=== PATIENT | male | born 1960 | race Caucasian/White ===

== ENCOUNTER 2022-05-07 21:23 | Inpatient (IN) ==
[2022-05-07 22:37] LABS: Appearance Urine Clear (Clear); Bacteria Urine Automated Negative (Negative); Bilirubin Urine 1+ (Negative); Blood Urine Negative (Negative); Color Urine Dark Yellow; Epithelial Cell Urine Auto >30 /lpf (0-5); Glucose Urine UA Negative (Negative); Ketones Urine 3+ (Negative); Leukocyte Esterase Urine Trace (Negative); Nitrite Urine Negative (Negative); Protein Urine 2+ (Negative); RBC Urine Automated 0-4 /hpf (0-4); Specific Gravity Urine 1.033 (1.000-1.030); Urobilinogen Urine Negative (Negative)
[2022-05-07 23:04] LABS: Amphetamines+Metham, Urine Neg (Neg); Barbiturates, Urine Neg (Neg); Benzodiazepine, Urine Neg (Neg); Cocaine, Urine Neg (Neg); MDMA (Ecstacy), Urine Neg (Neg); Methadone, Urine Neg (Neg); Opiate, Urine Neg (Neg); Phencyclidine, Urine Neg (Neg)
[2022-05-07 23:29] LABS: Basophils # (auto) 0.05 K/uL (0-0.2); Basophils % (auto) 0.3 %; Eosinophils # (auto) 0.14 K/uL (0-0.50); Eosinophils % (auto) 0.8 %; Hematocrit (blood only) 44.7 % (40.1-51.0); Hemoglobin 15.6 g/dl (14.0-18.0); Immature Granulocytes # (auto) 0.09 K/uL (0.00-0.02); Immature Granulocytes % (auto) 0.5 %; Lymphocytes # (auto) 3.28 K/uL (1.2-3.4); Lymphocytes % (auto) 19.1 %; Mean Corpuscular Hemoglobin 30.8 pg (25.0-34.0); Mean Corpuscular Hgb Conc 34.9 g/dL (32.0-36.0); Mean Corpuscular Volume 88.2 fL (80.0-100.0); Monocytes % (auto) 7.6 %; Neutrophils # (auto) 12.33 K/uL (1.4-6.5); Neutrophils % (auto) 71.7 %; Platelet Count 234 K/uL (130-400); RDW Coefficient of Variation 12.8 % (11.5-14.5); RDW Standard Deviation 41.1 fL (36.4-46.3); Red Blood Count 5.07 M/uL (4.63-6.08); White Blood Count 17.19 K/ul (4.8-10.8)
[2022-05-07 23:52] LABS: Alanine Aminotransferase 42 U/L (7-52); Albumin Globulin Ratio 1.6 (0.9-2); Albumin Level 4.4 gm/dl (3.4-5.0); Alkaline Phosphatase 57 U/L (34-104); Anion Gap 11 (3-11); Aspartate Aminotransferase 33 U/L (13-39); BUN Creatinine Ratio 16.7 (10-20); Bilirubin,Total 1.4 mg/dl (0.2-1.0); Blood Urea Nitrogen 13 mg/dl (6-23); Calcium 9.4 mg/dl (8.5-10.1); Carbon Dioxide 23 mmol/L (21-32); Chloride 101 mmol/L (98-107); Est GFR (African American) 112.1 ml/min; Est GFR (Non-African American) 96.7 ml/min; Globulin 2.8 gm/dl (2.5-4.0); Glucose 162 mg/dl (70-99(Fasting)); Potassium 3.5 mmol/L (3.5-5.1); Sodium 135 mmol/L (136-145); Total Protein 7.2 gm/dl (6.0-8.3)
[2022-05-07 23:53] LABS: Acetaminophen < 3 ug/ml (10-30); Salicylate < 3.0 mg/dl (3.0-30)
[2022-05-08] MEDS ORDERED: SODIUM CHLORIDE 0.9% 1000ML 1,000 ML IV ONE (00:25)
[2022-05-08] MEDS ORDERED: AMOXICILLIN/CLAVULANATE 875 MG TAB PO ONE (00:25)
--- NOTE | 2022-05-08 00:36 | Emergency Department Note ---
Impression & Plan Depression, Leukocytosis, Laceration of knee, right ED Provider Note NAME: JERARDO VELAZQUEZ AGE: 62 SEX: M ARRIVES VIA: Ambulance INFORMANT: Patient ED PROVIDER(S): Derik Schulte MD CHIEF COMPLAINT: Depression PLAN: Disposition: Inpatient psychiatric bed search. MEDICAL DECISION MAKING: The patient is a pleasant 62-year-old gentleman with a past medical history of hypertension, hyperlipidemia, GERD who presents to the emergency department via EMS for evaluation of depression that he reports has been ongoing for the past several weeks and he felt worse today where he he presented to the [facility] to see if he could be admitted. He denies active SI/plan but reports he is feeling hopeless. His also reported to our psychiatric case supervisor that he has been getting worse and feels he would benefit from psychiatric admission. He sow s a remote history in 2000 of psychiatric admission for depression but had been since taken off of his medications per his . 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 Since this episode she reports she has become paranoid that people are watching him and that the police are going to arrest him for stealing from the school which she is not. Of note, the patient was seen the emergency department yesterday after he became concerned when his reported chest pain and ran out to the road to seek help but fell onto his knee suffering a laceration. CT head and CXR were negative. His knee x-ray showed no fracture but suffered a laceration to his right knee that was repaired. Given the site overlying his knee with tension he was placed in a knee immobilizer to prevent dehiscence until his wound is better healed. He denies fevers, chills, cough, congestion, GI or symptoms. On arrival patient is no acute distress, afebrile with stable vital signs. He has a melancholy affect. He denies active SI/HI. He reports he feels depressed and hopeless. He is not sure what he needs. Examination of the patient's right knee from removal of the knee immobilizer demonstrates recently repaired knee laceration with sutures intact. There is scant localized erythema but no significant warmth tenderness and no discharge. There is no significant edema adjacent to this area. WBC 17.19K nonspecific and certainly could be related to a component of hemoconcentration as well as acute phase reactant given the patient's recent fall/laceration. H/H and platelets within normal limits. Chemistry without metabolic acidosis. Electrolytes and LFTs without significant abnormality. TSH within normal limits. UA without evidence of infection. 3+ ketones are noted consistent with patient's clinically dry appearance. Drug screen was negative. COVID-19 RNA, BUSHRA test was negative. Given the patient's leukocytosis we did agree to proceed with saline lock and IV fluid hydration with plan to repeat CBC thereafter. Additionally chest x-ray was ordered. Given the patient's laceration which did have gravel contamination but was thoroughly cleaned will treat with prophylactic Augmentin at this time. If not for the patient's depression management of his laceration and even follow-up for his leukocytosis would be considered outpatient management. Following IV fluid hydration the patient's CBC was repeated and leukocytosis did improve to 13.5 thus confirming suspicion of a component of hemoconcentration. The patient was medically cleared. Referrals pending. The patient was signed out to Dr. Cuevas at change of shift. Observation Note: Start Time: 2139 Reason: Patient with PMHx of DM underwent ED Observation for depression/bedsearch. Fam Hx: Non-contributory SocHx: See Below Assessment(s): The patient was medically cleared per above. Disposition and Total Time: See final disposition note. Triage Nursing notes reviewed and agree them. Prior medical records reviewed Differential diagnosis: Mood disorder, infection, hypoglycemia, electrolyte abnormalities, cardiac sources, intracerebral event, toxicologic, trauma, neurologic, as well as other pathologies. ER treatment provided: See below. Laboratory studies: See below Imaging studies: See below HPI: The patient is a pleasant 62-year-old gentleman with a past medical history of hypertension, hyperlipidemia, GERD who presents to the emergency department via EMS for evaluation of depression that he reports has been ongoing for the past several weeks and he felt worse today where he he presented to the [facility] to see if he could be admitted. He denies active SI/plan but reports he is feeling hopeless. His also reported to our psychiatric case supervisor that he has been getting worse and feels he would benefit from psychiatric admission. He has a remote history in 2000 of psychiatric admission for depression but had been since taken off of his medications per his . 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 Since this episode she reports she has become paranoid that people are watching him and that the police are going to arrest him for stealing from the school which she is not. Of note, the patient was seen the emergency department yesterday after he became concerned when his reported chest pain and ran out to the road to seek help but fell onto his knee suffering a laceration. CT head and CXR were negative. His knee x-ray showed no fracture but suffered a laceration to his right knee that was repair ed. Given the site overlying his knee with tension he was placed in a knee immobilizer to prevent dehiscence until his wound is better healed. He denies fevers, chills, cough, congestion, GI or symptoms. ROS: See above HPI for pertinent positives & negatives. A total of 10 systems reviewed and were otherwise negative. VITALS:See Below PHYSICAL EXAMINATION: GENERAL: Awake, alert, melancholy-appearing, in no distress HENT: Normocephalic, atraumatic. Oropharynx unremarkable. EYES: Normal conjunctiva. Sclera non-icteric. NECK: Supple. No nuchal rigidity. FROM. No JVD. RESPIRATORY: Clear to auscultation. CARDIAC: Regular rate, normal rhythm. Extremities warm and well perfused. Pulses equal. ABDOMEN: Soft, non-distended. No tenderness to palpation. No rebound or guarding. No masses. RECTAL: Deferred. MUSCULOSKELETAL: Chest examination reveals no tenderness. The back is symmetrical on inspection without obvious abnormality. There is no CVA tenderness to palpation. No joint edema. LOWER EXTREMITIES: Calves are equal size bilaterally and non-tender. No edema. No discoloration. NEURO: Normal sensorium. No sensory or motor deficits noted. SKIN: No rash or jaundice noted. Right knee with recently repaired knee laceration with sutures intact. There is scant localized erythema but no significant warmth tenderness and no discharge. There is no significant edema adjacent to this area. PSYCH: Reports depression and hopelessness. Denies SI/HI at this time. Denies auditory hallucinations. reports paranoid behaviors. Derik Schulte MD Past Med/Surg History Medical History GI bleeding HLD (hyperlipidemia) HTN (hypertension) Surgical History No pertinent past surgical history Family History Other Family history non-contributory Social History Smoking Status: Never smoker Tobacco Type: Cigarettes Hx Alcohol Use: Yes Hx Substance Use: No Preferred Language: [place] current occupational status: employed Feels Safe at Home: Yes Allergies Allergies Allergy/AdvReac Type Severity Reaction Status Date / Time No Known Allergies Allergy Verified 05/02/22 23:06 Home Meds Home Medications Medication Instructions Recorded Confirmed aspirin 81 mg tablet,delayed 81 mg PO DAILY 05/02/22 05/08/22 release atorvastatin 40 mg tablet 40 mg PO DAILY 05/02/22 05/08/22 eszopiclone 2 mg tablet 2 mg PO HS PRN Insomnia 05/02/22 05/08/22 fluoxetine 10 mg capsule 10 mg PO QAM 05/02/22 05/08/22 fluticasone propionate 50 2 spray intranasal DAILY PRN 05/02/22 05/08/22 mcg/actuation nasal Congestion spray,suspension lisinopril 10 mg tablet 10 mg PO DAILY 05/02/22 05/08/22 metformin 500 mg tablet,extended 2,000 mg PO QAM 05/02/22 05/08/22 release 24 hr multivitamin 1 tab PO DAILY 05/02/22 05/08/22 omeprazole 20 mg capsule,delayed 20 mg PO DAILYBB 05/02/22 05/08/22 release semaglutide 1 mg/dose (4 mg/3 mL) 0.5 mg subcut WK 05/02/22 05/08/22 subcutaneous pen injector (Ozempic) sitagliptin 100 mg tablet (Januvia) 100 mg PO DAILY 05/02/22 05/08/22 trazodone 50 mg tablet 50 mg PO HS 05/02/22 05/08/22 Previous Rx's Medication Instructions Recorded meclizine 25 mg tablet 25 mg PO TID PRN dizziness #30 tabs 05/03/22 hydroxyzine pamoate 50 mg capsule 50 mg PO Q8H PRN sleep/anxiety #15 05/05/22 (Vistaril) caps amoxicillin 875 mg-potassium 1 tab PO BID #14 tabs 05/08/22 clavulanate 125 mg tablet Results & Data (ED) Vital Signs Vital Signs - 24 hr 05/07/22 21:33 05/07/22 21:33 05/07/22 23:43 Temperature 36.9 C 36.9 C Temperature Source Oral Oral Pulse Rate 98 H Pulse Rate [Left Finger] 98 H 94 H Pulse Rhythm Regular Pulse Rhythm [Left Finger] Regular Pulse Strength [Left Finger] Normal Respiratory Rate 18 18 18 Respiratory Effort / Characteristics Non-Labored Spontaneous Non-Labored Spontaneous Respiratory Depth Normal Normal Blood Pressure 173/99 H Blood Pressure [Left Arm] 173/99 H 151/81 H Blood Pressure Mean 123 Blood Pressure Mean [Left Arm] 123 104 Blood Pressure Position Sitting Blood Pressure Position [Left Arm] Sitting Pulse Oximetry 96 96 97 Oxygen Delivery Method Room Air Room Air Room Air Sepsis Recent Fever Within 48 Hours No Sepsis New/Unexplained Change in Mental Status N/A Sepsis Action Taken by Nursing No Action Required 05/08/22 04:00 05/08/22 04:07 Temperature 37.3 C Temperature Source Oral Pulse Rate Pulse Rate [Left Finger] 80 Pulse Rhythm Pulse Rhythm [Left Finger] Pulse Strength [Left Finger] Respiratory Rate 18 Respiratory Effort / Characteristics Non-Labored Spontaneous Respiratory Depth Normal Blood Pressure Blood Pressure [Left Arm] 156/88 H Blood Pressure Mean Blood Pressure Mean [Left Arm] 110 Blood Pressure Position Blood Pressure Position [Left Arm] Pulse Oximetry 95 Oxygen Delivery Method Room Air Room Air Sepsis Recent Fever Within 48 Hours Sepsis New/Unexplained Change in Mental Status Sepsis Action Taken by Nursing Laboratory Data Attestation: I reviewed the patient's lab results. Result diagrams: 05/08/22 01:55 05/07/22 22:35 Lab Results 05/07/22 05/07/22 05/07/22 Range/Units 22:18 22:18 22:35 WBC 17.19 H (4.8-10.8) K/ul RBC 5.07 (4.63-6.08) M/uL Hgb 15.6 (14.0-18.0) g/dl Hct 44.7 (40.1-51.0) % MCV 88.2 (80.0-100.0) fL MCH 30.8 (25.0-34.0) pg MCHC 34.9 (32.0-36.0) g/dL RDW Std Deviation 41.1 (36.4-46.3) fL RDW Coeff of Janes 12.8 (11.5-14.5) % Plt Count 234 (130-400) K/uL MPV 10.0 (9.4-12.4) fL Immature Gran % (Auto) 0.5 % Neut % (Auto) 71.7 % Lymph % (Auto) 19.1 % [place] % (Auto) 7.6 % Eos % (Auto) 0.8 % Baso % (Auto) 0.3 % Neut # (Auto) 12.33 H (1.4-6.5) K/uL Lymph # (Auto) 3.28 (1.2-3.4) K/uL [place] # (Auto) 1.30 H (0.24-0.82) K/uL Eos # (Auto) 0.14 (0-0.50) K/uL Baso # (Auto) 0.05 (0-0.2) K/uL Immature Gran # (Auto) 0.09 H (0.00-0.02) K/uL Sodium (136-145) mmol/L Potassium (3.5-5.1) mmol/L Chloride (98-107) mmol/L Carbon Dioxide (21-32) mmol/L Anion Gap (3-11) BUN (6-23) mg/dl Creatinine (0.6-1.4) mg/dl Est Cr Clr Drug Dosing Est GFR ( Amer) ml/min Est GFR (Non-Af Amer) ml/min BUN/Creatinine Ratio (10-20) Glucose (70-99(Fasting)) mg/dl Calcium (8.5-10.1) mg/dl Total Bilirubin (0.2-1.0) mg/dl AST (13-39) U/L ALT (7-52) U/L Alkaline Phosphatase (34-104) U/L Total Protein (6.0-8.3) gm/dl Albumin (3.4-5.0) gm/dl Globulin (2.5-4.0) gm/dl Albumin/Globulin Ratio (0.9-2) TSH (0.300-4.500) uIu/ml Urine Color Dark Yellow Urine Appearance Clear (Clear) Urine pH 6.0 (4.5-7.5) Ur Specific [place] 1.033 H (1.000-1.030) Urine Protein 2+ H (Negative) Urine Glucose (UA) Negative (Negative) Urine Ketones 3+ H (Negative) Urine Blood Negative (Negative) Urine Nitrite Negative (Negative) Urine Bilirubin 1+ H (Negative) Urine Urobilinogen Negative (Negative) Ur Leukocyte Esterase Trace H (Negative) Urine WBC (Auto) 1-5 (0-5) /hpf Urine RBC (Auto) 0-4 (0-4) /hpf U Hyaline Cast (Auto) 10-30 H (0-5) /lpf U Epithel Cells (Auto) >30 H (0-5) /lpf Urine Bacteria (Auto) Negative (Negative) Salicylates (3.0-30) mg/dl Urine Opiates Screen Neg (Neg) Ur Methadone, Qual Neg (Neg) Acetaminophen (10-30) ug/ml Urine Barbiturates Neg (Neg) Ur Phencyclidine (PCP) Neg (Neg) U Amphetamin/Meth Scrn Neg (Neg) MDMA (Ecstasy) Screen Neg (Neg) U Benzodiazepines Scrn Neg (Neg) Ur Cocaine Metabolite Neg (Neg) U Marijuana (THC) Screen Neg (Neg) Ethyl Alcohol mg/dL (<10.0) mg/dl SARS-CoV-2, RNA, NAAT (NEGATIVE) 05/07/22 05/07/22 05/07/22 Range/Units 22:35 22:35 22:35 WBC (4.8-10.8) K/ul RBC (4.63-6.08) M/uL Hgb (14.0-18.0) g/dl Hct (40.1-51.0) % MCV (80.0-100.0) fL MCH (25.0-34.0) pg MCHC (32.0-36.0) g/dL RDW Std Deviation (36.4-46.3) fL RDW Coeff of Janes (11.5-14.5) % Plt Count (130-400) K/uL MPV (9.4-12.4) fL Immature Gran % (Auto) % Neut % (Auto) % Lymph % (Auto) % [place] % (Auto) % Eos % (Auto) % Baso % (Auto) % Neut # (Auto) (1.4-6.5) K/uL Lymph # (Auto) (1.2-3.4) K/uL [place] # (Auto) (0.24-0.82) K/uL Eos # (Auto) (0-0.50) K/uL Baso # (Auto) (0-0.2) K/uL Immature Gran # (Auto) (0.00-0.02) K/uL Sodium 135 L (136-145) mmol/L Potassium 3.5 (3.5-5.1) mmol/L Chloride 101 (98-107) mmol/L Carbon Dioxide 23 (21-32) mmol/L Anion Gap 11 (3-11) BUN 13 (6-23) mg/dl Creatinine 0.78 (0.6-1.4) mg/dl Est Cr Clr Drug Dosing Not Reportable Est GFR ( Amer) 112.1 ml/min Est GFR (Non-Af Amer) 96.7 ml/min BUN/Creatinine Ratio 16.7 (10-20) Glucose 162 H (70-99(Fasting)) mg/dl Calcium 9.4 (8.5-10.1) mg/dl Total Bilirubin 1.4 H (0.2-1.0) mg/dl AST 33 (13-39) U/L ALT 42 (7-52) U/L Alkaline Phosphatase 57 (34-104) U/L Total Protein 7.2 (6.0-8.3) gm/dl Albumin 4.4 (3.4-5.0) gm/dl Globulin 2.8 (2.5-4.0) gm/dl Albumin/Globulin Ratio 1.6 (0.9-2) TSH 1.069 (0.300-4.500) uIu/ml Urine Color Urine Appearance (Clear) Urine pH (4.5-7.5) Ur Specific [place] (1.000-1.030) Urine Protein (Negative) Urine Glucose (UA) (Negative) Urine Ketones (Negative) Urine Blood (Negative) Urine Nitrite (Negative) Urine Bilirubin (Negative) Urine Urobilinogen (Negative) Ur Leukocyte Esterase (Negative) Urine WBC (Auto) (0-5) /hpf Urine RBC (Auto) (0-4) /hpf U Hyaline Cast (Auto) (0-5) /lpf U Epithel Cells (Auto) (0-5) /lpf Urine Bacteria (Auto) (Negative) Salicylates < 3.0 L (3.0-30) mg/dl Urine Opiates Screen (Neg) Ur Methadone, Qual (Neg) Acetaminophen < 3 L (10-30) ug/ml Urine Barbiturates (Neg) Ur Phencyclidine (PCP) (Neg) U Amphetamin/Meth Scrn (Neg) MDMA (Ecstasy) Screen (Neg) U Benzodiazepines Scrn (Neg) Ur Cocaine Metabolite (Neg) U Marijuana (THC) Screen (Neg) Ethyl Alcohol mg/dL (<10.0) mg/dl SARS-CoV-2, RNA, NAAT (NEGATIVE) 05/07/22 05/07/22 05/08/22 Range/Units 22:35 Unknown 01:55 WBC 13.53 H (4.8-10.8) K/ul RBC 4.62 L (4.63-6.08) M/uL Hgb 14.3 (14.0-18.0) g/dl Hct 40.5 (40.1-51.0) % MCV 87.7 (80.0-100.0) fL MCH 31.0 (25.0-34.0) pg MCHC 35.3 (32.0-36.0) g/dL RDW Std Deviation 40.7 (36.4-46.3) fL RDW Coeff of Janes 12.8 (11.5-14.5) % Plt Count 212 (130-400) K/uL MPV 10.0 (9.4-12.4) fL Immature Gran % (Auto) 0.4 % Neut % (Auto) 68.0 % Lymph % (Auto) 21.8 % [place] % (Auto) 7.7 % Eos % (Auto) 1.7 % Baso % (Auto) 0.4 % Neut # (Auto) 9.20 H (1.4-6.5) K/uL Lymph # (Auto) 2.95 (1.2-3.4) K/uL [place] # (Auto) 1.04 H (0.24-0.82) K/uL Eos # (Auto) 0.23 (0-0.50) K/uL Baso # (Auto) 0.06 (0-0.2) K/uL Immature Gran # (Auto) 0.05 H (0.00-0.02) K/uL Sodium (136-145) mmol/L Potassium (3.5-5.1) mmol/L Chloride (98-107) mmol/L Carbon Dioxide (21-32) mmol/L Anion Gap (3-11) BUN (6-23) mg/dl Creatinine (0.6-1.4) mg/dl Est Cr Clr Drug Dosing Est GFR ( Amer) ml/min Est GFR (Non-Af Amer) ml/min BUN/Creatinine Ratio (10-20) Glucose (70-99(Fasting)) mg/dl Calcium (8.5-10.1) mg/dl Total Bilirubin (0.2-1.0) mg/dl AST (13-39) U/L ALT (7-52) U/L Alkaline Phosphatase (34-104) U/L Total Protein (6.0-8.3) gm/dl Albumin (3.4-5.0) gm/dl Globulin (2.5-4.0) gm/dl Albumin/Globulin Ratio (0.9-2) TSH (0.300-4.500) uIu/ml Urine Color Urine Appearance (Clear) Urine pH (4.5-7.5) Ur Specific [place] (1.000-1.030) Urine Protein (Negative) Urine Glucose (UA) (Negative) Urine Ketones (Negative) Urine Blood (Negative) Urine Nitrite (Negative) Urine Bilirubin (Negative) Urine Urobilinogen (Negative) Ur Leukocyte Esterase (Negative) Urine WBC (Auto) (0-5) /hpf Urine RBC (Auto) (0-4) /hpf U Hyaline Cast (Auto) (0-5) /lpf U Epithel Cells (Auto) (0-5) /lpf Urine Bacteria (Auto) (Negative) Salicylates (3.0-30) mg/dl Urine Opiates Screen (Neg) Ur Methadone, Qual (Neg) Acetaminophen (10-30) ug/ml Urine Barbiturates (Neg) Ur Phencyclidine (PCP) (Neg) U Amphetamin/Meth Scrn (Neg) MDMA (Ecstasy) Screen (Neg) U Benzodiazepines Scrn (Neg) Ur Cocaine Metabolite (Neg) U Marijuana (THC) Screen (Neg) Ethyl Alcohol mg/dL < 10.0 (<10.0) mg/dl SARS-CoV-2, RNA, NAAT NEGATIVE (NEGATIVE) Administered Medications Discontinued Medications Amoxicillin/Clavulanate Potassium (Amoxicillin/Clavulanate 875 Mg Tab) 1 tab PO NOW ONE Stop: 05/08/22 00:26 Last Admin: 05/08/22 00:34 Dose: 1 tab Documented By: DEE Sodium Chloride (Nss 1000ml) 1,000 mls @ 999 mls/hr IV .Q1H1M ONE Stop: 05/08/22 01:25 Last Infusion: 05/08/22 01:41 Dose: 0 mls/hr Documented By: Admin: 05/08/22 00:34 Dose: 999 mls/hr Documented By: DEE Imaging Data My Impression: CXR: No acute cardiopulmonary process per my preliminary review. Discharge Plan Visit Data Chief Complaint: Mental Health Evaluation ED Provider: Derik Schulte Discharge Problem: Depression, Leukocytosis, Laceration of knee, right Patient Disposition: Admitted As Inpatient Discharge Instructions Interventions: ED Discharge Assessment Last Done: 05/08/22 04:07 : Laceration of knee, right Qualifiers: Encounter type: subsequent encounter Qualified Code(s): S81.011D - Laceration without foreign body, right knee, subsequent encounter
[2022-05-08 02:09] LABS: Basophils # (auto) 0.06 K/uL (0-0.2); Basophils % (auto) 0.4 %; Eosinophils # (auto) 0.23 K/uL (0-0.50); Eosinophils % (auto) 1.7 %; Hematocrit (blood only) 40.5 % (40.1-51.0); Hemoglobin 14.3 g/dl (14.0-18.0); Immature Granulocytes # (auto) 0.05 K/uL (0.00-0.02); Immature Granulocytes % (auto) 0.4 %; Lymphocytes # (auto) 2.95 K/uL (1.2-3.4); Lymphocytes % (auto) 21.8 %; Mean Corpuscular Hgb Conc 35.3 g/dL (32.0-36.0); Mean Corpuscular Volume 87.7 fL (80.0-100.0); Monocytes # (auto) 1.04 K/uL (0.24-0.82); Monocytes % (auto) 7.7 %; Platelet Count 212 K/uL (130-400); RDW Coefficient of Variation 12.8 % (11.5-14.5); RDW Standard Deviation 40.7 fL (36.4-46.3); Red Blood Count 4.62 M/uL (4.63-6.08); White Blood Count 13.53 K/ul (4.8-10.8)
[2022-05-08] MEDS ORDERED: MECLIZINE HCL 25 MG TAB PO PRN ×2 (02:27→06:09)
[2022-05-08] MEDS ORDERED: FLUTICASONE PROPIONATE NA SPR 16 GM BTL PRN (02:27)
[2022-05-08] MEDS ORDERED: hydrOXYzine HCl 25 MG TAB PO PRN ×2 (02:27→03:51)
[2022-05-08] MEDS ORDERED: ALUMINUM/MAGNESIUM SUSP 30 ML UDC PO PRN (03:51)
[2022-05-08] MEDS ORDERED: BISMUTH SUBSALICYLATE LIQD 236 ML PO PRN (03:51)
[2022-05-08] MEDS ORDERED: MAGNESIUM HYDROXIDE SUSP 30 ML UDC PO PRN (03:51)
[2022-05-08] MEDS ORDERED: SODIUM CHLORIDE 0.65% NA SOLN 45 ML (OCEAN) PRN (03:51)
[2022-05-08] MEDS ORDERED: NON-FORMULARY MEDICATION (Omeprazole 20 mg capsule,delayed release(DR/EC)) PO SCH (06:30)
[2022-05-08] MEDS: PANTOprazole 40 MG TAB PO SCH (08:18)
--- NOTE | 2022-05-08 08:34 | Emergency Department Note ---
ED Visit Note Patient signed out to me at change of shift from Dr. Schulte. Patient here with depression, passive suicidal ideation, and prior history of mental health treatment. Patient was found to also have accompanying paranoid behavior today. At time of signout patient was medically cleared, and was awaiting final disposition. Overnight patient was accepted for inpatient mental health treatment at [address] signed by me. . : Laceration of knee, right Qualifiers: Encounter type: subsequent encounter Qualified Code(s): S81.011D - Laceration without foreign body, right knee, subsequent encounter
[2022-05-08] MEDS: lisinopril 10 MG TAB PO SCH (08:41)
[2022-05-08] MEDS: ATORVASTATIN 40 MG TAB PO SCH (08:42)
[2022-05-08] MEDS: ASPIRIN 81 MG ECTAB PO SCH (08:42)
[2022-05-08] MEDS: MULTIVITAMIN TAB PO SCH (08:42)
[2022-05-08] MEDS: SITagliptin PHOSPHATE 100 MG TAB PO SCH (08:42)
[2022-05-08] MEDS: AMOXICILLIN/CLAVULANATE 875 MG TAB PO SCH ×2 (08:42→17:13)
[2022-05-08] MEDS ORDERED: FLUoxetine HCL 10 MG CAP PO SCH (09:00)
[2022-05-08] MEDS ORDERED: ATORVASTATIN 40 MG TAB PO SCH (09:00)
[2022-05-08] MEDS ORDERED: ASPIRIN 81 MG ECTAB PO SCH (09:00)
[2022-05-08] MEDS ORDERED: AMOXICILLIN/CLAVULANATE 875 MG TAB PO SCH (09:00)
[2022-05-08] MEDS ORDERED: lisinopril 10 MG TAB PO SCH (09:00)
[2022-05-08] MEDS ORDERED: SITagliptin PHOSPHATE 100 MG TAB PO SCH (09:00)
[2022-05-08] MEDS ORDERED: metFORMIN HCL ER 500 MG TABCR PO SCH ×2 (09:00→21:00)
[2022-05-08] MEDS ORDERED: NON-FORMULARY MEDICATION (Multivitamin Tablet) PO SCH (09:00)
--- NOTE | 2022-05-08 09:38 | XRay Report ---
SINGLE VIEW CHEST CLINICAL HISTORY: Leukocytosis FINDINGS: 2 AP, portable, semierect chest radiographs are compared to study dated 05/02/2022. The car diomediastinal silhouette is top normal for projection. The lungs and pleural spaces are clear. No pn eumothorax is seen. The bony thorax is grossly intact. A metallic foreign body is seen in the left up per quadrant abdominal wall. IMPRESSION: No active disease in the chest. ACT 112: Negative or not required by law. Electronically signed by: Ian Hui M.D. 05/08/2022 9:37 AM
--- NOTE | 2022-05-08 12:44 | History & Physical ---
Date of Service May 08, 2022 Impression / Recommendations Impression 62 yo male with a remote history of depression presents with several week history of personality change, depressed mood, impulsive anger, and ruminations over items he has taken from the trash at school which has escalated to paranoia. It is our understanding he has to park in a set area and his coming/going from school are being monitored due to safety protocol with coworker following a 2 week leave but there is no active legal charge. MNPR given wound, hx of possible HI in community, disorganization. (1) Depression: (2) Laceration of knee: (3) Leukocytosis: Plan The patient was admitted to the [facility] ([facility] unit) on q15 min checks (behavioral with suicide precautions) for safety. The patient will participate in group, recreational, and milieu therapies and will be offered additional individual and family sessions as clinically appropriate. Risks/benefits/alternatives were reviewed re: antipsychotics for mood and/or psychosis. Psychotic depression vs. mixed episode. Discussion included but was not limited to metabolic side effects, risks of TD and suicidal thoughts. There were no abnormal motor movements at baseline. Fasting lipid panel and HgbA1c ordered for baseline monitoring and will repeat CBC. Continue course of prophylactic Augmentin as per ED. Patient agreed to a trial of Seroquel 50 mg qhs with 12.5 mg q 6 prn daytime anxiety with likely titration. Will add B12 and folate in case early cognitive change and consider additional head imaging as outpatient. 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 Chief Complaint "I don't know why I needed those things but they were just going to throw them away and now I ruined my 's chcf." History of Present Illness Mr. Rodarte presented to the ED yesterday pm on referral from the [facility]. He was described as ED CM as tangential/difficult to follow. Apparently had a remote history of depression but feels this episode is more mixed, he feels compelled to buy things he doesn't need (motorcycle parts) or to take items that would otherwise be thrown away from the school. "I don't know why I make things up." to make up for his guilt as he is paranoid and thinks that he is in legal trouble with school ( confirms he is not). 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 He was placed on a 2 week forced leave following a verbal altercation with a coworker. It's unclear if he made a direct threat but mentioned his firearms and he does own an assault rifle. He denies intent or plan to harm himself or others but adds "I just don't understand what is going on." He has endorsed poor sleep, appetite, feeling hopeless, poor concentration and is not attending to his ADLs, diabetes routine. He is currently ambulating with crutches (not allowed on unit) and wearing a knee immobilizer as he has 12+ sutures in his knee from a fall 2 days prior to admission. He states he got "so worked up that I headed outside and just went down." Past Psychiatric History Current Psychiatric Diagnosis: MDD Outpatient Services: none currently Previous Psych Admissions: [facility] 20 years ago+ for depression Do You Have Access To A Gun?: Yes (collects guns) History of Previous Suicide Attempt: No Past Medication Trials: unsure, took Prozac 10 mg for 2 weeks recently and stopped as "didn't help", trazodone, Lunesta. Allergies Allergy/AdvReac Type Severity Reaction Status Date / Time No Known Allergies Allergy Verified 05/02/22 23:06 Home Medications Medication Instructions Recorded Confirmed Type aspirin 81 mg tablet,delayed 81 mg PO DAILY 05/02/22 05/08/22 History release atorvastatin 40 mg tablet 40 mg PO DAILY 05/02/22 05/08/22 History eszopiclone 2 mg tablet 2 mg PO HS PRN Insomnia 05/02/22 05/08/22 History fluoxetine 10 mg capsule 10 mg PO QAM 05/02/22 05/08/22 History fluticasone propionate 50 2 spray intranasal DAILY PRN 05/02/22 05/08/22 History mcg/actuation nasal Congestion spray,suspension lisinopril 10 mg tablet 10 mg PO DAILY 05/02/22 05/08/22 History metformin 500 mg tablet,extended 2,000 mg PO QAM 05/02/22 05/08/22 History release 24 hr multivitamin 1 tab PO DAILY 05/02/22 05/08/22 History omeprazole 20 mg capsule,delayed 20 mg PO DAILYBB 05/02/22 05/08/22 History release semaglutide 1 mg/dose (4 mg/3 mL) 0.5 mg subcut WK 05/02/22 05/08/22 History subcutaneous pen injector (Ozempic) sitagliptin 100 mg tablet (Januvia) 100 mg PO DAILY 05/02/22 05/08/22 History trazodone 50 mg tablet 50 mg PO HS 05/02/22 05/08/22 History meclizine 25 mg tablet 25 mg PO TID PRN dizziness #30 tabs 05/03/22 05/08/22 Rx hydroxyzine pamoate 50 mg capsule 50 mg PO Q8H PRN sleep/anxiety #15 05/05/22 05/08/22 Rx (Vistaril) caps amoxicillin 875 mg-potassium 1 tab PO BID #14 tabs 05/08/22 Rx clavulanate 125 mg tablet Family History Family History of: Doesn't Know Family Mental Health History Comment: found brother age 9 Alcohol History Hx of Alcohol Use Over the Past 12 Months: Yes (1-2 beers per year) Smoking Use Have You Smoked or Used Tobacco Products in the Last 30 Days: Yes tobacco type: e-cigarettes Smoking Status: Current every day smoker Smoking packs per day: 2 Substance History Hx of Prescription Med Misuse Over the Past 12 Months: No Hx of Over the Counter Med Misuse Over the Past 12 Months: No Hx of Inhalent Misuse Over the Past 12 Months: No Hx of Organic Substance Use Over the Past 12 Months: No Hx of Illegal Substances/Street Drug Use Over Past 12 Months: Yes (THC) Problems as a Result of Past Substance Use: Job Loss, Relationships Ended and Attempted Suicide Personal History Living Arrangements: Home Highest Grade Completed: Did Not Graduate High School 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 Marital Status: Number Of Children: 2 Beliefs That Will Affect Care: Anabaptist Current Legal Problems: No Patient History Medical History GI bleeding HLD (hyperlipidemia) HTN (hypertension) Surgical History No pertinent past surgical history Family History Other Family history non-contributory Social History Smoking Status: Current every day smoker Tobacco Type: Cigarettes Hx Alcohol Use: Yes Hx Substance Use: No Preferred Language: Slovenian Communication Ability: Effective 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: No Beliefs That Will Affect Care: Anabaptist current occupational status: employed Feels Safe at Home: Yes Assistive Devices: Brace/Splint/Immobilizer Review of Systems Review of Systems: All systems reviewed & are unremarkable except as noted in HPI & below Physical Exam Psychiatric: Orientation: alert and oriented x 3 Apperance: appropriately groomed Eye Contact: + fair eye contact Motor Behavior: no abnormal motor movements Speech: normal rate/rhythm/volume of speech Affect: + depressed affect Mood: + depressed mood Thought Process: + circumstantial thought process and + tangential thought process Thought Content: + preoccupation and + paranoid Suicidal Thoughts: denies suicidal thoughts Homicidal Thoughts: denies homicidal thoughts Hallucinations: no auditory hallucinations and no visual hallucinations Cognition: language grossly intact; + attention not intact Estimated Intelligence: consistent with education level Insight: + limited insight Judgement: + limited judgement Vital Signs (Past 24 Hours): Last Vital Signs Temp 36.9 C 05/08/22 06:34 Pulse 96 H 05/08/22 06:37 Resp 18 05/08/22 06:34 BP 150/91 H 05/08/22 06:37 Pulse Ox 99 05/08/22 04:13 O2 Del Method 05/08/22 04:13 O2 Flow Rate 19 05/08/22 04:13 Exam Statement: A physical exam was performed in the ED by Dr. Schulte for the purposes of medical clearance. I accept that physical as correct and adequate for the purposes of the inpatient physical exam. Results & Data ([facility]) Laboratory Results Laboratory Results - last 24 hr 05/07/22 05/07/22 05/07/22 22:18 22:18 22:35 WBC 17.19 H RBC 5.07 Hgb 15.6 Hct 44.7 MCV 88.2 MCH 30.8 MCHC 34.9 RDW Std Deviation 41.1 RDW Coeff of Janes 12.8 Plt Count 234 MPV 10.0 Immature Gran % (Auto) 0.5 Neut % (Auto) 71.7 Lymph % (Auto) 19.1 Marshall % (Auto) 7.6 Eos % (Auto) 0.8 Baso % (Auto) 0.3 Neut # (Auto) 12.33 H Lymph # (Auto) 3.28 Marshall # (Auto) 1.30 H Eos # (Auto) 0.14 Baso # (Auto) 0.05 Immature Gran # (Auto) 0.09 H Sodium Potassium Chloride Carbon Dioxide Anion Gap BUN Creatinine Est Cr Clr Drug Dosing Est GFR ( Amer) Est GFR (Non-Af Amer) BUN/Creatinine Ratio Glucose POC Glucose Calcium Total Bilirubin AST ALT Alkaline Phosphatase Total Protein Albumin Globulin Albumin/Globulin Ratio TSH Urine Color Dark Yellow Urine Appearance Clear Urine pH 6.0 Ur Specific Lynwood 1.033 H Urine Protein 2+ H Urine Glucose (UA) Negative Urine Ketones 3+ H Urine Blood Negative Urine Nitrite Negative Urine Bilirubin 1+ H Urine Urobilinogen Negative Ur Leukocyte Esterase Trace H Urine WBC (Auto) 1-5 Urine RBC (Auto) 0-4 U Hyaline Cast (Auto) 10-30 H U Epithel Cells (Auto) >30 H Urine Bacteria (Auto) Negative Salicylates Urine Opiates Screen Neg Ur Methadone, Qual Neg Acetaminophen Urine Barbiturates Neg Ur Phencyclidine (PCP) Neg U Amphetamin/Meth Scrn Neg MDMA (Ecstasy) Screen Neg U Benzodiazepines Scrn Neg Ur Cocaine Metabolite Neg U Marijuana (THC) Screen Neg Ethyl Alcohol mg/dL SARS-CoV-2, RNA, NAAT 05/07/22 05/07/22 05/07/22 22:35 22:35 22:35 WBC RBC Hgb Hct MCV MCH MCHC RDW Std Deviation RDW Coeff of Janes Plt Count MPV Immature Gran % (Auto) Neut % (Auto) Lymph % (Auto) Marshall % (Auto) Eos % (Auto) Baso % (Auto) Neut # (Auto) Lymph # (Auto) Marshall # (Auto) Eos # (Auto) Baso # (Auto) Immature Gran # (Auto) Sodium 135 L Potassium 3.5 Chloride 101 Carbon Dioxide 23 Anion Gap 11 BUN 13 Creatinine 0.78 Est Cr Clr Drug Dosing Not Reportable Est GFR ( Amer) 112.1 Est GFR (Non-Af Amer) 96.7 BUN/Creatinine Ratio 16.7 Glucose 162 H POC Glucose Calcium 9.4 Total Bilirubin 1.4 H AST 33 ALT 42 Alkaline Phosphatase 57 Total Protein 7.2 Albumin 4.4 Globulin 2.8 Albumin/Globulin Ratio 1.6 TSH 1.069 Urine Color Urine Appearance Urine pH Ur Specific [place] Urine Protein Urine Glucose (UA) Urine Ketones Urine Blood Urine Nitrite Urine Bilirubin Urine Urobilinogen Ur Leukocyte Esterase Urine WBC (Auto) Urine RBC (Auto) U Hyaline Cast (Auto) U Epithel Cells (Auto) Urine Bacteria (Auto) Salicylates < 3.0 L Urine Opiates Screen Ur Methadone, Qual Acetaminophen < 3 L Urine Barbiturates Ur Phencyclidine (PCP) U Amphetamin/Meth Scrn MDMA (Ecstasy) Screen U Benzodiazepines Scrn Ur Cocaine Metabolite U Marijuana (THC) Screen Ethyl Alcohol mg/dL SARS-CoV-2, RNA, NAAT 05/07/22 05/07/22 05/08/22 22:35 Unknown 01:55 WBC 13.53 H RBC 4.62 L Hgb 14.3 Hct 40.5 MCV 87.7 MCH 31.0 MCHC 35.3 RDW Std Deviation 40.7 RDW Coeff of Janes 12.8 Plt Count 212 MPV 10.0 Immature Gran % (Auto) 0.4 Neut % (Auto) 68.0 Lymph % (Auto) 21.8 Marshall % (Auto) 7.7 Eos % (Auto) 1.7 Baso % (Auto) 0.4 Neut # (Auto) 9.20 H Lymph # (Auto) 2.95 Marshall # (Auto) 1.04 H Eos # (Auto) 0.23 Baso # (Auto) 0.06 Immature Gran # (Auto) 0.05 H Sodium Potassium Chloride Carbon Dioxide Anion Gap BUN Creatinine Est Cr Clr Drug Dosing Est GFR ( Amer) Est GFR (Non-Af Amer) BUN/Creatinine Ratio Glucose POC Glucose Calcium Total Bilirubin AST ALT Alkaline Phosphatase Total Protein Albumin Globulin Albumin/Globulin Ratio TSH Urine Color Urine Appearance Urine pH Ur Specific [place] Urine Protein Urine Glucose (UA) Urine Ketones Urine Blood Urine Nitrite Urine Bilirubin Urine Urobilinogen Ur Leukocyte Esterase Urine WBC (Auto) Urine RBC (Auto) U Hyaline Cast (Auto) U Epithel Cells (Auto) Urine Bacteria (Auto) Salicylates Urine Opiates Screen Ur Methadone, Qual Acetaminophen Urine Barbiturates Ur Phencyclidine (PCP) U Amphetamin/Meth Scrn MDMA (Ecstasy) Screen U Benzodiazepines Scrn Ur Cocaine Metabolite U Marijuana (THC) Screen Ethyl Alcohol mg/dL < 10.0 SARS-CoV-2, RNA, NAAT NEGATIVE 05/08/22 05/08/22 07:59 12:14 WBC RBC Hgb Hct MCV MCH MCHC RDW Std Deviation RDW Coeff of Janes Plt Count MPV Immature Gran % (Auto) Neut % (Auto) Lymph % (Auto) Marshall % (Auto) Eos % (Auto) Baso % (Auto) Neut # (Auto) Lymph # (Auto) Marshall # (Auto) Eos # (Auto) Baso # (Auto) Immature Gran # (Auto) Sodium Potassium Chloride Carbon Dioxide Anion Gap BUN Creatinine Est Cr Clr Drug Dosing Est GFR ( Amer) Est GFR (Non-Af Amer) BUN/Creatinine Ratio Glucose POC Glucose 145 H 141 H Calcium Total Bilirubin AST ALT Alkaline Phosphatase Total Protein Albumin Globulin Albumin/Globulin Ratio TSH Urine Color Urine Appearance Urine pH Ur Specific [place] Urine Protein Urine Glucose (UA) Urine Ketones Urine Blood Urine Nitrite Urine Bilirubin Urine Urobilinogen Ur Leukocyte Esterase Urine WBC (Auto) Urine RBC (Auto) U Hyaline Cast (Auto) U Epithel Cells (Auto) Urine Bacteria (Auto) Salicylates Urine Opiates Screen Ur Methadone, Qual Acetaminophen Urine Barbiturates Ur Phencyclidine (PCP) U Amphetamin/Meth Scrn MDMA (Ecstasy) Screen U Benzodiazepines Scrn Ur Cocaine Metabolite U Marijuana (THC) Screen Ethyl Alcohol mg/dL SARS-CoV-2, RNA, NAAT Current Inpatient Medications Current Inpatient Medications: Current Inpatient Medications Acetaminophen (Acetaminophen 325 Mg Tab) 650 mg PO Q4H PRN PRN Reason: Headache or Minor Fever Stop: 06/07/22 03:50 Al Hydrox/Mg Hydrox/Simethicone (Aluminum/Magnesium Susp 30 Ml Udc) 30 ml PO Q4H PRN PRN Reason: GI Upset Stop: 06/07/22 03:50 Amoxicillin/Clavulanate Potassium (Amoxicillin/Clavulanate 875 Mg Tab) 1 tab PO BIDM [facility] Stop: 05/15/22 08:55 Last Admin: 05/08/22 08:42 Dose: 1 tab Aspirin (Aspirin 81 Mg Ectab) [facility] Stop: 06/07/22 08:59 Last Admin: 05/08/22 08:42 Dose: 81 mg Atorvastatin Calcium (Atorvastatin 40 Mg Tab) 40 mg PO QAM [facility] Stop: 06/07/22 08:59 Last Admin: 05/08/22 08:42 Dose: 40 mg Bismuth Subsalicylate (Bismuth Subsalicylate Liqd 236 Ml) 15 ml PO PRN PRN PRN Reason: Loose Stool Stop: 06/07/22 03:50 Hydroxyzine HCl (Hydroxyzine Hcl 25 Mg Tab) 25 mg PO Q4H PRN PRN Reason: Anxiety Stop: 06/07/22 03:50 Lisinopril (Lisinopril 10 Mg Tab) [facility] Stop: 06/07/22 08:59 Last Admin: 05/08/22 08:41 Dose: 10 mg Magnesium Hydroxide (Magnesium Hydroxide Susp 30 Ml Udc) 30 ml PO DAILY PRN PRN Reason: Constipation Stop: 06/07/22 03:50 Meclizine HCl (Meclizine Hcl 25 Mg Tab) 25 mg PO TID PRN PRN Reason: Vertigo Stop: 06/07/22 06:08 Metformin HCl (Metformin Hcl Er 500 Mg Tabcr) 2,000 mg PO PM [facility] Stop: 06/07/22 20:59 Multivitamins (Multivitamin Tab) [facility] Stop: 06/07/22 08:59 Last Admin: 05/08/22 08:42 Dose: 1 tab Pantoprazole Sodium (Pantoprazole 40 Mg Tab) 40 mg PO DAILYBB [facility] Stop: 06/07/22 07:59 Last Admin: 05/08/22 08:18 Dose: 40 mg Sitagliptin Phosphate (Sitagliptin Phosphate 100 Mg Tab) 100 mg PO DAILY [facility] Stop: 06/07/22 08:59 Last Admin: 05/08/22 08:42 Dose: 100 mg Sodium Chloride (Sodium Chloride 0.65% Na Soln 45 Ml ([place])) 1 - 2 sprays NA PRN PRN PRN Reason: Nasal Dryness/Congestion Stop: 06/07/22 03:50
[2022-05-08] MEDS: ACETAMINOPHEN 325 MG TAB PO PRN ×2 (12:54→17:14)
[2022-05-08] MEDS ORDERED: QUEtiapine FUMARATE 25 MG TABLET PO PRN (13:09)
[2022-05-08] MEDS ORDERED: traZODone HCL 50 MG TAB PO SCH (21:00)
[2022-05-08] MEDS ORDERED: QUEtiapine FUMARATE 25 MG TABLET PO SCH (22:00)
[2022-05-09] MEDS: QUEtiapine FUMARATE 25 MG TABLET PO PRN (02:24)
[2022-05-09] MEDS: ACETAMINOPHEN 325 MG TAB PO PRN ×2 (02:35→08:15)
[2022-05-09] MEDS: PANTOprazole 40 MG TAB PO SCH (08:15)
[2022-05-09 09:24] LABS: Basophils # (auto) 0.05 K/uL (0-0.2); Basophils % (auto) 0.5 %; Eosinophils # (auto) 0.23 K/uL (0-0.50); Eosinophils % (auto) 2.1 %; Hematocrit (blood only) 43.9 % (40.1-51.0); Hemoglobin 15.6 g/dl (14.0-18.0); Immature Granulocytes # (auto) 0.03 K/uL (0.00-0.02); Immature Granulocytes % (auto) 0.3 %; Lymphocytes # (auto) 2.58 K/uL (1.2-3.4); Mean Corpuscular Hgb Conc 35.5 g/dL (32.0-36.0); Mean Corpuscular Volume 87.1 fL (80.0-100.0); Mean Platelet Volume 9.5 fL (9.4-12.4); Monocytes # (auto) 0.89 K/uL (0.24-0.82); Monocytes % (auto) 8.3 %; Neutrophils # (auto) 6.96 K/uL (1.4-6.5); Neutrophils % (auto) 64.8 %; Platelet Count 248 K/uL (130-400); RDW Coefficient of Variation 12.8 % (11.5-14.5); RDW Standard Deviation 40.3 fL (36.4-46.3); Red Blood Count 5.04 M/uL (4.63-6.08); White Blood Count 10.74 K/ul (4.8-10.8)
[2022-05-09] MEDS: AMOXICILLIN/CLAVULANATE 875 MG TAB PO SCH ×2 (09:27→17:06)
[2022-05-09] MEDS: lisinopril 10 MG TAB PO SCH (09:27)
[2022-05-09] MEDS: ASPIRIN 81 MG ECTAB PO SCH (09:28)
[2022-05-09] MEDS: ATORVASTATIN 40 MG TAB PO SCH (09:28)
[2022-05-09] MEDS: SITagliptin PHOSPHATE 100 MG TAB PO SCH (09:28)
[2022-05-09] MEDS: MULTIVITAMIN TAB PO SCH (09:28)
[2022-05-09 10:04] LABS: Chol HDL Ratio 1.9 (0-5)
[2022-05-09 10:19] LABS: Estimated Average Glucose 166 mg/dl; Hemoglobin A1C 7.4 % (4.5-5.6)
[2022-05-09 10:26] LABS: Vitamin B12 433 pg/ml (180-914)
--- NOTE | 2022-05-09 12:21 | Psychiatric Progress Note ---
Date of Service May 09, 2022 Impression / Recommendations Impression 62 yo male with a remote history of depression presents with several week history of personality change, depressed mood, impulsive anger, and ruminations over items he has taken from the trash at school which has escalated to paranoia. It is our understanding he has to park in a set area and his coming/going from school are being monitored due to safety protocol with coworker following a 2 week leave but there is no active legal charge. MNPR given wound, hx of possible HI in community, disorganization. (1) Depression: (2) Laceration of knee: (3) Leukocytosis: Plan 05/09/22: labs reviewed, HgbA1c elevated as suspected. Reports he snores at home and denies any prior w/u for sleep apnea. Consider head CT given change from baseline MSE. Knee sutures out 05/16 or within a few days after. Increase Seroquel 100 mg qhs. Lisinopril potential increase noted in ED note as patient was seen few days in a row prior to psych admission. 05/08/22: The patient was admitted to the [facility] ([facility] unit) on q15 min checks (behavioral with suicide precautions) for safety. The patient will participate in group, recreational, and milieu therapies and will be offered additional individual and family sessions as clinically appropriate. Risks/benefits/alternatives were reviewed re: antipsychotics for mood and/or psychosis. Psychotic depression vs. mixed episode. Discussion included but was not limited to metabolic side effects, risks of TD and suicidal thoughts. There were no abnormal motor movements at baseline. Fasting lipid panel and HgbA1c ordered for baseline monitoring and will repeat CBC. Continue course of prophylactic Augmentin as per ED. Patient agreed to a trial of Seroquel 50 mg qhs with 12.5 mg q 6 prn daytime anxiety with likely titration. Will add B12 and folate in case early cognitive change and consider additional head imaging as outpatient. 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 Chief Complaint "I guess I slept better, how long have I been here?" Review of Systems Sleep Information Total Hours of Sleep: 4.25 Sleep Comments: pt on q-15 minute checks Meal Information Percent Meal Consumed - Breakfast: 0 Percent Meal Consumed - Lunch: 100 Percent Meal Consumed - Dinner: 100 Subjective Subjective Patient was seen & assessed and interval progress reviewed with treatment team. Patient has difficulty processing directions for groups but is redirectible. Did sleep after receiving Tylenol and prn Seroquel in addition to hs dose and tells me he feels a difference today. He couldn't understand his labs/meal tray or how to ask for assistance. Physical Exam Psychiatric Orientation: alert Apperance: appropriately groomed Eye Contact: + fair eye contact Motor Behavior: no abnormal motor movements Speech: normal rate/rhythm/volume of speech Affect: + depressed affect Mood: + depressed mood Thought Process: + tangential thought process Thought Content: + preoccupation and + paranoid Suicidal Thoughts: denies suicidal thoughts Homicidal Thoughts: denies homicidal thoughts Hallucinations: no auditory hallucinations and no visual hallucinations Cognition: language grossly intact; + attention not intact Estimated Intelligence: consistent with education level Insight: + limited insight Judgement: + limited judgement Vital Signs (Past 24 Hours) Last Vital Signs Temp 36.8 C 05/09/22 06:50 Pulse 105 H 05/09/22 06:51 Resp 16 05/09/22 06:50 BP 168/98 H 05/09/22 06:51 Pulse Ox 99 05/08/22 04:13 O2 Del Method 05/08/22 04:13 O2 Flow Rate 19 05/08/22 04:13 Results & Data ([facility]) Laboratory Results Laboratory Results - last 24 hr 05/08/22 05/09/22 05/09/22 20:22 07:57 09:06 WBC 10.74 RBC 5.04 Hgb 15.6 Hct 43.9 MCV 87.1 MCH 31.0 MCHC 35.5 RDW Std Deviation 40.3 RDW Coeff of Janes 12.8 Plt Count 248 MPV 9.5 Immature Gran % (Auto) 0.3 Neut % (Auto) 64.8 Lymph % (Auto) 24.0 Emanuel % (Auto) 8.3 Eos % (Auto) 2.1 Baso % (Auto) 0.5 Neut # (Auto) 6.96 H Lymph # (Auto) 2.58 Emanuel # (Auto) 0.89 H Eos # (Auto) 0.23 Baso # (Auto) 0.05 Immature Gran # (Auto) 0.03 H POC Glucose 174 H 165 H Estimat Average Glucose Hemoglobin A1c Triglycerides Cholesterol LDL Cholesterol, Calc VLDL Cholesterol, Calc HDL Cholesterol Cholesterol/HDL Ratio Vitamin B12 Folate 05/09/22 05/09/22 05/09/22 09:06 09:06 09:06 WBC RBC Hgb Hct MCV MCH MCHC RDW Std Deviation RDW Coeff of Janes Plt Count MPV Immature Gran % (Auto) Neut % (Auto) Lymph % (Auto) Emanuel % (Auto) Eos % (Auto) Baso % (Auto) Neut # (Auto) Lymph # (Auto) Emanuel # (Auto) Eos # (Auto) Baso # (Auto) Immature Gran # (Auto) POC Glucose Estimat Average Glucose 166 Hemoglobin A1c 7.4 H Triglycerides 105 Cholesterol 99 LDL Cholesterol, Calc 27 VLDL Cholesterol, Calc 21 HDL Cholesterol 51 Cholesterol/HDL Ratio 1.9 Vitamin B12 433 Folate > 22.30 Current Inpatient Medications Current Inpatient Medications: Current Inpatient Medications Acetaminophen (Acetaminophen 325 Mg Tab) 650 mg PO Q4H PRN PRN Reason: Headache or Minor Fever Stop: 06/07/22 03:50 Last Admin: 05/09/22 08:15 Dose: 650 mg Al Hydrox/Mg Hydrox/Simethicone (Aluminum/Magnesium Susp 30 Ml Udc) 30 ml PO Q4H PRN PRN Reason: GI Upset Stop: 06/07/22 03:50 Amoxicillin/Clavulanate Potassium (Amoxicillin/Clavulanate 875 Mg Tab) 1 tab PO BIDM [facility] Stop: 05/15/22 08:55 Last Admin: 05/09/22 09:27 Dose: 1 tab Aspirin (Aspirin 81 Mg Ectab) [facility] Stop: 06/07/22 08:59 Last Admin: 05/09/22 09:28 Dose: 81 mg Atorvastatin Calcium (Atorvastatin 40 Mg Tab) 40 mg PO [facility] Stop: 06/07/22 08:59 Last Admin: 05/09/22 09:28 Dose: 40 mg Bismuth Subsalicylate (Bismuth Subsalicylate Liqd 236 Ml) 15 ml PO PRN PRN PRN Reason: Loose Stool Stop: 06/07/22 03:50 Lisinopril (Lisinopril 10 Mg Tab) 10 mg PO QAM [facility] Stop: 06/07/22 08:59 Last Admin: 05/09/22 09:27 Dose: 10 mg Magnesium Hydroxide (Magnesium Hydroxide Susp 30 Ml Udc) 30 ml PO DAILY PRN PRN Reason: Constipation Stop: 06/07/22 03:50 Meclizine HCl (Meclizine Hcl 25 Mg Tab) 25 mg PO TID PRN PRN Reason: Vertigo Stop: 06/07/22 06:08 Metformin HCl (Metformin Hcl Er 500 Mg Tabcr) 2,000 mg PO PM [facility] Stop: 06/07/22 20:59 Last Admin: 05/08/22 20:31 Dose: Not Given Multivitamins (Multivitamin Tab) 1 tab PO QAM [facility] Stop: 06/07/22 08:59 Last Admin: 05/09/22 09:28 Dose: 1 tab Pantoprazole Sodium (Pantoprazole 40 Mg Tab) 40 mg PO DAILYBB [facility] Stop: 06/07/22 07:59 Last Admin: 05/09/22 08:15 Dose: 40 mg Quetiapine Fumarate (Quetiapine Fumarate 25 Mg Tablet) 12.5 mg PO Q6 PRN PRN Reason: Anxiety Stop: 06/07/22 13:08 Quetiapine Fumarate (Quetiapine Fumarate 25 Mg Tablet) 50 mg PO HS PRN PRN Reason: Insomnia Stop: 06/07/22 21:59 Last Admin: 05/09/22 02:24 Dose: 50 mg Quetiapine Fumarate (Quetiapine Fumarate 100 Mg Tablet) 100 mg PO HS [facility] Stop: 06/08/22 21:59 Sitagliptin Phosphate (Sitagliptin Phosphate 100 Mg Tab) 100 mg PO DAILY [facility] Stop: 06/07/22 08:59 Last Admin: 05/09/22 09:28 Dose: 100 mg Sodium Chloride (Sodium Chloride 0.65% Na Soln 45 Ml ([place])) 1 - 2 sprays NA PRN PRN PRN Reason: Nasal Dryness/Congestion Stop: 06/07/22 03:50 Post Discharge Appointments Primary Care Physician Name Of Family Doctor: Megan [facility] Date of Appointment with PCP: 05/24/22 Time of Appointment with PCP: 9:45am Provider Appointment Comment: [address] [place] [id number]
[2022-05-09] MEDS: QUEtiapine FUMARATE 100 MG TABLET PO SCH (20:21)
[2022-05-09] MEDS: metFORMIN HCL ER 500 MG TABCR PO SCH (20:49)
[2022-05-10] MEDS: metFORMIN HCL ER 500 MG TABCR PO SCH ×2 (10:22→21:56)
[2022-05-10] MEDS: SITagliptin PHOSPHATE 100 MG TAB PO SCH (10:22)
[2022-05-10] MEDS: MULTIVITAMIN TAB PO SCH (10:22)
[2022-05-10] MEDS: ATORVASTATIN 40 MG TAB PO SCH (10:22)
[2022-05-10] MEDS: PANTOprazole 40 MG TAB PO SCH (10:23)
[2022-05-10] MEDS: lisinopril 10 MG TAB PO SCH (10:23)
[2022-05-10] MEDS: AMOXICILLIN/CLAVULANATE 875 MG TAB PO SCH ×2 (10:24→18:33)
[2022-05-10] MEDS: ASPIRIN 81 MG ECTAB PO SCH (10:24)
--- NOTE | 2022-05-10 12:44 | Psychiatric Progress Note ---
Date of Service May 10, 2022 Impression / Recommendations Impression 62 yo male with a remote history of depression presents with several week history of personality change, depressed mood, impulsive anger, and ruminations over items he has taken from the trash at school which has escalated to paranoia. It is our understanding he has to park in a set area and his coming/going from school are being monitored due to safety protocol with coworker following a 2 week leave but there is no active legal charge. MNPR given wound, hx of possible HI in community, disorganization. 05/10/22: outwardly calmer in appearance, some thought blocking, reports less racing thoughts but remains internally preoccupied (1) Depression: (2) Laceration of knee: (3) Leukocytosis: Plan 05/11/22: patient reports having an MRI on outpatient basis, will confirm with family. Risks/benefits/alternatives reviewed re: trial of Lexapro. He is not excited to take more medication but was ultimately agreeable. AM gluc checks all under 200 even with starting SEroquel so will d/c for now as controlled on oral agents, reconsider if significant increase in dose or symptomatic. 05/09/22: labs reviewed, HgbA1c elevated as suspected. Reports he snores at home and denies any prior w/u for sleep apnea. Consider head CT given change from baseline MSE. Knee sutures out 05/16 or within a few days after. Increase Seroquel 100 mg qhs. Lisinopril potential increase noted in ED note as patient was seen few days in a row prior to psych admission. 05/08/22: The patient was admitted to the [facility] ([facility] mental health unit) on q15 min checks (behavioral with suicide precautions) for safety. The patient will participate in group, recreational, and milieu therapies and will be offered additional individual and family sessions as clinically appropriate. Risks/benefits/alternatives were reviewed re: antipsychotics for mood and/or psychosis. Psychotic depression vs. mixed episode. Discussion included but was not limited to metabolic side effects, risks of TD and suicidal thoughts. There were no abnormal motor movements at baseline. Fasting lipid panel and HgbA1c ordered for baseline monitoring and will repeat CBC. Continue course of prophylactic Augmentin as per ED. Patient agreed to a trial of Seroquel 50 mg qhs with 12.5 mg q 6 prn daytime anxiety with likely titration. Will add B12 and folate in case early cognitive change and consider additional head imaging as outpatient. 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 Chief Complaint "It's all lies and crap" Review of Systems Sleep Information Total Hours of Sleep: 6.75 Sleep Comments: pt on q-15 minute checks Meal Information Percent Meal Consumed - Breakfast: 50 Percent Meal Consumed - Lunch: 0 Percent Meal Consumed - Dinner: 10 Subjective Subjective Patient was seen & assessed and interval progress reviewed with nursing and social work. Confused and internally preoccupied. At one point last night he was trying the doors/ringing montez so placed on elopement precautions. Sleep improved. Less knee pain. Takes meds/meals with encouragement but did not eat well yesterday as at one point voiced he felt he couldn't swallow. Physical Exam Psychiatric Orientation: alert Apperance: appropriately groomed Eye Contact: + fair eye contact Motor Behavior: no abnormal motor movements Speech: normal rate/rhythm/volume of speech Affect: + depressed affect Mood: + depressed mood Thought Process: + thought blocking and + circumstantial thought process Thought Content: + preoccupation Suicidal Thoughts: denies suicidal thoughts Homicidal Thoughts: denies homicidal thoughts Hallucinations: no auditory hallucinations and no visual hallucinations Cognition: language grossly intact; + attention not intact Estimated Intelligence: consistent with education level Insight: + limited insight Judgement: + limited judgement Vital Signs (Past 24 Hours) Last Vital Signs Temp 36.6 C 05/10/22 06:00 Pulse 122 H 05/10/22 06:44 Resp 16 05/10/22 06:00 BP 162/96 H 05/10/22 06:44 Pulse Ox 99 05/08/22 04:13 O2 Del Method 05/08/22 04:13 O2 Flow Rate 19 05/08/22 04:13 Results & Data ([facility]) Laboratory Results Laboratory Results - last 24 hr 05/10/22 08:29 POC Glucose 129 H Current Inpatient Medications Current Inpatient Medications: Current Inpatient Medications Acetaminophen (Acetaminophen 325 Mg Tab) 650 mg PO Q4H PRN PRN Reason: Headache or Minor Fever Stop: 06/07/22 03:50 Last Admin: 05/09/22 08:15 Dose: 650 mg Al Hydrox/Mg Hydrox/Simethicone (Aluminum/Magnesium Susp 30 Ml Udc) 30 ml PO Q4H PRN PRN Reason: GI Upset Stop: 06/07/22 03:50 Amoxicillin/Clavulanate Potassium (Amoxicillin/Clavulanate 875 Mg Tab) 1 tab PO BIDM [facility] Stop: 05/15/22 08:55 Last Admin: 05/10/22 10:24 Dose: 1 tab Aspirin (Aspirin 81 Mg Ectab) [facility] Stop: 06/07/22 08:59 Last Admin: 05/10/22 10:24 Dose: 81 mg Atorvastatin Calcium (Atorvastatin 40 Mg Tab) 40 mg PO QAM [facility] Stop: 06/07/22 08:59 Last Admin: 05/10/22 10:22 Dose: 40 mg Bismuth Subsalicylate (Bismuth Subsalicylate Liqd 236 Ml) 15 ml PO PRN PRN PRN Reason: Loose Stool Stop: 06/07/22 03:50 Escitalopram Oxalate (Escitalopram Oxalate 10 Mg Tab) 5 mg PO [facility] Stop: 06/09/22 21:59 Lisinopril (Lisinopril 10 Mg Tab) 10 mg PO QAM [facility] Stop: 06/07/22 08:59 Last Admin: 05/10/22 10:23 Dose: 10 mg Magnesium Hydroxide (Magnesium Hydroxide Susp 30 Ml Udc) 30 ml PO DAILY PRN PRN Reason: Constipation Stop: 06/07/22 03:50 Meclizine HCl (Meclizine Hcl 25 Mg Tab) 25 mg PO TID PRN PRN Reason: Vertigo Stop: 06/07/22 06:08 Metformin HCl (Metformin Hcl Er 500 Mg Tabcr) 1,000 mg PO BID [facility] Stop: 06/08/22 20:59 Last Admin: 05/10/22 10:22 Dose: 1,000 mg Multivitamins (Multivitamin Tab) 1 tab PO QAM [facility] Stop: 06/07/22 08:59 Last Admin: 05/10/22 10:22 Dose: 1 tab Pantoprazole Sodium (Pantoprazole 40 Mg Tab) 40 mg PO DAILYBB [facility] Stop: 06/07/22 07:59 Last Admin: 05/10/22 10:23 Dose: 40 mg Quetiapine Fumarate (Quetiapine Fumarate 25 Mg Tablet) 12.5 mg PO Q6 PRN PRN Reason: Anxiety Stop: 06/07/22 13:08 Last Admin: 05/09/22 15:32 Dose: 12.5 mg Quetiapine Fumarate (Quetiapine Fumarate 25 Mg Tablet) 50 mg PO HS PRN PRN Reason: Insomnia Stop: 06/07/22 21:59 Last Admin: 05/09/22 02:24 Dose: 50 mg Quetiapine Fumarate (Quetiapine Fumarate 100 Mg Tablet) 100 mg PO HS [facility] Stop: 06/08/22 21:59 Last Admin: 05/09/22 20:21 Dose: 100 mg Sitagliptin Phosphate (Sitagliptin Phosphate 100 Mg Tab) 100 mg PO DAILY [facility] Stop: 06/07/22 08:59 Last Admin: 05/10/22 10:22 Dose: 100 mg Sodium Chloride (Sodium Chloride 0.65% Na Soln 45 Ml ([place])) 1 - 2 sprays NA PRN PRN PRN Reason: Nasal Dryness/Congestion Stop: 06/07/22 03:50 Post Discharge Appointments Primary Care Physician Name Of Family Doctor: Megan Walker Primary [facility] Date of Appointment with PCP: 05/24/22 Time of Appointment with PCP: 9:45am Provider Appointment Comment: [phone] [id number]
[2022-05-10] MEDS: QUEtiapine FUMARATE 100 MG TABLET PO SCH (21:57)
[2022-05-10] MEDS ORDERED: ESCITALOPRAM OXALATE 10 MG TAB PO SCH (22:00)
[2022-05-10] MEDS: QUEtiapine FUMARATE 25 MG TABLET PO PRN (23:16)
[2022-05-11] MEDS: lisinopril 10 MG TAB PO SCH (08:56)
[2022-05-11] MEDS: SITagliptin PHOSPHATE 100 MG TAB PO SCH (08:57)
[2022-05-11] MEDS: ATORVASTATIN 40 MG TAB PO SCH (08:57)
[2022-05-11] MEDS: MULTIVITAMIN TAB PO SCH (08:57)
[2022-05-11] MEDS: PANTOprazole 40 MG TAB PO SCH (08:57)
[2022-05-11] MEDS: ASPIRIN 81 MG ECTAB PO SCH (08:57)
[2022-05-11] MEDS: AMOXICILLIN/CLAVULANATE 875 MG TAB PO SCH ×2 (08:57→17:35)
[2022-05-11] MEDS: metFORMIN HCL ER 500 MG TABCR PO SCH ×2 (08:57→22:02)
[2022-05-11] MEDS: LORazepam 0.5 MG TAB PO PRN (11:20)
--- NOTE | 2022-05-11 13:08 | Psychiatric Progress Note ---
Date of Service May 11, 2022 Impression / Recommendations Impression 62 yo male with a remote history of depression presents with several week history of personality change, depressed mood, impulsive anger, and ruminations over items he has taken from the trash at school which has escalated to paranoia. It is our understanding he has to park in a set area and his coming/going from school are being monitored due to safety protocol with coworker following a 2 week leave but there is no active legal charge. MNPR given wound, hx of possible HI in community, disorganization. further review notes a prior inpatient stay [facility] in 2000 for suspiciousness of coworkers, 65 lb weight loss dx psychotic depression and treated with Zoloft and Risperdal at that time. 05/11/22: disorganized behavior but not agitated, near catatonic in appearance at times but denies sedation. unclear if hs lexapro may have interfered with sleep last night. (1) Depression: (2) Laceration of knee: (3) Leukocytosis: Plan 05/11/22: titrate hs seroquel to 200 mg and shift Lexapro to am. Patient reports no benefit from prn Seroquel for anxiety, will offer low dose Ativan but monitor falls. 05/10/22: patient reports having an MRI on outpatient basis, will confirm with family. Risks/benefits/alternatives reviewed re: trial of Lexapro. He is not excited to take more medication but was ultimately agreeable. AM gluc checks all under 200 even with starting SEroquel so will d/c for now as controlled on oral agents, reconsider if significant increase in dose or symptomatic. 05/09/22: labs reviewed, HgbA1c elevated as suspected. Reports he snores at home and denies any prior w/u for sleep apnea. Consider head CT given change from baseline MSE. Knee sutures out 05/16 or within a few days after. Increase Seroquel 100 mg qhs. Lisinopril potential increase noted in ED note as patient was seen few days in a row prior to psych admission. 05/08/22: [facility] on q15 min checks (behavioral with suicide precautions) for safety. The patient will participate in group, recreational, and milieu therapies and will be offered additional individual and family sessions as clinically appropriate. Risks/benefits/alternatives were reviewed re: antipsychotics for mood and/or psychosis. Psychotic depression vs. mixed episode. Discussion included but was not limited to metabolic side effects, risks of TD and suicidal thoughts. There were no abnormal motor movements at baseline. Fasting lipid panel and HgbA1c ordered for baseline monitoring and will repeat CBC. Continue course of prophylactic Augmentin as per ED. Patient agreed to a trial of Seroquel 50 mg qhs with 12.5 mg q 6 prn daytime anxiety with likely titration. Will add B12 and folate in case early cognitive change and consider additional head imaging as outpatient. 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 Chief Complaint "yeah I was here."--delayed response Review of Systems Sleep Information Total Hours of Sleep: 2 Sleep Comments: given Seroquel 50 mg PO prn @ 2316. Not effective Meal Information Percent Meal Consumed - Breakfast: 50 Percent Meal Consumed - Lunch: 30 Percent Meal Consumed - Dinner: 10 Nutrition Comment: Refused breakfast even after getting another tray per patient request Subjective Subjective Patient was seen & assessed and interval progress reviewed with treatment team. Patient will stand by the door and press the buttons but can't verbalize why. spent much of overnight in lounge but did not recall. Physical Exam Psychiatric Orientation: alert Apperance: appropriately groomed Eye Contact: + poor eye contact Motor Behavior: no abnormal motor movements Speech: normal rate/rhythm/volume of speech Affect: + depressed affect Mood: + depressed mood Thought Process: + thought blocking Thought Content: + preoccupation Suicidal Thoughts: denies suicidal thoughts Homicidal Thoughts: denies homicidal thoughts Hallucinations: no auditory hallucinations and no visual hallucinations Cognition: language grossly intact; + attention not intact Estimated Intelligence: consistent with education level Insight: + limited insight Judgement: + limited judgement Vital Signs (Past 24 Hours) Last Vital Signs Temp 36.3 C L 05/11/22 06:33 Pulse 83 05/11/22 06:33 Resp 18 05/11/22 06:33 BP 181/81 H 05/11/22 06:35 Pulse Ox 99 05/08/22 04:13 O2 Del Method 05/08/22 04:13 O2 Flow Rate 19 05/08/22 04:13 Results & Data ([facility]) Current Inpatient Medications Current Inpatient Medications: Current Inpatient Medications Acetaminophen (Acetaminophen 325 Mg Tab) 650 mg PO Q4H PRN PRN Reason: Headache or Minor Fever Stop: 06/07/22 03:50 Last Admin: 05/09/22 08:15 Dose: 650 mg Al Hydrox/Mg Hydrox/Simethicone (Aluminum/Magnesium Susp 30 Ml Udc) 30 ml PO Q4H PRN PRN Reason: GI Upset Stop: 06/07/22 03:50 Amoxicillin/Clavulanate Potassium (Amoxicillin/Clavulanate 875 Mg Tab) 1 tab PO [facility]IDM [facility] Stop: 05/15/22 08:55 Last Admin: 05/11/22 08:57 Dose: 1 tab Aspirin (Aspirin 81 Mg Ectab) 81 mg PO [facility] Stop: 06/07/22 08:59 Last Admin: 05/11/22 08:57 Dose: 81 mg Atorvastatin Calcium ([facility]atin 40 Mg Tab) [facility] Stop: 06/07/22 08:59 Last Admin: 05/11/22 08:57 Dose: 40 mg Bismuth Subsalicylate (Bismuth Subsalicylate Liqd 236 Ml) 15 ml PO PRN PRN PRN Reason: Loose Stool Stop: 06/07/22 03:50 Escitalopram Oxalate (Escitalopram Oxalate 10 Mg Tab) 10 mg PO [facility] Stop: 06/11/22 08:59 Lisinopril (Lisinopril 10 Mg Tab) [facility] Stop: 06/07/22 08:59 Last Admin: 05/11/22 08:56 Dose: 10 mg Lorazepam (Lorazepam 0.5 Mg Tab) 0.5 mg PO Q6 PRN PRN Reason: Anxiety Stop: 06/10/22 10:51 Last Admin: 05/11/22 11:20 Dose: 0.5 mg Magnesium Hydroxide (Magnesium Hydroxide Susp 30 Ml Udc) 30 ml PO DAILY PRN PRN Reason: Constipation Stop: 06/07/22 03:50 Meclizine HCl (Meclizine Hcl 25 Mg Tab) 25 mg PO TID PRN PRN Reason: Vertigo Stop: 06/07/22 06:08 Metformin HCl (Metformin Hcl Er 500 Mg Tabcr) 1,000 mg PO BID [facility] Stop: 06/08/22 20:59 Last Admin: 05/11/22 08:57 Dose: 1,000 mg Multivitamins (Multivitamin Tab) 1 tab PO QAM [facility] Stop: 06/07/22 08:59 Last Admin: 05/11/22 08:57 Dose: 1 tab Pantoprazole Sodium (Pantoprazole 40 Mg Tab) 40 mg PO DAILYBB [facility] Stop: 06/07/22 07:59 Last Admin: 05/11/22 08:57 Dose: 40 mg Quetiapine Fumarate (Quetiapine Fumarate 25 Mg Tablet) 50 mg PO HS PRN PRN Reason: Insomnia Stop: 06/07/22 21:59 Last Admin: 05/10/22 23:16 Dose: 50 mg Quetiapine Fumarate (Quetiapine Fumarate 200 Mg Tab) 200 mg PO HS [facility] Stop: 06/10/22 21:59 Sitagliptin Phosphate (Sitagliptin Phosphate 100 Mg Tab) 100 mg PO DAILY [facility] Stop: 06/07/22 08:59 Last Admin: 05/11/22 08:57 Dose: 100 mg Sodium Chloride (Sodium Chloride 0.65% Na Soln 45 Ml ([place])) 1 - 2 sprays NA PRN PRN PRN Reason: Nasal Dryness/Congestion Stop: 06/07/22 03:50 Post Discharge Appointments Primary Care Physician Name Of Family Doctor: Megan Walker Primary Care Date of Appointment with PCP: 05/24/22 Time of Appointment with PCP: 9:45am Provider Appointment Comment: [address] [place] [id number]
[2022-05-11] MEDS: QUEtiapine FUMARATE 200 MG TAB PO SCH (22:02)
[2022-05-12] MEDS: PANTOprazole 40 MG TAB PO SCH (08:12)
[2022-05-12] MEDS: ESCITALOPRAM OXALATE 10 MG TAB PO SCH (08:12)
[2022-05-12] MEDS: lisinopril 10 MG TAB PO SCH (08:12)
[2022-05-12] MEDS: metFORMIN HCL ER 500 MG TABCR PO SCH ×2 (08:12→21:31)
[2022-05-12] MEDS: MULTIVITAMIN TAB PO SCH (08:12)
[2022-05-12] MEDS: ATORVASTATIN 40 MG TAB PO SCH (08:12)
[2022-05-12] MEDS: LORazepam 0.5 MG TAB PO PRN ×2 (08:12→18:12)
[2022-05-12] MEDS: AMOXICILLIN/CLAVULANATE 875 MG TAB PO SCH ×2 (08:12→17:28)
[2022-05-12] MEDS: SITagliptin PHOSPHATE 100 MG TAB PO SCH (08:12)
[2022-05-12] MEDS: ASPIRIN 81 MG ECTAB PO SCH (08:12)
--- NOTE | 2022-05-12 08:58 | Psychiatric Progress Note ---
Date of Service May 12, 2022 Impression / Recommendations Impression 62 yo male with a remote history of depression with psychotic features presents with several week history of personality change, depressed mood, impulsive anger, and ruminations over items he has taken from the trash at school which has escalated to paranoia. It is our understanding he has to park in a set area and his coming/going from school are being monitored due to safety protocol with coworker following a 2 week leave but there is no active legal charge. Diagnostically consistent with MDD with psychotic features, possible catatonic component. Head CT done 05/02/22 with no abnormal findings. MNPR given wound, disorganization, psychosis with paranoid toward others 05/12/22: ongoing disorganization and severe depression. Reviewed interim progress per Dr. Cintron's notes. Tolerating increase of seroquel and escitalopram. Got more sleep last night which seems to be helping reduce irritability a bit. No evidence for catatonia today, will continue to monitor po intake. (1) Depression: (2) Laceration of knee: (3) Leukocytosis: Plan 05/12/22: Continue with current medications and tx plan. 05/11/22: titrate hs seroquel to 200 mg and shift Lexapro to am. Patient reports no benefit from prn Seroquel for anxiety, will offer low dose Ativan but monitor falls. 05/10/22: patient reports having an MRI on outpatient basis, will confirm with kayy mcgovern. Risks/benefits/alternatives reviewed re: trial of Lexapro. He is not excited to take more medication but was ultimately agreeable. AM gluc checks all under 200 even with starting SEroquel so will d/c for now as controlled on oral agents, reconsider if significant increase in dose or symptomatic. 05/09/22: labs reviewed, HgbA1c elevated as suspected. Reports he snores at home and denies any prior w/u for sleep apnea. Consider head CT given change from baseline MSE. Knee sutures out 05/16 or within a few days after. Increase Seroquel 100 mg qhs. Lisinopril potential increase noted in ED note as patient was seen few days in a row prior to psych admission. 05/08/22: The patient was [facility] to [facility] ([facility] mental health unit) on q15 min checks (behavioral with suicide precautions) for safety. The patient will participate in group, recreational, and milieu therapies and will be offered additional individual and family sessions as clinically appropriate. Risks/benefits/alternatives were reviewed re: antipsychotics for mood and/or psychosis. Psychotic depression vs. mixed episode. Discussion included but was not limited to metabolic side effects, risks of TD and suicidal thoughts. There were no abnormal motor movements at baseline. Fasting lipid panel and HgbA1c ordered for baseline monitoring and will repeat CBC. Continue course of prophylactic Augmentin as per ED. Patient agreed to a trial of Seroquel 50 mg qhs with 12.5 mg q 6 prn daytime anxiety with likely titration. Will add B12 and folate in case early cognitive change and consider additional head imaging as outpatient. 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 Chief Complaint "Can I take a potty break?". Review of Systems Sleep Information Total Hours of Sleep: 5.25 Sleep Comments: given Seroquel 50 mg PO prn @ 2316. Not effective Meal Information Percent Meal Consumed - Breakfast: 50 Percent Meal Consumed - Lunch: 25 Percent Meal Consumed - Dinner: 5 Nutrition Comment: Refused breakfast even after getting another tray per patient request Subjective Subjective Patient was seen & assessed and interval progress reviewed with treatment team nursing and social work. Very disorganized, wandering into other patient's rooms unintentionally. He continues to check the doors repeatedly. Remains irritable at times. Barely eating or drinking due to a belief he can't swallow. Confused. Continues to endorse depression. Isn't sure how he slept. Denies side effects from seroquel. Physical Exam Psychiatric Orientation: alert and oriented x 3 Apperance: appropriately groomed Eye Contact: + poor eye contact Motor Behavior: no abnormal motor movements Speech: normal rate/rhythm/volume of speech Affect: + depressed affect Mood: + depressed mood Thought Process: + thought blocking, + circumstantial thought process and + looseness of associations Thought Content: + preoccupation and + paranoid Suicidal Thoughts: denies suicidal thoughts Homicidal Thoughts: denies homicidal thoughts Hallucinations: no auditory hallucinations and no visual hallucinations Cognition: language grossly intact; + attention not intact Estimated Intelligence: consistent with education level Insight: + limited insight Judgement: + limited judgement Vital Signs (Past 24 Hours) Last Vital Signs Temp 36.5 C 05/12/22 07:39 Pulse 97 H 05/12/22 07:39 Resp 16 05/12/22 07:39 BP 184/77 H 05/12/22 07:39 Pulse Ox 96 05/12/22 07:39 O2 Del Method 05/12/22 07:39 O2 Flow Rate 19 05/08/22 04:13 Results & Data ([facility]) Current Inpatient Medications Current Inpatient Medications: Current Inpatient Medications Acetaminophen (Acetaminophen 325 Mg Tab) 650 mg PO Q4H PRN PRN Reason: Headache or Minor Fever Stop: 06/07/22 03:50 Last Admin: 05/09/22 08:15 Dose: 650 mg Al Hydrox/Mg Hydrox/Simethicone (Aluminum/Magnesium Susp 30 Ml Udc) 30 ml PO Q4H PRN PRN Reason: GI Upset Stop: 06/07/22 03:50 Amoxicillin/Clavulanate Potassium (Amoxicillin/Clavulanate 875 Mg Tab) 1 tab PO BIDM [facility] Stop: 05/15/22 08:55 Last Admin: 05/12/22 08:12 Dose: 1 tab Aspirin (Aspirin 81 Mg Ectab) [facility] Stop: 06/07/22 08:59 Last Admin: 05/12/22 08:12 Dose: 81 mg Atorvastatin Calcium (Atorvastatin 40 Mg Tab) 40 [facility] Stop: 06/07/22 08:59 Last Admin: 05/12/22 08:12 Dose: 40 mg Bismuth Subsalicylate (Bismuth Subsalicylate Liqd 236 Ml) 15 ml PO PRN PRN PRN Reason: Loose Stool Stop: 06/07/22 03:50 Escitalopram Oxalate (Escitalopram Oxalate 10 Mg Tab) 10 mg PO QAM DEANDRE Stop: 06/11/22 08:59 Last Admin: 05/12/22 08:12 Dose: 10 mg Lisinopril (Lisinopril 10 Mg Tab) 10 mg PO QAM DEANDRE Stop: 06/07/22 08:59 Last Admin: 05/12/22 08:12 Dose: 10 mg Lorazepam (Lorazepam 0.5 Mg Tab) 0.5 mg PO Q6 PRN PRN Reason: Anxiety Stop: 06/10/22 10:51 Last Admin: 05/12/22 08:12 Dose: 0.5 mg Magnesium Hydroxide (Magnesium Hydroxide Susp 30 Ml Udc) 30 ml PO DAILY PRN PRN Reason: Constipation Stop: 06/07/22 03:50 Meclizine HCl (Meclizine Hcl 25 Mg Tab) 25 mg PO TID PRN PRN Reason: Vertigo Stop: 06/07/22 06:08 Metformin HCl (Metformin Hcl Er 500 Mg Tabcr) 1,000 mg PO BID DEANDRE Stop: 06/08/22 20:59 Last Admin: 05/12/22 08:12 Dose: 1,000 mg Multivitamins (Multivitamin Tab) 1 tab PO QAM DEANDRE Stop: 06/07/22 08:59 Last Admin: 05/12/22 08:12 Dose: 1 tab Pantoprazole Sodium (Pantoprazole 40 Mg Tab) 40 mg PO DAILYBB DEANDRE Stop: 06/07/22 07:59 Last Admin: 05/12/22 08:12 Dose: 40 mg Quetiapine Fumarate (Quetiapine Fumarate 25 Mg Tablet) 50 mg PO HS PRN PRN Reason: Insomnia Stop: 06/07/22 21:59 Last Admin: 05/10/22 23:16 Dose: 50 mg Quetiapine Fumarate (Quetiapine Fumarate 200 Mg Tab) 200 mg PO HS DEANDRE Stop: 06/10/22 21:59 Last Admin: 05/11/22 22:02 Dose: 200 mg Sitagliptin Phosphate (Sitagliptin Phosphate 100 Mg Tab) 100 mg PO DAILY DEANDRE Stop: 06/07/22 08:59 Last Admin: 05/12/22 08:12 Dose: 100 mg Sodium Chloride (Sodium Chloride 0.65% Na Soln 45 Ml ([place])) 1 - 2 sprays NA PRN PRN PRN Reason: Nasal Dryness/Congestion Stop: 06/07/22 03:50 Post Discharge Appointments Primary Care Physician Name Of Family Doctor: Megan Walker Primary Care Date of Appointment with PCP: 05/24/22 Time of Appointment with PCP: 9:45am Provider Appointment Comment: [phone] [place] [id number]
[2022-05-12] MEDS: amLODIPine BESYLATE 5 MG TAB PO SCH (09:34)
[2022-05-12] MEDS: QUEtiapine FUMARATE 200 MG TAB PO SCH (21:31)
[2022-05-13] MEDS: metFORMIN HCL ER 500 MG TABCR PO SCH ×2 (08:44→23:10)
[2022-05-13] MEDS: MULTIVITAMIN TAB PO SCH (08:44)
[2022-05-13] MEDS: LORazepam 0.5 MG TAB PO PRN (08:44)
[2022-05-13] MEDS: AMOXICILLIN/CLAVULANATE 875 MG TAB PO SCH ×2 (08:45→16:56)
[2022-05-13] MEDS: SITagliptin PHOSPHATE 100 MG TAB PO SCH (08:45)
[2022-05-13] MEDS: amLODIPine BESYLATE 5 MG TAB PO SCH (08:45)
[2022-05-13] MEDS: ESCITALOPRAM OXALATE 10 MG TAB PO SCH (08:45)
[2022-05-13] MEDS: ATORVASTATIN 40 MG TAB PO SCH (08:45)
[2022-05-13] MEDS: PANTOprazole 40 MG TAB PO SCH (08:45)
[2022-05-13] MEDS: ASPIRIN 81 MG ECTAB PO SCH (08:45)
[2022-05-13] MEDS: lisinopril 10 MG TAB PO SCH (08:45)
--- NOTE | 2022-05-13 09:09 | Psychiatric Progress Note ---
Date of Service May 13, 2022 Impression / Recommendations Impression 62 yo male with a remote history of depression with psychotic features presents with several week history of personality change, depressed mood, impulsive anger, and ruminations over items he has taken from the trash at school which has escalated to paranoia. It is our understanding he has to park in a set area and his coming/going from school are being monitored due to safety protocol with coworker following a 2 week leave but there is no active legal charge. Diagnostically consistent with MDD with psychotic features, possible catatonic component. Head CT done 05/02/22 with no abnormal findings. MNPR given wound, disorganization, psychosis with paranoia toward others, threatened peer 05/13/22: ongoing disorganization, severe depression and paranoia. Unclear if delusions leading to poor po intake vs disorganization vs possible catatonia. Will switch from seroquel to risperidone as good benefit in past with depression with psychosis. Tachycardia this morning, felt to be due to dehydration. Revie wed recent EKGs from 04/24/22 and 05/02/22, no evidence for history of prolonged QTc nor arrhythmias. (1) MDD (major depressive disorder), recurrent, severe, with psychosis: (2) Depression: (3) Laceration of knee: (4) Leukocytosis: Plan 05/13/22: Stop seroquel. Start risperidone 0.5mg BID. 05/12/22: Continue with current medications and tx plan. 05/11/22: titrate hs seroquel to 200 mg and shift Lexapro to am. Patient reports no benefit from prn Seroquel for anxiety, will offer low dose Ativan but monitor falls. 05/10/22: patient reports having an MRI on outpatient basis, will confirm with family. Risks/benefits/alternatives reviewed re: trial of Lexapro. He is not excited to take more medication but was ultimately agreeable. AM gluc checks all under 200 even with starting SEroquel so will d/c for now as controlled on oral agents, reconsider if significant increase in dose or symptomatic. 05/09/22: labs reviewed, HgbA1c elevated as suspected. Reports he snores at home and denies any prior w/u for sleep apnea. Consider head CT given change from baseline MSE. Knee sutures out 05/16 or within a few days after. Increase Ser oquel 100 mg qhs. Lisinopril potential increase noted in ED note as patient was seen few days in a row prior to psych admission. 05/08/22: The patient was admitted to the [facility] ([facility] mental health unit) on q15 min checks (behavioral with suicide precautions) for safety. The patient will participate in group, recreational, and milieu therapies and will be offered additional individual and family sessions as clinically appropriate. Risks/benefits/alternatives were reviewed re: antipsychotics for mood and/or psychosis. Psychotic depression vs. mixed episode. Discussion included but was not limited to metabolic side effects, risks of TD and suicidal thoughts. There were no abnormal motor movements at baseline. Fasting lipid panel and HgbA1c ordered for baseline monitoring and will repeat CBC. Continue course of prophylactic Augmentin as per ED. Patient agreed to a trial of Seroquel 50 mg qhs with 12.5 mg q 6 prn daytime anxiety with likely titration. Will add B12 and folate in case early cognitive change and consider additional head imaging as outpatient. Inventory Assets Strengths: longstanding employment hx, help seeking Needs: leave from work, reestablish outpatient care Suicide Risk Level Suicide Risk Level: High-Moderate (q15 min suicide checks) (given severe depression with psychosis and periods of agitation and confusion but denying SI and agrees to alert staff if he feels unsafe or develops SI ) Risk Factors Assessment Male: Yes : Yes Do You Have Access To A Gun?: Yes (collects guns) Health Problems: Yes Mental Health Diagnoses: Yes Substance Use Disorders: No Protective Factors Assessment Employed: Yes ([employer] for [employer]) Interval History Identifying Information JERARDO VELAZQUEZ is a 62-year-old M who currently lives in [place], and was admitted on 05/08/22 04:13 on a 201 voluntary commitment for disorganization/inability to function. Chief Complaint "I think I've lost my mind". Review of Systems Sleep Information Total Hours of Sleep: 6.75 Sleep Comments: given Seroquel 50 mg PO prn @ 2316. Not effective Meal Information Percent Meal Consumed - Breakfast: 50 Percent Meal Consumed - Lunch: 30 Percent Meal Consumed - Dinner: 10 Nutrition Comment: Refused breakfast even after getting another tray per patient request Subjective Subjective Patient was seen & assessed and interval progress reviewed with treatment team nursing and social work. Threatened a peer stating a belief he needing to fight them in order to get out of here. Not eating this morning, can't say why just staring at his food. Now with new delusion that all staff on the unit have COVID. Refusing to use a straw to drink juice due to concern it's contaminated. Very suspicious of peers and staff. Tells me he is "not good" today but can't say why. Discussed plan to switch to risperidone which he agreed to. needs prompting to attend to ADLs, drink, eat. Physical Exam Psychiatric Orientation: alert and oriented x 3 Apperance: appropriately groomed Eye Contact: + fair eye contact Motor Behavior: no abnormal motor movements Speech: normal rate/rhythm/volume of speech Affect: + flat affect Mood: + depressed mood Thought Process: + thought blocking and + looseness of associations Thought Content: + preoccupation, + paranoid and + delusions Suicidal Thoughts: denies suicidal thoughts Homicidal Thoughts: denies homicidal thoughts (but made statement toward peer last night of feeling need to fight) Hallucinations: no auditory hallucinations and no visual hallucinations Cognition: language grossly intact; + attention not intact Estimated Intelligence: consistent with education level Insight: + limited insight Judgement: + limited judgement Vital Signs (Past 24 Hours) Last Vital Signs Temp 36.6 C 05/13/22 06:42 Pulse 121 H 05/13/22 06:43 Resp 18 05/13/22 06:42 BP 142/96 H 05/13/22 06:43 Pulse Ox 96 05/12/22 07:39 O2 Del Method 05/12/22 07:39 O2 Flow Rate 19 05/08/22 04:13 Results & Data ([facility]) Current Inpatient Medications Current Inpatient Medications: Current Inpatient Medications Acetaminophen (Acetaminophen 325 Mg Tab) 650 mg PO Q4H PRN PRN Reason: Headache or Minor Fever Stop: 06/07/22 03:50 Last Admin: 05/09/22 08:15 Dose: 650 mg Al Hydrox/Mg Hydrox/Simethicone (Aluminum/Magnesium Susp 30 Ml Udc) 30 ml PO Q4H PRN PRN Reason: GI Upset Stop: 06/07/22 03:50 Amlodipine Besylate (Amlodipine Besylate 5 Mg Tab) 5 mg PO QAM DEANDRE Stop: 06/11/22 09:14 Last Admin: 05/13/22 08:45 Dose: 5 mg Amoxicillin/Clavulanate Potassium (Amoxicillin/Clavulanate 875 Mg Tab) 1 tab PO BIDM [facility] Stop: 05/15/22 08:55 Last Admin: 05/13/22 08:45 Dose: 1 tab Aspirin (Aspirin 81 Mg Ectab) [facility] Stop: 06/07/22 08:59 Last Admin: 05/13/22 08:45 Dose: 81 mg Atorvastatin Calcium (Atorvastatin 40 Mg Tab) 40 mg PO [facility] Stop: 06/07/22 08:59 Last Admin: 05/13/22 08:45 Dose: 40 mg Bismuth Subsalicylate (Bismuth Subsalicylate Liqd 236 Ml) 15 ml PO PRN PRN PRN Reason: Loose Stool Stop: 06/07/22 03:50 Escitalopram Oxalate (Escitalopram Oxalate 10 Mg Tab) [facility] [place] Stop: 06/11/22 08:59 Last Admin: 05/13/22 08:45 Dose: 10 mg Lisinopril (Lisinopril 10 Mg Tab) 10 mg PO [facility] Stop: 06/07/22 08:59 Last Admin: 05/13/22 08:45 Dose: 10 mg Lorazepam (Lorazepam 0.5 Mg Tab) 0.5 mg PO Q6 PRN PRN Reason: Anxiety Stop: 06/10/22 10:51 Last Admin: 05/13/22 08:44 Dose: 0.5 mg Magnesium Hydroxide (Magnesium Hydroxide Susp 30 Ml Udc) 30 ml PO DAILY PRN PRN Reason: Constipation Stop: 06/07/22 03:50 Meclizine HCl (Meclizine Hcl 25 Mg Tab) 25 mg PO TID PRN PRN Reason: Vertigo Stop: 06/07/22 06:08 Metformin HCl (Metformin Hcl Er 500 Mg Tabcr) 1,000 mg PO BID [facility] Stop: 06/08/22 20:59 Last Admin: 05/13/22 08:44 Dose: 1,000 mg Multivitamins (Multivitamin Tab) 1 [facility] [place] Stop: 06/07/22 08:59 Last Admin: 05/13/22 08:44 Dose: 1 tab Pantoprazole Sodium (Pantoprazole 40 Mg Tab) 40 mg PO DAILYBB [facility] Stop: 06/07/22 07:59 Last Admin: 05/13/22 08:45 Dose: 40 mg Quetiapine Fumarate (Quetiapine Fumarate 25 Mg Tablet) 50 mg PO HS PRN PRN Reason: Insomnia Stop: 06/07/22 21:59 Last Admin: 05/10/22 23:16 Dose: 50 mg Quetiapine Fumarate (Quetiapine Fumarate 200 Mg Tab) 200 mg PO HS DEANDRE Stop: 06/10/22 21:59 Last Admin: 05/12/22 21:31 Dose: 200 mg Sitagliptin Phosphate (Sitagliptin Phosphate 100 Mg Tab) 100 mg PO DAILY DEANDRE Stop: 06/07/22 08:59 Last Admin: 05/13/22 08:45 Dose: 100 mg Sodium Chloride (Sodium Chloride 0.65% Na Soln 45 Ml ([place])) 1 - 2 sprays NA PRN PRN PRN Reason: Nasal Dryness/Congestion Stop: 06/07/22 03:50 Post Discharge Appointments Primary Care Physician Name Of Family Doctor: Megan Walker Primary Care Date of Appointment with PCP: 05/24/22 Time of Appointment with PCP: 9:45am Provider Appointment Comment: [phone] [place] [id number]
[2022-05-13] MEDS: risperiDONE 0.5 MG TABLET PO SCH ×2 (12:13→23:10)
[2022-05-14] MEDS: AMOXICILLIN/CLAVULANATE 875 MG TAB PO SCH ×2 (08:13→17:43)
[2022-05-14] MEDS: amLODIPine BESYLATE 5 MG TAB PO SCH (08:13)
[2022-05-14] MEDS: PANTOprazole 40 MG TAB PO SCH (08:13)
[2022-05-14] MEDS: metFORMIN HCL ER 500 MG TABCR PO SCH ×2 (08:14→20:33)
[2022-05-14] MEDS: ASPIRIN 81 MG ECTAB PO SCH (08:14)
[2022-05-14] MEDS: lisinopril 10 MG TAB PO SCH (08:14)
[2022-05-14] MEDS: ESCITALOPRAM OXALATE 10 MG TAB PO SCH (08:14)
[2022-05-14] MEDS: ATORVASTATIN 40 MG TAB PO SCH (08:14)
[2022-05-14] MEDS: MULTIVITAMIN TAB PO SCH (08:15)
[2022-05-14] MEDS: risperiDONE 0.5 MG TABLET PO SCH (08:15)
[2022-05-14] MEDS: SITagliptin PHOSPHATE 100 MG TAB PO SCH (08:15)
--- NOTE | 2022-05-14 09:01 | Psychiatric Progress Note ---
Date of Service May 14, 2022 Impression / Recommendations Impression 62 yo male with a remote history of depression with psychotic features presents with several week history of personality change, depressed mood, impulsive anger, and ruminations over items he has taken from the trash at school which has escalated to paranoia. It is our understanding he has to park in a set area and his coming/going from school are being monitored due to safety protocol with coworker following a 2 week leave but there is no active legal charge. Diagnostically consistent with MDD with psychotic features, possible catatonic component. Head CT done 05/02/22 with no abnormal findings. MNPR given wound, disorganization, psychosis with paranoia toward others, threatened peer 05/14/22: ongoing disorganization, severe depression and paranoia. Given ongoing poor po intake suspect component of catatonia. Cuenca Mathew Catatonia Rating Scale score of 9 for: immobility, mutism, staring, posturing mundane of sitting for long periods, withdrawal (minimal po >1 day) and autonomic abnormality of tachycardia. Therefore will increase ativan, with ongoing monitoring for gait stability given recent fall. Tolerating risperidone will increase dose. (1) MDD (major depressive disorder), recurrent, severe, with psychosis: (2) Depression: (3) Laceration of knee: (4) Leukocytosis: Plan 05/14/22: Increase risperidone to 0.5mg qAM & 1 mg qhs. Increase ativan to 0.5mg TID scheduled in attempt to increase po intake due to concern for catatonia. 05/13/22: Stop seroquel. Start risperidone 0.5mg BID. 05/12/22: Continue with current medications and tx plan. 05/11/22: titrate hs seroquel to 200 mg and shift Lexapro to am. Patient reports no benefit from prn Seroquel for anxiety, will offer low dose Ativan but monitor falls. 05/10/22: patient reports having an MRI on outpatient basis, will confirm with family. Risks/benefits/alternatives reviewed re: trial of Lexapro. He is not excited to take more medication but was ultimately agreeable. AM gluc checks all under 200 even with starting SEroquel so will d/c for now as controlled on oral agents, reconsider if significant increase in dose or symptomatic. 10/26/22: labs reviewed, HgbA1c elevated as suspected. Reports he snores at home and denies any prior w/u for sleep apnea. Consider head CT given change from baseline MSE. Knee sutures out 05/16 or within a few days after. Increase Seroquel 100 mg qhs. Lisinopril potential increase noted in ED note as patient was seen few days in a row prior to psych admission. 05/08/22: The patient was admitted to the [facility] ([facility]) on q15 min checks (behavioral with suicide precautions) for safety. The patient will participate in group, recreational, and milieu therapies and will be offered additional individual and family sessions as clinically appropriate. Risks/benefits/alternatives were reviewed re: antipsychotics for mood and/or psychosis. Psychotic depression vs. mixed episode. Discussion included but was not limited to metabolic side effects, risks of TD and suicidal thoughts. There were no abnormal motor movements at baseline. Fasting lipid panel and HgbA1c ordered for baseline monitoring and will repeat CBC. Continue course of prophylactic Augmentin as per ED. Patient agreed to a trial of Seroquel 50 mg qhs with 12.5 mg q 6 prn daytime anxiety with likely titration. Will add B12 and folate in case early cognitive change and consider additional head imaging as outpatient. 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 Chief Complaint "I'm not good". Review of Systems Sleep Information Total Hours of Sleep: 6.5 Sleep Comments: given Seroquel 50 mg PO prn @ 2316. Not effective Meal Information Percent Meal Consumed - Breakfast: 0 Percent Meal Consumed - Lunch: 10 Percent Meal Consumed - Dinner: 0 Nutrition Comment: Refused breakfast even after getting another tray per patient request Subjective Subjective Patient was seen & assessed and interval progress reviewed with treatment team nursing and social work. Needing a lot of encouragement to take his medications. Struggling with ADLs, perseverative about not being able to take a shower. Confused about the date, stating it's April today. Continues to report depressed mood. Very latent today, difficult to communicate spontaneously. He tells me he isn't eating "because I'm not sure I have a place to go". Reassured him that plan is to return home with his once he stabilizes. He denies any medication side effects. Otherwise only able to vocalize his desire to leave the hospital soon. Discussed goal of discharge once he is eating and drinking more consistently and not feeling depressed which he agreed with. Physical Exam Psychiatric Orientation: alert and oriented x 3 Apperance: appropriately groomed Eye Contact: + poor eye contact Motor Behavior: no abnormal motor movements Speech: normal rate/rhythm/volume of speech Affect: + flat affect Mood: + depressed mood Thought Process: + thought blocking and + looseness of associations Thought Content: + paranoid and + delusions Suicidal Thoughts: denies suicidal thoughts Homicidal Thoughts: denies homicidal thoughts Hallucinations: no auditory hallucinations and no visual hallucinations Cognition: language grossly intact; + attention not intact Estimated Intelligence: consistent with education level Insight: + limited insight Judgement: + limited judgement Vital Signs (Past 24 Hours) Last Vital Signs Temp 36.9 C 05/14/22 06:49 Pulse 112 H 05/14/22 06:49 Resp 18 05/14/22 06:49 BP 152/95 H 05/14/22 06:49 Pulse Ox 96 05/12/22 07:39 O2 Del Method 05/12/22 07:39 O2 Flow Rate 19 05/08/22 04:13 Results & Data (U) Current Inpatient Medications Current Inpatient Medications: Current Inpatient Medications Acetaminophen (Acetaminophen 325 Mg Tab) 650 mg PO Q4H PRN PRN Reason: Headache or Minor Fever Stop: 06/07/22 03:50 Last Admin: 05/09/22 08:15 Dose: 650 mg Al Hydrox/Mg Hydrox/Simethicone (Aluminum/Magnesium Susp 30 Ml Udc) 30 ml PO Q4H PRN PRN Reason: GI Upset Stop: 06/07/22 03:50 Amlodipine Besylate (Amlodipine Besylate 5 Mg Tab) 5 mg PO [facility] Stop: 06/11/22 09:14 Last Admin: 05/14/22 08:13 Dose: 5 mg Amoxicillin/Clavulanate Potassium (Amoxicillin/Cl[facility]ulanate 875 Mg Tab) [facility] Stop: 05/15/22 08:55 Last Admin: 05/14/22 08:13 Dose: 1 tab Aspirin (Aspirin 81 Mg Ectab) 81 mg PO [facility] Stop: 06/07/22 08:59 Last Admin: 05/14/22 08:14 Dose: 81 mg Atorvastatin Calcium (Atorvastatin 40 Mg Tab) 40 mg PO [facility] Stop: 06/07/22 08:59 Last Admin: 05/14/22 08:14 Dose: 40 mg Bismuth Subsalicylate (Bismuth Subsalicylate Liqd 236 Ml) 15 ml PO PRN PRN PRN Reason: Loose Stool Stop: 06/07/22 03:50 Escitalopram Oxalate (Escitalopram Oxalate 10 Mg Tab) 10 mg PO [facility] Stop: 06/11/22 08:59 Last Admin: 05/14/22 08:14 Dose: 10 mg Lisinopril (Lisinopril 10 Mg Tab) 10 mg PO [facility] Stop: 06/07/22 08:59 Last Admin: 05/14/22 08:14 Dose: 10 mg Lorazepam (Lorazepam 0.5 Mg Tab) 0.5 mg PO Q6 PRN PRN Reason: Anxiety Stop: 06/10/22 10:51 Last Admin: 05/13/22 08:44 Dose: 0.5 mg Magnesium Hydroxide (Magnesium Hydroxide Susp 30 Ml Udc) 30 ml PO DAILY PRN PRN Reason: Constipation Stop: 06/07/22 03:50 Meclizine HCl (Meclizine Hcl 25 Mg Tab) 25 mg PO TID PRN PRN Reason: Vertigo Stop: 06/07/22 06:08 Metformin HCl (Metformin Hcl Er 500 Mg Tabcr) 1,000 mg PO BID [facility] Stop: 06/08/22 20:59 Last Admin: 05/14/22 08:14 Dose: 1,000 mg Multivitamins (Multivitamin Tab) 1 tab PO QAM [facility] Stop: 06/07/22 08:59 Last Admin: 05/14/22 08:15 Dose: 1 tab Pantoprazole Sodium (Pantoprazole 40 Mg Tab) 40 mg PO DAILYBB [facility] Stop: 06/07/22 07:59 Last Admin: 05/14/22 08:13 Dose: 40 mg Risperidone (Risperidone 0.5 Mg Tablet) 0.5 mg PO BID [facility] Stop: 06/12/22 11:14 Last Admin: 05/14/22 08:15 Dose: 0.5 mg Sitagliptin Phosphate (Sitagliptin Phosphate 100 Mg Tab) 100 mg PO DAILY [facility] Stop: 06/07/22 08:59 Last Admin: 05/14/22 08:15 Dose: 100 mg Sodium Chloride (Sodium Chloride 0.65% Na Soln 45 Ml ([place])) 1 - 2 sprays NA PRN PRN PRN Reason: Nasal Dryness/Congestion Stop: 06/07/22 03:50 Post Discharge Appointments Primary Care Physician Name Of Family Doctor: Megan Walker Primary [facility] Date of Appointment with PCP: 05/24/22 Time of Appointment with PCP: 9:45am Provider Appointment Comment: [phone] [place] [id number]
[2022-05-14] MEDS: LORazepam 0.5 MG TAB PO SCH (20:32)
[2022-05-14] MEDS: risperiDONE 1 MG TABLET PO SCH (20:33)
--- NOTE | 2022-05-15 09:05 | Psychiatric Progress Note ---
Date of Service May 15, 2022 Impression / Recommendations Impression 62 yo male with a remote history of depression with psychotic features presents with several week history of personality change, depressed mood, impulsive anger, and ruminations over items he has taken from the trash at school which has escalated to paranoia. It is our understanding he has to park in a set area and his coming/going from school are being monitored due to safety protocol with coworker following a 2 week leave but there is no active legal charge. Diagnostically consistent with MDD with psychotic features, possible catatonic component. Head CT done 05/02/22 with no abnormal findings. MNPR given wound, disorganization, psychosis with paranoia toward others, threatened peer 05/15/22: catatonia higher suspicion especially given positive response to ativan trial x2. Will continue with TID dosing and continue to monitor for any gait changes/instability. Ongoing delusions and paranoia but po intake improving slightly. Still with autonomic changes-increased BP and tachycardia so amlodipine dose increased. Ativan dose increased given positive response last evening and stable gait. (1) MDD (major depressive disorder), recurrent, severe, with psychosis: (2) Catatonia: (3) Depression: (4) Laceration of knee: (5) Leukocytosis: Plan 05/15/22: Increased ativan to 1mg TID. Continue with lexapro and risperidone. 05/14/22: Increase risperidone to 0.5mg qAM & 1 mg qhs. Increase ativan to 0.5mg TID scheduled in attempt to increase po intake due to concern for catatonia. 05/13/22: Stop seroquel. Start risperidone 0.5mg BID. 05/12/22: Continue with current medications and tx plan. 05/11/22: titrate hs seroquel to 200 mg and shift Lexapro to am. Patient reports no benefit from prn Seroquel for anxiety, will offer low dose Ativan but monitor falls. 05/10/22: patient reports having an MRI on outpatient basis, will confirm with family. Risks/benefits/alternatives reviewed re: trial of Lexapro. He is not excited to take more medication but was ultimately agreeable. AM gluc checks all under 200 even with starting SEroquel so will d/c for now as controlled on oral agents, reconsider if significant increase in dose or symptomatic. 05/09/22: labs reviewed, HgbA1c elevated as suspected. Reports he snores at home and denies any prior w/u for sleep apnea. Consider head CT given change from baseline MSE. Knee sutures out 05/16 or within a few days after. Increase Seroquel 100 mg qhs. Lisinopril potential increase noted in ED note as patient was seen few days in a row prior to psych admission. 05/08/22: The patient was admitted to the [facility] on q15 min checks (behavioral with suicide precautions) for safety. The patient will participate in group, recreational, and milieu therapies and will be offered additional individual and family sessions as clinically appropriate. Risks/benefits/alternatives were reviewed re: antipsychotics for mood and/or psychosis. Psychotic depression vs. mixed episode. Discussion included but was not limited to metabolic side effects, risks of TD and suicidal thoughts. There were no abnormal motor movements at baseline. Fasting lipid panel and HgbA1c ordered for baseline monitoring and will repeat CBC. Continue course of prophylactic Augmentin as per ED. Patient agreed to a trial of Seroquel 50 mg qhs with 12.5 mg q 6 prn daytime anxiety with likely titration. Will add B12 and folate in case early cognitive change and consider additional head imaging as outpatient. 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 Chief Complaint "not good at all". Review of Systems Sleep Information Total Hours of Sleep: 7.25 Sleep Comments: Meal Information Percent Meal Consumed - Breakfast: 0 Percent Meal Consumed - Lunch: 10 Percent Meal Consumed - Dinner: 40 Nutrition Comment: Dario refused breakfast Subjective Subjective Patient was seen & assessed and interval progress reviewed with treatment team nursing and social work. Accepted ativan and risperidone yesterday. Showered and ate and called a friend last night. This morning very paranoid and delusions again about being dirty and being an imposter. Sat in his room all morning without moving and would not eat. After ativan was increased and he got mid-day dose notable improvement with some brightening of affect, speaking more easily, attended group in the afternoon. Physical Exam Psychiatric Orientation: alert and oriented x 3 Apperance: appropriately groomed Eye Contact: + fair eye contact Motor Behavior: no abnormal motor movements Speech: normal rate/rhythm/volume of speech Affect: + flat affect Mood: + depressed mood Thought Process: + thought blocking and + looseness of associations Thought Content: + paranoid and + delusions Suicidal Thoughts: denies suicidal thoughts Homicidal Thoughts: denies homicidal thoughts Hallucinations: no auditory hallucinations and no visual hallucinations Cognition: language grossly intact; + attention not intact Estimated Intelligence: consistent with education level Insight: + limited insight Judgement: + limited judgement Vital Signs (Past 24 Hours) Last Vital Signs Temp 36.6 C 05/15/22 06:43 Pulse 114 H 05/15/22 06:44 Resp 18 05/15/22 06:43 BP 172/100 H 05/15/22 06:44 Pulse Ox 96 05/12/22 07:39 O2 Del Method 05/12/22 07:39 O2 Flow Rate 19 05/08/22 04:13 Results & Data ([facility]) Current Inpatient Medications Current Inpatient Medications: Current Inpatient Medications Acetaminophen (Acetaminophen 325 Mg Tab) 650 mg PO Q4H PRN PRN Reason: Headache or Minor Fever Stop: 06/07/22 03:50 Last Admin: 05/09/22 08:15 Dose: 650 mg Al Hydrox/Mg Hydrox/Simethicone (Aluminum/Magnesium Susp 30 Ml Udc) 30 ml PO Q4H PRN PRN Reason: GI Upset Stop: 06/07/22 03:50 Amlodipine Besylate (Amlodipine Besylate 5 Mg Tab) 5 mg PO QAM [facility] Stop: 06/11/22 09:14 Last Admin: 05/14/22 08:13 Dose: 5 mg Aspirin (Aspirin 81 Mg Ectab) 81 mg PO QAM [facility] Stop: 06/07/22 08:59 Last Admin: 05/14/22 08:14 Dose: 81 mg Atorvastatin Calcium (Atorvastatin 40 Mg Tab) 40 mg PO QAM [facility] Stop: 06/07/22 08:59 Last Admin: 05/14/22 08:14 Dose: 40 mg Bismuth Subsalicylate (Bismuth Subsalicylate Liqd 236 Ml) 15 ml PO PRN PRN PRN Reason: Loose Stool Stop: 06/07/22 03:50 Escitalopram Oxalate (Escitalopram Oxalate 10 Mg Tab) 10 mg PO QAM [facility] Stop: 06/11/22 08:59 Last Admin: 05/14/22 08:14 Dose: 10 mg Lisinopril (Lisinopril 10 Mg Tab) 10 mg PO QAM [facility] Stop: 06/07/22 08:59 Last Admin: 05/14/22 08:14 Dose: 10 mg Lorazepam (Lorazepam 0.5 Mg Tab) 0.5 mg PO TID [facility] Stop: 06/13/22 20:59 Last Admin: 05/14/22 20:32 Dose: 0.5 mg Magnesium Hydroxide (Magnesium Hydroxide Susp 30 Ml Udc) 30 ml PO DAILY PRN PRN Reason: Constipation Stop: 06/07/22 03:50 Meclizine HCl (Meclizine Hcl 25 Mg Tab) 25 mg PO TID PRN PRN Reason: Vertigo Stop: 06/07/22 06:08 Metformin HCl (Metformin Hcl Er 500 Mg Tabcr) 1,000 mg PO BID [facility] Stop: 06/08/22 20:59 Last Admin: 05/14/22 20:33 Dose: 1,000 mg Multivitamins (Multivitamin Tab) 1 tab PO QAM [facility] Stop: 06/07/22 08:59 Last Admin: 05/14/22 08:15 Dose: 1 tab Pantoprazole Sodium (Pantoprazole 40 Mg Tab) 40 mg PO DAILYBB [facility] Stop: 06/07/22 07:59 Last Admin: 05/14/22 08:13 Dose: 40 mg Risperidone (Risperidone 0.5 Mg Tablet) 0.5 mg PO QAM [facility] Stop: 06/14/22 08:59 Risperidone (Risperidone 1 Mg Tablet) 1 mg PO HS [facility] Stop: 06/13/22 21:59 Last Admin: 05/14/22 20:33 Dose: 1 mg Sitagliptin Phosphate (Sitagliptin Phosphate 100 Mg Tab) 100 mg PO DAILY [facility] Stop: 06/07/22 08:59 Last Admin: 05/14/22 08:15 Dose: 100 mg Sodium Chloride (Sodium Chloride 0.65% Na Soln 45 Ml ([place])) 1 - 2 sprays NA PRN PRN PRN Reason: Nasal Dryness/Congestion Stop: 06/07/22 03:50 Post Discharge Appointments Primary Care Physician Name Of Family Doctor: Megan Walker Primary Care Date of Appointment with PCP: 05/24/22 Time of Appointment with PCP: 9:45am Provider Appointment Comment: [phone] [place] [id number]
[2022-05-15] MEDS ORDERED: amLODIPine BESYLATE 5 MG TAB PO ONE (09:30)
[2022-05-15] MEDS: PANTOprazole 40 MG TAB PO SCH (09:35)
[2022-05-15] MEDS: ESCITALOPRAM OXALATE 10 MG TAB PO SCH (09:36)
[2022-05-15] MEDS: lisinopril 10 MG TAB PO SCH (09:36)
[2022-05-15] MEDS: ATORVASTATIN 40 MG TAB PO SCH (09:36)
[2022-05-15] MEDS: LORazepam 0.5 MG TAB PO SCH (09:36)
[2022-05-15] MEDS: MULTIVITAMIN TAB PO SCH (09:37)
[2022-05-15] MEDS: metFORMIN HCL ER 500 MG TABCR PO SCH ×2 (09:37→20:52)
[2022-05-15] MEDS: risperiDONE 0.5 MG TABLET PO SCH (09:37)
[2022-05-15] MEDS: SITagliptin PHOSPHATE 100 MG TAB PO SCH (09:38)
[2022-05-15] MEDS: LORazepam 1 MG TAB PO SCH ×2 (13:28→20:52)
[2022-05-15] MEDS: ASPIRIN 81 MG ECTAB PO SCH (13:28)
[2022-05-15] MEDS: amLODIPine BESYLATE 5 MG TAB PO SCH (15:12)
[2022-05-15] MEDS: risperiDONE 1 MG TABLET PO SCH (20:52)
[2022-05-16] MEDS: metFORMIN HCL ER 500 MG TABCR PO SCH ×2 (08:25→21:02)
[2022-05-16] MEDS: lisinopril 10 MG TAB PO SCH (08:25)
[2022-05-16] MEDS: ESCITALOPRAM OXALATE 10 MG TAB PO SCH (08:26)
[2022-05-16] MEDS: ASPIRIN 81 MG ECTAB PO SCH (08:26)
[2022-05-16] MEDS: LORazepam 1 MG TAB PO SCH ×3 (08:27→17:50)
[2022-05-16] MEDS: ATORVASTATIN 40 MG TAB PO SCH (08:28)
[2022-05-16] MEDS: PANTOprazole 40 MG TAB PO SCH (08:29)
[2022-05-16] MEDS: MULTIVITAMIN TAB PO SCH (08:29)
[2022-05-16] MEDS: SITagliptin PHOSPHATE 100 MG TAB PO SCH (08:29)
[2022-05-16] MEDS: risperiDONE 0.5 MG TABLET PO SCH (08:29)
[2022-05-16] MEDS ORDERED: amLODIPine BESYLATE 5 MG TAB PO SCH (09:00)
--- NOTE | 2022-05-16 09:08 | Psychiatric Progress Note ---
Date of Service May 16, 2022 Impression / Recommendations Impression 62 yo male with a remote history of depression with psychotic features presents with several week history of personality change, depressed mood, impulsive anger, and ruminations over items he has taken from the trash at school which has escalated to paranoia. It is our understanding he has to park in a set area and his coming/going from school are being monitored due to safety protocol with coworker following a 2 week leave but there is no active legal charge. Diagnostically consistent with MDD with psychotic features, possible catatonic component. Head CT done 05/02/22 with no abnormal findings. MNPR given wound, disorganization, psychosis with paranoia toward others, threatened peer 05/16/22: ongoing depression with psychosis and catatonia and very isolative today, suspect due to paranoia and delusions. Given tachycardia will avoid further titration of ativan for now. Appreciate evaluation and recommendations by hospitalist service. Reviewed EKG from today which was reassuring, repeat EKG tomorrow morning. (1) MDD (major depressive disorder), recurrent, severe, with psychosis: (2) Catatonia: (3) Depression: (4) Laceration of knee: (5) Leukocytosis: Plan 05/16/22: Continue current medications. Appreciate hospitalist recommendations regarding increase of lisinopril and addition of coreg 6.25mg BID with plan to increase to 12.5mg BID if HTN and tachycardia persist. 05/15/22: Increased ativan to 1mg TID. Continue with lexapro and risperidone. 05/14/22: Increase risperidone to 0.5mg qAM & 1 mg qhs. Increase ativan to 0.5mg TID scheduled in attempt to increase po intake due to concern for catatonia. 05/13/22: Stop seroquel. Start risperidone 0.5mg BID. 05/12/22: Continue with current medications and tx plan. 05/11/22: titrate hs seroquel to 200 mg and shift Lexapro to am. Patient reports no benefit from prn Seroquel for anxiety, will offer low dose Ativan but monitor falls. 05/10/22: patient reports having an MRI on outpatient basis, will confirm with family. Risks/benefits/alternatives reviewed re: trial of Lexapro. He is not excited to take more medication but was ultimately agreeable. AM gluc checks all under 200 even with starting SEroquel so will d/c for now as controlled on oral agents, reconsider if significant increase in dose or symptomatic. 05/09/22: labs reviewed, HgbA1c elevated as suspected. Reports he snores at home and denies any prior w/u for sleep apnea. Consider head CT given change from baseline MSE. Knee sutures out 05/16 or within a few days after. Increase Seroquel 100 mg qhs. Lisinopril potential increase noted in ED note as patient was seen few days in a row prior to psych admission. 05/08/22: The patient was admitted to the [facility] ([facility] unit) on q15 min checks (behavioral with suicide precautions) for safety. The patient will participate in group, recreational, and milieu therapies and will be offered additional individual and family sessions as clinically appropriate. Risks/benefits/alternatives were reviewed re: antipsychotics for mood and/or psychosis. Psychotic depression vs. mixed episode. Discussion included but was not limited to metabolic side effects, risks of TD and suicidal thoughts. There were no abnormal motor movements at baseline. Fasting lipid panel and HgbA1c ordered for baseline monitoring and will repeat CBC. Continue course of prophylactic Augmentin as per ED. Patient agreed to a trial of Seroquel 50 mg qhs with 12.5 mg q 6 prn daytime anxiety with likely titration. Will add B12 and folate in case early cognitive change and consider additional head imaging as outpatient. Inventory Assets Strengths: longstanding employment hx, help seeking Needs: leave from work, reestablish outpatient care Suicide Risk Level Suicide Risk Level: High-Moderate (q15 min suicide checks) (given severe depression with psychosis and periods of agitation and confusion but denying SI and agrees to alert staff if he feels unsafe or develops SI ) Risk Factors Assessment Male: Yes : Yes Do You Have Access To A Gun?: Yes (collects guns) Health Problems: Yes Mental Health Diagnoses: Yes Substance Use Disorders: No Protective Factors Assessment Employed: Yes ([employer]) Interval History Identifying Information JERARDO VELAZQUEZ is a 62-year-old M who currently lives in [place], and was admitted on 05/08/22 04:13 on a 201 voluntary commitment for disorganization/inability to function. Chief Complaint "I'm not sure how I'm doing". Review of Systems Sleep Information Total Hours of Sleep: 10 Meal Information Percent Meal Consumed - Breakfast: 0 Percent Meal Consumed - Lunch: 10 Percent Meal Consumed - Dinner: 75 Nutrition Comment: pt. had only a few bites of pizza but did drink CIB Subjective Subjective Patient was seen & assessed and interval progress reviewed with treatment team nursing and social work. Ate and attended groups and took medication and slept well last evening but then this morning not eating or making eye contact and isolative to his room all day. Did accept and ate a few snacks that brought to his bed, declined multiple attempts to encourage him to engage with peers or eat in main room. He denies any medication side effects but easily overwhelmed by discussion of this wondering "I don't know if I should be on medication". Reviewed symptoms the medications are targeting and he agrees with this. Allowed assessment by hospitalist service due to persistent HTN and tachycardia despite addition of amlodipine. Physical Exam Psychiatric Orientation: alert and oriented x 3 Eye Contact: + poor eye contact Motor Behavior: no abnormal motor movements Affect: + flat affect Mood: + depressed mood Thought Process: + thought blocking Thought Content: + preoccupation Suicidal Thoughts: denies suicidal thoughts Homicidal Thoughts: denies homicidal thoughts Hallucinations: no auditory hallucinations and no visual hallucinations Cognition: language grossly intact; + attention not intact Estimated Intelligence: consistent with education level Insight: + limited insight Judgement: + limited judgement Vital Signs (Past 24 Hours) Last Vital Signs Temp 36.9 C 05/16/22 06:27 Pulse 144 H 05/16/22 06:28 Resp 16 05/16/22 06:27 BP 178/99 H 05/16/22 06:28 Pulse Ox 96 05/12/22 07:39 O2 Del Method 05/12/22 07:39 O2 Flow Rate 19 05/08/22 04:13 Results & Data ([facility]) Current Inpatient Medications Current Inpatient Medications: Current Inpatient Medications Acetaminophen (Acetaminophen 325 Mg Tab) 650 mg PO Q4H PRN PRN Reason: Headache or Minor Fever Stop: 06/07/22 03:50 Last Admin: 05/09/22 08:15 Dose: 650 mg Al Hydrox/Mg Hydrox/Simethicone (Aluminum/Magnesium Susp 30 Ml Udc) 30 ml PO Q4H PRN PRN Reason: GI Upset Stop: 06/07/22 03:50 Amlodipine Besylate (Amlodipine Besylate 5 Mg Tab) [facility] Stop: 06/15/22 08:59 Last Admin: 05/16/22 08:26 Dose: 10 mg Aspirin (Aspirin 81 Mg Ectab) [facility] Stop: 06/07/22 08:59 Last Admin: 05/16/22 08:26 Dose: 81 mg Atorvastatin Calcium (Atorvastatin 40 Mg Tab) 40 [facility] Stop: 06/07/22 08:59 Last Admin: 05/16/22 08:28 Dose: 40 mg Bismuth Subsalicylate (Bismuth Subsalicylate Liqd 236 Ml) 15 ml PO PRN PRN PRN Reason: Loose Stool Stop: 06/07/22 03:50 Escitalopram Oxalate (Escitalopram Oxalate 10 Mg Tab) [address] [facility] Stop: 06/11/22 08:59 Last Admin: 05/16/22 08:26 Dose: 10 mg Lisinopril (Lisinopril 10 Mg Tab) [address] [facility] Stop: 06/07/22 08:59 Last Admin: 05/16/22 08:25 Dose: 10 mg Lorazepam (Lorazepam 1 Mg Tab) 1 mg PO TID [facility] Stop: 06/14/22 13:59 Last Admin: 05/16/22 08:27 Dose: 1 mg Magnesium Hydroxide (Magnesium Hydroxide Susp 30 Ml Udc) 30 ml PO DAILY PRN PRN Reason: Constipation Stop: 06/07/22 03:50 Meclizine HCl (Meclizine Hcl 25 Mg Tab) 25 mg PO TID PRN PRN Reason: Vertigo Stop: 06/07/22 06:08 Metformin HCl (Metformin Hcl Er 500 Mg Tabcr) 1,000 mg PO BID [facility] Stop: 06/08/22 20:59 Last Admin: 05/16/22 08:25 Dose: 1,000 mg Multivitamins (Multivitamin Tab) 1 tab [facility] Stop: 06/07/22 08:59 Last Admin: 05/16/22 08:29 Dose: 1 tab Pantoprazole Sodium (Pantoprazole 40 Mg Tab) 40 mg PO DAILYBB [facility] Stop: 06/07/22 07:59 Last Admin: 05/16/22 08:29 Dose: 40 mg Risperidone (Risperidone 0.5 Mg Tablet) 0.5 mg PO QAM [facility] Stop: 06/14/22 08:59 Last Admin: 05/16/22 08:29 Dose: 0.5 mg Risperidone (Risperidone 1 Mg Tablet) 1 mg PO HS [facility] Stop: 06/13/22 21:59 Last Admin: 05/15/22 20:52 Dose: 1 mg Sitagliptin Phosphate (Sitagliptin Phosphate 100 Mg Tab) 100 mg PO DAILY [facility] Stop: 06/07/22 08:59 Last Admin: 05/16/22 08:29 Dose: 100 mg Sodium Chloride (Sodium Chloride 0.65% Na Soln 45 Ml ([place])) 1 - 2 sprays NA PRN PRN PRN Reason: Nasal Dryness/Congestion Stop: 06/07/22 03:50 Post Discharge Appointments Primary Care Physician Name Of Family Doctor: Megan Walker [facility] Date of Appointment with PCP: 05/24/22 Time of Appointment with PCP: 9:45am Provider Appointment Comment: [phone] [place] [id number]
--- NOTE | 2022-05-16 11:37 | Consultation ---
Date of Consultation May 16, 2022 Assessment & Plan (1) HTN (hypertension): (2) Tachycardia: (3) MDD (major depressive disorder), recurrent, severe, with psychosis: (4) Depression: (5) DM2 (diabetes mellitus, type 2): Plan Mr. Rodarte is a 62-year-old male [facility] of depressed mood and paranoia. The [facility] hospitalist group has been consulted for assistance with management of persistent hypertension and tachycardia. HTN: Tachycardia: BP 178-99; HR 144 Pt takes Lisinopril 10 mg P); increase to 20 mg starting in AM on 05/17 BHU administered one time dose of Amlodipine 5 mg Will start Coreg 6.25mg; increase dose tonight to 12.5 if HR > 110 (outlined in instructions) EKG pending; obtain additional EKG in AM BMP/Mg+ level ordered to check for electrolyte abnormalities 05/05: TSH 1.06 Should the patient EKG show any abnormal ectopy or arrhythmia; or show any signs of decompensation including chest pain, SOB, palpitations; please discuss with hospitalist team regarding transfer to monitored unit with telemetry capabilities. HLD: 05/09 lipid panel: LDL 27, HDL 51, TG 105 Continue Simvastatin DM2: Last A1C 05/09 7.4 FSBS by [facility] Continue oral agents (Metformin, Januvia, Semaglutide) in [facility] per protocol. MDD: Depression: Anxiety: Likely contributing factor; management by primary U team Takes Risperidone; maybe contributing factor to increased HR I personally was able to review all current laboratory work and diagnostic images obtained in the ED. Additionally, I was able to review the patients past medication reconciliation and history with direct visualization in the patients chart. This patient was seen in collaboration with Dr. Dover. Please feel free to reach out to the [facility] Hospitalist team at any time via [place] [employer]. Supervising Physician Co-Signing Physician Notes Patient seen and examined independently. Agree with above documentation by ALTAGRACIA Scales Patient is a 62-year-old male with past medical history of hypertension hyperlipidemia, type 2 diabetes mellitus, anxiety admitted to behavioral health unit due to depressed mood and paranoia. Medicine is consulted for tachycardia and hypertension. Patient's blood pressure has been in the range of 150-180/80-100 since the admission. He is more tachycardic since last 3 days with HR in range from 110-140s. Patient is sitting up comfortably; not in any distress. He acknowledges that he has palpitation; denies any chest pain, dizziness or shortness of breath. On examination Generalhe is slightly lethargic; slow to respond but able to answer most questions appropriately. Chestbilateral vesicular breath sounds; no added sound CVSS1-S2 heard, no murmur. Regular. Radial pulse regular, intact. Neurogrossly intact Abdomensoft, nontender Extremitiesno edema present Assessment/plan Hypertension Tachycardia likely related to anxiety/medications Echo from 2019 shows EF of 60% EKG on 05/02 showed sinus tachycardia; no ST or T wave changes Plan; Obtain EKG to confirm sinus tachycardia and rule out arrhythmia; also to obtain QTc interval. Obtain BMP and magnesium Start him on Coreg 6.25 mg twice daily. If he continues to be hypertensive( BP > 160/90) and tachycardic (HR >110); increase the dose of Coreg to 12.5 twice daily starting in the evening today. Increase his lisinopril to 20 mg once daily. Stop amlodipine. Will continue to follow him; additional recommendation based on clinical progression and therapeutic response. History of Present Illness Requesting Physician: Gladys FRIAS Reason for Consultation: Medical Management Attending Physician: Amanda Cintron MD History of Present Illness Mr. Rodarte is a 62-year-old male who [facility] management of depressed mood and paranoia. The patient has a past medical history that includes diabetes mellitus type 2 on oral management, depression, anxiety, hypertension, hyperlipidemia, GERD and a recent knee laceration status post fall. The [facility] hospitalist group has been consulted for assistance with management of persistent hypertension and tachycardia. The patient denies headache, dizziness, chest pain, palpitations, nausea, vomiting, diarrhea. The patient does report his heart racing at rest. The patient was awake alert oriented during our encounter and was able to answer all questions in an appropriate manner although he was slow to respond. Patient stated he feels lightheaded at times going from a lying to sitting position. We explained the recommendation for an EKG and he was receptive to such which primary U team is ordering. Should the patient EKG show any abnormal ectopy or arrhythmia; or show any signs of decompensation including chest pain, SOB, palpitations; please discuss with hospitalist team regarding transfer to monitored unit with telemetry capabilities. Please see assessment and plan for further details. Allergies Allergy/AdvReac Type Severity Reaction Status Date / Time No Known Allergies Allergy Verified 05/02/22 23:06 Home Medications Medication Instructions Recorded Confirmed Type aspirin 81 mg tablet,delayed 81 mg PO DAILY 05/02/22 05/08/22 History release atorvastatin 40 mg tablet 40 mg PO DAILY 05/02/22 05/08/22 History eszopiclone 2 mg tablet 2 mg PO HS PRN Insomnia 05/02/22 05/08/22 History fluticasone propionate 50 2 spray intranasal DAILY PRN 05/02/22 05/08/22 History mcg/actuation nasal Congestion spray,suspension lisinopril 10 mg tablet 10 mg PO DAILY 05/02/22 05/08/22 History metformin 500 mg tablet,extended 1,000 mg PO BID 05/02/22 05/09/22 History release 24 hr multivitamin 1 tab PO DAILY 05/02/22 05/08/22 History omeprazole 20 mg capsule,delayed 20 mg PO HS 05/02/22 05/09/22 History release semaglutide 1 mg/dose (4 mg/3 mL) 0.5 mg subcut WK 05/02/22 05/08/22 History subcutaneous pen injector (Ozempic) sitagliptin 100 mg tablet (Januvia) 100 mg PO DAILY 05/02/22 05/08/22 History meclizine 25 mg tablet 25 mg PO TID PRN dizziness #30 tabs 05/03/22 05/08/22 Rx hydroxyzine pamoate 50 mg capsule 50 mg PO Q8H PRN sleep/anxiety #15 05/05/22 05/08/22 Rx (Vistaril) caps amoxicillin 875 mg-potassium 1 tab PO BID #14 tabs 05/08/22 Rx clavulanate 125 mg tablet Patient History Medical History (Updated 05/16/22 @ 12:10 by ALTAGRACIA Guo) DM2 (diabetes mellitus, type 2) GI bleeding HLD (hyperlipidemia) HTN (hypertension) HTN (hypertension) Tachycardia Surgical History No pertinent past surgical history Family History Other Family history non-contributory Social History Smoking Status: Current every day smoker Tobacco Type: Cigarettes Hx Alcohol Use: Yes Hx Substance Use: No Preferred Language: Vietnamese Communication Ability: Effective 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 Reports feeling his heart beating fast Resp: (-) SOB GI: (-) appetite changes, N/V/D, bowel changes : (-) urinary changes Skin: (-) rashes Psych: (+) anxiety, depression Physical Exam Physical Exam: See Dr. Dover's addendum for physical exam Results & Data ([facility]) Vital Signs (Past 12 Hours) Vital Signs Temp Pulse Resp BP 05/16/22 06:28 144 H 178/99 H 05/16/22 06:27 36.9 C 123 H 16 145/90 H
[2022-05-16 13:20] LABS: BUN Creatinine Ratio 21.6 (10-20); Calcium 9.2 mg/dl (8.5-10.1); Creatinine Clr Calc Pharmacy 132.3 ml/min; Est GFR (African American) 114.6 ml/min; Est GFR (Non-African American) 98.9 ml/min; Magnesium 1.7 mg/dl (1.7-2.4); Potassium 3.7 mmol/L (3.5-5.1)
[2022-05-16] MEDS: carvediloL 6.25 MG TAB PO SCH ×2 (13:43→21:02)
--- NOTE | 2022-05-16 14:14 | Electrocardiogram Report ---
Test Reason : Blood Pressure : / mmHG Vent. Rate : 098 BPM Atrial Rate : 098 BPM P-R Int : 168 ms QRS Dur : 094 ms QT Int : 376 ms P-R-T Axes : 054 -17 026 degrees QTc Int : 480 ms Normal sinus rhythm Low voltage QRS possible Inferior infarct (cited on or before 01-JUN-2014) Abnormal ECG When compared with ECG of 02-MAY-2022 19:10, (unconfirmed) No significant change was found Confirmed by Waldemar Marion ([id number]) on 05/16/2022 2:13:55 PM Referred By: REFERRED SELF Confirmed By:Cecilio Marion
[2022-05-16] MEDS: risperiDONE 1 MG TABLET PO SCH (21:02)
[2022-05-17] MEDS: LORazepam 1 MG TAB PO SCH ×3 (06:23→17:49)
[2022-05-17] MEDS: ACETAMINOPHEN 325 MG TAB PO PRN (06:29)
[2022-05-17] MEDS ORDERED: lisinopril 20 MG TAB PO SCH (09:00)
[2022-05-17] MEDS: ESCITALOPRAM OXALATE 10 MG TAB PO SCH (09:29)
[2022-05-17] MEDS: risperiDONE 0.5 MG TABLET PO SCH (09:29)
[2022-05-17] MEDS: lisinopril 10 MG TAB PO SCH (09:29)
[2022-05-17] MEDS: SITagliptin PHOSPHATE 100 MG TAB PO SCH (09:29)
[2022-05-17] MEDS: PANTOprazole 40 MG TAB PO SCH (09:29)
[2022-05-17] MEDS: carvediloL 6.25 MG TAB PO SCH ×2 (09:29→21:49)
[2022-05-17] MEDS: ASPIRIN 81 MG ECTAB PO SCH (09:30)
[2022-05-17] MEDS: MULTIVITAMIN TAB PO SCH (09:30)
[2022-05-17] MEDS: metFORMIN HCL ER 500 MG TABCR PO SCH ×2 (09:30→21:34)
[2022-05-17] MEDS: ATORVASTATIN 40 MG TAB PO SCH (09:30)
--- NOTE | 2022-05-17 11:12 | Hospitalist Progress Note ---
Date of Service May 17, 2022 Assessment & Plan (1) HTN (hypertension): Plan: Improved on coreg. Cont lisinopril at home dose 10mg daily. If needed, may increase lisinopril to 20 for goal BP <140/90 on average. Advocate low salt diet. (2) Tachycardia: Plan: Tachycardia may be multifactorial including poor self-care /hydration in setting of major depression, possible medication side effects (new meds started on admission and home trazodone stopped), or his mental state/anxiety. Record review reflects some tachycardia in the outpatient setting in recent months. Some nonspecific palpitations reported by patient for months. Agree with continuing coreg at this time and consideration of outpatient event monitor which may be ordered by PCP when he is discharged. This was explained to the patient who verbalized understanding with intent to comply. (3) MDD (major depressive disorder), recurrent, severe, with psychosis: Plan: per psychiatry (4) Catatonia: Plan: Cont Ativan challenge per psychiatry. (5) DM2 (diabetes mellitus, type 2): Plan: chronic, stable. Cont metformin, januvia, semaglutide. The last is NF and currently not being given (6) Laceration of knee: Plan: Patient suffered a fall prior to admission on 05/05 and underwent lac repair in the ER. Wound is well approximated and stitches are reportedly itching him. Sutures were removed and ok to keep petroleum jelly on wound as needed to help prevent scar formation. Thank you for this consultation. Plan was discussed wtih Dr. Dorsey. Will sign-off at this time. Please recall IM for new issues or for questions. You can reach [facility] Hospitalist on [place] role at any time. DO [facility] Admission and Anticipated Discharge Date Admission Date: May 08, 2022 Subjective 62 yo M hospitalized with severe depression. He has been placed on lorazepam 1mg PO TID and risperidone since admission. He has a h/o HTN and elevated heart rate per outpatient record review. BP typically 140s systolic and HR around 95- 100 in the last few months. He was placed on coreg and has responded very well with BP now 132/70 and HR 90. He has no chest pain, shortness of breath or other somatic issues at this time and continues on his mental health therapy. His stitches in his knee laceration were placed on 05/05 and will be removed at this time. The wound appears well-healed. Review of Systems Review of Systems: All systems were reviewed and negative except as indicated on subjective above. Physical Exam Physical Exam: CONSTITUTIONAL: obese, vitals as above, generally well- appearing, flat affect EYES: normal conjunctivae, no scleral icterus, ENT: external ear and nose normal, MMM NECK: trachea midline RESPIRATORY: clear to auscultation bilaterally, no crackles, rales or wheezes, normal respiratory effort CARDIOVASCULAR: regular rate and rhythm, S1 and 2 heard without murmurs, gallops or rubs, no JVD CHEST: inspection of chest was normal GASTROINTESTINAL: soft, nontender, ND, no guarding MUSCULOSKELETAL: strength 5/5 throughout, head is normocephalic and atraumatic, neck supple, normal palpation of chest wall without tenderness SKIN: warm and dry NEUROLOGIC: CN 2-12 grossly intact, no sensory deficit, normal cognition, normal speech, no tremor PSYCHIATRIC: alert cooperative and oriented to person, place and time. Results & Data Results & Data ([facility]) Vital Signs (Past 12 Hours) Vital Signs Temp Pulse Resp BP 05/17/22 06:36 105 H 153/91 H 05/17/22 06:00 36.9 C 90 18 123/77 Laboratory Results BMP 05/16/22 12:16 Sodium 136 Potassium 3.7 Chloride 101 Carbon Dioxide 27 BUN 16 Creatinine 0.74 Glucose 133 H Calcium 9.2 Medications Administered Current Inpatient Medications Acetaminophen (Acetaminophen 325 Mg Tab) 650 mg PO Q4H PRN PRN Reason: Headache or Minor Fever Stop: 06/07/22 03:50 Last Admin: 05/17/22 06:29 Dose: 650 mg Al Hydrox/Mg Hydrox/Simethicone (Aluminum/Magnesium Susp 30 Ml Udc) 30 ml PO Q4H PRN PRN Reason: GI Upset Stop: 06/07/22 03:50 Aspirin (Aspirin 81 Mg Ectab) [facility] Stop: 06/07/22 08:59 Last Admin: 05/17/22 09:30 Dose: 81 mg Atorvastatin Calcium (Atorvastatin 40 Mg Tab) 40 mg [facility] Stop: 06/07/22 08:59 Last Admin: 05/17/22 09:30 Dose: 40 mg Bismuth Subsalicylate (Bismuth Subsalicylate Liqd 236 Ml) 15 ml PO PRN PRN PRN Reason: Loose Stool Stop: 06/07/22 03:50 Carvedilol (Carvedilol 6.25 Mg Tab) 6.25 mg PO BID [facility] Stop: 06/15/22 12:14 Last Admin: 05/17/22 09:29 Dose: 6.25 mg Escitalopram Oxalate (Escitalopram Oxalate 10 Mg Tab) 10 mg PO QAM [facility] Stop: 06/11/22 08:59 Last Admin: 05/17/22 09:29 Dose: 10 mg Lisinopril (Lisinopril 10 Mg Tab) 10 mg PO QAM [facility] Stop: 06/16/22 08:59 Last Admin: 05/17/22 09:29 Dose: 10 mg Lorazepam (Lorazepam 1 Mg Tab) 1 mg PO TID@0700,1200,1800 [facility] Stop: 06/15/22 17:59 Last Admin: 05/17/22 06:23 Dose: 1 mg Magnesium Hydroxide (Magnesium Hydroxide Susp 30 Ml Udc) 30 ml PO DAILY PRN PRN Reason: Constipation Stop: 06/07/22 03:50 Meclizine HCl (Meclizine Hcl 25 Mg Tab) 25 mg PO TID PRN PRN Reason: Vertigo Stop: 06/07/22 06:08 Metformin HCl (Metformin Hcl Er 500 Mg Tabcr) 1,000 mg PO BID [facility] Stop: 06/08/22 20:59 Last Admin: 05/17/22 09:30 Dose: 1,000 mg Multivitamins (Multivitamin Tab) 1 tab PO QAM [facility] Stop: 06/07/22 08:59 Last Admin: 05/17/22 09:30 Dose: 1 tab Pantoprazole Sodium (Pantoprazole 40 Mg Tab) 40 mg PO DAILYBB [facility] Stop: 06/07/22 07:59 Last Admin: 05/17/22 09:29 Dose: 40 mg Risperidone (Risperidone 0.5 Mg Tablet) 0.5 mg PO QAM [facility] Stop: 06/14/22 08:59 Last Admin: 05/17/22 09:29 Dose: 0.5 mg Risperidone (Risperidone 1 Mg Tablet) 1 mg PO HS [facility] Stop: 06/13/22 21:59 Last Admin: 05/16/22 21:02 Dose: 1 mg Sitagliptin Phosphate (Sitagliptin Phosphate 100 Mg Tab) 100 mg PO DAILY [facility] Stop: 06/07/22 08:59 Last Admin: 05/17/22 09:29 Dose: 100 mg Sodium Chloride (Sodium Chloride 0.65% Na Soln 45 Ml ([place])) 1 - 2 sprays NA PRN PRN PRN Reason: Nasal Dryness/Congestion Stop: 06/07/22 03:50
--- NOTE | 2022-05-17 17:25 | Psychiatric Progress Note ---
Date of Service May 17, 2022 Impression / Recommendations Impression 62 yo male with a remote history of depression with psychotic features presents with several week history of personality change, depressed mood, impulsive anger, and ruminations over items he has taken from the trash at school which has escalated to paranoia. It is our understanding he has to park in a set area and his coming/going from school are being monitored due to safety protocol with coworker following a 2 week leave but there is no active legal charge. Diagnostically consistent with MDD with psychotic features, possible catatonic component. Head CT done 05/02/22 with no abnormal findings. MNPR given wound, disorganization, psychosis with paranoia toward others, threatened peer 05/17/22: ongoing severe depression with psychosis and catatonia. Remains isolative but ate a bit today. Improvement seen previously has diminished again, unclear if ativan is offering significant benefit for catatonia but able to speak a bit more and not doing as much mundane posturing though still very isolative. Will increase risperidone to further target delusions/paranoia/psychosis and will increase escitalopram to further target depression. Spoke with Dr. Marcelino and tachycardia and HTN has improved signi ficantly with addition of Coreg. If HTN worsens moving forward option to increase lisinopril from 10 to 20mg. (1) MDD (major depressive disorder), recurrent, severe, with psychosis: (2) Catatonia: (3) Depression: (4) Laceration of knee: (5) Leukocytosis: Plan 05/17/22: Increase risperidone to from 1mg qhs to 1.5mg qhs and continue with 0.5mg qAM. Increase escitalopram from 10mg to 20mg qd. 05/16/22: Continue current medications. Appreciate hospitalist recommendations regarding increase of lisinopril and addition of coreg 6.25mg BID with plan to increase to 12.5mg BID if HTN and tachycardia persist. 05/15/22: Increased ativan to 1mg TID. Continue with lexapro and risperidone. 05/14/22: Increase risperidone to 0.5mg qAM & 1 mg qhs. Increase ativan to 0.5mg TID scheduled in attempt to increase po intake due to concern for catatonia. 05/13/22: Stop seroquel. Start risperidone 0.5mg BID. 05/12/22: Continue with current medications and tx plan. 05/11/22: titrate hs seroquel to 200 mg and shift Lexapro to am. Patient reports no benefit from prn Seroquel for anxiety, will offer low dose Ativan but monitor falls. 05/10/22: patient reports having an MRI on outpatient basis, will confirm with family. Risks/benefits/alternatives reviewed re: trial of Lexapro. He is not excited to take more medication but was ultimately agreeable. AM gluc checks all under 200 even with starting SEroquel so will d/c for now as controlled on oral agents, reconsider if significant increase in dose or symptomatic. 05/09/22: labs reviewed, HgbA1c elevated as suspected. Reports he snores at home and denies any prior w/u for sleep apnea. Consider head CT given change from baseline MSE. Knee sutures out 05/16 or within a few days after. Increase Seroquel 100 mg qhs. Lisinopril potential increase noted in ED note as patient was seen few days in a row prior to psych admission. 05/08/22: The patient was admitted to the [facility] ([facility]) on q15 min checks (behavioral with suicide precautions) for safety. The patient will participate in group, recreational, and milieu therapies and will be offered additional individual and family sessions as clinically appropriate. Risks/benefits/alternatives were reviewed re: antipsychotics for mood and/or psychosis. Psychotic depression vs. mixed episode. Discussion included but was not limited to metabolic side effects, risks of TD and suicidal thoughts. There were no abnormal motor movements at baseline. Fasting lipid panel and HgbA1c ordered for baseline monitoring and will repeat CBC. Continue course of prophylactic Augmentin as per ED. Patient agreed to a trial of Seroquel 50 mg qhs with 12.5 mg q 6 prn daytime anxiety with likely titration. Will add B12 and folate in case early cognitive change and consider additional head imaging as outpatient. 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 Chief Complaint "Not very well, I think it's my mind". Review of Systems Sleep Information Total Hours of Sleep: 9 Meal Information Percent Meal Consumed - Breakfast: 0 Percent Meal Consumed - Lunch: 25 Percent Meal Consumed - Dinner: 0 Nutrition Comment: pt. declines Subjective Subjective Patient was seen & assessed and interval progress reviewed with treatment team nursing and social work. Remained in his room all day and evening yesterday with very minimal po intake. This morning was again isolative to his room all morning but ate a tiny bit of cereal in the morning in his bed. At lunch with significant nursing encouragement he ate a bigger meal in the main room. Remains very depressed and preoccupied by his delusions and thoughts. Was able to tell me that he feels his "mind" isn't working well and elaborated that "it's telling me I can't do things". Denies any auditory hallucinations but rather feels his mind is telling him he can't swallow or do basic things he should be able to do like shower. He is sleeping better. He allowed evaluation by hospitalist provider. Physical Exam Psychiatric Orientation: alert and oriented x 3 Apperance: appropriately groomed Eye Contact: + fair eye contact Motor Behavior: no abnormal motor movements Speech: normal rate/rhythm/volume of speech Affect: + depressed affect and + flat affect Mood: + depressed mood Thought Process: + thought blocking and + looseness of associations Thought Content: + preoccupation, + paranoid and + delusions Suicidal Thoughts: denies suicidal thoughts Homicidal Thoughts: denies homicidal thoughts Hallucinations: no auditory hallucinations and no visual hallucinations Cognition: language grossly intact; + attention not intact Estimated Intelligence: consistent with education level Insight: + limited insight Judgement: + limited judgement Vital Signs (Past 24 Hours) Last Vital Signs Temp 36.9 C 05/17/22 06:00 Pulse 105 H 05/17/22 06:36 Resp 18 05/17/22 06:00 BP 153/91 H 05/17/22 06:36 Pulse Ox 96 05/12/22 07:39 O2 Del Method 05/12/22 07:39 O2 Flow Rate 19 05/08/22 04:13 Results & Data ([facility]) Current Inpatient Medications Current Inpatient Medications: Current Inpatient Medications Acetaminophen (Acetaminophen 325 Mg Tab) 650 mg PO Q4H PRN PRN Reason: Headache or Minor Fever Stop: 06/07/22 03:50 Last Admin: 05/17/22 06:29 Dose: 650 mg Al Hydrox/Mg Hydrox/Simethicone (Aluminum/Magnesium Susp 30 Ml Udc) 30 ml PO Q4H PRN PRN Reason: GI Upset Stop: 06/07/22 03:50 Aspirin (Aspirin 81 Mg Ectab) [facility] Stop[facility] 06/07/22 08:59 Last Admin: 05/17/22 09:30 Dose: 81 mg Atorvastatin Calcium (Atorvastatin 40 Mg Tab) 40 [facility] [place] Stop: 06/07/22 08:59 Last Admin: 05/17/22 09:30 Dose: 40 mg Bismuth Subsalicylate (Bismuth Subsalicylate Liqd 236 Ml) 15 ml PO PRN PRN PRN Reason: Loose Stool Stop: 06/07/22 03:50 Carvedilol (Carvedilol 6.25 Mg Tab) 6.25 mg PO BID [facility] Stop: 06/15/22 12:14 Last Admin: 05/17/22 09:29 Dose: 6.25 mg Escitalopram Oxalate (Escitalopram Oxalate 10 Mg Tab) [facility] [place] Stop: 06/11/22 08:59 Last Admin: 05/17/22 09:29 Dose: 10 mg Lisinopril (Lisinopril 10 Mg Tab) [facility] Stop: 06/16/22 08:59 Last Admin: 05/17/22 09:29 Dose: 10 mg Lorazepam (Lorazepam 1 Mg Tab) 1 mg PO TID@0700,1200,1800 [facility] Stop: 06/15/22 17:59 Last Admin: 05/17/22 13:13 Dose: 1 mg Magnesium Hydroxide (Magnesium Hydroxide Susp 30 Ml Udc) 30 ml PO DAILY PRN PRN Reason: Constipation Stop: 06/07/22 03:50 Meclizine HCl (Meclizine Hcl 25 Mg Tab) 25 mg PO TID PRN PRN Reason: Vertigo Stop: 06/07/22 06:08 Metformin HCl (Metformin Hcl Er 500 Mg Tabcr) 1,000 mg PO BID [facility] Stop: 06/08/22 20:59 Last Admin: 05/17/22 09:30 Dose: 1,000 mg Multivitamins (Multivitamin Tab) 1 tab PO QAM [facility] Stop: 06/07/22 08:59 Last Admin: 05/17/22 09:30 Dose: 1 tab Pantoprazole Sodium (Pantoprazole 40 Mg Tab) 40 mg PO DAILYBB [facility] Stop: 06/07/22 07:59 Last Admin: 05/17/22 09:29 Dose: 40 mg Risperidone (Risperidone 0.5 Mg Tablet) 0.5 mg PO QAM [facility] Stop: 06/14/22 08:59 Last Admin: 05/17/22 09:29 Dose: 0.5 mg Risperidone (Risperidone 1 Mg Tablet) 1 mg PO HS [facility] Stop: 06/13/22 21:59 Last Admin: 05/16/22 21:02 Dose: 1 mg Sitagliptin Phosphate (Sitagliptin Phosphate 100 Mg Tab) 100 mg PO DAILY [facility] Stop: 06/07/22 08:59 Last Admin: 05/17/22 09:29 Dose: 100 mg Sodium Chloride (Sodium Chloride 0.65% Na Soln 45 Ml ([place])) 1 - 2 sprays NA PRN PRN PRN Reason: Nasal Dryness/Congestion Stop: 06/07/22 03:50 Post Discharge Appointments Primary Care Physician Name Of Family Doctor: Megan Walker Primary [facility] Date of Appointment with PCP: 05/24/22 Time of Appointment with PCP: 9:45am Provider Appointment Comment: [phone] [place] [id number]
[2022-05-17] MEDS ORDERED: risperiDONE 0.5 MG TABLET PO SCH (22:00)
[2022-05-18] MEDS: LORazepam 1 MG TAB PO SCH ×2 (06:28→12:18)
[2022-05-18] MEDS: metFORMIN HCL ER 500 MG TABCR PO SCH ×2 (09:04→20:37)
[2022-05-18] MEDS: ASPIRIN 81 MG ECTAB PO SCH (09:04)
[2022-05-18] MEDS: lisinopril 10 MG TAB PO SCH (09:04)
[2022-05-18] MEDS: carvediloL 6.25 MG TAB PO SCH ×2 (09:04→20:37)
[2022-05-18] MEDS: ESCITALOPRAM OXALATE 20 MG TAB PO SCH (09:04)
[2022-05-18] MEDS: ATORVASTATIN 40 MG TAB PO SCH (09:04)
[2022-05-18] MEDS: SITagliptin PHOSPHATE 100 MG TAB PO SCH (09:05)
[2022-05-18] MEDS: MULTIVITAMIN TAB PO SCH (09:05)
[2022-05-18] MEDS: PANTOprazole 40 MG TAB PO SCH (09:37)
[2022-05-18] MEDS: BENZTROPINE MESYLATE 1 MG TAB PO PRN ×2 (09:37→09:43)
[2022-05-18] MEDS: risperiDONE 0.5 MG TABLET PO SCH (09:41)
--- NOTE | 2022-05-18 13:12 | Psychiatric Progress Note ---
Date of Service May 18, 2022 Impression / Recommendations Impression 62 yo male with a remote history of depression with psychotic features presents with several week history of personality change, depressed mood, impulsive anger, and ruminations over items he has taken from the trash at school which has escalated to paranoia. It is our understanding he has to park in a set area and his coming/going from school are being monitored due to safety protocol with coworker following a 2 week leave but there is no active legal charge. Diagnostically consistent with MDD with psychotic features, possible catatonic component. Head CT done 05/02/22 with no abnormal findings. MNPR given wound, disorganization, psychosis with paranoia toward others 05/18/22: ongoing severe depression with psychosis and persecutory delusions. Talking more with some increased insight but still with variable po intake and concerns for potential catatonia. Given fatigue and fall risk will reduce ativan and consolidate risperidone at qhs. If po intake worsens or further decrease in movement then may need to be titrated back to higher dose of ativan. Sutures removed yesterday and wound healing well. (1) MDD (major depressive disorder), recurrent, severe, with psychosis: (2) Catatonia: (3) Depression: (4) Laceration of knee: (5) Leukocytosis: Plan 05/18/22: Consolidate risperidone to 2mg qhs. Decrease ativan due to fatigue to 0.5mg TID for catatonia. Added Cogentin 1 mg BID prn for EPS due to concern for possible muscle stiffness. Continue with escitalopram 20mg for MDD. 05/17/22: Increase risperidone to from 1mg qhs to 1.5mg qhs and continue with 0.5mg qAM. Increase escitalopram from 10mg to 20mg qd. 05/16/22: Continue current medications. Appreciate hospitalist recommendations regarding increase of lisinopril and addition of coreg 6.25mg BID with plan to increase to 12.5mg BID if HTN and tachycardia persist. 05/15/22: Increased ativan to 1mg TID. Continue with lexapro and risperidone. 05/14/22: Increase risperidone to 0.5mg qAM & 1 mg qhs. Increase ativan to 0.5mg TID scheduled in attempt to increase po intake due to concern for catatonia. 05/13/22: Stop seroquel. Start risperidone 0.5mg BID. 05/12/22: Continue with current medications and tx plan. 05/11/22: titrate hs seroquel to 200 mg and shift Lexapro to am. Patient reports no benefit from prn Seroquel for anxiety, will offer low dose Ativan but monitor falls. 05/10/22: patient reports having an MRI on outpatient basis, will confirm with family. Risks/benefits/alternatives reviewed re: trial of Lexapro. He is not excited to take more medication but was ultimately agreeable. AM gluc checks all under 200 even with starting SEroquel so will d/c for now as controlled on oral agents, reconsider if significant increase in dose or symptomatic. 05/09/22: labs reviewed, HgbA1c elevated as suspected. Reports he snores at home and denies any prior w/u for sleep apnea. Consider head CT given change from baseline MSE. Knee sutures out 05/16 or within a few days after. Increase Seroquel 100 mg qhs. Lisinopril potential increase noted in ED note as patient was seen few days in a row prior to psych admission. 05/08/22: The patient was admitted to the [facility] ([facility] inpatient mental health unit) on q15 min checks (behavioral with suicide precautions) for safety. The patient will participate in group, recreational, and milieu therapies and will be offered additional individual and family sessions as clinically appropriate. Risks/benefits/alternatives were reviewed re: antipsychotics for mood and/or psychosis. Psychotic depression vs. mixed episode. Discussion included but was not limited to metabolic side effects, risks of TD and suicidal thoughts. There were no abnormal motor movements at baseline. Fasting lipid panel and HgbA1c ordered for baseline monitoring and will repeat CBC. Continue course of prophylactic Augmentin as per ED. Patient agreed to a trial of Seroquel 50 mg qhs with 12.5 mg q 6 prn daytime anxiety with likely titration. Will add B12 and folate in case early cognitive change and consider additional head imaging as outpatient. 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 Chief Complaint "I don't even know" and "I'm just do good depressed". Review of Systems Sleep Information Total Hours of Sleep: 7.5 Meal Information Percent Meal Consumed - Breakfast: 100 Percent Meal Consumed - Lunch: 25 Percent Meal Consumed - Dinner: 0 Nutrition Comment: pt. declines Subjective Subjective Patient was seen & assessed and interval progress reviewed with treatment team nursing and social work. Difficult evening, only willing to take a few sips of orange juice and ate a few olga lidia crackers with significant encouragement. Made references that he should just be "taken into custody" and other concerns that he is in trouble or has done something wrong. Today ate some cereal with significant encouragement and some lunch. Denied feeling tired with me but later endorsed this as reason he couldn't shower. Some muscle stiffness this morning, no signs of EPS but cogentin ordered and given out of precaution. Ed attributes stiffness to lying in bed and not moving around and states it improved "when I moved around and limbered up". Tells me he is "so good depressed" and denies medication side effects. Agreed to consolidation of risperidone at bedtime and discussed plan to reduce ativan to see if this reduces fatigue. Remains very hopeless. Physical Exam Psychiatric Orientation: alert and oriented x 3 Apperance: appropriately groomed Eye Contact: + fair eye contact Motor Behavior: no abnormal motor movements Speech: normal rate/rhythm/volume of speech Affect: + depressed affect and + flat affect Mood: + depressed mood Thought Process: + circumstantial thought process and + looseness of ass ociations Thought Content: + paranoid, + delusions and + persecution Suicidal Thoughts: denies suicidal thoughts Homicidal Thoughts: denies homicidal thoughts Hallucinations: no auditory hallucinations and no visual hallucinations Cognition: language grossly intact; + attention not intact Estimated Intelligence: consistent with education level Insight: + limited insight Judgement: + limited judgement Vital Signs (Past 24 Hours) Last Vital Signs Temp 36.9 C 05/18/22 06:00 Pulse 113 H 05/18/22 06:41 Resp 18 05/18/22 06:00 BP 144/91 H 05/18/22 06:41 Pulse Ox 95 05/17/22 21:47 O2 Del Method 05/17/22 21:47 O2 Flow Rate 19 05/08/22 04:13 Results & Data ([facility]) Current Inpatient Medications Current Inpatient Medications: Current Inpatient Medications Acetaminophen (Acetaminophen 325 Mg Tab) 650 mg PO Q4H PRN PRN Reason: Headache or Minor Fever Stop: 06/07/22 03:50 Last Admin: 05/17/22 06:29 Dose: 650 mg Al Hydrox/Mg Hydrox/Simethicone (Aluminum/Magnesium Susp 30 Ml Udc) 30 ml PO Q4H PRN PRN Reason: GI Upset Stop: 06/07/22 03:50 Aspirin (Aspirin 81 Mg Ectab) 81 mg PO [facility] Stop: 06/07/22 08:59 Last Admin: 05/18/22 09:04 Dose: 81 mg Atorvastatin Calcium (Atorvastatin 40 Mg Tab) 40 mg PO [facility] Stop: 06/07/22 08:59 Last Admin: 05/18/22 09:04 Dose: 40 mg Benztropine Mesylate (Benztropine Mesylate 1 Mg Tab) 1 mg PO BID PRN PRN Reason: muscle stiffness Stop: 06/17/22 09:14 Last Admin: 05/18/22 09:43 Dose: 1 mg Bismuth Subsalicylate (Bismuth Subsalicylate Liqd 236 Ml) 15 ml PO PRN PRN PRN Reason: Loose Stool Stop: 06/07/22 03:50 Carvedilol (Carvedilol 6.25 Mg Tab) 6.25 mg PO BID [facility] Stop: 06/15/22 12:14 Last Admin: 05/18/22 09:04 Dose: 6.25 mg Escitalopram Oxalate (Escitalopram Oxalate 20 Mg Tab) [facility] [place] Stop: 06/17/22 08:59 Last Admin: 05/18/22 09:04 Dose: 20 mg Lisinopril (Lisinopril 10 Mg Tab) 10 mg PO [facility] Stop: 06/16/22 08:59 Last Admin: 05/18/22 09:04 Dose: 10 mg Lorazepam (Lorazepam 1 Mg Tab) 1 mg PO TID@0700,1200,1800 [facility] Stop: 06/15/22 17:59 Last Admin: 05/18/22 06:28 Dose: 1 mg Magnesium Hydroxide (Magnesium Hydroxide Susp 30 Ml Udc) 30 ml PO DAILY PRN PRN Reason: Constipation Stop: 06/07/22 03:50 Meclizine HCl (Meclizine Hcl 25 Mg Tab) 25 mg PO TID PRN PRN Reason: Vertigo Stop: 06/07/22 06:08 Metformin HCl (Metformin Hcl Er 500 Mg Tabcr) 1,000 mg PO BID [facility] Stop: 06/08/22 20:59 Last Admin: 05/18/22 09:04 Dose: 1,000 mg Multivitamins (Multivitamin Tab) 1 tab PO QAM [facility] Stop: 06/07/22 08:59 Last Admin: 05/18/22 09:05 Dose: 1 tab Pantoprazole Sodium (Pantoprazole 40 Mg Tab) 40 mg PO DAILYBB [facility] Stop: 06/07/22 07:59 Last Admin: 05/18/22 09:37 Dose: 40 mg Risperidone (Risperidone 2 Mg Tablet) 2 mg PO HS [facility] Stop: 06/17/22 21:59 Sitagliptin Phosphate (Sitagliptin Phosphate 100 Mg Tab) 100 mg PO DAILY [facility] Stop: 06/07/22 08:59 Last Admin: 05/18/22 09:05 Dose: 100 mg Sodium Chloride (Sodium Chloride 0.65% Na Soln 45 Ml ([place])) 1 - 2 sprays NA PRN PRN PRN Reason: Nasal Dryness/Congestion Stop: 06/07/22 03:50 Post Discharge Appointments Primary Care Physician Name Of Family Doctor: Megan Walker Primary Care Date of Appointment with PCP: 05/24/22 Time of Appointment with PCP: 9:45am Provider Appointment Comment: [address] [place] [id number]
[2022-05-18] MEDS: LORazepam 0.5 MG TAB PO SCH (18:05)
[2022-05-18] MEDS: risperiDONE 2 MG TABLET PO SCH (21:08)
[2022-05-19] MEDS: LORazepam 0.5 MG TAB PO SCH ×3 (06:31→17:33)
[2022-05-19] MEDS: PANTOprazole 40 MG TAB PO SCH (08:55)
[2022-05-19] MEDS: ESCITALOPRAM OXALATE 20 MG TAB PO SCH (08:56)
[2022-05-19] MEDS: ASPIRIN 81 MG ECTAB PO SCH (08:56)
[2022-05-19] MEDS: carvediloL 6.25 MG TAB PO SCH ×2 (08:56→20:49)
[2022-05-19] MEDS: ATORVASTATIN 40 MG TAB PO SCH (08:56)
[2022-05-19] MEDS: lisinopril 10 MG TAB PO SCH (08:57)
[2022-05-19] MEDS: MULTIVITAMIN TAB PO SCH (08:57)
[2022-05-19] MEDS: metFORMIN HCL ER 500 MG TABCR PO SCH ×2 (08:57→20:49)
[2022-05-19] MEDS: SITagliptin PHOSPHATE 100 MG TAB PO SCH (08:58)
--- NOTE | 2022-05-19 14:14 | Psychiatric Progress Note ---
Date of Service May 19, 2022 Impression / Recommendations Impression 62 yo male with a remote history of depression with psychotic features presents with several week history of personality change, depressed mood, impulsive anger, and ruminations over items he has taken from the trash at school which has escalated to paranoia. It is our understanding he has to park in a set area and his coming/going from school are being monitored due to safety protocol with coworker following a 2 week leave but there is no active legal charge. Diagnostically consistent with MDD with psychotic features, possible catatonic component. Head CT done 05/02/22 with no abnormal findings. MNPR given wound, disorganization, psychosis with paranoia toward others 05/19/22: interim progress reviewed, remains depressed/withdrawn with psychotic features (1) MDD (major depressive disorder), recurrent, severe, with psychosis: (2) Catatonia: (3) Depression: (4) Laceration of knee: (5) Leukocytosis: Plan 05/19/22: continue current medications and treatment plan, may need to retry higher dose of Ativan now that Risperdal at hs. Facetime with . 05/18/22: Consolidate risperidone to 2mg qhs. Decrease ativan due to fatigue to 0.5mg TID for catatonia. Added Cogentin 1 mg BID prn for EPS due to concern for possible muscle stiffness. Continue with escitalopram 20mg for MDD. 05/17/22: Increase risperidone to from 1mg qhs to 1.5mg qhs and continue with 0.5mg qAM. Increase escitalopram from 10mg to 20mg qd. 05/16/22: Continue current medications. Appreciate hospitalist recommendations regarding increase of lisinopril and addition of coreg 6.25mg BID with plan to increase to 12.5mg BID if HTN and tachycardia persist. 05/15/22: Increased ativan to 1mg TID. Continue with lexapro and risperidone. 05/14/22: Increase risperidone to 0.5mg qAM & 1 mg qhs. Increase ativan to 0.5mg TID scheduled in attempt to increase po intake due to concern for catatonia. 05/13/22: Stop seroquel. Start risperidone 0.5mg BID. 05/12/22: Continue with current medications and tx plan. 05/11/22: titrate hs seroquel to 200 mg and shift Lexapro to am. Patient reports no benefit from prn Seroquel for anxiety, will offer low dose Ativan but monitor falls. 05/10/22: patient reports having an MRI on outpatient basis, will confirm with family. Risks/benefits/alternatives reviewed re: trial of Lexapro. He is not excited to take more medication but was ultimately agreeable. AM gluc checks all under 200 even with starting SEroquel so will d/c for now as controlled on oral agents, reconsider if significant increase in dose or symptomatic. 05/09/22: labs reviewed, HgbA1c elevated as suspected. Reports he snores at home and denies any prior w/u for sleep apnea. Consider head CT given change from baseline MSE. Knee sutures out 05/16 or within a few days after. Increase Seroquel 100 mg qhs. Lisinopril potential increase noted in ED note as patient was seen few days in a row prior to psych admission. 05/08/22: The patient was admitted to the [facility] ([facility] unit) on q15 min checks (behavioral with suicide precautions) for safety. The patient will participate in group, recreational, and milieu therapies and will be offered additional individual and family sessions as clinically appropriate. Risks/benefits/alternatives were reviewed re: antipsychotics for mood and/or psychosis. Psychotic depression vs. mixed episode. Discussion included but was not limited to metabolic side effects, risks of TD and suicidal thoughts. There were no abnormal motor movements at baseline. Fasting lipid panel and HgbA1c o rdered for baseline monitoring and will repeat CBC. Continue course of prophylactic Augmentin as per ED. Patient agreed to a trial of Seroquel 50 mg qhs with 12.5 mg q 6 prn daytime anxiety with likely titration. Will add B12 and folate in case early cognitive change and consider additional head imaging as outpatient. 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 Chief Complaint "I don't know, not a good day". Review of Systems Sleep Information Total Hours of Sleep: 7 Meal Information Percent Meal Consumed - Breakfast: 100 Percent Meal Consumed - Lunch: 25 Percent Meal Consumed - Dinner: 25 Subjective Subjective Patient was seen & assessed and interval progress reviewed with nursing and social work. Patient is unmotivated to speak with on phone and has still made comments about her being an imposter. Reports less sedation since Risperdal shifted. did receive a cogentin prn, denies muscle stiffness this am but is isolating to room, likely as significant drama amongst female peers. Physical Exam Psychiatric Orientation: alert Apperance: appropriately groomed Eye Contact: + poor eye contact Motor Behavior: no abnormal motor movements Speech: normal rate/rhythm/volume of speech Affect: + depressed affect Mood: + depressed mood Thought Process: + circumstantial thought process Thought Content: + preoccupation Suicidal Thoughts: denies suicidal thoughts Homicidal Thoughts: denies homicidal thoughts Hallucinations: no auditory hallucinations and no visual hallucinations Cognition: language grossly intact Insight: + limited insight Judgement: + limited judgement Vital Signs (Past 24 Hours) Last Vital Signs Temp 36.6 C 05/19/22 06:36 Pulse 98 H 05/19/22 08:53 Resp 16 05/19/22 06:36 BP 153/83 H 05/19/22 08:53 Pulse Ox 95 05/17/22 21:47 O2 Del Method 05/17/22 21:47 O2 Flow Rate 19 05/08/22 04:13 Results & Data (U) Current Inpatient Medications Current Inpatient Medications: Current Inpatient Medications Acetaminophen (Acetaminophen 325 Mg Tab) 650 mg PO Q4H PRN PRN Reason: Headache or Minor Fever Stop: 06/07/22 03:50 Last Admin: 05/17/22 06:29 Dose: 650 mg Al Hydrox/Mg Hydrox/Simethicone (Aluminum/Magnesium Susp 30 Ml Udc) 30 ml PO Q4H PRN PRN Reason: GI Upset Stop: 06/07/22 03:50 Aspirin (Aspirin 81 Mg Ectab) [facility] Stop: 06/07/22 08:59 Last Admin: 05/19/22 08:56 Dose: 81 mg Atorvastatin Calcium (Atorvastatin 40 Mg Tab) 40 mg PO QAM [facility] Stop: 06/07/22 08:59 Last Admin: 05/19/22 08:56 Dose: 40 mg Benztropine Mesylate (Benztropine Mesylate 1 Mg Tab) 1 mg PO BID PRN PRN Reason: muscle stiffness Stop: 06/17/22 09:14 Last Admin: 05/18/22 09:43 Dose: 1 mg Bismuth Subsalicylate (Bismuth Subsalicylate Liqd 236 Ml) 15 ml PO PRN PRN PRN Reason: Loose Stool Stop: 06/07/22 03:50 Carvedilol (Carvedilol 6.25 Mg Tab) 6.25 mg PO BID [facility] Stop: 06/15/22 12:14 Last Admin: 05/19/22 08:56 Dose: 6.25 mg Escitalopram Oxalate (Escitalopram Oxalate 20 Mg Tab) [facility] Stop: 06/17/22 08:59 Last Admin: 05/19/22 08:56 Dose: 20 mg Lisinopril (Lisinopril 10 Mg Tab) [facility] Stop: 06/16/22 08:59 Last Admin: 05/19/22 08:57 Dose: 10 mg Lorazepam (Lorazepam 0.5 Mg Tab) 0.5 mg PO TID@0700,1200,1800 [facility] Stop: 06/17/22 17:59 Last Admin: 05/19/22 13:10 Dose: 0.5 mg Magnesium Hydroxide (Magnesium Hydroxide Susp 30 Ml Udc) 30 ml PO DAILY PRN PRN Reason: Constipation Stop: 06/07/22 03:50 Meclizine HCl (Meclizine Hcl 25 Mg Tab) 25 mg PO TID PRN PRN Reason: Vertigo Stop: 06/07/22 06:08 Metformin HCl (Metformin Hcl Er 500 Mg Tabcr) 1,000 mg PO BID [facility] Stop: 06/08/22 20:59 Last Admin: 05/19/22 08:57 Dose: 1,000 mg Multivitamins (Multivitamin Tab) 1 tab PO QAM [facility] Stop: 06/07/22 08:59 Last Admin: 05/19/22 08:57 Dose: 1 tab Pantoprazole Sodium (Pantoprazole 40 Mg Tab) 40 mg PO DAILYBB [facility] Stop: 06/07/22 07:59 Last Admin: 05/19/22 08:55 Dose: 40 mg Risperidone (Risperidone 2 Mg Tablet) 2 mg PO HS [facility] Stop: 06/17/22 21:59 Last Admin: 05/18/22 21:08 Dose: 2 mg Sitagliptin Phosphate (Sitagliptin Phosphate 100 Mg Tab) 100 mg PO DAILY [facility] Stop: 06/07/22 08:59 Last Admin: 05/19/22 08:58 Dose: 100 mg Sodium Chloride (Sodium Chloride 0.65% Na Soln 45 Ml ([place])) 1 - 2 sprays NA PRN PRN PRN Reason: Nasal Dryness/Congestion Stop: 06/07/22 03:50 Post Discharge Appointments Primary Care Physician Name Of Family Doctor: Megan Walker Primary [facility] Date of Appointment with PCP: 05/24/22 Time of Appointment with PCP: 9:45am Provider Appointment Comment: [phone] [place] [id number]
[2022-05-19] MEDS: risperiDONE 2 MG TABLET PO SCH (20:49)
[2022-05-20] MEDS: LORazepam 0.5 MG TAB PO SCH ×2 (06:48→17:33)
[2022-05-20] MEDS: PANTOprazole 40 MG TAB PO SCH (07:48)
[2022-05-20] MEDS: ATORVASTATIN 40 MG TAB PO SCH (07:49)
[2022-05-20] MEDS: ASPIRIN 81 MG ECTAB PO SCH (07:49)
[2022-05-20] MEDS: carvediloL 6.25 MG TAB PO SCH ×2 (07:50→21:01)
[2022-05-20] MEDS: lisinopril 10 MG TAB PO SCH (07:50)
[2022-05-20] MEDS: ESCITALOPRAM OXALATE 20 MG TAB PO SCH (07:50)
[2022-05-20] MEDS: metFORMIN HCL ER 500 MG TABCR PO SCH ×2 (07:51→21:01)
[2022-05-20] MEDS: MULTIVITAMIN TAB PO SCH (07:51)
[2022-05-20] MEDS: SITagliptin PHOSPHATE 100 MG TAB PO SCH (07:52)
--- NOTE | 2022-05-20 10:06 | Psychiatric Progress Note ---
Date of Service May 20, 2022 Impression / Recommendations Impression 62 yo male with a remote history of depression with psychotic features presents with several week history of personality change, depressed mood, impulsive anger, and ruminations over items he has taken from the trash at school which has escalated to paranoia. It is our understanding he has to park in a set area and his coming/going from school are being monitored due to safety protocol with coworker following a 2 week leave but there is no active legal charge. Diagnostically consistent with MDD with psychotic features, possible catatonic component. Head CT done 05/02/22 with no abnormal findings. MNPR given hx wound, disorganization, psychosis with paranoia toward others 05/20/22:minimal change, does not appear catatonic and additional input from staff is that seems more organized/homesick as cause of isolation rather than paranoia (1) MDD (major depressive disorder), recurrent, severe, with psychosis: (2) Catatonia: (3) Depression: (4) Laceration of knee: (5) Leukocytosis: Plan 05/20/22: 0.5 mg Ativan BID, family meeting with by phone 05/19/22: continue current medications and treatment plan, may need to retry higher dose of Ativan now that Risperdal at hs. Facetime with . 05/18/22: Consolidate risperidone to 2mg qhs. Decrease ativan due to fatigue to 0.5mg TID for catatonia. Added Cogentin 1 mg BID prn for EPS due to concern for possible muscle stiffness. Continue with escitalopram 20mg for MDD. 05/17/22: Increase risperidone to from 1mg qhs to 1.5mg qhs and continue with 0.5mg qAM. Increase escitalopram from 10mg to 20mg qd. 05/16/22: Continue current medications. Appreciate hospitalist recommendations regarding increase of lisinopril and addition of coreg 6.25mg BID with plan to increase to 12.5mg BID if HTN and tachycardia persist. 05/15/22: Increased ativan to 1mg TID. Continue with lexapro and risperidone. 05/14/22: Increase risperidone to 0.5mg qAM & 1 mg qhs. Increase ativan to 0.5mg TID scheduled in attempt to increase po intake due to concern for catatonia. 05/13/22: Stop seroquel. Start risperidone 0.5mg BID. 05/12/22: Continue with current medications and tx plan. 05/11/22: titrate hs seroquel to 200 mg and shift Lexapro to am. Patient reports no benefit from prn Seroquel for anxiety, will offer low dose Ativan but monitor falls. 05/10/22: patient reports having an MRI on outpatient basis, will confirm with family. Risks/benefits/alternatives reviewed re: trial of Lexapro. He is not excited to take more medication but was ultimately agreeable. AM gluc checks all under 200 even with starting SEroquel so will d/c for now as controlled on oral agents, reconsider if significant increase in dose or symptomatic. 05/09/22: labs reviewed, HgbA1c elevated as suspected. Reports he snores at home and denies any prior w/u for sleep apnea. Consider head CT given change from baseline MSE. Knee sutures out 05/16 or within a few days after. Increase Seroquel 100 mg qhs. Lisinopril potential increase noted in ED note as patient was seen few days in a row prior to psych admission. 05/08/22: [facility]) on q15 min checks (behavioral with suicide precautions) for safety. The patient will participate in group, recreational, and milieu therapies and will be offered additional individual and family sessions as clinically appropriate. Risks/benefits/alternatives were reviewed re: antipsychotics for mood and/or psychosis. Psychotic depression vs. mixed episode. Discussion included but was not limited to metabolic side effects, risks of TD and suicidal thoughts. There were no abnormal motor movements at baseline. Fasting lipid panel and HgbA1c ordered for baseline monitoring and will repeat CBC. Continue course of prophylactic Augmentin as per ED. Patient agreed to a trial of Seroquel 50 mg qhs with 12.5 mg q 6 prn daytime anxiety with likely titration. Will add B12 and folate in case early cognitive change and consider additional head imaging as outpatient. 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 Chief Complaint "there is no where to go, money is spent" Review of Systems Sleep Information Total Hours of Sleep: 9.25 Meal Information Percent Meal Consumed - Breakfast: 100 Percent Meal Consumed - Lunch: 25 Percent Meal Consumed - Dinner: 50 Nutrition Comment: pt. declines Subjective Subjective Patient was seen & assessed and interval progress reviewed with nursing and social work. Patient spent more time in room yesterday mainly as feels he doesn't have much in common with current co-patients. He is starting to feel homesick but also like little has changed. He complains of poor concentration but decliens trial of additional medication and remains hyperfocussed on number of pills that he is prescribed. Physical Exam Psychiatric Orientation: alert Apperance: appropriately dressed and appropriately groomed Eye Contact: good eye contact Motor Behavior: no abnormal motor movements Speech: + abnormal rate/rhythm/volume of speech (slow) Affect: + depressed affect Mood: + depressed mood Thought Process: + circumstantial thought process Thought Content: + preoccupation Suicidal Thoughts: denies suicidal thoughts Homicidal Thoughts: denies homicidal thoughts Hallucinations: no auditory hallucinations and no visual hallucinations Cognition: + attention not intact Insight: + limited insight Judgement: + limited judgement Vital Signs (Past 24 Hours) Last Vital Signs Temp 36.9 C 05/20/22 06:29 Pulse 98 H 05/20/22 06:29 Resp 16 05/20/22 06:29 BP 117/80 05/20/22 06:29 Pulse Ox 95 05/17/22 21:47 O2 Del Method 05/17/22 21:47 O2 Flow Rate 19 05/08/22 04:13 Results & Data ([facility]) Current Inpatient Medications Current Inpatient Medications: Current Inpatient Medications Acetaminophen (Acetaminophen 325 Mg Tab) 650 mg PO Q4H PRN PRN Reason: Headache or Minor Fever Stop: 06/07/22 03:50 Last Admin: 05/17/22 06:29 Dose: 650 mg Al Hydrox/Mg Hydrox/Simethicone (Aluminum/Magnesium Susp 30 Ml Udc) 30 ml PO Q4H PRN PRN Reason: GI Upset Stop: 06/07/22 03:50 Last Admin: 05/19/22 21:03 Dose: 30 ml Aspirin (Aspirin 81 Mg Ectab) [facility] [place] Stop: 06/07/22 08:59 Last Admin: 05/20/22 07:49 Dose: 81 mg Atorvastatin Calcium (Atorvastatin 40 Mg Tab) 40 [facility] [place] Stop: 06/07/22 08:59 Last Admin: 05/20/22 07:49 Dose: 40 mg Benztropine Mesylate (Benztropine Mesylate 1 Mg Tab) 1 mg PO BID PRN PRN Reason: muscle stiffness Stop: 06/17/22 09:14 Last Admin: 05/18/22 09:43 Dose: 1 mg Bismuth Subsalicylate (Bismuth Subsalicylate Liqd 236 Ml) 15 ml PO PRN PRN PRN Reason: Loose Stool Stop: 06/07/22 03:50 Carvedilol (Carvedilol 6.25 Mg Tab) 6.25 mg PO BID [facility] Stop: 06/15/22 12:14 Last Admin: 05/20/22 07:50 Dose: 6.25 mg Escitalopram Oxalate (Escitalopram Oxalate 20 Mg Tab) 20 [facility] [place] Stop: 06/17/22 08:59 Last Admin: 05/20/22 07:50 Dose: 20 mg Lisinopril (Lisinopril 10 Mg Tab) 10 mg [facility] [place] Stop: 06/16/22 08:59 Last Admin: 05/20/22 07:50 Dose: 10 mg Magnesium Hydroxide (Magnesium Hydroxide Susp 30 Ml Udc) 30 ml PO DAILY PRN PRN Reason: Constipation Stop: 06/07/22 03:50 Meclizine HCl (Meclizine Hcl 25 Mg Tab) 25 mg PO TID PRN PRN Reason: Vertigo Stop: 06/07/22 06:08 Metformin HCl (Metformin Hcl Er 500 Mg Tabcr) 1,000 mg PO BID [facility] Stop: 06/08/22 20:59 Last Admin: 05/20/22 07:51 Dose: 1,000 mg Multivitamins (Multivitamin Tab) 1 tab PO QAM [facility] Stop: 06/07/22 08:59 Last Admin: 05/20/22 07:51 Dose: 1 tab Pantoprazole Sodium (Pantoprazole 40 Mg Tab) 40 mg PO DAILYBB [facility] Stop: 06/07/22 07:59 Last Admin: 05/20/22 07:48 Dose: 40 mg Risperidone (Risperidone 2 Mg Tablet) 2 mg PO HS [facility] Stop: 06/17/22 21:59 Last Admin: 05/19/22 20:49 Dose: 2 mg Sitagliptin Phosphate (Sitagliptin Phosphate 100 Mg Tab) 100 mg PO DAILY [facility] Stop: 06/07/22 08:59 Last Admin: 05/20/22 07:52 Dose: 100 mg Sodium Chloride (Sodium Chloride 0.65% Na Soln 45 Ml ([place])) 1 - 2 sprays NA PRN PRN PRN Reason: Nasal Dryness/Congestion Stop: 06/07/22 03:50 Post Discharge Appointments Primary Care Physician Name Of Family Doctor: Megan Walker Primary Care Date of Appointment with PCP: 05/24/22 Time of Appointment with PCP: 9:45am Provider Appointment Comment: [phone] [place] [id number]
[2022-05-20] MEDS: risperiDONE 2 MG TABLET PO SCH (21:01)
[2022-05-21] MEDS: PANTOprazole 40 MG TAB PO SCH (08:27)
[2022-05-21] MEDS: ASPIRIN 81 MG ECTAB PO SCH (08:27)
[2022-05-21] MEDS: ATORVASTATIN 40 MG TAB PO SCH (08:28)
[2022-05-21] MEDS: carvediloL 6.25 MG TAB PO SCH ×2 (08:28→21:24)
[2022-05-21] MEDS: ESCITALOPRAM OXALATE 20 MG TAB PO SCH (08:29)
[2022-05-21] MEDS: LORazepam 0.5 MG TAB PO SCH ×2 (08:29→17:26)
[2022-05-21] MEDS: lisinopril 10 MG TAB PO SCH (08:29)
[2022-05-21] MEDS: MULTIVITAMIN TAB PO SCH (08:30)
[2022-05-21] MEDS: metFORMIN HCL ER 500 MG TABCR PO SCH ×2 (08:30→21:24)
[2022-05-21] MEDS: SITagliptin PHOSPHATE 100 MG TAB PO SCH (08:30)
--- NOTE | 2022-05-21 13:23 | Psychiatric Progress Note ---
Date of Service May 21, 2022 Impression / Recommendations Impression 62 yo male with a remote history of depression with psychotic features presents with several week history of personality change, depressed mood, impulsive anger, and ruminations over items he has taken from the trash at school which has escalated to paranoia. It is our understanding he has to park in a set area and his coming/going from school are being monitored due to safety protocol with coworker following a 2 week leave but there is no active legal charge. Diagnostically consistent with MDD with psychotic features, possible catatonic component. Head CT done 05/02/22 with no abnormal findings. MNPR given hx wound, disorganization, psychosis with paranoia toward others 05/21/22: improving (1) MDD (major depressive disorder), recurrent, severe, with psychosis: (2) Catatonia: (3) Depression: (4) Laceration of knee: (5) Leukocytosis: Plan 05/21/22: safety planning 05/20/22: 0.5 mg Ativan BID, family meeting with by phone 05/19/22: continue current medications and treatment plan, may need to retry higher dose of Ativan now that Risperdal at hs. Facetime with . 05/18/22: Consolidate risperidone to 2mg qhs. Decrease ativan due to fatigue to 0.5mg TID for catatonia. Added Cogentin 1 mg BID prn for EPS due to concern for possible muscle stiffness. Continue with escitalopram 20mg for MDD. 05/17/22: Increase risperidone to from 1mg qhs to 1.5mg qhs and continue with 0.5mg qAM. Increase escitalopram from 10mg to 20mg qd. 05/16/22: Continue current medications. Appreciate hospitalist recommendations regarding increase of lisinopril and addition of coreg 6.25mg BID with plan to increase to 12.5mg BID if HTN and tachycardia persist. 05/15/22: Increased ativan to 1mg TID. Continue with lexapro and risperidone. 05/14/22: Increase risperidone to 0.5mg qAM & 1 mg qhs. Increase ativan to 0.5mg TID scheduled in attempt to increase po intake due to concern for catatonia. 05/13/22: Stop seroquel. Start risperidone 0.5mg BID. 05/12/22: Continue with current medications and tx plan. 05/11/22: titrate hs seroquel to 200 mg and shift Lexapro to am. Patient reports no benefit from prn Seroquel for anxiety, will offer low dose Ativan but monitor falls. 05/10/22: patient reports having an MRI on outpatient basis, will confirm with family. Risks/benefits/alternatives reviewed re: trial of Lexapro. He is not excited to take more medication but was ultimately agreeable. AM gluc checks all under 200 even with starting SEroquel so will d/c for now as controlled on oral agents, reconsider if significant increase in dose or symptomatic. 05/09/22: labs reviewed, HgbA1c elevated as suspected. Reports he snores at home and denies any prior w/u for sleep apnea. Consider head CT given change from baseline MSE. Knee sutures out 05/16 or within a few days after. Increase Seroquel 100 mg qhs. Lisinopril potential increase noted in ED note as patient was seen few days in a row prior to psych admission. 05/08/22: The patient was admitted to the [facility]) on q15 min checks (behavioral with suicide precautions) for safety. The patient will participate in group, recreational, and milieu therapies and will be offered additional individual and family sessions as clinically appropriate. Risks/benefits/alternatives were reviewed re: antipsychotics for mood and/or psychosis. Psychotic depression vs. mixed episode. Discussion included but was not limited to metabolic side effects, risks of TD and suicidal thoughts. There were no abnormal motor movements at baseline. Fasting lipid panel and HgbA1c ordered for baseline monitoring and will repeat CBC. Continue course of prophylactic Augmentin as per ED. Patient agreed to a trial of Seroquel 50 mg qhs with 12.5 mg q 6 prn daytime anxiety with likely titration. Will add B12 and folate in case early cognitive change and consider additional head imaging as outpatient. 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 Chief Complaint "I guess it will all be OK" Review of Systems Sleep Information Total Hours of Sleep: 8.25 Meal Information Percent Meal Consumed - Breakfast: 25 Percent Meal Consumed - Lunch: 50 Percent Meal Consumed - Dinner: 0 Nutrition Comment: pt. declines Subjective Subjective Patient was seen & assessed and interval progress reviewed with treatment team. Mayo is more awake this am, walking laps in rec therapy group. He is cooperative with referrals to outpatient care. oversees medication and will continue to do so as part of safety plan on discharge. Physical Exam Psychiatric Orientation: alert Apperance: appropriately dressed and appropriately groomed Eye Contact: + fair eye contact Motor Behavior: no abnormal motor movements Affect: + depressed affect Mood: + depressed mood Thought Process: + circumstantial thought process Thought Content: + preoccupation Suicidal Thoughts: denies suicidal thoughts Homicidal Thoughts: denies homicidal thoughts Hallucinations: no auditory hallucinations and no visual hallucinations Cognition: language grossly intact Vital Signs (Past 24 Hours) Last Vital Signs Temp 36.8 C 05/21/22 06:49 Pulse 98 H 05/21/22 06:50 Resp 18 05/21/22 06:49 BP 117/78 05/21/22 06:50 Pulse Ox 95 05/17/22 21:47 O2 Del Method 05/17/22 21:47 O2 Flow Rate 19 05/08/22 04:13 Results & Data ([facility]) Current Inpatient Medications Current Inpatient Medications: Current Inpatient Medications Acetaminophen (Acetaminophen 325 Mg Tab) 650 mg PO Q4H PRN PRN Reason: Headache or Minor Fever Stop: 06/07/22 03:50 Last Admin: 05/17/22 06:29 Dose: 650 mg Al Hydrox/Mg Hydrox/Simethicone (Aluminum/Magnesium Susp 30 Ml Udc) 30 ml PO Q4H PRN PRN Reason: GI Upset Stop: 06/07/22 03:50 Last Admin: 05/19/22 21:03 Dose: 30 ml Aspirin (Aspirin 81 Mg Ectab) 81 mg PO QAM DEANDRE Stop: 06/07/22 08:59 Last Admin: 05/21/22 08:27 Dose: 81 mg Atorvastatin Calcium (Atorvastatin 40 Mg Tab) 40 mg PO QAM [facility] Stop: 06/07/22 08:59 Last Admin: 05/21/22 08:28 Dose: 40 mg Benztropine Mesylate (Benztropine Mesylate 1 Mg Tab) 1 mg PO BID PRN PRN Reason: muscle stiffness Stop: 06/17/22 09:14 Last Admin: 05/18/22 09:43 Dose: 1 mg Bismuth Subsalicylate (Bismuth Subsalicylate Liqd 236 Ml) 15 ml PO PRN PRN PRN Reason: Loose Stool Stop: 06/07/22 03:50 Carvedilol (Carvedilol 6.25 Mg Tab) 6.25 mg PO BID [facility] Stop: 06/15/22 12:14 Last Admin: 05/21/22 08:28 Dose: 6.25 mg Escitalopram Oxalate (Escitalopram Oxalate 20 Mg Tab) 20 mg [facility] Stop: 06/17/22 08:59 Last Admin: 05/21/22 08:29 Dose: 20 mg Lisinopril (Lisinopril 10 Mg Tab) 10 mg PO QAM [facility] Stop: 06/16/22 08:59 Last Admin: 05/21/22 08:29 Dose: 10 mg Lorazepam (Lorazepam 0.5 Mg Tab) 0.5 mg PO BIDM [facility] Stop: 06/19/22 17:44 Last Admin: 05/21/22 08:29 Dose: 0.5 mg Magnesium Hydroxide (Magnesium Hydroxide Susp 30 Ml Udc) 30 ml PO DAILY PRN PRN Reason: Constipation Stop: 06/07/22 03:50 Meclizine HCl (Meclizine Hcl 25 Mg Tab) 25 mg PO TID PRN PRN Reason: Vertigo Stop: 06/07/22 06:08 Metformin HCl (Metformin Hcl Er 500 Mg Tabcr) 1,000 mg PO BID DEANDRE Stop: 06/08/22 20:59 Last Admin: 05/21/22 08:30 Dose: 1,000 mg Multivitamins (Multivitamin Tab) 1 tab PO QAM [facility] Stop: 06/07/22 08:59 Last Admin: 05/21/22 08:30 Dose: 1 tab Pantoprazole Sodium (Pantoprazole 40 Mg Tab) 40 mg PO DAILYBB DEANDRE Stop: 06/07/22 07:59 Last Admin: 05/21/22 08:27 Dose: 40 mg Risperidone (Risperidone 2 Mg Tablet) 2 mg PO HS DEANDRE Stop: 06/17/22 21:59 Last Admin: 05/20/22 21:01 Dose: 2 mg Sitagliptin Phosphate (Sitagliptin Phosphate 100 Mg Tab) 100 mg PO DAILY DEANDRE Stop: 06/07/22 08:59 Last Admin: 05/21/22 08:30 Dose: 100 mg Sodium Chloride (Sodium Chloride 0.65% Na Soln 45 Ml (Young)) 1 - 2 sprays NA PRN PRN PRN Reason: Nasal Dryness/Congestion Stop: 06/07/22 03:50 Mental Health & Subst Abuse Tx Psychiatrist Name of Psychiatrist: Vicky Rocha Psychiatrist's Psychiatric Appointment Comment: [address] [facility] [id number] Therapist Name of Therapist: Devika Avila Therapist's Date of Therapist Appointment: 06/11/22 Time of Therapist Appointment: 10:30 AM Therapy Appointment Comment: [address] [facility] [facility], [address], [place] [address] Post Discharge Appointments Primary Care Physician Name Of Family Doctor: Megan Walker [facility] Date of Appointment with PCP: 05/24/22 Time of Appointment with PCP: 9:45am Provider Appointment Comment: [address] [place] [address]
[2022-05-21] MEDS: risperiDONE 2 MG TABLET PO SCH (21:23)
[2022-05-22] MEDS: ESCITALOPRAM OXALATE 20 MG TAB PO SCH (09:00)
[2022-05-22] MEDS: carvediloL 6.25 MG TAB PO SCH (09:00)
[2022-05-22] MEDS: ASPIRIN 81 MG ECTAB PO SCH (09:00)
[2022-05-22] MEDS: lisinopril 10 MG TAB PO SCH (09:00)
[2022-05-22] MEDS: metFORMIN HCL ER 500 MG TABCR PO SCH (09:00)
[2022-05-22] MEDS: PANTOprazole 40 MG TAB PO SCH (09:00)
[2022-05-22] MEDS: ATORVASTATIN 40 MG TAB PO SCH (09:00)
[2022-05-22] MEDS: LORazepam 0.5 MG TAB PO SCH (09:00)
[2022-05-22] MEDS: MULTIVITAMIN TAB PO SCH (09:00)
[2022-05-22] MEDS: SITagliptin PHOSPHATE 100 MG TAB PO SCH (09:00)
--- NOTE | 2022-05-22 09:18 | Discharge Summary ---
Date of Service May 22, 2022 History of Present Illness Mr. Rodarte presented to the ED yesterday pm on referral from the [facility]. He was described as ED CM as tangential/difficult to follow. Apparently had a remote history of depression but feels this episode is more mixed, he feels compelled to buy things he doesn't need (motorcycle parts) or to take items that would otherwise be thrown away from the school. "I don't know why I make things up." to make up for his guilt as he is paranoid and thinks that he is in legal trouble with school ( confirms he is not). 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 He was placed on a 2 week forced leave following a verbal altercation with a coworker. It's unclear if he made a direct threat but mentioned his firearms and he does own an assault rifle. He denies intent or plan to harm himself or others but adds "I just don't understand what is going on." He has endorsed poor sleep, appetite, feeling hopeless, poor concentration and is not attending to his ADLs, diabetes routine. He is currently ambulating with crutches (not allowed on unit) and wearing a knee immobilizer as he has 12+ sutures in his knee from a fall 2 days prior to admission. He states he got "so worked up that I headed outside and just went down." Physical Exam Psychiatric See admission H&P and DOD assessment. Vital Signs (Past 24 Hours) Last Vital Signs Temp 36.5 C 05/22/22 06:32 Pulse 94 H 05/22/22 06:33 Resp 16 05/22/22 06:32 BP 102/71 05/22/22 06:33 Pulse Ox 95 05/17/22 21:47 O2 Del Method 05/17/22 21:47 O2 Flow Rate 19 05/08/22 04:13 Principal Diagnosis major depressive disorder Psychiatric Data See daily stay summary. In short, safety was maintained and the patient was cooperative with care. Medication changes included a trial of Lexapro and retrial of Risperdal (after a brief trial of Seroquel) and they tolerated this well. A family session was held with his and safety plan was completed prior to discharge which included a contract around driving and she oversees medications. He was never suicidal but did have thought disorganization and it is recommended that guns be secured. Ammo and guns cannot be removed from the home but are locked separately and confirmed he would not have access to the keys. He did exhibit psychotic and catatonic features to his depression earlier in his stay which did respond to Ativan which was tapered in anticipation of discharge to prn use. Therapy is recommended on an outpatient basis to help with phase of life issues around longterm. He understands needs for ongoing monitoring of his medications, particularly Risperdal given his diabetes and longer term risks of movement issues. He was seen by medicine automobile sales consultant re: his BP and antihypertensives were adjusted. His sutures were removed in knee lac and he completed his course of Augmentin. Day of Discharge Assessment Today the patient voices readiness for discharge. They note improvement in mood and deny thoughts to harm self or others. Thoughts are much more organized and they are improved from admission, any delay in response seems anxiety based with open ended questions rather than thought blocking. There is no evidence of hallucinations or delusions. He remains preoccupied about money but will have support to attend the school meeting around his longterm which will actually improve their financial situation. They agree to take mediations as prescribed and keep follow-up appointments. They are stable for discharge to outpatient level of care. Transition of Care Transition Of Care Record: was reviewed with the patient Advance Directives Advance Directives Information Provided: Yes Advance Directives: Yes Mental Health Advance Directive: No Advance Directives on File: No Living Will: No Power of Supervising Librarian: No Advance Directives Reason:: Declines as Mental Health Visit. Suicide Risk Level Suicide Risk Level Comments: Suicide risk at discharge is deemed low as the patient is no longer requiring 24-hr monitoring, has a safety plan, and is free of suicidal ideation at discharge. 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[employer]) Tobacco Cessation at Discharge Tobacco Cessation Medication Prescribed at Discharge: Not Applicable/Non-Smoker Total Time Total Time Spent: Greater Than 30 Minutes Total Time Includes: Examination of the patient, Discharge Planning and Medication Reconciliation Discharge Data Consultations 05/16/22 11:06 Consult Hospitalist Routine Lab Results 05/07/22 05/07/22 05/07/22 22:18 22:18 22:35 WBC 17.19 H RBC 5.07 Hgb 15.6 Hct 44.7 MCV 88.2 MCH 30.8 MCHC 34.9 RDW Std Deviation 41.1 RDW Coeff of Janes 12.8 Plt Count 234 MPV 10.0 Immature Gran % (Auto) 0.5 Neut % (Auto) 71.7 Lymph % (Auto) 19.1 Mcminn % (Auto) 7.6 Eos % (Auto) 0.8 Baso % (Auto) 0.3 Neut # (Auto) 12.33 H Lymph # (Auto) 3.28 Mcminn # (Auto) 1.30 H Eos # (Auto) 0.14 Baso # (Auto) 0.05 Immature Gran # (Auto) 0.09 H Sodium Potassium Chloride Carbon Dioxide Anion Gap BUN Creatinine Est Cr Clr Drug Dosing Est GFR ( Amer) Est GFR (Non-Af Amer) BUN/Creatinine Ratio Glucose POC Glucose Estimat Average Glucose Hemoglobin A1c Calcium Magnesium Total Bilirubin AST ALT Alkaline Phosphatase Total Protein Albumin Globulin Albumin/Globulin Ratio Triglycerides Cholesterol LDL Cholesterol, Calc VLDL Cholesterol, Calc HDL Cholesterol Cholesterol/HDL Ratio Vitamin B12 Folate TSH Urine Color Dark Yellow Urine Appearance Clear Urine pH 6.0 Ur Specific Bishop 1.033 H Urine Protein 2+ H Urine Glucose (UA) Negative Urine Ketones 3+ H Urine Blood Negative Urine Nitrite Negative Urine Bilirubin 1+ H Urine Urobilinogen Negative Ur Leukocyte Esterase Trace H Urine WBC (Auto) 1-5 Urine RBC (Auto) 0-4 U Hyaline Cast (Auto) 10-30 H U Epithel Cells (Auto) >30 H Urine Bacteria (Auto) Negative Salicylates Urine Opiates Screen Neg Ur Methadone, Qual Neg Acetaminophen Urine Barbiturates Neg Ur Phencyclidine (PCP) Neg U Amphetamin/Meth Scrn Neg MDMA (Ecstasy) Screen Neg U Benzodiazepines Scrn Neg Ur Cocaine Metabolite Neg U Marijuana (THC) Screen Neg Ethyl Alcohol mg/dL SARS-CoV-2, RNA, NAAT 05/07/22 05/07/22 05/07/22 22:35 22:35 22:35 WBC RBC Hgb Hct MCV MCH MCHC RDW Std Deviation RDW Coeff of Janes Plt Count MPV Immature Gran % (Auto) Neut % (Auto) Lymph % (Auto) Mcminn % (Auto) Eos % (Auto) Baso % (Auto) Neut # (Auto) Lymph # (Auto) Mcminn # (Auto) Eos # (Auto) Baso # (Auto) Immature Gran # (Auto) Sodium 135 L Potassium 3.5 Chloride 101 Carbon Dioxide 23 Anion Gap 11 BUN 13 Creatinine 0.78 Est Cr Clr Drug Dosing Not Reportable Est GFR ( Amer) 112.1 Est GFR (Non-Af Amer) 96.7 BUN/Creatinine Ratio 16.7 Glucose 162 H POC Glucose Estimat Average Glucose Hemoglobin A1c Calcium 9.4 Magnesium Total Bilirubin 1.4 H AST 33 ALT 42 Alkaline Phosphatase 57 Total Protein 7.2 Albumin 4.4 Globulin 2.8 Albumin/Globulin Ratio 1.6 Triglycerides Cholesterol LDL Cholesterol, Calc VLDL Cholesterol, Calc HDL Cholesterol Cholesterol/HDL Ratio Vitamin B12 Folate TSH 1.069 Urine Color Urine Appearance Urine pH Ur Specific Bishop Urine Protein Urine Glucose (UA) Urine Ketones Urine Blood Urine Nitrite Urine Bilirubin Urine Urobilinogen Ur Leukocyte Esterase Urine WBC (Auto) Urine RBC (Auto) U Hyaline Cast (Auto) U Epithel Cells (Auto) Urine Bacteria (Auto) Salicylates < 3.0 L Urine Opiates Screen Ur Methadone, Qual Acetaminophen < 3 L Urine Barbiturates Ur Phencyclidine (PCP) U Amphetamin/Meth Scrn MDMA (Ecstasy) Screen U Benzodiazepines Scrn Ur Cocaine Metabolite U Marijuana (THC) Screen Ethyl Alcohol mg/dL SARS-CoV-2, RNA, NAAT 05/07/22 05/07/22 05/08/22 22:35 Unknown 01:55 WBC 13.53 H RBC 4.62 L Hgb 14.3 Hct 40.5 MCV 87.7 MCH 31.0 MCHC 35.3 RDW Std Deviation 40.7 RDW Coeff of Janes 12.8 Plt Count 212 MPV 10.0 Immature Gran % (Auto) 0.4 Neut % (Auto) 68.0 Lymph % (Auto) 21.8 Mcminn % (Auto) 7.7 Eos % (Auto) 1.7 Baso % (Auto) 0.4 Neut # (Auto) 9.20 H Lymph # (Auto) 2.95 Mcminn # (Auto) 1.04 H Eos # (Auto) 0.23 Baso # (Auto) 0.06 Immature Gran # (Auto) 0.05 H Sodium Potassium Chloride Carbon Dioxide Anion Gap BUN Creatinine Est Cr Clr Drug Dosing Est GFR ( Amer) Est GFR (Non-Af Amer) BUN/Creatinine Ratio Glucose POC Glucose Estimat Average Glucose Hemoglobin A1c Calcium Magnesium Total Bilirubin AST ALT Alkaline Phosphatase Total Protein Albumin Globulin Albumin/Globulin Ratio Triglycerides Cholesterol LDL Cholesterol, Calc VLDL Cholesterol, Calc HDL Cholesterol Cholesterol/HDL Ratio Vitamin B12 Folate TSH Urine Color Urine Appearance Urine pH Ur Specific Bishop Urine Protein Urine Glucose (UA) Urine Ketones Urine Blood Urine Nitrite Urine Bilirubin Urine Urobilinogen Ur Leukocyte Esterase Urine WBC (Auto) Urine RBC (Auto) U Hyaline Cast (Auto) U Epithel Cells (Auto) Urine Bacteria (Auto) Salicylates Urine Opiates Screen Ur Methadone, Qual Acetaminophen Urine Barbiturates Ur Phencyclidine (PCP) U Amphetamin/Meth Scrn MDMA (Ecstasy) Screen U Benzodiazepines Scrn Ur Cocaine Metabolite U Marijuana (THC) Screen Ethyl Alcohol mg/dL < 10.0 SARS-CoV-2, RNA, NAAT NEGATIVE 05/08/22 05/08/22 05/08/22 07:59 12:14 20:22 WBC RBC Hgb Hct MCV MCH MCHC RDW Std Deviation RDW Coeff of Janes Plt Count MPV Immature Gran % (Auto) Neut % (Auto) Lymph % (Auto) Mcminn % (Auto) Eos % (Auto) Baso % (Auto) Neut # (Auto) Lymph # (Auto) Mcminn # (Auto) Eos # (Auto) Baso # (Auto) Immature Gran # (Auto) Sodium Potassium Chloride Carbon Dioxide Anion Gap BUN Creatinine Est Cr Clr Drug Dosing Est GFR ( Amer) Est GFR (Non-Af Amer) BUN/Creatinine Ratio Glucose POC Glucose 145 H 141 H 174 H Estimat Average Glucose Hemoglobin A1c Calcium Magnesium Total Bilirubin AST ALT Alkaline Phosphatase Total Protein Albumin Globulin Albumin/Globulin Ratio Triglycerides Cholesterol LDL Cholesterol, Calc VLDL Cholesterol, Calc HDL Cholesterol Cholesterol/HDL Ratio Vitamin B12 Folate TSH Urine Color Urine Appearance Urine pH Ur Specific Bishop Urine Protein Urine Glucose (UA) Urine Ketones Urine Blood Urine Nitrite Urine Bilirubin Urine Urobilinogen Ur Leukocyte Esterase Urine WBC (Auto) Urine RBC (Auto) U Hyaline Cast (Auto) U Epithel Cells (Auto) Urine Bacteria (Auto) Salicylates Urine Opiates Screen Ur Methadone, Qual Acetaminophen Urine Barbiturates Ur Phencyclidine (PCP) U Amphetamin/Meth Scrn MDMA (Ecstasy) Screen U Benzodiazepines Scrn Ur Cocaine Metabolite U Marijuana (THC) Screen Ethyl Alcohol mg/dL SARS-CoV-2, RNA, NAAT 05/09/22 05/09/22 05/09/22 07:57 09:06 09:06 WBC 10.74 RBC 5.04 Hgb 15.6 Hct 43.9 MCV 87.1 MCH 31.0 MCHC 35.5 RDW Std Deviation 40.3 RDW Coeff of Janes 12.8 Plt Count 248 MPV 9.5 Immature Gran % (Auto) 0.3 Neut % (Auto) 64.8 Lymph % (Auto) 24.0 Mcminn % (Auto) 8.3 Eos % (Auto) 2.1 Baso % (Auto) 0.5 Neut # (Auto) 6.96 H Lymph # (Auto) 2.58 Mcminn # (Auto) 0.89 H Eos # (Auto) 0.23 Baso # (Auto) 0.05 Immature Gran # (Auto) 0.03 H Sodium Potassium Chloride Carbon Dioxide Anion Gap BUN Creatinine Est Cr Clr Drug Dosing Est GFR ( Amer) Est GFR (Non-Af Amer) BUN/Creatinine Ratio Glucose POC Glucose 165 H Estimat Average Glucose 166 Hemoglobin A1c 7.4 H Calcium Magnesium Total Bilirubin AST ALT Alkaline Phosphatase Total Protein Albumin Globulin Albumin/Globulin Ratio Triglycerides Cholesterol LDL Cholesterol, Calc VLDL Cholesterol, Calc HDL Cholesterol Cholesterol/HDL Ratio Vitamin B12 Folate TSH Urine Color Urine Appearance Urine pH Ur Specific Bishop Urine Protein Urine Glucose (UA) Urine Ketones Urine Blood Urine Nitrite Urine Bilirubin Urine Urobilinogen Ur Leukocyte Esterase Urine WBC (Auto) Urine RBC (Auto) U Hyaline Cast (Auto) U Epithel Cells (Auto) Urine Bacteria (Auto) Salicylates Urine Opiates Screen Ur Methadone, Qual Acetaminophen Urine Barbiturates Ur Phencyclidine (PCP) U Amphetamin/Meth Scrn MDMA (Ecstasy) Screen U Benzodiazepines Scrn Ur Cocaine Metabolite U Marijuana (THC) Screen Ethyl Alcohol mg/dL SARS-CoV-2, RNA, NAAT 05/09/22 05/09/22 05/10/22 09:06 09:06 08:29 WBC RBC Hgb Hct MCV MCH MCHC RDW Std Deviation RDW Coeff of Janes Plt Count MPV Immature Gran % (Auto) Neut % (Auto) Lymph % (Auto) Mcminn % (Auto) Eos % (Auto) Baso % (Auto) Neut # (Auto) Lymph # (Auto) Mcminn # (Auto) Eos # (Auto) Baso # (Auto) Immature Gran # (Auto) Sodium Potassium Chloride Carbon Dioxide Anion Gap BUN Creatinine Est Cr Clr Drug Dosing Est GFR ( Amer) Est GFR (Non-Af Amer) BUN/Creatinine Ratio Glucose POC Glucose 129 H Estimat Average Glucose Hemoglobin A1c Calcium Magnesium Total Bilirubin AST ALT Alkaline Phosphatase Total Protein Albumin Globulin Albumin/Globulin Ratio Triglycerides 105 Cholesterol 99 LDL Cholesterol, Calc 27 VLDL Cholesterol, Calc 21 HDL Cholesterol 51 Cholesterol/HDL Ratio 1.9 Vitamin B12 433 Folate > 22.30 TSH Urine Color Urine Appearance Urine pH Ur Specific Bishop Urine Protein Urine Glucose (UA) Urine Ketones Urine Blood Urine Nitrite Urine Bilirubin Urine Urobilinogen Ur Leukocyte Esterase Urine WBC (Auto) Urine RBC (Auto) U Hyaline Cast (Auto) U Epithel Cells (Auto) Urine Bacteria (Auto) Salicylates Urine Opiates Screen Ur Methadone, Qual Acetaminophen Urine Barbiturates Ur Phencyclidine (PCP) U Amphetamin/Meth Scrn MDMA (Ecstasy) Screen U Benzodiazepines Scrn Ur Cocaine Metabolite U Marijuana (THC) Screen Ethyl Alcohol mg/dL SARS-CoV-2, RNA, NAAT 05/16/22 12:16 WBC RBC Hgb Hct MCV MCH MCHC RDW Std Deviation RDW Coeff of Janes Plt Count MPV Immature Gran % (Auto) Neut % (Auto) Lymph % (Auto) Mcminn % (Auto) Eos % (Auto) Baso % (Auto) Neut # (Auto) Lymph # (Auto) Mcminn # (Auto) Eos # (Auto) Baso # (Auto) Immature Gran # (Auto) Sodium 136 Potassium 3.7 Chloride 101 Carbon Dioxide 27 Anion Gap 8 BUN 16 Creatinine 0.74 Est Cr Clr Drug Dosing 132.3 Est GFR ( Amer) 114.6 Est GFR (Non-Af Amer) 98.9 BUN/Creatinine Ratio 21.6 H Glucose 133 H POC Glucose Estimat Average Glucose Hemoglobin A1c Calcium 9.2 Magnesium 1.7 Total Bilirubin AST ALT Alkaline Phosphatase Total Protein Albumin Globulin Albumin/Globulin Ratio Triglycerides Cholesterol LDL Cholesterol, Calc VLDL Cholesterol, Calc HDL Cholesterol Cholesterol/HDL Ratio Vitamin B12 Folate TSH Urine Color Urine Appearance Urine pH Ur Specific Bishop Urine Protein Urine Glucose (UA) Urine Ketones Urine Blood Urine Nitrite Urine Bilirubin Urine Urobilinogen Ur Leukocyte Esterase Urine WBC (Auto) Urine RBC (Auto) U Hyaline Cast (Auto) U Epithel Cells (Auto) Urine Bacteria (Auto) Salicylates Urine Opiates Screen Ur Methadone, Qual Acetaminophen Urine Barbiturates Ur Phencyclidine (PCP) U Amphetamin/Meth Scrn MDMA (Ecstasy) Screen U Benzodiazepines Scrn Ur Cocaine Metabolite U Marijuana (THC) Screen Ethyl Alcohol mg/dL SARS-CoV-2, RNA, NAAT Hospital Course (1) MDD (major depressive disorder), recurrent, severe, with psychosis: (2) Catatonia: (3) Depression: (4) Laceration of knee: (5) Leukocytosis: Plan 05/21/22: safety planning 05/20/22: 0.5 mg Ativan BID, family meeting with by phone 05/19/22: continue current medications and treatment plan, may need to retry higher dose of Ativan now that Risperdal at hs. Facetime with . 05/18/22: Consolidate risperidone to 2mg qhs. Decrease ativan due to fatigue to 0.5mg TID for catatonia. Added Cogentin 1 mg BID prn for EPS due to concern for possible muscle stiffness. Continue with escitalopram 20mg for MDD. 05/17/22: Increase risperidone to from 1mg qhs to 1.5mg qhs and continue with 0.5mg qAM. Increase escitalopram from 10mg to 20mg qd. 05/16/22: Continue current medications. Appreciate hospitalist recommendations regarding increase of lisinopril and addition of coreg 6.25mg BID with plan to increase to 12.5mg BID if HTN and tachycardia persist. 05/15/22: Increased ativan to 1mg TID. Continue with lexapro and risperidone. 05/14/22: Increase risperidone to 0.5mg qAM & 1 mg qhs. Increase ativan to 0.5mg TID scheduled in attempt to increase po intake due to concern for catatonia. 05/13/22: Stop seroquel. Start risperidone 0.5mg BID. 05/12/22: Continue with current medications and tx plan. 05/11/22: titrate hs seroquel to 200 mg and shift Lexapro to am. Patient reports no benefit from prn Seroquel for anxiety, will offer low dose Ativan but monitor falls. 05/10/22: patient reports having an MRI on outpatient basis, will confirm with family. Risks/benefits/alternatives reviewed re: trial of Lexapro. He is not excited to take more medication but was ultimately agreeable. AM gluc checks all under 200 even with starting SEroquel so will d/c for now as controlled on oral agents, reconsider if significant increase in dose or symptomatic. 05/09/22: labs reviewed, HgbA1c elevated as suspected. Reports he snores at home and denies any prior w/u for sleep apnea. Consider head CT given change from baseline MSE. Knee sutures out 05/16 or within a few days after. Increase Ser oquel 100 mg qhs. Lisinopril potential increase noted in ED note as patient was seen few days in a row prior to psych admission. 05/08/22: The patient was admitted to the [facility] ([facility] mental health unit) on q15 min checks (behavioral with suicide precautions) for safety. The patient will participate in group, recreational, and milieu therapies and will be offered additional individual and family sessions as clinically appropriate. Risks/benefits/alternatives were reviewed re: antipsychotics for mood and/or psychosis. Psychotic depression vs. mixed episode. Discussion included but was not limited to metabolic side effects, risks of TD and suicidal thoughts. There were no abnormal motor movements at baseline. Fasting lipid panel and HgbA1c ordered for baseline monitoring and will repeat CBC. Continue course of prophylactic Augmentin as per ED. Patient agreed to a trial of Seroquel 50 mg qhs with 12.5 mg q 6 prn daytime anxiety with likely titration. Will add B12 and folate in case early cognitive change and consider additional head imaging as outpatient. Mental Health & Subst Abuse Tx Psychiatrist Name of Psychiatrist: Vicky Rocha- Carlos Huang Psychiatrist's Date of Appointment with Psychiatrist: 05/30/22 Time of Appointment with Psychiatrist: 8 am Psychiatric Appointment Comment: [address] [facility] [address] Therapist Name of Therapist: Devika Avila Therapist's Date of Therapist Appointment: 06/11/22 Time of Therapist Appointment: 10:30 AM Therapy Appointment Comment: [address] [facility], [address], [place] [address] Post Discharge Appointments Primary Care Physician Name Of Family Doctor: Carole (Seeing Dr. Viveros) Primary Care Date of Appointment with PCP: 05/24/22 Time of Appointment with PCP: 10:45 am Provider Appointment Comment: [place] [address] Smoking Cessation Counseling Tobacco Cessation Medication Prescribed at Discharge: Not Applicable/Non-Smoker Discharge Plan Discharge Items Patient Disposition: Home - Self-Care Reason For Visit: MDD Discharge Diagnosis: major depressive disorder Activity: Resume your previous activity Non-emergency contact: Primary Care Provider and Psychiatrist Call non-emergency contact if: you have any medication questions and your symptoms worsen Follow-up/Referrals: Elvis Li MD [Primary Care Provider] - Diet: Carb Consistent or DM2 Addtl Attending Provider Instructions: SPECIAL CARE INSTRUCTIONS: 1. Follow through with your scheduled aftercare appointments. If unable to keep an appointment, please call to reschedule. 2. Take your medication only as prescribed. Medication should not be changed or stopped without the approval of your doctor. In the event of worsening symptoms or concerns about side effects, contact your doctor immediately. 3. Utilize new healthy coping skills, anger management skills, and stress management skills learned during your hospitalization. Journal feelings and process them with a support person. Identify stressors or situations that may result in relapse, deterioration or inappropriate behaviors and develop a plan to deal with those issues. 4. If your coping skills are ineffective and you are in crisis, contact your outpatient providers for direction. If unable to reach your providers, please call the [facility] CRISIS LINE AT , go to the [facility] walk-in center at [address], [address], [place], or go to the closest Emergency Room. 5. Avoid alcohol and un-prescribed drugs. 6. You have been provided with the Mental Health Advance Directives Pamphlet for your review. 7. Your condition is stable for discharge to outpatient level of care, but recovery is an ongoing process. Ifthoughts to harm yourself or others return, follow the safety plan developed during your stay. Planning for a safe return home includes securing weapons. Our treatment team recommends weaponsbe removed from the home until your outpatient provider reassesses your progress. In rare cases where the items themselvescannot be removed, guns and ammunitionshould be secured separatelyand keys stored by a reliable personoutside of the home. If you were admitted on an involuntary commitment, the police or other legal authorities may be involved in this process. AFTERCARE APPOINTMENTS: * Please call your insurance company prior to your scheduled appointment to confirm your aftercare providers are covered. Take your insurance information to your appointments. WHO TO CALL AND WHEN: Medical Emergencies: For questions or emergencies related to your hospital stay, please contact the Inpatient Behavioral Health Unit at [phone]. A icer machine is on-call 04/02 for the Behavioral Health Unit for emergencies At any time you feel your situation is an emergency, you may also call 911 immediately. Pending Studies at Discharge: No Stand-Alone Forms: My [facility], Smoking Cessation Medications and DC Order Prescriptions: New carvedilol 6.25 mg Tablet 6.25 mg PO BID Qty: 60 0RF risperidone 2 mg Tablet 2 mg PO HS Qty: 30 0RF lorazepam 0.5 mg Tablet 0.5 mg PO BIDM PRN (Reason: Anxiety) Qty: 30 0RF escitalopram oxalate 20 mg Tablet 20 mg PO QAM Qty: 30 0RF Continued Januvia 100 mg tablet 100 mg PO DAILY metformin 500 mg tablet extended release 24 hr 1,000 mg PO BID lisinopril 10 mg tablet 10 mg PO DAILY omeprazole 20 mg capsule,delayed release(DR/EC) 20 mg PO HS Ozempic 1 mg/dose (4 mg/3 mL) pen injector 0.5 mg SUBCUT WK Rx Instructions: take this med every Saturday atorvastatin 40 mg tablet 40 mg PO DAILY multivitamin Tablet 1 tab PO DAILY aspirin 81 mg Tablet,Delayed Release (Dr/Ec) 81 mg PO DAILY fluticasone propionate 50 mcg/actuation spray,suspension 2 spray INTRANASAL DAILY PRN (Reason: Congestion) meclizine 25 mg tablet 25 mg PO TID PRN (Reason: dizziness) Qty: 30 0RF Discontinued eszopiclone 2 mg tablet 2 mg PO HS PRN (Reason: Insomnia) hydroxyzine pamoate [Vistaril] 50 mg capsule 50 mg PO Q8H PRN (Reason: sleep/anxiety) Qty: 15 0RF Discharge Orders: Discharge Order (Routine); Ordered 05/22/22 Ordered By: Amanda Comer/Other Patient Handouts: Managing Type 2 Diabetes Admission Data Admit Date/Time: 05/08/22 04:13 Attending Provider: Amanda Cintron Admit Provider: Amanda Cintron Primary Care Provider: Elvis Li Other Providers: Mami Ramos ; Tierra Ignacio I. ; Raven Ely ; Evy Reeves ; Sri Jones ; Kaleigh Willis ; Valencia Carrion ; Carl Padilla ; Tomas Gordillo ; Familia Helm ; Beatriz Marcelino ; Jaciel Patel ; Phoebe Perales ; Pretty Bauman ; Bobo La ; Thais Lewis ; Shayla Luna ; Marquita Mason ; Wilda Holman I. ; Moiz Delgado ; Beverley Huang ; Kavya Valero ; Deejay Coyne ; Kory Gallegos ; Rahul Vaughn ; Carlos Manuel Acosta ; Maxi Dover ; Serenity Dawson Coding Level of Care Code 71076 D/C day mgmt > 30 min Diagnoses MDD (major depressive disorder), recurrent, severe, with psychosis F33.3 Catatonia F06.1 Depression F32.A Laceration of knee S81.019A Leukocytosis D72.829
== END 2022-05-22 10:54 | disposition home or self-care (01) | DRG 885 ==
LOC: ED 21:23 → 3S 05-08 04:07

== ENCOUNTER 2023-05-29 14:39 | Inpatient (IN) ==
[2023-05-29 15:17] LABS: Basophils # (auto) 0.06 K/uL (0.00-0.20); Basophils % (auto) 1.1 %; Eosinophils # (auto) 0.11 K/uL (0.00-0.50); Eosinophils % (auto) 1.9 %; Hematocrit (blood only) 43.3 % (42.0-52.0); Hemoglobin 15.3 g/dl (14.0-18.0); Immature Granulocytes # (auto) 0.01 K/uL (0.01-0.20); Immature Granulocytes % (auto) 0.2 %; Lymphocytes # (auto) 1.82 K/uL (1.20-3.40); Lymphocytes % (auto) 32.2 %; Mean Corpuscular Hemoglobin 30.8 pg (25.0-34.0); Mean Corpuscular Hgb Conc 35.3 g/dL (32.0-36.0); Mean Corpuscular Volume 87.1 fL (80.0-100.0); Mean Platelet Volume 9.8 fL (9.4-12.4); Monocytes % (auto) 7.1 %; Neutrophils # (auto) 3.25 K/uL (1.40-6.50); Neutrophils % (auto) 57.5 %; Platelet Count 219 K/uL (130-400); RDW Coefficient of Variation 12.7 % (11.5-14.5); RDW Standard Deviation 40.6 fL (36.4-46.3); Red Blood Count 4.97 M/uL (4.70-6.10); White Blood Count 5.65 K/ul (4.8-10.8)
[2023-05-29 15:34] LABS: Albumin Level 4.3 gm/dl (3.4-5.0); Bilirubin,Total 1.5 mg/dl (0.2-1.0); Calcium 9.8 mg/dl (8.6-10.3); Potassium 4.3 mmol/L (3.5-5.1)
[2023-05-29 15:40] LABS: Albumin Globulin Ratio 1.6 (0.9-2); BUN Creatinine Ratio 16.5 (10-20); Creatinine Clr Calc Pharmacy 98.8 ml/min; Est GFR (African American) 110.8 ml/min; Est GFR (Non-African American) 95.6 ml/min; Globulin 2.7 gm/dl (2.5-4.0)
[2023-05-29 15:52] LABS: Thyroid Stimulating Hormone 1.049 uIu/ml (0.300-4.500)
[2023-05-29 16:03] LABS: Acetaminophen < 3 ug/ml (10-30); Salicylate < 3.0 mg/dl (3.0-30)
--- NOTE | 2023-05-29 16:21 | CT Scan Report ---
CT head/brain wo con CLINICAL HISTORY: ams Technique: Contiguous axial CT images of the head were acquired from the base of the skull to the shanelle ivet without intravenous contrast administration. Images were viewed in brain, subdural and bone [facility] Automated dose lowering techniques and/or adjustment according to patient size were utilized for this exam. Comparison: Comparison is made to CT head 07/02/2022 Findings: The ventricles, basal cisterns, and cerebral sulci are normal. There is no acute intracranial hemorrh age or evidence of acute territorial infarction. Neither mass effect, shift of the midline structures , nor abnormal extra-axial fluid collections are shown. Imaged portions of the paranasal sinuses and mastoid air cells are clear. The orbits appear normal. There are no acute fractures of the calvaria or scalp swelling. Impression: No acute intracranial hemorrhage, no evidence of acute territorial infarction or other acute intracra nial disease process. ACT 112: Negative or not required by law. Electronically signed by: Shamir Valles M.D. 05/29/2023 4:19 PM
[2023-05-29 17:23] LABS: Appearance Urine Clear (Clear); Bilirubin Urine Negative (Negative); Blood Urine Negative (Negative); Color Urine Yellow; Glucose Urine UA Negative (Negative); Ketones Urine 1+ (Negative); Leukocyte Esterase Urine Negative (Negative); Nitrite Urine Negative (Negative); Protein Urine Negative (Negative); Specific Gravity Urine 1.008 (1.000-1.030); Urobilinogen Urine Negative (Negative); pH Urine 6.5 (4.5-7.5)
[2023-05-29 17:44] LABS: Amphetamines+Metham, Urine Neg (Neg); Barbiturates, Urine Neg (Neg); Benzodiazepine, Urine Neg (Neg); Cocaine, Urine Neg (Neg); MDMA (Ecstacy), Urine Neg (Neg); Marijuana, Urine Neg (Neg); Methadone, Urine Neg (Neg); Opiate, Urine Neg (Neg); Phencyclidine, Urine Neg (Neg)
[2023-05-29] MEDS ORDERED: ACETAMINOPHEN 325 MG TAB PO PRN (18:33)
[2023-05-29] MEDS ORDERED: MAGNESIUM HYDROXIDE SUSP 30 ML UDC PO PRN (18:33)
[2023-05-29] MEDS ORDERED: BISMUTH SUBSALICYLATE LIQD 236 ML PO PRN (18:33)
[2023-05-29] MEDS ORDERED: ALUMINUM/MAGNESIUM SUSP 30 ML UDC PO PRN (18:33)
[2023-05-29] MEDS ORDERED: SODIUM CHLORIDE 0.65% NA SOLN 45 ML (OCEAN) PRN (18:33)
[2023-05-29] MEDS ORDERED: hydrOXYzine HCl 25 MG TAB PO PRN ×2 (18:33)
[2023-05-29] MEDS ORDERED: OLANZapine 5 MG TABLET PO SCH (21:00)
--- NOTE | 2023-05-29 22:27 | Emergency Department Note ---
History of Present Illness General Chief complaint: Mental Health Evaluation Stated complaint: MENTAL HEALTH EVAL Time Seen by Provider: 05/29/23 14:47 Source: patient and family ( at bedside) History of Present Illness Provider complaint: Mental health evaluation 63-year-old male presents emergency department for mental health evaluation. reports that the patient is up and take care of himself refusing to eat or drink shower or take any of his medications. Patient is not cooperative with exam and is not giving any history. Home Medications Medication Instructions Recorded Confirmed Type atorvastatin 40 mg tablet 40 mg PO DAILY 05/02/22 05/29/23 History lisinopril 10 mg tablet 10 mg PO DAILY 05/02/22 05/29/23 History metformin 500 mg tablet,extended 500 mg PO BID 05/02/22 05/29/23 History release 24 hr multivitamin 1 tab PO DAILY 05/02/22 05/29/23 History carvedilol 6.25 mg tablet 6.25 mg PO BID #60 tabs 05/21/22 05/29/23 Rx acetaminophen 325 mg tablet 650 mg PO Q6H PRN Pain 07/02/22 05/29/23 History (Tylenol) aripiprazole 15 mg tablet (Abilify) 15 mg PO DAILY 07/02/22 05/29/23 History nystatin-triamcinolone 100,000 1 applic topical TID 07/02/22 05/29/23 History unit/g-0.1 % topical cream pantoprazole 40 mg tablet,delayed 40 mg PO DAILY 07/02/22 05/29/23 History release sertraline 50 mg tablet 50 mg PO .DAILY @ 1300 07/02/22 05/29/23 History venlafaxine 150 mg 150 mg PO BID 07/02/22 05/29/23 History capsule,extended release 24 hr (Effexor XR) Allergies Allergy/AdvReac Type Severity Reaction Status Date / Time No Known Allergies Allergy Verified 07/02/22 23:04 Past Med/Surg History Medical History DM2 (diabetes mellitus, type 2) Tachycardia HTN (hypertension) Catatonia Leukocytosis Laceration of knee HLD (hyperlipidemia) GI bleeding HTN (hypertension) Surgical History No pertinent past surgical history Family History Other Family history non-contributory Social History Smoking Status: Former smoker Tobacco Type: Cigarettes Hx Alcohol Use: Yes Hx Substance Use: No Preferred Language: Slovenian Communication Ability: Effective Social Work Program Coordinator Required: No Beliefs That Will Affect Care: Christian current occupational status: employed Feels Safe at Home: Yes Gender Identity: Male Assistive Devices: Brace/Splint/Immobilizer Physical Exam Vital Signs Vital Signs - 24 hr 05/29/23 14:39 05/29/23 16:34 Temperature 36.4 C L Temperature Source Oral Pulse Rate 74 Pulse Rate [Radial] 70 Respiratory Rate 18 16 Respiratory Effort / Characteristics Non-Labored Respiratory Depth Normal Respiratory Pattern Regular Blood Pressure 150/88 H Blood Pressure [Left Arm] 141/79 H Blood Pressure Mean 108 Blood Pressure Mean [Left Arm] 99 Pulse Oximetry 97 98 Oxygen Delivery Method Room Air Room Air Sepsis Recent Fever Within 48 Hours No Sepsis New/Unexplained Change in Mental Status No Sepsis Action Taken by Nursing No Action Required Physical Exam HENT: Exam performed. - Head: Normocephalic and atraumatic. EYES: Conjunctivae and EOM are normal. Right eye exhibits no discharge. Left eye exhibits no discharge. No scleral icterus. NECK: Normal range of motion. Neck supple. No JVD present. CV: Normal rate, regular rhythm, normal heart sounds and intact distal pulses. There is no peripheral edema. Palpable radial pulses bue. PULM/CHEST: Effort normal and breath sounds normal. No respiratory distress. No stridor. no wheezes. no rales. NEURO: Motor and sensation grossly intact. SKIN: Skin is warm and dry. He is not diaphoretic. PSYCH: Bizarre affect. Patient not answering any questions with regards to psychiatric concerns. Patient not answering if he is suicidal or homicidal ideation. Course Course 1447: The patient was evaluated in room A7. A complete history and physical exam was performed 1714: Vital signs stable. Patient medically cleared. Awaiting psychiatric evaluation and placement. 0: Patient excepted to 3 S. Administered Medications Olanzapine (Olanzapine 5 Mg Tablet) 5 mg PO HS DEANDRE Stop: 06/28/23 20:59 Last Admin: 05/29/23 21:54 Dose: 5 mg Documented By: CINDA Medical Decision Making Laboratory Data Attestation: I reviewed the patient's lab results. 05/29/23 15:00 05/29/23 15:00 Lab Results 05/29/23 05/29/23 05/29/23 Range/Units 15:00 16:09 17:10 WBC 5.65 (4.8-10.8) K/ul RBC 4.97 (4.70-6.10) M/uL Hgb 15.3 (14.0-18.0) g/dl Hct 43.3 (42.0-52.0) % MCV 87.1 (80.0-100.0) fL MCH 30.8 (25.0-34.0) pg MCHC 35.3 (32.0-36.0) g/dL RDW Std Deviation 40.6 (36.4-46.3) fL RDW Coeff of Janes 12.7 (11.5-14.5) % Plt Count 219 (130-400) K/uL MPV 9.8 (9.4-12.4) fL Immature Gran % (Auto) 0.2 % Neut % (Auto) 57.5 % Lymph % (Auto) 32.2 % Esmeralda % (Auto) 7.1 % Eos % (Auto) 1.9 % Baso % (Auto) 1.1 % Neut # (Auto) 3.25 (1.40-6.50) K/uL Lymph # (Auto) 1.82 (1.20-3.40) K/uL Esmeralda # (Auto) 0.40 (0.11-0.59) K/uL Eos # (Auto) 0.11 (0.00-0.50) K/uL Baso # (Auto) 0.06 (0.00-0.20) K/uL Immature Gran # (Auto) 0.01 (0.01-0.20) K/uL Sodium 140 (136-145) mmol/L Potassium 4.3 (3.5-5.1) mmol/L Chloride 109 H (98-107) mmol/L Carbon Dioxide 22 (21-32) mmol/L Anion Gap 9 (3-11) BUN 13 (6-23) mg/dl Creatinine 0.79 (0.6-1.4) mg/dl Est Cr Clr Drug Dosing 98.8 ml/min Est GFR ( Amer) 110.8 ml/min Est GFR (Non-Af Amer) 95.6 ml/min BUN/Creatinine Ratio 16.5 (10-20) Glucose 90 (70-99(Fasting)) mg/dl Calcium 9.8 (8.6-10.3) mg/dl Total Bilirubin 1.5 H (0.2-1.0) mg/dl AST 13 (13-39) U/L ALT 8 (7-52) U/L Alkaline Phosphatase 45 (34-104) U/L Total Protein 7.0 (6.0-8.3) gm/dl Albumin 4.3 (3.4-5.0) gm/dl Globulin 2.7 (2.5-4.0) gm/dl Albumin/Globulin Ratio 1.6 (0.9-2) TSH 1.049 (0.300-4.500) uIu/ml Urine Color Yellow Urine Appearance Clear (Clear) Urine pH 6.5 (4.5-7.5) Ur Specific [place] 1.008 (1.000-1.030) Urine Protein Negative (Negative) Urine Glucose (UA) Negative (Negative) Urine Ketones 1+ H (Negative) Urine Blood Negative (Negative) Urine Nitrite Negative (Negative) Urine Bilirubin Negative (Negative) Urine Urobilinogen Negative (Negative) Ur Leukocyte Esterase Negative (Negative) Salicylates < 3.0 L (3.0-30) mg/dl Urine Opiates Screen Neg (Neg) Ur Methadone, Qual Neg (Neg) Acetaminophen < 3 L (10-30) ug/ml Urine Barbiturates Neg (Neg) Ur Phencyclidine (PCP) Neg (Neg) U Amphetamin/Meth Scrn Neg (Neg) MDMA (Ecstasy) Screen Neg (Neg) U Benzodiazepines Scrn Neg (Neg) Ur Cocaine Metabolite Neg (Neg) U Marijuana (THC) Screen Neg (Neg) Ethyl Alcohol mg/dL < 10.0 (<10.0) mg/dl SARS-CoV-2, RNA, NAAT NEGATIVE (NEGATIVE) Imaging Data Radiologist's Impression: Head CT 05/29/23 15:24 CT head/brain wo con CLINICAL HISTORY: ams Technique: Contiguous axial CT images of the head were acquired from the base of the skull to the vertex without intravenous contrast administration. Images were viewed in brain, subdural and bone windows. Automated dose lowering techniques and/or adjustment according to patient size were utilized for this exam. Comparison: Comparison is made to CT head 07/02/2022 Findings: The ventricles, basal cisterns, and cerebral sulci are normal. There is no acute intracranial hemorrhage or evidence of acute territorial infarction. Neither mass effect, shift of the midline structures, nor abnormal extra-axial fluid collections are shown. Imaged portions of the paranasal sinuses and mastoid air cells are clear. The orbits appear normal. There are no acute fractures of the calvaria or scalp swelling. Impression: No acute intracranial hemorrhage, no evidence of acute territorial infarction or other acute intracranial disease process. ACT 112: Negative or not required by law. Electronically signed by: Shamir Valles M.D. 05/29/2023 4:19 PM [facility] Narrative 1447: The patient was evaluated in room A7. A complete history and physical exam was performed 1715: Vital signs stable. Patient medically cleared. Awaiting psychiatric evaluation and placement. 1900: Patient excepted to 3 S. Impression & Plan MDD (major depressive disorder), recurrent, severe, with psychosis Discharge Plan Visit Data Chief Complaint: Mental Health Evaluation Stated Complaint: MENTAL HEALTH EVAL ED Provider: Matti Vaughn Discharge Problem: MDD (major depressive disorder), recurrent, severe, with psychosis Patient Disposition: Admitted As Inpatient Discharge Instructions Interventions: ED Discharge Assessment Last Done: 05/29/23 18:55
--- NOTE | 2023-05-30 07:49 | History & Physical ---
Date of Service May 30, 2023 Impression / Recommendations Impression Ed is a 63 year old man with a history of MDD with psychotic features who was admitted for worsening agoraphobia, paranoia, depression and anxiety with inability to provide for his self-care needs including significant weight loss (with ketones in his urine) and hopelessness. Diagnostically seems most consistent with major depressive disorder with psychotic features and generalized anxiety disorder with agoraphobia and panic attacks. No current signs of catatonia so will hold off on use of any benzodiazepines. He is deemed in need of psychiatric hospitalization for diagnostic clarification, safety and stabilization, medication management and development of further coping skills. Discussed medication treatment options in detail. Discussed risks, benefits and alternatives. Patient would like to start and consented to olanzapine for MDD with psychotic features and off-label for benefits of sleep/appetite stimulation as well as duloxetine for MDD and DAVE with panic attacks and potentially may help with some of his peripheral neuropathy symptoms. Reviewed side effects including but not limited to: GI, SAHA, sexual side effects, elevated BP with duloxetine and movement (TD, NMS), cardiac (QTc prolongation), and metabolic (stroke, insulin resistance) and necessity for fasting lipid and glucose labwork and AIMS done with score of 0 with olanzapine. MNPR due to extreme anxiety, paranoia, poor self-care/hygiene prior to admission Overall I spent a total of 75 minutes for this admission including review of chart records, review of labwork, direct evaluation of the patient, counseling the patient, ordering medication, risk assessment, discussion with the psychiatric liason RN and treatment team and documentation in the electronic health record. (1) MDD (major depressive disorder), recurrent, severe, with psychosis: (2) Generalized anxiety disorder with panic attacks: (3) Agoraphobia with panic attacks: Plan 05/30/2023: The patient was admitted to the [facility] ([facility] unit) on q15 min checks (behavioral with suicide precautions) for safety. The patient will participate in group, recreational, and milieu therapies and will be offered additional individual and family sessions as clinically appropriate. -Start olanzapine 10mg HS po -Start duloxetine 30mg daily -AM labwork including fasting glucose, HbA1c, B12, Folic Acid, Vit D, fasting lipid panel Inventory Assets Strengths: supportive relationships, willing to get treatment Needs: safety and stabilization, medication adjustment, additional coping skills, increased outpatient services Suicide Risk Level Suicide Risk Level: Moderate (q15 min suicide checks) (depression with poor self care plan prior to admission but denies current SI, reports he feels safe in the hospital, and agrees to let nursing/staff know should they develop plan, intent or feel unable to remain safe. ) Risk Factors Assessment Male: Yes : Yes Do You Have Access To A Gun?: Yes (multiple at home, making plans to have these removed) Health Problems: Yes (peripheral neuropathy) Mental Health Diagnoses: Yes Substance Use Disorders: No Previous Attempt: No Family History of Suicide: No Previous Psychiatric Hospitalization: Yes Protective Factors Assessment Scientologist Beliefs: Yes : Yes Employed: No (Retired) Stable Relationships: Yes Supportive Family: Yes Psychiatric History Identifying Data DARIO VELAZQUEZ is a 63-year-old man who currently lives in [place] with his , has a history of Major Depressive Disorder with psychotic features and suspicion for catatonia, and was admitted on 05/29/23 18:33 on a 201 voluntary commitment for lack of self-care/inability to function at home with refusal to eat/shower/attend to any self-care needs and increasing paranoia, agoraphobia and depression. Chief Complaint "It's been despair, the fear that something bad is going to happen". History of Present Illness Dario was brought to the ED via police after his called them due to her concern for his worsening lack of attention to self-care needs with significant lack of eating (she reports he has lost ~130lbs in the last year; per chart review he has lost 45 lbs since he was in the ED in June 2022), lack of showering in almost 6 weeks, and paranoia. He was previously admitted to [facility] in May 2022 for depression with psychotic features and catatonia. During that admission there was also concern for possible cognitive impairment though he did show improvement in depression and psychotic symptoms with use of escitalopram and risperidone. Today he reports stopping all of his medications shortly after his discharge from the [facility] last year because "it got to the point it was overwhelming, I lost track of days of time". Since then he reports daily anxiety, especially when he is not focused on a task, in which he worries about all manner of things including fears the appliances are breaking, concerns that he and his are getting older, concerns something bad will happen to her and "I guess I'd call it paranoia". He states he has hardly left the house in the last 9 months noting "I'm scared to go out or do anything" and that he feels a sense of "just anxiety, depression, mood swings and I'm always worried that something bad is going to happen". Reports very poor sleep, low appetite, weight loss, and significant anhedonia. Remarks that he is now retired and "this should be the best time in my life but it's just awful". Notes he is constantly thinking "you can't do this...I just can't get myself better". Further recent collateral and history per ED CM note from 05/29/2023: "According to patients , patient was inpatient at [address] [place] [address] in May [address] [facility] in June 2022. Patient was provided an aftercare plan upon discharge but did not follow through with medication management or mental health outpatient services. Patient has not left his home for any occasion since July 2022 due to extreme agoraphobia. Patient reports depressive symptoms, that he feels helpless/hopeless, sad, and has no motivation. He has lost around 130lbs since July 2022 due to having no appetite. Patient reports his sleep habits are also poor. Patient denies any hyun and states he feels depressed or anxious almost constantly. Patient reports he cannot concentrate and worries about and fears almost everything. Patients reports he does not want her leaving the house for fear she will not return. Patient appears paranoid as he believes people are coming into his home and taking his belongings from him. Patient reports panic attacks almost daily, and that this is accompanied by heavy breathing, and an upset stomach. He does not have any positive coping skills that he utilizes at this time. Patient reports his depression and anxiety became severe when he lost his employment at the [place] [employer]. Aside from not eating and not sleeping patient states he has gone 6 weeks without a shower. Patient feels he needs inpatient treatment at this time and his agrees. Though he is not currently suicidal, patient has several guns in the home, however his has made arrangements to have the guns removed from the home by her brothers. Patient reports a history of diabetes and high blood pressure, but has no other health issues/concerns. He does not use substances or drink alcohol, but smokes cigarettes daily." Additional symptoms per psych liason note from 05/29/2023: "alert and oriented x 4 - thought blocking present and patient frequently says "I don't know" when answering questions, denies SI/HI, denies hallucinations/delusions - but per patient often believes that appliances in the house are not working even though they are or has paranoid thoughts about people watching him, patient last inpatient at the [facility] in June 2022 but also [facility] May 2022, per his patient never followed up with any outpatient providers and has not taken any medications since his discharge in July, he has deteriorated since and has not left the house in many months or showered in about 6 weeks - also reports 100lbs weight loss, patient is a poor historian but does endorse daily anxiety and panic attacks - particularly in regards to being around groups of people, patient denies drug/alcohol use, to secure weapons at home, oriented to unit at this time." He is not currently prescribed any psychiatric medications. Psychiatric ROS notable for no current nor history of symptoms of hyun, PTSD, OCD nor eating disorder. Past Psychiatric History Current Psychiatric Diagnosis: Depression/Anxiety Outpatient Services: none Previous Psych Admissions: [facility] in May 2022, [facility] June 2022 Do You Have Access To A Gun?: Yes (multiple at home, making plans to have these removed) History of Previous Suicide Attempt: No Past Medication Trials: escitalopram (20mg daily), Seroquel (up to 200mg HS without benefit), risperidone (up to 2mg HS), ativan (up to 1mg TID); hx two week fluoxetine trial without benefit, hx trazodone, hx Lunesta Past Head Trauma/Neuro History History of Concussion/Seizure: No Allergies Allergy/AdvReac Type Severity Reaction Status Date / Time No Known Allergies Allergy Verified 07/02/22 23:04 Home Medications Medication Instructions Recorded Confirmed Type atorvastatin 40 mg tablet 40 mg PO DAILY 05/02/22 05/29/23 History lisinopril 10 mg tablet 10 mg PO DAILY 05/02/22 05/29/23 History metformin 500 mg tablet,extended 500 mg PO BID 05/02/22 05/29/23 History release 24 hr multivitamin 1 tab PO DAILY 05/02/22 05/29/23 History carvedilol 6.25 mg tablet 6.25 mg PO BID #60 tabs 05/21/22 05/29/23 Rx acetaminophen 325 mg tablet 650 mg PO Q6H PRN Pain 07/02/22 05/29/23 History (Tylenol) aripiprazole 15 mg tablet (Abilify) 15 mg PO DAILY 07/02/22 05/29/23 History nystatin-triamcinolone 100,000 1 applic topical TID 07/02/22 05/29/23 History unit/g-0.1 % topical cream pantoprazole 40 mg tablet,delayed 40 mg PO DAILY 07/02/22 05/29/23 History release sertraline 50 mg tablet 50 mg PO .DAILY @ 1300 07/02/22 05/29/23 History venlafaxine 150 mg 150 mg PO BID 07/02/22 05/29/23 History capsule,extended release 24 hr (Effexor XR) Family History Family History of: Doesn't Know Alcohol History Hx of Alcohol Use Over the Past 12 Months: No AUDIT Total Score: 0 Smoking Use Have You Smoked or Used Tobacco Products in the Last 30 Days: No tobacco type: cigarettes Smoking Status: Former smoker Substance History Hx of Prescription Med Misuse Over the Past 12 Months: No Hx of Over the Counter Med Misuse Over the Past 12 Months: No Hx of Inhalent Misuse Over the Past 12 Months: No Hx of Organic Substance Use Over the Past 12 Months: No Hx of Illegal Substances/Street Drug Use Over Past 12 Months: No Problems as a Result of Past Substance Use: None Identified Personal History Living Arrangements: Home Highest Grade Completed: Did Not Graduate High School Employment Status: Retired Marital Status: Number Of Children: 2 Beliefs That Will Affect Care: Scientologist Current Legal Problems: No Patient History Medical History DM2 (diabetes mellitus, type 2) Tachycardia HTN (hypertension) Catatonia Leukocytosis Laceration of knee HLD (hyperlipidemia) GI bleeding HTN (hypertension) Surgical History No pertinent past surgical history Family History Other Family history non-contributory Social History Smoking Status: Former smoker Tobacco Type: Cigarettes Hx Alcohol Use: Yes Hx Substance Use: No Preferred Language: Korean Communication Ability: Effective Ditch Repairer Required: No Beliefs That Will Affect Care: Scientologist current occupational status: employed Feels Safe at Home: Yes Gender Identity: Male Assistive Devices: Brace/Splint/Immobilizer Review of Systems Review of Systems: All systems reviewed & are unremarkable except as noted in HPI & below (reports some recent vision changes, ringing in his ears, peripherally neuropathy in his feet) Physical Exam Psychiatric: Orientation: alert and oriented x 3 Apperance: appropriately dressed and + disheveled Eye Contact: good eye contact Motor Behavior: no abnormal motor movements Speech: normal rate/rhythm/volume of speech Affect: + depressed affect and + anxious affect Mood: + depressed mood and + anxious mood Thought Process: + circumstantial thought process Thought Content: + paranoid, reality based without delusions, + derealization, + hopelessness, + guilt and + self deprecation Suicidal Thoughts: denies suici shaina thoughts, denies suicidal plan and denies suicidal intent Homicidal Thoughts: denies homicidal thoughts Hallucinations: no auditory hallucinat ions and no visual hallucinations Cognition: recent memory grossly intact, remote memory grossly intact, attention grossly intact and language grossly intact Estimated Intelligence: consistent with education level Insight: + limited insight Judgment: + limited judgement Vital Signs (Past 24 Hours): Last Vital Signs Temp 36.1 C L 05/30/23 06:32 Pulse 63 05/30/23 06:32 Resp 20 05/30/23 06:32 BP 129/79 05/30/23 06:32 Pulse Ox 97 05/30/23 06:32 O2 Del Method Room Air 05/30/23 06:32 Exam Statement: A physical exam was performed in the ED by Dr. Vaughn for the purposes of medical clearance. I accept that physical as correct and adequate for the purposes of the inpatient physical exam. Results & Data ([facility]) Laboratory Results Laboratory Results - last 24 hr 05/29/23 05/29/23 05/29/23 15:00 16:09 17:10 WBC 5.65 RBC 4.97 Hgb 15.3 Hct 43.3 MCV 87.1 MCH 30.8 MCHC 35.3 RDW Std Deviation 40.6 RDW Coeff of Janes 12.7 Plt Count 219 MPV 9.8 Immature Gran % (Auto) 0.2 Neut % (Auto) 57.5 Lymph % (Auto) 32.2 [place] % (Auto) 7.1 Eos % (Auto) 1.9 Baso % (Auto) 1.1 Neut # (Auto) 3.25 Lymph # (Auto) 1.82 [place] # (Auto) 0.40 Eos # (Auto) 0.11 Baso # (Auto) 0.06 Immature Gran # (Auto) 0.01 Sodium 140 Potassium 4.3 Chloride 109 H Carbon Dioxide 22 Anion Gap 9 BUN 13 Creatinine 0.79 Est Cr Clr Drug Dosing 98.8 Est GFR ( Amer) 110.8 Est GFR (Non-Af Amer) 95.6 BUN/Creatinine Ratio 16.5 Glucose 90 Calcium 9.8 Total Bilirubin 1.5 H AST 13 ALT 8 Alkaline Phosphatase 45 Total Protein 7.0 Albumin 4.3 Globulin 2.7 Albumin/Globulin Ratio 1.6 TSH 1.049 Urine Color Yellow Urine Appearance Clear Urine pH 6.5 Ur Specific [place] 1.008 Urine Protein Negative Urine Glucose (UA) Negative Urine Ketones 1+ H Urine Blood Negative Urine Nitrite Negative Urine Bilirubin Negative Urine Urobilinogen Negative Ur Leukocyte Esterase Negative Salicylates < 3.0 L Urine Opiates Screen Neg Ur Methadone, Qual Neg Acetaminophen < 3 L Urine Barbiturates Neg Ur Phencyclidine (PCP) Neg U Amphetamin/Meth Scrn Neg MDMA (Ecstasy) Screen Neg U Benzodiazepines Scrn Neg Ur Cocaine Metabolite Neg U Marijuana (THC) Screen Neg Ethyl Alcohol mg/dL < 10.0 SARS-CoV-2, RNA, NAAT NEGATIVE Current Inpatient Medications Current Inpatient Medications: Current Inpatient Medications Acetaminophen (Acetaminophen 325 Mg Tab) 650 mg PO Q4H PRN PRN Reason: Headache or Minor Fever Stop: 06/28/23 18:32 Al Hydrox/Mg Hydrox/Simethicone (Aluminum/Magnesium Susp 30 Ml Udc) 30 ml PO Q4H PRN PRN Reason: GI Upset Stop: 06/28/23 18:32 Bismuth Subsalicylate (Bismuth Subsalicylate Liqd 236 Ml) 15 ml PO PRN PRN PRN Reason: Loose Stool Stop: 06/28/23 18:32 Hydroxyzine HCl (Hydroxyzine Hcl 25 Mg Tab) 50 mg PO HSZ PRN PRN Reason: Insomnia Stop: 06/28/23 18:32 Hydroxyzine HCl (Hydroxyzine Hcl 25 Mg Tab) 25 mg PO Q4H PRN PRN Reason: Anxiety Stop: 06/28/23 18:32 Magnesium Hydroxide (Magnesium Hydroxide Susp 30 Ml Udc) 30 ml PO DAILY PRN PRN Reason: Constipation Stop: 06/28/23 18:32 Olanzapine (Olanzapine 5 Mg Tablet) 5 mg PO HS DEANDRE Stop: 06/28/23 20:59 Last Admin: 05/29/23 21:54 Dose: 5 mg Sodium Chloride (Sodium Chloride 0.65% Na Soln 45 Ml ([place])) 1 - 2 sprays NA PRN PRN PRN Reason: Nasal Dryness/Congestion Stop: 06/28/23 18:32
--- NOTE | 2023-05-30 08:43 | Electrocardiogram Report ---
Test Reason : Blood Pressure : / mmHG Vent. 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 rate has decreased BY 54 BPM Confirmed by Jatinder Aguirre ([id number]) on 05/30/2023 8:42:32 AM Referred By: REFERRED SELF Confirmed By:Jatinder Aguirre
[2023-05-30] MEDS: OLANZapine 10 MG TAB PO SCH (20:50)
[2023-05-31] MEDS: DULoxetine HCL 30 MG CAP PO SCH (08:51)
--- NOTE | 2023-05-31 09:11 | Psychiatric Progress Note ---
Date of Service May 31, 2023 Impression / Recommendations Impression Ed is a 63 year old man with a history of MDD with psychotic features who was admitted for worsening agoraphobia, paranoia, depression and anxiety with inability to provide for his self-care needs including significant weight loss (with ketones in his urine) and hopelessness. Diagnostically seems most consistent with major depressive disorder with psychotic features and generalized anxiety disorder with agoraphobia and panic attacks. No current signs of catatonia so will hold off on use of any benzodiazepines. He is deemed in need of psychiatric hospitalization for diagnostic clarification, safety and stabilization, medication management and development of further coping skills. MNPR due to extreme anxiety, paranoia, poor self-care/hygiene prior to admission 05/31/2023: Today presents as significantly worse and decompensated compared with yesterday with fairly extreme thought blocking, isolative, refusing meals. No classic signs of catatonia but possible this could be playing a role today as antipsychotic dose was increased. Does appear he slept better with titration of olanzapine but unclear why he is struggling so much more today. Concerns for extensive ruminations and psychosis leading to thought blocking and his inability to engage in spontaneous conversation today. Review of labwork notable for normal glucose, HbA1c, total cholesterol/TGs/HDL with low risk LDL. Folic acid levels were normal. Deficient in Vitamin D and B12. He consents to starting supplementation for this. Overall, I spent a total of 40 minutes with this case including review of chart records, review of labwork, direct evaluation of the patient at bedside, counseling the patient, discussion during interdisciplinary treatment rounds, ordering medication, risk assessment, and documentation in the electronic health record. (1) MDD (major depressive disorder), recurrent, severe, with psychosis: (2) Generalized anxiety disorder with panic attacks: (3) Agoraphobia with panic attacks: Plan 05/31/2023: * Continue olanzapine 10mg HS po and 2.5mg BID prn for now * Continue duloxetine 30mg daily * Start Vit D and B12 supplementation 05/30/2023: The patient was admitted to the [facility]) on q15 min checks (behavioral with suicide precautions) for safety. The patient will participate in group, recreational, and milieu therapies and will be offered additional individual and family sessions as clinically appropriate. -Start olanzapine 10mg HS po -Start duloxetine 30mg daily -AM labwork including fasting glucose, HbA1c, B12, Folic Acid, Vit D, fasting lipid panel Inventory Assets Strengths: supportive relationships, willing to get treatment Needs: safety and stabilization, medication adjustment, additional coping skills, increased outpatient services Suicide Risk Level Suicide Risk Level: Moderate (q15 min suicide checks) (depression with poor self care plan prior to admission but denies current SI, reports he feels safe in the hospital, and agrees to let nursing/staff know should they develop plan, intent or feel unable to remain safe. ) Risk Factors Assessment Male: Yes : Yes Do You Have Access To A Gun?: Yes (multiple at home, making plans to have these removed) Health Problems: Yes (peripheral neuropathy) Mental Health Diagnoses: Yes Substance Use Disorders: No Previous Attempt: No Family History of Suicide: No Previous Psychiatric Hospitalization: Yes Protective Factors Assessment Jehovah'S Witness Beliefs: Yes : Yes Employed: No (Retired) Stable Relationships: Yes Supportive Family: Yes Interval History Identifying Information JERARDO VELAZQUEZ is a 63-year-old man who currently lives in [place] with his , has a history of Major Depressive Disorder with psychotic features and suspicion for catatonia, and was admitted on 05/29/23 18:33 on a 201 voluntary commitment for lack of self-care/inability to function at home with refusal to eat/shower/attend to any self-care needs and increasing paranoia, agoraphobia and depression. Chief Complaint "Oh boy". Review of Systems Sleep Information Total Hours of Sleep: 7 Meal Information Percent Meal Consumed - Breakfast: 100 Percent Meal Consumed - Lunch: 100 Percent Meal Consumed - Dinner: 100 Subjective Subjective Patient was seen & assessed and interval progress reviewed with treatment team nursing and social work. Attending groups. He was noted to be quite perseverative at times in regards to his schedule and medications. This morning significant shift in his behaviors, seems very caught up in his thoughts, isolative to his room, declining meals. On attempting to meet with him he can hardly verbalize how he is doing rather mumbles "oh boy" and holds his head in his hands and later tells me "I'm just tired" as his reason for remaining in bed. He can't provide any further information about possible side effects to the medications, anxious thoughts or otherwise. Physical Exam Psychiatric Orientation: alert and oriented x 3 Apperance: appropriately dressed and + disheveled Eye Contact: + poor eye contact Motor Behavior: no abnormal motor movements Speech: + abnormal rate/rhythm/volume of speech (very brief, quiet) Affect: + depressed affect, + anxious affect and + constricted affect Mood: + depressed mood and + anxious mood Thought Process: + thought blocking Thought Content: + preoccupation Suicidal Thoughts: denies suicidal thoughts, denies suicidal plan and denies suicidal intent Homicidal Thoughts: denies homicidal thoughts Hallucinations: no auditory hallucinations and no visual hallucinations Cognition: recent memory grossly intact, remote memory grossly intact, attention grossly intact and language grossly intact Estimated Intelligence: consistent with education level Insight: + limited insight Judgment: + limited judgement Vital Signs (Past 24 Hours) Last Vital Signs Temp 36.1 C L 05/31/23 06:00 Pulse 71 05/31/23 06:00 Resp 20 05/31/23 06:00 BP 122/75 05/31/23 06:00 Pulse Ox 97 05/31/23 06:00 O2 Del Method Room Air 05/31/23 06:00 Results & Data ([facility]) Laboratory Results Laboratory Results - last 24 hr 05/31/23 08:39 Fasting Glucose Pending Estimat Average Glucose Pending Hemoglobin A1c Pending Triglycerides Pending Cholesterol Pending LDL Cholesterol, Calc Pending VLDL Cholesterol, Calc Pending HDL Cholesterol Pending Cholesterol/HDL Ratio Pending Vitamin B12 Pending 25-OH Vitamin D Total Pending Folate Pending Current Inpatient Medications Current Inpatient Medications: Current Inpatient Medications Acetaminophen (Acetaminophen 325 Mg Tab) 650 mg PO Q4H PRN PRN Reason: Headache or Minor Fever Stop: 06/28/23 18:32 Al Hydrox/Mg Hydrox/Simethicone (Aluminum/Magnesium Susp 30 Ml Udc) 30 ml PO Q4H PRN PRN Reason: GI Upset Stop: 06/28/23 18:32 Bismuth Subsalicylate (Bismuth Subsalicylate Liqd 236 Ml) 15 ml PO PRN PRN PRN Reason: Loose Stool Stop: 06/28/23 18:32 Duloxetine HCl (Duloxetine Hcl 30 Mg Cap) 30 mg PO QAM DEANDRE Stop: 06/30/23 08:59 Last Admin: 05/31/23 08:51 Dose: 30 mg Hydroxyzine HCl (Hydroxyzine Hcl 25 Mg Tab) 50 mg PO HSZ PRN PRN Reason: Insomnia Stop: 06/28/23 18:32 Hydroxyzine HCl (Hydroxyzine Hcl 25 Mg Tab) 25 mg PO Q4H PRN PRN Reason: Anxiety Stop: 06/28/23 18:32 Magnesium Hydroxide (Magnesium Hydroxide Susp 30 Ml Udc) 30 ml PO DAILY PRN PRN Reason: Constipation Stop: 06/28/23 18:32 Olanzapine (Olanzapine 10 Mg Tab) 10 mg PO HS DEANDRE Stop: 06/29/23 21:59 Last Admin: 05/30/23 20:50 Dose: 10 mg Sodium Chloride (Sodium Chloride 0.65% Na Soln 45 Ml (Will)) 1 - 2 sprays NA PRN PRN PRN Reason: Nasal Dryness/Congestion Stop: 06/28/23 18:32 Mental Health & Subst Abuse Tx Therapist Name of Therapist: None Prosthetics Technician Name of Prosthetics Technician: None Post Discharge Appointments Primary Care Physician Name Of Family Doctor/PCP: Dr. Sepulveda
[2023-05-31 09:38] LABS: Folate (Folic Acid),Ser orPlas 5.6 ng/ml (>5.38)
[2023-05-31 09:49] LABS: Chol HDL Ratio 3.7 (0-5)
[2023-05-31 10:17] LABS: Estimated Average Glucose 103 mg/dl; Hemoglobin A1C 5.2 % (4.5-5.6)
[2023-05-31] MEDS ORDERED: OLANZAPINE 2.5 MG TAB PO PRN (13:07)
--- OUTSIDE RECORDS SUMMARY | 2023-05-31 20:53 | External Medical Summary | Summary of Care ---
Author Name Unknown Organization [facility] Address [address] [place] [address] Phone [phone] Care Team Providers Care Blow Molding Machine Tender Name Role Phone Elvis Li MD Primary Care Provider [phone]- [phone] Reason for Visit * Reason Onset Date Comments Referral 11/09/2022 Encounter Details Date Type Department Care Team (Late st Contact Info) Description 11/09/2022 Telephone [facility]ATION MANAGER [address] [place] [phone] [facility] Referral Allergies No known active allergiesdocumented as of this encounter (statuses as of 05/20/2023) Medications Medication Sig Dispensed Refills Start Date End Date Status MULTIVITAMIN/IRON PO TABS 1 tab by mouth once daily 0 Active Aspirin 81 MG TabletIndications: DM type 2 nursing care encounter (HCC) Take 1 Tab by mouth daily. 30 Tab 0 04/30/2017 Active meclizine (ANTIVERT) 25 MG Tablet Take 1 Tab by mouth 3 times a day as needed for Dizziness. 30 Tab 1 09/14/2019 Active Neomycin-Polymyxin -HC 3.5-88752-2 otic solution Administer 4 Drops into ears 3 times a day. To affected ear, for 10 days. 1 Bottle 2 09/21/2019 Active Glucose Blood (ONETOUCH VERIO) STRP Use up to 4 times a day DX E11.9 300 Strip 3 02/01/2020 Active Lancets Misc. (ONETOUCH SURESOFT LANCING DEV) MISC Route: Use as directed 4 times a day as needed for Hyperglycemia (high sugar). Use up to four times a day as directed. Dx E11.9 1 Each 0 02/16/2020 Active Lancet Devices (ONETOUCH DELICA LANCING DEV) MISCIndications:Ty pe 2 diabetes mellitus with hemoglobin A1c goal of less than 7.0% (HCC) Use as directed 1 Each 0 02/29/2020 Active OneTouch Delica Plus [id number] ns:Type 2 diabetes mellitus with hemoglobin A1c goal of less than 7.0% (HCC) USE UP TO FOUR TIMES A DAY DIRECTED NEEDED FOR HYPERGLYCEMIA (HIGH SUGAR) 400 Each 3 08/29/2020 Active Fluticasone Propionate 50 MCG/ACT Nasal Suspension (Flonase) Administer 2 Sprays into each nostril daily. 48 g 3 05/05/2021 Active Cyclobenzaprine HCl 10 MG Oral Tablet (Flexeril)Indicati ons:Right foot pain TAKE 1 TAB BY MOUTH 2 TIMES A DAY. NEEDED FOR BACK PAIN 90 Tab 3 05/05/2021 Active traZODone HCl 50 MG Oral Tablet (Desyrel)Indicatio ns:Psychophysiolog ical insomnia Take by mouth 1 Tablet before bedtime. 30 Tablet 5 11/22/2021 Active metFORMIN HCl ER 500 MG Oral Tablet Extended Release 24 Hour (Glucophage XR) TAKE 2 TABLETS TWICE A DAY 360 Tablet 1 01/17/2022 Active Ozempic (0.25 or 0.5 MG/DOSE) 2 MG/1.5ML Solution Pen-injector (Semaglutide(0.25 or 0.5MG/DOS))Indicat ions:Type 2 diabetes mellitus with hemoglobin A1c goal of less than 7.0% (HCC),Obesity, Class II, BMI 35-39.9, isolated (see actual BMI) Inject under the skin 0.25 mg once a week . 0 04/27/2022 Active Eszopiclone 2 MG Oral Tablet (Lunesta)Indicatio ns:Sleep disorder, circadian, shift work type,Persistent insomnia Take by mouth 1 Tablet as needed before bedtime for Insomnia. for sleep. 15 Tablet 0 04/27/2022 Active Atorvastatin Calcium 40 MG Oral Tablet (Lipitor)Indicatio ns:Type 2 diabetes mellitus with hemoglobin A1c goal of less than 7.0% (HCC),Dyslipidemia , goal LDL below 100 TAKE 1 TABLET DAILY 90 Tablet 3 06/05/2022 Active Lisinopril 10 MG Oral Tablet (Prinivil)Indicati ons:HTN, goal below 140/90 Take 1 Tablet (10 mg) by mouth in the morning. 90 Tablet 3 06/12/2022 Active Omeprazole 20 MG Oral Capsule Delayed Release (PriLOSEC)Indicati ons:Reflux esophagitis TAKE 1 CAPSULE AT BEDTIME 90 Capsule 3 06/15/2022 Active Januvia 100 MG Oral Tablet (SITagliptin) TAKE 1 TABLET DAILY 90 Tablet 3 06/27/2022 Active documented as of this encounter (statuses as of 05/20/2023) Active Problems Problem Noted Date Diagnosed Date Obesity, Class II, BMI 35-39.9, isolated (see ac tual BMI) 01/03/2022 Erythrocytosis 01/03/2022 Snoring 01/03/2022 Sleep disorder, circadian, shift work type 01/03 Type 2 diabetes mellitus wit h hemoglobin A1c goal of less than 7.0% 01/08/2017 Dyslipidemia 02/01/2014 HTN, goal below 140/90 10/25/2010 Gastroesophageal reflux disease with esophagitis 10/30/2004 documented as of this encounter (statuses as of 05/20/2023) Resolved Problems Problem Noted Date Diagnosed Date Resolved Date Prediabetes 01/12/2016 04/30/2017 Body mass index (BMI) of 40.0-44.9 in adult 10/25/2010 04/07/2018 Obesity, morbid (more than 1 00 lbs over ideal weight or BMI > 40) 10/11/2009 10/25/2010 Overview: Per Obesity Taxonomy ICD-10 update of inactive term Dyslipidemia, goal to be determined 06/30/2009 02/01/2014 Overview: Per Lipid Taxonomy. ADVANCE DIRECTIVE INFORMATION 05/17/2006 09/14/2019 Overview: Advised to bring copy in to be scanned into EMR. Mixed dyslipidemia 10/30/2004 Overview: Per Lipid Taxonomy. ELEV BL PRES W-O HYPERTN 04/12/2004 ABN LIVER FUNCTION STUDY 07/28/200308/2019 ADJ DISORDER W/DEPRES MOOD 06/25/2002 0 10/29/2011 Anxiety state 06/25/2002 09/14/2019 OBESITY, UNSPECIFIED 12/27/1999 010 Overview: Per Obesity Taxonomy Tobacco use disorder 05/11/1998 000 documented as of this encounter (statuses as of 05/20/2023) Immunizations Name Administration Dates Next Due COVID-19 mRNA, LNP-s, No Pre serve, 2-Dose Series (Moderna) 09/20/2020,08/23/2020 COVID-19, mRNA, LNP-s, PF, B ooster, 100mcg/0.5mg (Moderna) 12/12/2021,07/12/2021 Hepatitis B, 20+ yrs 10/02/2013,05/29/2013,01/21 Pneumococcal Conjugate Vacci ne, 20-valent ([id number]) 04/09/2022 Pneumococcal Polysaccharide PPV23 (Pneumovax) 04/30/2017 SEASONAL INFLUENZA, PF, 6 M & Above, IM , (FLULAVAL or FLUZONE) 04/09/2022,05/05/2021,05/25/2020,04/13,04/07/2018,04/30/2017 Season Influenza, Cell Culte r, 18+ Yrs, With Preserv (Flucelvax) 05/29/2013 Seasonal Influenza, Quadriva lent, No Preserve, IM 05/31/2016,05/16/2015 Seasonal Influenza, Split, I IV3, With Preserve, Inj 06/09/2014,06/02/2012,04/27/2011,04/04,07/09/2008,06/24/2006 TDAP (age 10 and older)(Boostrix) 05/06/2022, TDAP (age 11 and older)(Adacel) 04/23/2007 Zoster Vaccine Recombinant (Shingrix) 04/27/2022 documented as of this encounter Social History Tobacco Use Types Packs/Day Years Used Date Smoking Tobacco: Former Cigarettes 1 15 Q uit: 08/10/1999 Smokeless Tobacco: Never Comments:one pack of cigaret alvin per wk, used to smoke a pack a day for 15 years Alcohol Use Standard Drinks/Week Comments Yes 0 (1 standard drink = 0.6 oz pur e alcohol) occasional PHQ-2 Answer Date Recorded PHQ-2 Score 0 04/13/2019 Hunger Vital Sign Answer Date Recorded Worried About Running Out of Food in the Last Ye ar Never true 09/14/2019 Ran Out of Food in the Last Year Never true 09/14/2019 Sex and Gender Information Value Date Recorded Sex Assigned at Not on file Gender Identity Not on file Sexual Orientation Not on file Job Start Date Occupation Industry Not on file Not on file Not on file documented as of this encounter Miscellaneous Notes * Telephone Encounter - Najma Mittal BS - 11/09/2022 11:32 AM EDT Epic 178 referral Reason for the Severe depression (HCC) [F32.2] - Primary Looks like the member was seen for the appt and made this recommendation for her with concerns over depression and losing a lot of weight and not leaving the house ever. I did talk to the Radha and i stated i would need to talk to her about this to see if this is something he would want. Dario was silent and didn't know what to say in regards to needing some help or extra support [facility] and stated him and his could talk more about it and reach back out to us if he feels this is something he would want. Also member did confirm that he has [facility] insurance now but doesn't seem to be updated Outcome contacted the members and asked her about her recent doc appt and the information she shared about her and her concerns. I stated that he would need to be on board about this andwant the help. She did get him on the phone and he was caught off guard and most of the time it wassilent. I stated that i would leave the [facility] number if him and his would like to discuss this and if he changes his mind he could reach back out and he stated yes. documented in this encounter Plan of Treatment Scheduled Procedures Name Priority Associated Diagnoses Date/Ti me COLONOSCOPY FLEXIBLE PROXIMAL DIAGNOSTIC Recall History of colon polyps Health Maintenance Due Date Last Done Comments Depression Screening 04/13/2020 04/13/2019 Albumin/Creatinine Ratio 05/05/2022 05/05/2021 B-12 05/05/2022 05/05/2021, 05/15, 04/13/2019, Additional history exists Zoster Vaccines (2 of 2) 06/22/2022 04/27/2022 HbA1c 11/07/2022 05/09/2022, 03/16, 09/05/2021, Additional history exists Diabetic Foot Exam 11/22/2022 11/22/2021, 0 01/19/2020, 04/13/2019, Additional history exists Diabetic Eye Exam 01/08/2023 01/08/2022, 05/26/2020 COVID-19 Vaccine ( season) 2023 12/12/2021, 07/12/2021, 09/20/2020, Additional history exists Influenza Vaccine (FLU shot) (#1) 2023 04/09/2022, 05/05/2021, 05/25/2020, Additional history exists GFR 05/09/2023 05/09/2022, 04/15, 01/19/2021, Additional history exists COLONOSCOPY-EVERY 5 YRS AGES 18-100 02/07/2025 02/08/2020, 02/08/2020, 02/10/2014, Additional history exists Lipid Panel 05/09/2027 05/09/2022, 04/15, 01/19/2020, Additional history exists DTaP,Tdap,and Td Vaccines (4 - Td or Tdap) 05/06/2032 05/06/2022, 04/30/2017, 04/23/2007 Hepatitis B Completed 10/02/2013, 05/15, 01/21/2013 Pneumococcal Vaccine: Pediatrics (0 to 5 Years) and At-Risk Patients (6 to 64 Years) Completed 04/09/2022, 04/30/2017 GARDASIL-HPV IMMUNIZATION SERIES Aged Out No longer eligible based on patient's age to complete this topic MENINGOCOCCAL (MENACTRA/MENVEO) Aged Out No longer eligible based on patient's age to complete this topic documented as of this encounter Medical Devices Not on filedocumented as of this encounter Care Teams Blow Molding Machine Tender Relationship Specialty Start Date End Date Elvis Li MD [address] [place] [address] PCP - General Family Medicine 11/29/20 documented as of this encounter
--- OUTSIDE RECORDS SUMMARY | 2023-05-31 20:53 | External Medical Summary | Summary of Care ---
Author Name Unknown Organization [facility] Address [address] [place] [facility] [place] [address] Phone [phone] Care Team Providers Care Pre Sales Systems Engineer Name Role Phone Elvis Li MD Primary Care Provider [phone]- [phone] Reason for Visit * Reason Onset Date Comments Health Maintenance 05/16/2023 Encounter Details Date Type Department Care Team (Late st Contact Info) Description 05/16/2023 Telephone [facility] [address] [place] [facility] [place] [address] Elvis Li MD [address] [place] [address] Health Maintenance Allergies No known active allergiesdocumented as of this encounter (statuses as of 05/16/2023) Medications Medication Sig Dispensed Refills Start Date [...] 30 Tab 1 09/14/2019 Active Neomycin-Polymyxin -HC 3.5-65048-0 otic solution Administer 4 Drops into ears [...] Each 0 02/29/2020 Active OneTouch Delica Plus [id number] ns:Type 2 diabetes mellitus with hemoglobin A1c [...] as of this encounter (statuses as of 05/16/2023) Active Problems Problem Noted Date Diagnosed Date [...] as of this encounter (statuses as of 05/16/2023) Resolved Problems Problem Noted Date Diagnosed Date [...] be scanned into EMR. Mixed dyslipidemia 10/30/2004 9 Overview: Per Lipid Taxonomy. ELEV BL PRES W-O HYPERTN 04/12/2004 ABN LIVER FUNCTION STUDY 07/28/200308/2019 ADJ DISORDER W/DEPRES MOOD 06/25/2002 0 10/29/2011 Anxiety state 06/25/2002 09/14/2019 OBESITY, UNSPECIFIED 12/27/1999 010 Overview: Per Obesity Taxonomy Tobacco use disorder 05/11/1998 000 documented as of this encounter (statuses as of 05/16/2023) Immunizations Name Administration Dates Next Due COVID-19 mRNA, LNP-s, No Pre serve, 2-Dose Series (Moderna) 09/20/2020,08/23/2020 COVID-19, mRNA, LNP-s, PF, B ooster, 100mcg/0.5mg (Moderna) 12/12/2021,07/12/2021 Hepatitis B, 20+ yrs 10/02/2013,05/29/2013,01/21 Pneumococcal Conjugate Vacci ne, 20-valent ([id number]) 04/09/2022 Pneumococcal Polysaccharide PPV23 (Pneumovax) 04/30/2017 SEASONAL [...] = 0.6 oz pur e alcohol) occasional Sex and Gender Information Value Date Recorded Sex Assigned at Not on file Gender Identity Not on file Sexual Orientation Not on file Job Start Date Occupation Industry Not on file Not on file Not on file documented as of this encounter Miscellaneous Notes * Telephone Encounter - Bhavna Cohn LPN - 05/16/2023 12:40 PM EDT Care Gaps Comprehensive Care Outreach Last Office/Telemedicine Visit: 05/03/2022 (in office), 11/13/2021 (telemedicine) Next Office Visit: Visit date not found Hemoglobin AIC Results: Lab Results Component Value Date/Time HEMOGLOBIN A1C - [facility] 11.7 (H) 09/05/2021 11:33 AM HEMOGLOBIN A1C - [facility] 8.4 (H) 05/05/2021 08:58 AM HEMOGLOBIN A1C - [facility] 6.6 (H) 01/19/2021 03:37 PM HEMOGLOBIN A1C - [facility] 6.7 (H) 05/25/2020 12:21 PM HEMOGLOBIN A1C - [facility] 14.0 (H) 01/19/2020 04:54 PM HEMOGLOBIN A1C - [facility] 6.6 (H) 04/13/2019 09:03 AM Reviewed Health Maintenance below: Health Maintenance Topic Date Due Depression Screening 04/13/2020 Albumin/Creatinine Ratio 05/05/2022 B-12 05/05/2022 Zoster Vaccines (2 of 2) 06/22/2022 HbA1c 11/07/2022 Diabetic Foot Exam 11/22/2022 Diabetic Eye Exam 01/08/2023 Influenza Vaccine (FLU shot) (1) 2023 COVID-19 Vaccine ( season) 2023 GFR 05/09/2023 Urine/labs add lipid Eye Foot ov Care Gap Outreach Action Taken: Left message documented in this encounter Plan of Treatment [...] filedocumented as of this encounter Care Teams Pre Sales Systems Engineer Relationship Specialty Start Date End Date Elvis Li MD [address] [place] [address] PCP - General Family Medicine 11/29/20 documented as of this encounter
--- OUTSIDE RECORDS SUMMARY | 2023-05-31 20:54 | External Medical Summary | Summary of Care ---
Author Name Unknown Organization [facility] Address [address] [place] [address] Phone [phone] Care Team Providers Care Log Hooker Name Role Phone Elvis Li MD Primary Care Provider [phone] Encounter Details Date Type Department Care Team Description 12/11/2022 Orders Only Outcomes Research Department [address] [place] [address] Anita Moseley CHRA [facility] Other*[id number] Allergies No known active allergiesdocumented as of this encounter (statuses as of 12/11/2022) Medications Medication Sig Dispensed Refills Start Date [...] 30 Tab 1 09/14/2019 Active Neomycin-Polymyxin -HC [id number] otic solution Administer 4 Drops into ears [...] Each 0 02/29/2020 Active OneTouch Delica Plus [id number] ns:Type 2 diabetes mellitus with hemoglobin A1c [...] hemoglobin A1c goal of less than 7.0% ([facility]),Dyslipidemia , goal LDL below 100 TAKE 1 [...] as of this encounter (statuses as of 12/11/2022) Active Problems Problem Noted Date Obesity, Class II, BMI 35-39.9, isolated (see actual BMI) 01/03/2022 Erythrocytosis 01/03/2022 Snoring 01/03/2022 Sleep disorder, circadian, shift work ty pe 01/03/2022 Type 2 diabetes mellitus with hemoglobin A1c goal of less than 7.0% 01/08/2017 Dyslipidemia 02/01/2014 HTN, goal below 140/90 10/25/2010 Gastroesophageal reflux disease with eso phagitis 10/30/2004 documented as of this encounter (statuses as of 12/11/2022) Resolved Problems Problem Noted Date Resolved Date Prediabetes 01/12/2016 04/30/2017 Body mass index (BMI) of 40.0-44.9 in adult 10/1304/07/2018 Obesity, morbid (more than 1 00 lbs over ideal weight or BMI > 40) 10/11/2009 10/25/2010 Overview: Per Obesity Taxonomy ICD-10 update of inactive term Dyslipidemia, goal to be determined 06/30/2009 02/01/2014 Overview: Per Lipid Taxonomy. ADVANCE DIRECTIVE INFORMATION 05/17/2006 Overview: Advised to bring copy in to be scanned into EMR. Mixed dyslipidemia 10/30/2004 06/30/2009 Overview: Per Lipid Taxonomy. ELEV BL PRES W-O HYPERTN 04/12/2004 006 ABN LIVER FUNCTION STUDY 07/28/2003 020 ADJ DISORDER W/DEPRES MOOD 06/25/200210/28 Anxiety state 06/25/2002 09/14/2019 OBESITY, UNSPECIFIED 12/27/1999 10/11/2009 Overview: Per Obesity Taxonomy Tobacco use disorder 05/11/1998 08/10/1999 documented as of this encounter (statuses as of 12/11/2022) Immunizations Name Administration Dates Next Due COVID-19 mRNA, LNP-s, No Pre serve, 2-Dose Series (Moderna) 09/20/2020,08/23/2020 Covid-19 Mrna, Lnp-s, No Pre serve, Booster (Moderna) 12/12/2021,07/12/2021 Hepatitis B, 20+ yrs 10/02/2013,05/29/2013,01/21 Pneumococcal Conjugate Vacci ne, 20-valent ([id number]) 04/09/2022 Pneumococcal Polysaccharide PPV23 (Pneumovax) 04/30/2017 Seasonal Influenza, Cell Cul ture, 18 Yrs & Older 05/29/2013 Seasonal Influenza, Quadriva lent, No Preserve, 6 Mons & Above, IM 04/09/2022,05/05/2021,05/25/2020,04/13,04/07/2018,04/30/2017 Seasonal Influenza, Quadriva lent, No Preserve, IM [...] = 0.6 oz pur e alcohol) occasional Food Insecurity Answer Date Recorded Within the past 12 months, y ou worried that your food would run out before you got money to buy more. Never true 09/14/2019 Within the past 12 months, t he food you bought just didn't last and you didn't have money to get more. Never true 09/14/2019 Sex Assigned at Date Recorded Not on file Job Start Date Occupation Industry Not on file Not on file Not on file documented as of this encounter Plan of Treatment Scheduled Orders Name Type Priority Associated Diagnoses Orde r Schedule MYCODE SUBSEQUENT ADULT Lab Routine My[facility] Research Other*[id number] Every 6 Months for 2 Occurrences starting 12/11/2022 until 12/31/2023 Scheduled Procedures Name Priority Associated Diagnoses Date/Ti me COLONOSCOPY FLEXIBLE PROXIMAL DIAGNOSTIC Recall History of colon polyps Health Maintenance Due Date Last Done Comments Depression Screening, Annual for Pts 12 and Over 04/13/2020 04/13/2019 COVID-19 Vaccine (5 - Booster for Moderna series) 02/06/2022 12/12/2021, 07/12/2021, 09/20/2020, Additional history exists Albumin/Creatinine Ratio 05/05/2022 05/05/2021 Yearly B-12 05/05/2022 05/05/2021, 05/15, 04/13/2019, Additional history exists Zoster Vaccines (2 of 2) 06/22/2022 04/27/2022 HbA1c 11/07/2022 05/09/2022, 03/16, 09/05/2021, Additional history exists DIABETES-FOOT EXAM 11/22/2022 11/22/2021, 0 01/19/2020, 04/13/2019, Additional history exists DIABETES-EYE EXAM 01/08/2023 01/08/2022, 05/26/2020 GFR 05/09/2023 05/09/2022, 04/15, 01/19/2021, Additional history exists COLONOSCOPY-EVERY 5 YRS AGES 18-100 02/07/2025 02/08/2020, 02/08/2020, 02/10/2014, Additional history exists Lipid Panel 05/09/2027 05/09/2022, 04/15, 01/19/2020, Additional history exists DTaP,Tdap,and Td Vaccines (4 - Td or Tdap) 05/06/2032 05/06/2022, 04/30/2017, 04/23/2007 Hepatitis B Completed 10/02/2013, 05/15, 01/21/2013 Influenza Vaccine (FLU shot) Completed , 05/05/2021, 05/25/2020, Additional history exists Pneumococcal Vaccine: Pediatrics (0 to 5 Years) and At-Risk Patients (6 to 64 Years) Completed 04/09/2022, 04/30/2017 GARDASIL-HPV IMMUNIZATION SERIES Aged Out No longer eligible based on patient's age to complete this topic MENINGOCOCCAL (MENACTRA/MENVEO) Aged Out No longer eligible based on patient's age to complete this topic documented as of this encounter Medical Devices Not on filedocumented as of this encounter Visit Diagnoses Diagnosis MyCode Research Other*[id number] documented in this encounter Care Teams Log Hooker Relationship Specialty Start Date End Date Elvis Li MD [address], [place] [id number] PCP - General Family Medicine 11/29/20 documented as of this encounter
[2023-05-31] MEDS: OLANZapine 10 MG TAB PO SCH (20:55)
[2023-06-01] MEDS: CYANOCOBALAMIN (B-12) 500 MCG TABLET PO SCH (08:48)
[2023-06-01] MEDS: DULoxetine HCL 30 MG CAP PO SCH (08:48)
[2023-06-01] MEDS ORDERED: CHOLECALCIFEROL 400 UNITS 10 MCG TAB PO SCH (09:00)
--- NOTE | 2023-06-01 11:01 | Psychiatric Progress Note ---
Date of Service June 01, 2023 Impression / Recommendations Impression Ed is a 63 year old man with a history of MDD with psychotic features who was admitted for worsening agoraphobia, paranoia, depression and anxiety with inability to provide for his self-care needs including significant weight loss (with ketones in his urine) and hopelessness. Diagnostically seems most consistent with major depressive disorder with psychotic features and generalized anxiety disorder with agoraphobia and panic attacks. No current signs of catatonia so will hold off on use of any benzodiazepines. He is deemed in need of psychiatric hospitalization for diagnostic clarification, safety and stabilization, medication management and development of further coping skills. MNPR due to extreme anxiety, paranoia, poor self-care/hygiene prior to admission 06/01/2023: Pt says he just wants to sleep, but is actually awake in bed on approach and readily interacts. Eye contact is poor, and responses to many items are limited to shrugs. Pt isn't sure if medication has made any noticeable difference. He doesn't spontaneously report any of the obsessive, persecutory beliefs previously documented but when asked say there are thoughts he "just can't stop". 05/31/2023: Today presents as significantly worse and decompensated compared with yesterday with fairly extreme thought blocking, isolative, refusing meals. No classic signs of catatonia but possible this could be playing a role today as antipsychotic dose was increased. Does appear he slept better with titration of olanzapine but unclear why he is struggling so much more today. Concerns for extensive ruminations and psychosis leading to thought blocking and his inability to engage in spontaneous conversation today. Review of labwork notable for normal glucose, HbA1c, total cholesterol/TGs/HDL with low risk LDL. Folic acid levels were normal. Deficient in Vitamin D and B12. He consents to starting supplementation for this. Overall, I spent a total of 40 minutes with this case including review of chart records, review of labwork, direct evaluation of the patient at bedside, counseling the patient, discussion during interdisciplinary treatment rounds, ordering medication, risk assessment, and documentation in the electronic health record. (1) MDD (major depressive disorder), recurrent, severe, with psychosis: (2) Generalized anxiety disorder with panic attacks: (3) Agoraphobia with panic attacks: (4) Vitamin D deficiency: (5) Vitamin B12 deficiency: Plan 06/01/2023: * continue olanzapine 10 mg HS po and 2.5 mg BID prn - started 05/30/2023 * continue duloxetine 30 mg daily - started 05/30/2023 * change vitamin D from cholecalciferol 800 IU daily to ergocalciferol 50,000 IU twice weekly for loading * continue cyanocobalamin 1,000 mcg daily, recheck level in 2-3 days to confirm adequacy of replacement 05/31/2023: * Continue olanzapine 10mg HS po and 2.5mg BID prn for now * Continue duloxetine 30mg daily * Start Vit D and B12 supplementation 05/30/2023: The patient was admitted to the [facility] on q15 min checks (behavioral with suicide precautions) for safety. The patient will participate in group, recreational, and milieu therapies and will be offered additional individual and family sessions as clinically appropriate. -Start olanzapine 10mg HS po -Start duloxetine 30mg daily -AM labwork including fasting glucose, HbA1c, B12, Folic Acid, Vit D, fasting lipid panel Inventory Assets Strengths: supportive relationships, willing to get treatment Needs: safety and stabilization, medication adjustment, additional coping skills, increased outpatient services Suicide Risk Level Suicide Risk Level: Moderate (q15 min suicide checks) (depression with poor self care plan prior to admission but denies current SI, reports he feels safe in the hospital, and agrees to let nursing/staff know should they develop plan, intent or feel unable to remain safe. ) Risk Factors Assessment Male: Yes : Yes Do You Have Access To A Gun?: Yes (multiple at home, making plans to have these removed) Health Problems: Yes (peripheral neuropathy) Mental Health Diagnoses: Yes Substance Use Disorders: No Previous Attempt: No Family History of Suicide: No Previous Psychiatric Hospitalization: Yes Protective Factors Assessment Anabaptism Beliefs: Yes : Yes Employed: No (Retired) Stable Relationships: Yes Supportive Family: Yes Interval History Identifying Information JERARDO VELAZQUEZ is a 63-year-old man who currently lives in [place] with his , has a history of Major Depressive Disorder with psychotic features and suspicion for catatonia, and was admitted on 05/29/23 18:33 on a 201 voluntary commitment for lack of self-care/inability to function at home with refusal to eat/shower/attend to any self-care needs and increasing paranoia, agoraphobia and depression. Chief Complaint "I just want to sleep". Review of Systems Sleep Information Total Hours of Sleep: 7.25 Meal Information Percent Meal Consumed - Breakfast: 0 Percent Meal Consumed - Lunch: 0 Percent Meal Consumed - Dinner: 0 Subjective Subjective The patient was seen and assessed and interval progress reviewed in a multidisciplinary team meeting with the treatment team. For details, see the "Impression" section. Overall I spent a total of 33 minutes for this inpatient follow-up including review of chart records, review of test results, direct evaluation of the patient [id number], counseling the patient, reconciling and ordering medication, medication education with the patient, risk assessment, discussion during interdisciplinary treatment rounds, and documentation in the electronic health record. Physical Exam Psychiatric Orientation: alert and oriented x 3 Apperance: appropriately dressed, appropriately groomed and + disheveled Eye Contact: good eye contact and + poor eye contact Motor Behavior: no abnormal motor movements Speech: + abnormal rate/rhythm/volume of speech (very brief, quiet) Affect: + depressed affect, + anxious affect and + constricted affect Mood: + depressed mood and + anxious mood Thought Process: goal directed thought process, + thought blocking and + circumstantial thought process Thought Content: + preoccupation, + paranoid, reality based without delusions, + derealization, + hopelessness, + guilt and + self deprecation Suicidal Thoughts: denies suicidal thoughts, denies suicidal plan and denies suicidal intent Homicidal Thoughts: denies homicidal thoughts Hallucinations: no auditory hallucinations and no visual hallucinations Cognition: recent memory grossly intact, remote memory grossly intact, attention grossly intact and language grossly intact Estimated Intelligence: consistent with education level Insight: + limited insight and + fair insight Judgment: + limited judgement and + fair judgement Vital Signs (Past 24 Hours) Last Vital Signs Temp 36.6 C 06/01/23 06:44 Pulse 84 06/01/23 06:44 Resp 16 06/01/23 06:44 BP 132/87 06/01/23 06:44 Pulse Ox 99 05/31/23 18:33 O2 Del Method Room Air 05/31/23 18:33 Results & Data (U) Current Inpatient Medications Current Inpatient Medications: Current Inpatient Medications Acetaminophen (Acetaminophen 325 Mg Tab) 650 mg PO Q4H PRN PRN Reason: Headache or Minor Fever Stop: 06/28/23 18:32 Al Hydrox/Mg Hydrox/Simethicone (Aluminum/Magnesium Susp 30 Ml Udc) 30 ml PO Q4H PRN PRN Reason: GI Upset Stop: 06/28/23 18:32 Bismuth Subsalicylate (Bismuth Subsalicylate Liqd 236 Ml) 15 ml PO PRN PRN PRN Reason: Loose Stool Stop: 06/28/23 18:32 Cyanocobalamin (Cyanocobalamin (B-12) 500 Mcg Tablet) 1,000 mcg PO QAM DEANDRE Stop: 07/01/23 08:59 Last Admin: 06/01/23 08:48 Dose: 1,000 mcg Duloxetine HCl (Duloxetine Hcl 30 Mg Cap) 30 mg PO QAM DEANDRE Stop: 06/30/23 08:59 Last Admin: 06/01/23 08:48 Dose: 30 mg Hydroxyzine HCl (Hydroxyzine Hcl 25 Mg Tab) 50 mg PO HSZ PRN PRN Reason: Insomnia Stop: 06/28/23 18:32 Hydroxyzine HCl (Hydroxyzine Hcl 25 Mg Tab) 25 mg PO Q4H PRN PRN Reason: Anxiety Stop: 06/28/23 18:32 Magnesium Hydroxide (Magnesium Hydroxide Susp 30 Ml Udc) 30 ml PO DAILY PRN PRN Reason: Constipation Stop: 06/28/23 18:32 Olanzapine (Olanzapine 10 Mg Tab) 10 mg PO HS DEANDRE Stop: 06/29/23 21:59 Last Admin: 05/31/23 20:55 Dose: 10 mg Olanzapine (Olanzapine 2.5 Mg Tab) 2.5 mg PO BID PRN PRN Reason: Anxiety/Agitation Stop: 06/30/23 20:59 Sodium Chloride (Sodium Chloride 0.65% Na Soln 45 Ml ([place])) 1 - 2 sprays NA PRN PRN PRN Reason: Nasal Dryness/Congestion Stop: 06/28/23 18:32 Vitamin D (Cholecalciferol 400 Units 10 Mcg Tab) 800 units PO QAM DEANDRE Stop: 07/01/23 08:59 Last Admin: 06/01/23 08:48 Dose: 800 units Mental Health & Subst Abuse Tx Therapist Name of Therapist: None Debt Management Counselor Name of Debt Management Counselor: None Post Discharge Appointments Primary Care Physician Name Of Family Doctor/PCP: Dr. Sepulveda
[2023-06-01] MEDS: OLANZapine 10 MG TAB PO SCH (20:41)
[2023-06-02] MEDS: DULoxetine HCL 30 MG CAP PO SCH (09:10)
[2023-06-02] MEDS: ERGOCALCIFEROL 50,000 UNITS 1250 MCG CAP PO SCH (09:10)
[2023-06-02] MEDS: CYANOCOBALAMIN (B-12) 500 MCG TABLET PO SCH (09:11)
--- NOTE | 2023-06-02 12:13 | Psychiatric Progress Note ---
Date of Service June 02, 2023 Impression / Recommendations Impression Ed is a 63 year old man with a history of MDD with psychotic features who was admitted for worsening agoraphobia, paranoia, depression and anxiety with inability to provide for his self-care needs including significant weight loss (with ketones in his urine) and hopelessness. Diagnostically seems most consistent with major depressive disorder with psychotic features and generalized anxiety disorder with agoraphobia and panic attacks. No current signs of catatonia so will hold off on use of any benzodiazepines. He is deemed in need of psychiatric hospitalization for diagnostic clarification, safety and stabilization, medication management and development of further coping skills. MNPR due to extreme anxiety, paranoia, poor self-care/hygiene prior to admission 06/02/2023: Pt has been out of his room a few times, attended exercise group this morning (but didn't participate much), but overall spends most of his time in bed awake. He continues to report that he "just can't function" in ways he can't specify. Endorses "paranoia" but can't or won't elaborate - when asked for more detail, says "the medication knocked me out last night". Says he's "having visual hallucinations" consisting of "dots and squiggles" when he closes his eyes. HIs attention is very poor and many questions must be repeated, but says he's not experiencing anything along the lines of auditory hallucinations or any specific thing that's occupying his attention. Very help-rejecting, even about things that I haven't actually specified yet. He certainly evidences substantial passive-aggressive personality traits. In reviewing MAR, pt has not needed any PRN olanzapine recently. Discussed off-label trial of modafinil, the primary use of which is to treat excessive daytime sleepiness (albeit for conditions he doesn't have) and for which there's significant evidence of efficacy for ADHD (which I don't think he has, though he certainly has great difficulty concentrating) and for major depression. I discussed that a related drug not used in the [place] (adrafinil) has a demonstrated risk of TEN (primarily in children) and that it's presumed that this could be the case with modafinil as well. Discussed risks of headache or upset stomach. Pt did not display much interest in seeking improvement but agreed to an off-label trial of modafinil. 06/01/2023: Pt says he just wants to sleep, but is actually awake in bed on a pproach and readily interacts. Eye contact is poor, and responses to many items are limited to shrugs. Pt isn't sure if medication has made any noticeable difference. He doesn't spontaneously report any of the obsessive, persecutory beliefs previously documented but when asked say there are thoughts he "just can't stop". 05/31/2023: Today presents as significantly worse and decompensated compared with yesterday with fairly extreme thought blocking, isolative, refusing meals. No classic signs of catatonia but possible this could be playing a role today as antipsychotic dose was increased. Does appear he slept better with titration of olanzapine but unclear why he is struggling so much more today. Concerns for extensive ruminations and psychosis leading to thought blocking and his inability to engage in spontaneous conversation today. Review of labwork notable for normal glucose, HbA1c, total cholesterol/TGs/HDL with low risk LDL. Folic acid levels were normal. Deficient in Vitamin D and B12. He consents to starting supplementation for this. (1) MDD (major depressive disorder), recurrent, severe, with psychosis: (2) Generalized anxiety disorder with panic attacks: (3) Agoraphobia with panic attacks: (4) Vitamin D deficiency: (5) Vitamin B12 deficiency: Plan 06/02/2023: * start (off-label) modafinil 200 mg QAM * continue olanzapine 10 mg HS and 2.5 mg BID PRN - started 05/30/2023 * continue duloxetine 30 mg daily - started 05/30/2023 * change vitamin D from cholecalciferol 800 IU daily to ergocalciferol 50,000 IU twice weekly for loading * continue cyanocobalamin 1,000 mcg daily, recheck level in 2-3 days to confirm adequacy of replacement 06/01/2023: * continue olanzapine 10 mg HS po and 2.5 mg BID prn - started 05/30/2023 * continue duloxetine 30 mg daily - started 05/30/2023 * change vitamin D from cholecalciferol 800 IU daily to ergocalciferol 50,000 IU twice weekly for loading * continue cyanocobalamin 1,000 mcg daily, recheck level in 2-3 days to confirm adequacy of replacement 05/31/2023: * Continue olanzapine 10mg HS po and 2.5mg BID prn for now * Continue duloxetine 30mg daily * Start Vit D and B12 supplementation 05/30/2023: The patient was admitted to the [facility] ([facility] mental health unit) on q15 min checks (behavioral with suicide precautions) for safety. The patient will participate in group, recreational, and milieu therapies and will be offered additional individual and family sessions as clinically appropriate. -Start olanzapine 10mg HS po -Start duloxetine 30mg daily -AM labwork including fasting glucose, HbA1c, B12, Folic Acid, Vit D, fasting lipid panel Inventory Assets Strengths: supportive relationships, willing to get treatment Needs: safety and stabilization, medication adjustment, additional coping skills, increased outpatient services Suicide Risk Level Suicide Risk Level: Moderate (q15 min suicide checks) (depression with poor self care plan prior to admission but denies current SI, reports he feels safe in the hospital, and agrees to let nursing/staff know should they develop plan, intent or feel unable to remain safe. ) Risk Factors Assessment Male: Yes : Yes Do You Have Access To A Gun?: Yes (multiple at home, making plans to have these removed) Health Problems: Yes (peripheral neuropathy) Mental Health Diagnoses: Yes Substance Use Disorders: No Previous Attempt: No Family History of Suicide: No Previous Psychiatric Hospitalization: Yes Protective Factors Assessment Tenriism Beliefs: Yes : Yes Employed: No (Retired) Stable Relationships: Yes Supportive Family: Yes Interval History Identifying Information JERARDO VELAZQUEZ is a 63-year-old man who currently lives in [place] with his , has a history of Major Depressive Disorder with psychotic features and suspicion for catatonia, and was admitted on 05/29/23 18:33 on a 201 voluntary commitment for lack of self-care/inability to function at home with refusal to eat/shower/attend to any self-care needs and increasing paranoia, agoraphobia and depression. Chief Complaint "I'm not able to function". Review of Systems Sleep Information Total Hours of Sleep: 7.5 Meal Information Percent Meal Consumed - Breakfast: 75 Percent Meal Consumed - Lunch: 100 Percent Meal Consumed - Dinner: 40 Subjective Subjective The patient was seen and assessed and interval progress reviewed in a multidisciplinary team meeting with the treatment team. For details, see the "Impression" section. Overall I spent a total of 36 minutes for this inpatient follow-up including review of chart records, review of test results, direct evaluation of the patient [id number], counseling the patient, reconciling and ordering medication, medication education with the patient, risk assessment, discussion during interdisciplinary treatment rounds, and documentation in the electronic health record. Physical Exam Psychiatric Orientation: alert, oriented to person, oriented to place, oriented to time and cooperative (very superficially) Apperance: appropriately dressed, appropriately groomed and + disheveled Eye Contact: + poor eye contact Motor Behavior: no abnormal motor movements Speech: + abnormal rate/rhythm/volume of speech (very brief, quiet) Affect: + depressed affect, + anxious affect and + constricted affect Mood: + depressed mood and + anxious mood Thought Process: + circumstantial thought process and + tangential thought process Thought Content: + preoccupation ("not able to function"), + paranoid (subjectively, but can't elaborate) and + cognitive distortions Suicidal Thoughts: denies suicidal thoughts, denies suicidal plan and denies suicidal intent Homicidal Thoughts: denies homicidal thoughts Hallucinations: + visual hallucinations ("squiggles and dots" when he closes his eyes); no auditory hallucinations Cognition: recent memory grossly intact, remote memory grossly intact and language grossly intact; + attention not intact (very distracted, requires much repetition) Estimated Intelligence: consistent with education level Insight: + limited insight Judgment: + limited judgement Vital Signs (Past 24 Hours) Last Vital Signs Temp 36.6 C 06/02/23 06:46 Pulse 77 06/02/23 06:47 Resp 16 06/02/23 06:46 BP 125/79 06/02/23 06:47 Pulse Ox 99 05/31/23 18:33 O2 Del Method Room Air 05/31/23 18:33 Results & Data (U) Current Inpatient Medications Current Inpatient Medications: Current Inpatient Medications Acetaminophen (Acetaminophen 325 Mg Tab) 650 mg PO Q4H PRN PRN Reason: Headache or Minor Fever Stop: 06/28/23 18:32 Al Hydrox/Mg Hydrox/Simethicone (Aluminum/Magnesium Susp 30 Ml Udc) 30 ml PO Q4H PRN PRN Reason: GI Upset Stop: 06/28/23 18:32 Bismuth Subsalicylate (Bismuth Subsalicylate Liqd 236 Ml) 15 ml PO PRN PRN PRN Reason: Loose Stool Stop: 06/28/23 18:32 Cyanocobalamin (Cyanocobalamin (B-12) 500 Mcg Tablet) 1,000 mcg PO QAM [facility] Stop: 07/01/23 08:59 Last Admin: 06/02/23 09:11 Dose: 1,000 mcg Duloxetine HCl (Duloxetine Hcl 30 Mg Cap) 30 mg PO QAM [facility] Stop: 06/30/23 08:59 Last Admin: 06/02/23 09:10 Dose: 30 mg Ergocalciferol (Ergocalciferol 50,000 Units 1250 Mcg Cap) 50,000 units PO SuWe@0900 [facility] Stop: 07/02/23 08:59 Last Admin: 06/02/23 09:10 Dose: 50,000 units Hydroxyzine HCl (Hydroxyzine Hcl 25 Mg Tab) 50 mg PO HSZ PRN PRN Reason: Insomnia Stop: 06/28/23 18:32 Hydroxyzine HCl (Hydroxyzine Hcl 25 Mg Tab) 25 mg PO Q4H PRN PRN Reason: Anxiety Stop: 06/28/23 18:32 Magnesium Hydroxide (Magnesium Hydroxide Susp 30 Ml Udc) 30 ml PO DAILY PRN PRN Reason: Constipation Stop: 06/28/23 18:32 Modafinil (Modafinil 100 Mg Tab) 100 mg PO QAM [facility] Stop: 07/02/23 12:14 Olanzapine (Olanzapine 10 Mg Tab) 10 mg PO HS [facility] Stop: 06/29/23 21:59 Last Admin: 06/01/23 20:41 Dose: 10 mg Olanzapine (Olanzapine 2.5 Mg Tab) 2.5 mg PO BID PRN PRN Reason: Anxiety/Agitation Stop: 06/30/23 20:59 Sodium Chloride (Sodium Chloride 0.65% Na Soln 45 Ml ([place])) 1 - 2 sprays NA PRN PRN PRN Reason: Nasal Dryness/Congestion Stop: 06/28/23 18:32 Mental Health & Subst Abuse Tx Therapist Name of Therapist: None Audio/Visual Manager Name of Audio/Visual Manager: None Post Discharge Appointments Primary Care Physician Name Of Family Doctor/PCP: Dr. Sepulveda
[2023-06-02] MEDS: modafiniL 100 MG TAB PO SCH (14:13)
[2023-06-02] MEDS: OLANZapine 10 MG TAB PO SCH (21:22)
[2023-06-03] MEDS: CYANOCOBALAMIN (B-12) 500 MCG TABLET PO SCH (08:36)
[2023-06-03] MEDS: modafiniL 100 MG TAB PO SCH (08:36)
[2023-06-03] MEDS: DULoxetine HCL 30 MG CAP PO SCH (08:36)
--- NOTE | 2023-06-03 11:12 | Psychiatric Progress Note ---
Date of Service June 03, 2023 Impression / Recommendations Impression Ed is a 63 year old man with a history of MDD with psychotic features who was admitted for worsening agoraphobia, paranoia, depression and anxiety with inability to provide for his self-care needs including significant weight loss (with ketones in his urine) and hopelessness. Diagnostically seems most consistent with major depressive disorder with psychotic features and generalized anxiety disorder with agoraphobia and panic attacks. No current signs of catatonia so will hold off on use of any benzodiazepines. He is deemed in need of psychiatric hospitalization for diagnostic clarification, safety and stabilization, medication management and development of further coping skills. MNPR due to extreme anxiety, paranoia, poor self-care/hygiene prior to admission 06/03/2023: Has been much more active today, out of his room attending groups. He's shaved and showered. Much more interactive and able to attend to conversation. He voices "feeling a little freaked out" by the change, which he doesn't think of as negative but he's surprised at how different he feels compared to yesterday. He wonders if the modafinil dose "might be too much" but can't really specify any particular problem. 06/02/2023: Pt has been out of his room a few times, attended exercise group this morning (but didn't participate much), but overall spends most of his time in bed awake. He continues to report that he "just can't function" in ways he can't specify. Endorses "paranoia" but can't or won't elaborate - when asked for more detail, says "the medication knocked me out last night". Says he's "having visual hallucinations" consisting of "dots and squiggles" when he closes his eyes. HIs attention is very poor and many questions must be repeated, but says he's not experiencing anything along the lines of auditory hallucinations or any specific thing that's occupying his attention. Very help-rejecting, even about things that I haven't actually specified yet. He certainly evidences substantial passive-aggressive personality traits. In reviewing MAR, pt has not needed any PRN olanzapine recently. Discussed off-label trial of modafinil, the primary use of which is to treat excessive daytime sleepiness (albeit for conditions he doesn't have) and for which there's significant evidence of efficacy for ADHD (which I don't think he has, though he certainly has great difficulty concentrating) and for major depr ession. I discussed that a related drug not used in the [place] (adrafinil) has a demonstrated risk of TEN (primarily in children) and that it's presumed that this could be the case with modafinil as well. Discussed risks of headache or upset stomach. Pt did not display much interest in seeking improvement but agreed to an off-label trial of modafinil. 06/01/2023: Pt says he just wants to sleep, but is actually awake in bed on approach and readily interacts. Eye contact is poor, and responses to many items are limited to shrugs. Pt isn't sure if medication has made any noticeable difference. He doesn't spontaneously report any of the obsessive, persecutory beliefs previously documented but when asked say there are thoughts he "just can't stop". 05/31/2023: Today presents as significantly worse and decompensated compared with yesterday with fairly extreme thought blocking, isolative, refusing meals. No classic signs of catatonia but possible this could be playing a role today as antipsychotic dose was increased. Does appear he slept better with titration of olanzapine but unclear why he is struggling so much more today. Concerns for extensive ruminations and psychosis leading to thought blocking and his inability to engage in spontaneous conversation today. Review of labwork notable for normal glucose, HbA1c, total cholesterol/TGs/HDL with low risk LDL. Folic acid levels were normal. Deficient in Vitamin D and B12. He consents to starting supplementation for this. (1) MDD (major depressive disorder), recurrent, severe, with psychosis: (2) Generalized anxiety disorder with panic attacks: (3) Agoraphobia with panic attacks: (4) Vitamin D deficiency: (5) Vitamin B12 deficiency: Plan 06/03/2023: * continue (off-label) modafinil 200 mg QAM * continue olanzapine 10 mg HS and 2.5 mg BID PRN - started 05/30/2023 * continue duloxetine 30 mg daily - started 05/30/2023 * continue ergocalciferol 50,000 IU twice weekly for loading * continue cyanocobalamin 1,000 mcg daily, recheck level in 2-3 days to confirm adequacy of replacement 06/02/2023: * start (off-label) modafinil 200 mg QAM * continue olanzapine 10 mg HS and 2.5 mg BID PRN - started 05/30/2023 * continue duloxetine 30 mg daily - started 05/30/2023 * change vitamin D from cholecalciferol 800 IU daily to ergocalciferol 50,000 IU twice weekly for loading * continue cyanocobalamin 1,000 mcg daily, recheck level in 2-3 days to confirm adequacy of replacement 06/01/2023: * continue olanzapine 10 mg HS po and 2.5 mg BID prn - started 05/30/2023 * continue duloxetine 30 mg daily - started 05/30/2023 * change vitamin D from cholecalciferol 800 IU daily to ergocalciferol 50,000 IU twice weekly for loading * continue cyanocobalamin 1,000 mcg daily, recheck level in 2-3 days to confirm adequacy of replacement 05/31/2023: * Continue olanzapine 10mg HS po and 2.5mg BID prn for now * Continue duloxetine 30mg daily * Start Vit D and B12 supplementation 05/30/2023: The patient was admitted to the [facility] ([facility] mental health unit) on q15 min checks (behavioral with suicide precautions) for safety. The patient will participate in group, recreational, and milieu therapies and will be offered additional individual and family sessions as clinically appropriate. -Start olanzapine 10mg HS po -Start duloxetine 30mg daily -AM labwork including fasting glucose, HbA1c, B12, Folic Acid, Vit D, fasting lipid panel Inventory Assets Strengths: supportive relationships, willing to get treatment Needs: safety and stabilization, medication adjustment, additional coping skills, increased outpatient services Suicide Risk Level Suicide Risk Level: Moderate (q15 min suicide checks) (depression with poor self care plan prior to admission but denies current SI, reports he feels safe in the hospital, and agrees to let nursing/staff know should they develop plan, intent or feel unable to remain safe. ) Risk Factors Assessment Male: Yes : Yes Do You Have Access To A Gun?: Yes (multiple at home, making plans to have these removed) Health Problems: Yes (peripheral neuropathy) Mental Health Diagnoses: Yes Substance Use Disorders: No Previous Attempt: No Family History of Suicide: No Previous Psychiatric Hospitalization: Yes Protective Factors Assessment Quaker Beliefs: Yes : Yes Employed: No (Retired) Stable Relationships: Yes Supportive Family: Yes Interval History Identifying Information JERARDO VELAZQUEZ is a 63-year-old man who currently lives in [place] with his , has a history of Major Depressive Disorder with psychotic features and suspicion for catatonia, and was admitted on 05/29/23 18:33 on a 201 voluntary commitment for lack of self-care/inability to function at home with refusal to eat/shower/attend to any self-care needs and increasing paranoia, agoraphobia and depression. Chief Complaint "I feel a lot more active today". Review of Systems Sleep Information Total Hours of Sleep: 6.5 Sleep Comments: Woke up for a snack Meal Information Percent Meal Consumed - Breakfast: 75 Percent Meal Consumed - Lunch: 75 Percent Meal Consumed - Dinner: 0 Nutrition Comment: Patient states he is not hungry after several attempts to get him to try some of his meal. Subjective Subjective The patient was seen and assessed and interval progress reviewed in a multidisciplinary team meeting with the treatment team. For details, see the " Impression" section. Overall I spent a total of 28 minutes for this inpatient follow-up including review of chart records, direct evaluation of the patient [id number], counseling the patient, medication education with the patient, risk assessment, discussion during interdisciplinary treatment rounds, and documentation in the electronic health record. Physical Exam Psychiatric Orientation: alert, oriented to person, oriented to place, oriented to time and cooperative (very superficially) Apperance: appropriately dressed, appropriately groomed and + disheveled Eye Contact: + fair eye contact Motor Behavior: no abnormal motor movements Speech: normal rate/rhythm/volume of speech Affect: + anxious affect Mood: + anxious mood and + dysphoric mood Thought Process: goal directed thought process Thought Content: + cognitive distortions and reality based without delusions Suicidal Thoughts: denies suicidal thoughts, denies suicidal plan and denies suicidal intent Homicidal Thoughts: denies homicidal thoughts Hallucinations: + visual hallucinations ("squiggles and dots" when he closes his eyes); no auditory hallucinations Cognition: recent memory grossly intact, remote memory grossly intact, attention grossly intact and language grossly intact Estimated Intelligence: consistent with education level Insight: + fair insight Judgment: + fair judgement Vital Signs (Past 24 Hours) Last Vital Signs Temp 36.5 C 06/03/23 06:39 Pulse 93 H 06/03/23 06:40 Resp 16 06/03/23 06:39 BP 142/89 H 06/03/23 06:40 Pulse Ox 99 05/31/23 18:33 O2 Del Method Room Air 05/31/23 18:33 Results & Data ([facility]) Current Inpatient Medications Current Inpatient Medications: Current Inpatient Medications Acetaminophen (Acetaminophen 325 Mg Tab) 650 mg PO Q4H PRN PRN Reason: Headache or Minor Fever Stop: 06/28/23 18:32 Al Hydrox/Mg Hydrox/Simethicone (Aluminum/Magnesium Susp 30 Ml Udc) 30 ml PO Q4H PRN PRN Reason: GI Upset Stop: 06/28/23 18:32 Bismuth Subsalicylate (Bismuth Subsalicylate Liqd 236 Ml) 15 ml PO PRN PRN PRN Reason: Loose Stool Stop: 06/28/23 18:32 Cyanocobalamin (Cyanocobalamin (B-12) 500 Mcg Tablet) 1,000 mcg PO QAM [facility] Stop: 07/01/23 08:59 Last Admin: 06/03/23 08:36 Dose: 1,000 mcg Duloxetine HCl (Duloxetine Hcl 30 Mg Cap) 30 mg PO QAM [facility] Stop: 06/30/23 08:59 Last Admin: 06/03/23 08:36 Dose: 30 mg Ergocalciferol (Ergocalciferol 50,000 Units 1250 Mcg Cap) 50,000 units PO SuWe@0900 [facility] Stop: 07/02/23 08:59 Last Admin: 06/02/23 09:10 Dose: 50,000 units Hydroxyzine HCl (Hydroxyzine Hcl 25 Mg Tab) 50 mg PO HSZ PRN PRN Reason: Insomnia Stop: 06/28/23 18:32 Hydroxyzine HCl (Hydroxyzine Hcl 25 Mg Tab) 25 mg PO Q4H PRN PRN Reason: Anxiety Stop: 06/28/23 18:32 Magnesium Hydroxide (Magnesium Hydroxide Susp 30 Ml Udc) 30 ml PO DAILY PRN PRN Reason: Constipation Stop: 06/28/23 18:32 Modafinil (Modafinil 100 Mg Tab) 100 mg PO QAM [facility] Stop: 07/02/23 12:14 Last Admin: 06/03/23 08:36 Dose: 100 mg Olanzapine (Olanzapine 10 Mg Tab) 10 mg PO HS [facility] Stop: 06/29/23 21:59 Last Admin: 06/02/23 21:22 Dose: 10 mg Olanzapine (Olanzapine 2.5 Mg Tab) 2.5 mg PO BID PRN PRN Reason: Anxiety/Agitation Stop: 06/30/23 20:59 Sodium Chloride (Sodium Chloride 0.65% Na Soln 45 Ml ([place])) 1 - 2 sprays NA PRN PRN PRN Reason: Nasal Dryness/Congestion Stop: 06/28/23 18:32 Mental Health & Subst Abuse Tx Therapist Name of Therapist: None General Maintenance Helper Name of General Maintenance Helper: None Post Discharge Appointments Primary Care Physician Name Of Family Doctor/PCP: Dr. Sepulveda
[2023-06-03] MEDS: OLANZapine 10 MG TAB PO SCH (21:24)
[2023-06-04] MEDS: CYANOCOBALAMIN (B-12) 500 MCG TABLET PO SCH (08:56)
[2023-06-04] MEDS: DULoxetine HCL 30 MG CAP PO SCH (08:57)
[2023-06-04] MEDS: modafiniL 100 MG TAB PO SCH (08:57)
--- NOTE | 2023-06-04 11:48 | Psychiatric Progress Note ---
Date of Service June 04, 2023 Impression / Recommendations Impression Ed is a 63 year old man with a history of MDD with psychotic features who was admitted for worsening agoraphobia, paranoia, depression and anxiety with inability to provide for his self-care needs including significant weight loss (with ketones in his urine) and hopelessness. Diagnostically seems most consistent with major depressive disorder with psychotic features and generalized anxiety disorder with agoraphobia and panic attacks. No current signs of catatonia so will hold off on use of any benzodiazepines. He is deemed in need of psychiatric hospitalization for diagnostic clarification, safety and stabilization, medication management and development of further coping skills. MNPR due to extreme anxiety, paranoia, poor self-care/hygiene prior to admission 06/04/2023: After a very good day yesterday, pt is back in bed, declining to participate in the milieu. He'd asked to reduce the modafinil dose yesterday due to a [id number] feeling that it was "too much". Once pried out of bed by staff he did stay out and participated in the milieu but has been perseverating on how he doesn't understand what's going on (with his mood). Discussed medication plan at length. Pt guardedly agrees to increase modafinil. 06/03/2023: Has been much more active today, out of his room attending groups. He's shaved and showered. Much more interactive and able to attend to conversation. He voices "feeling a little freaked out" by the change, which he doesn't think of as negative but he's surprised at how different he feels compared to yesterday. He wonders if the modafinil dose "might be too much" but can't really specify any particular problem. 06/02/2023: Pt has been out of his room a few times, attended exercise group this morning (but didn't participate much), but overall spends most of his time in bed awake. He continues to report that he "just can't function" in ways he can't specify. Endorses "paranoia" but can't or won't elaborate - when asked for more detail, says "the medication knocked me out last night". Says he's "having visual hallucinations" consisting of "dots and squiggles" when he closes his eyes. HIs attention is very poor and many questions must be repeated, but says he's not experiencing anything along the lines of auditory hallucinations or any specific thing that's occupying his attention. Very help-rejecting, even about things that I haven't actually specified yet. He certainly evidences substantial passive-aggressive personality traits. In reviewing MAR, pt has not needed any PRN olanzapine recently. Discussed off-label trial of modafinil, the primary use of which is to treat excessive daytime sleepiness (albeit for conditions he doesn't have) and for which there's significant evidence of efficacy for ADHD (which I don't think he has, though he certainly has great difficulty concentrating) and for major depression. I discussed that a related drug not used in the [facility] (adrafinil) has a demonstrated risk of TEN (primarily in children) and that it's presumed that this could be the case with modafinil as well. Discussed risks of headache or upset stomach. Pt did not display much interest in seeking improvement but agreed to an off-label trial of modafinil. 06/01/2023: Pt says he just wants to sleep, but is actually awake in bed on approach and readily interacts. Eye contact is poor, and responses to many items are limited to shrugs. Pt isn't sure if medication has made any noticeable difference. He doesn't spontaneously report any of the obsessive, persecutory beliefs previously documented but when asked say there are thoughts he "just can't stop". 05/31/2023: Today presents as significantly worse and decompensated compared with yesterday with fairly extreme thought blocking, isolative, refusing meals. No classic signs of catatonia but possible this could be playing a role today as antipsychotic dose was increased. Does appear he slept better with titration of olanzapine but unclear why he is struggling so much more today. Concerns for extensive ruminations and psychosis leading to thought blocking and his inability to engage in spontaneous conversation today. Review of labwork notable for normal glucose, HbA1c, total cholesterol/TGs/HDL with low risk LDL. Folic acid levels were normal. Deficient in Vitamin D and B12. He consents to starting supplementation for this. (1) MDD (major depressive disorder), recurrent, severe, with psychosis: (2) Generalized anxiety disorder with panic attacks: (3) Agoraphobia with panic attacks: (4) Vitamin D deficiency: (5) Vitamin B12 deficiency: Plan 06/04/2023: * increase (off-label) modafinil back to 200 mg QAM - reduced 06/03/2023 to 100 mg, started 06/02/2023 at 200 mg * continue olanzapine 10 mg HS and 2.5 mg BID PRN - started 05/30/2023 * continue duloxetine 30 mg daily - started 05/30/2023 * continue ergocalciferol 50,000 IU twice weekly for loading * continue cyanocobalamin 1,000 mcg daily, recheck level in 2-3 days to confirm adequacy of replacement 06/03/2023: * reduce (off-label) modafinil to 100 mg QAM - started 06/02/2023 at 200 mg * continue olanzapine 10 mg HS and 2.5 mg BID PRN - started 05/30/2023 * continue duloxetine 30 mg daily - started 05/30/2023 * continue ergocalciferol 50,000 IU twice weekly for loading * continue cyanocobalamin 1,000 mcg daily, recheck level in 2-3 days to confirm adequacy of replacement 06/02/2023: * start (off-label) modafinil 200 mg QAM * continue olanzapine 10 mg HS and 2.5 mg BID PRN - started 05/30/2023 * continue duloxetine 30 mg daily - started 05/30/2023 * change vitamin D from cholecalciferol 800 IU daily to ergocalciferol 50,000 IU twice weekly for loading * continue cyanocobalamin 1,000 mcg daily, recheck level in 2-3 days to confirm adequacy of replacement 06/01/2023: * continue olanzapine 10 mg HS po and 2.5 mg BID prn - started 05/30/2023 * continue duloxetine 30 mg daily - started 05/30/2023 * change vitamin D from cholecalciferol 800 IU daily to ergocalciferol 50,000 IU twice weekly for loading * continue cyanocobalamin 1,000 mcg daily, recheck level in 2-3 days to confirm adequacy of replacement 05/31/2023: * Continue olanzapine 10mg HS po and 2.5mg BID prn for now * Continue duloxetine 30mg daily * Start Vit D and B12 supplementation 05/30/2023: The patient was admitted to the [facility] ([facility] inpatient mental health unit) on q15 min checks (behavioral with suicide precautions) for safety. The patient will participate in group, recreational, and milieu therapies and will be offered additional individual and family sessions as clinically appropriate. -Start olanzapine 10mg HS po -Start duloxetine 30mg daily -AM labwork including fasting glucose, HbA1c, B12, Folic Acid, Vit D, fasting lipid panel Inventory Assets Strengths: supportive relationships, willing to get treatment Needs: safety and stabilization, medication adjustment, additional coping skills, increased outpatient services Suicide Risk Level Suicide Risk Level: Moderate (q15 min suicide checks) (depression with poor self care plan prior to admission but denies current SI, reports he feels safe in the hospital, and agrees to let nursing/staff know should they develop plan, intent or feel unable to remain safe. ) Risk Factors Assessment Male: Yes : Yes Do You Have Access To A Gun?: Yes (multiple at home, making plans to have these removed) Health Problems: Yes (peripheral neuropathy) Mental Health Diagnoses: Yes Substance Use Disorders: No Previous Attempt: No Family History of Suicide: No Previous Psychiatric Hospitalization: Yes Protective Factors Assessment Confucianism Beliefs: Yes : Yes Employed: No (Retired) Stable Relationships: Yes Supportive Family: Yes Interval History Identifying Information JERARDO VELAZQUEZ is a 63-year-old man who currently lives in [place] with his , has a history of Major Depressive Disorder with psychotic features and suspicion for catatonia, and was admitted on 05/29/23 18:33 on a 201 voluntary commitment for lack of self-care/inability to function at home with refusal to eat/shower/attend to any self-care needs and increasing paranoia, agoraphobia a nd depression. Chief Complaint "I can't figure out what's going on". Review of Systems Sleep Information Total Hours of Sleep: 8.5 Sleep Comments: Woke up for a snack Meal Information Percent Meal Consumed - Breakfast: 0 Percent Meal Consumed - Lunch: 100 Percent Meal Consumed - Dinner: 100 Nutrition Comment: recorded from paper meal log Subjective Subjective The patient was seen and assessed and interval progress reviewed in a multidisciplinary team meeting with the treatment team. For details, see the "Impression" section. Overall I spent a total of 44 minutes for this inpatient follow-up including review of chart records, review of test results, direct evaluation of the patient [id number], counseling the patient, reconciling and ordering medication, medication education with the patient, risk assessment, discussion during interdisciplinary treatment rounds, and documentation in the electronic health record. Physical Exam Psychiatric Orientation: alert, oriented to person, oriented to place, oriented to time and cooperative (very superficially) Apperance: appropriately dressed, appropriately groomed and + disheveled Eye Contact: good eye contact Motor Behavior: no abnormal motor movements Speech: normal rate/rhythm/volume of speech Affect: + anxious affect Mood: + anxious mood Thought Process: goal directed thought process Thought Content: + cognitive distortions, reality based without delusions and + self deprecation Suicidal Thoughts: denies suicidal thoughts, denies suicidal plan and denies suicidal intent Homicidal Thoughts: denies homicidal thoughts Hallucinations: + visual hallucinations ("squiggles and dots" when he closes his eyes); no auditory hallucinations Cognition: recent memory grossly intact, remote memory grossly intact, attention grossly intact and language grossly intact Estimated Intelligence: consistent with education level Insight: + fair insight Judgment: + fair judgement Vital Signs (Past 24 Hours) Last Vital Signs Temp 36.4 C L 06/04/23 06:46 Pulse 125 H 06/04/23 06:47 Resp 16 06/04/23 06:46 BP 119/81 06/04/23 06:47 Pulse Ox 99 05/31/23 18:33 O2 Del Method Room Air 05/31/23 18:33 Results & Data ([facility]) Current Inpatient Medications Current Inpatient Medications: Current Inpatient Medications Acetaminophen (Acetaminophen 325 Mg Tab) 650 mg PO Q4H PRN PRN Reason: Headache or Minor Fever Stop: 06/28/23 18:32 Al Hydrox/Mg Hydrox/Simethicone (Aluminum/Magnesium Susp 30 Ml Udc) 30 ml PO Q4H PRN PRN Reason: GI Upset Stop: 06/28/23 18:32 Bismuth Subsalicylate (Bismuth Subsalicylate Liqd 236 Ml) 15 ml PO PRN PRN PRN Reason: Loose Stool Stop: 06/28/23 18:32 Cyanocobalamin (Cyanocobalamin (B-12) 500 Mcg Tablet) 1,000 mcg PO QAM DEANDRE Stop: 07/01/23 08:59 Last Admin: 06/04/23 08:56 Dose: 1,000 mcg Duloxetine HCl (Duloxetine Hcl 30 Mg Cap) 30 mg PO QAM [facility] Stop: 06/30/23 08:59 Last Admin: 06/04/23 08:57 Dose: 30 mg Ergocalciferol (Ergocalciferol 50,000 Units 1250 Mcg Cap) 50,000 units PO SuWe@0900 DEANDRE Stop: 07/02/23 08:59 Last Admin: 06/02/23 09:10 Dose: 50,000 units Hydroxyzine HCl (Hydroxyzine Hcl 25 Mg Tab) 50 mg PO HSZ PRN PRN Reason: Insomnia Stop: 06/28/23 18:32 Hydroxyzine HCl (Hydroxyzine Hcl 25 Mg Tab) 25 mg PO Q4H PRN PRN Reason: Anxiety Stop: 06/28/23 18:32 Magnesium Hydroxide (Magnesium Hydroxide Susp 30 Ml Udc) 30 ml PO DAILY PRN PRN Reason: Constipation Stop: 06/28/23 18:32 Modafinil (Modafinil 100 Mg Tab) 100 mg PO QAM [facility] Stop: 07/02/23 12:14 Last Admin: 06/04/23 08:57 Dose: 100 mg Olanzapine (Olanzapine 10 Mg Tab) 10 mg PO HS DEANDRE Stop: 06/29/23 21:59 Last Admin: 06/03/23 21:24 Dose: 10 mg Olanzapine (Olanzapine 2.5 Mg Tab) 2.5 mg PO BID PRN PRN Reason: Anxiety/Agitation Stop: 06/30/23 20:59 Sodium Chloride (Sodium Chloride 0.65% Na Soln 45 Ml ([place])) 1 - 2 sprays NA PRN PRN PRN Reason: Nasal Dryness/Congestion Stop: 06/28/23 18:32 Mental Health & Subst Abuse Tx Therapist Name of Therapist: None Allergist/Md Name of Allergist/Md: None Post Discharge Appointments Primary Care Physician Name Of Family Doctor/PCP: Dr. Sepulveda
[2023-06-04] MEDS ORDERED: modafiniL 100 MG TAB PO ONE (11:49)
[2023-06-04] MEDS: OLANZapine 10 MG TAB PO SCH (20:45)
[2023-06-05] MEDS: CYANOCOBALAMIN (B-12) 500 MCG TABLET PO SCH (08:36)
[2023-06-05] MEDS: ERGOCALCIFEROL 50,000 UNITS 1250 MCG CAP PO SCH (08:36)
[2023-06-05] MEDS: DULoxetine HCL 30 MG CAP PO SCH (08:36)
[2023-06-05] MEDS: modafiniL 100 MG TAB PO SCH (08:36)
--- NOTE | 2023-06-05 10:34 | Psychiatric Progress Note ---
Date of Service June 05, 2023 Impression / Recommendations Impression Ed is a 63 year old man with a history of MDD with psychotic features who was admitted for worsening agoraphobia, paranoia, depression and anxiety with inability to provide for his self-care needs including significant weight loss (with ketones in his urine) and hopelessness. Diagnostically seems most consistent with major depressive disorder with psychotic features and generalized anxiety disorder with agoraphobia and panic attacks. No current signs of catatonia so will hold off on use of any benzodiazepines. He is deemed in need of psychiatric hospitalization for diagnostic clarification, safety and stabilization, medication management and development of further coping skills. MNPR due to extreme anxiety, paranoia, poor self-care/hygiene prior to admission 06/05/2023: Following my meeting with pt yesterday, including discussion of the importance of participating in the milieu, benefits of physical activity, pt went to bed and wouldn't get back out. Today has thus far seemed much better - he's been out of his room, participated in the groups that have taken place . He remains preoccupied and perseverative, though this has changed from "I just can't funtion" to "I don't know what's wrong with me". Asks me several times if I think the medication I ordered recently (and have been discussing with him frequently) will help. Denies any problems with this morning's 200 mg modafinil dose. B12 replenishment was started 5 days ago. Will recheck level to confirm adequacy of the current dose. 06/04/2023: After a very good day yesterday, pt is back in bed, declining to participate in the milieu. He'd asked to reduce the modafinil dose yesterday due to a [id number] feeling that it was "too much". Once pried out of bed by staff he did stay out and participated in the milieu but has been perseverating on how he doesn't understand what's going on (with his mood). Discussed medication plan at length. Pt guardedly agrees to increase modafinil. 06/03/2023: Has been much more active today, out of his room attending groups. He's shaved and showered. Much more interactive and able to attend to conversation. He voices "feeling a little freaked out" by the change, which he doesn't think of as negative but he's surprised at how different he feels compared to yesterday. He wonders if the modafinil dose "might be too much" but can't really specify any particular problem. 06/02/2023: Pt has been out of his room a few times, attended exercise group this morning (but didn't participate much), but overall spends most of his time in bed awake. He continues to report that he "just can't function" in ways he can't specify. Endorses "paranoia" but can't or won't elaborate - when asked for more detail, says "the medication knocked me out last night". Says he's "having visual hallucinations" consisting of "dots and squiggles" when he closes his eyes. HIs attention is very poor and many questions must be repeated, but says he's not experiencing anything along the lines of auditory hallucinations or any specific thing that's occupying his attention. Very help-rejecting, even about things that I haven't actually specified yet. He certainly evidences substantial passive-aggressive personality traits. In reviewing MAR, pt has not needed any PRN olanzapine recently. Discussed off-label trial of modafinil, the primary use of which is to treat excessive daytime sleepiness (albeit for conditions he doesn't have) and for which there's significant evidence of efficacy for ADHD (which I don't think he has, though he certainly has great difficulty concentrating) and for major depression. I discussed that a related drug not used in the [place] (adrafinil) has a demonstrated risk of TEN (primarily in children) and that it's presumed that this could be the case with modafinil as well. Discussed risks of headache or upset stomach. Pt did not display much interest in seeking improvement but agreed to an off-label trial of modafinil. 06/01/2023: Pt says he just wants to sleep, but is actually awake in bed on approach and readily interacts. Eye contact is poor, and responses to many items are limited to shrugs. Pt isn't sure if medication has made any noticeable difference. He doesn't spontaneously report any of the obsessive, persecutory beliefs previously documented but when asked say there are thoughts he "just can't stop". 05/31/2023: Today presents as significantly worse and decompensated compared with yesterday with fairly extreme thought blocking, isolative, refusing meals. No classic signs of catatonia but possible this could be playing a role today as antipsychotic dose was increased. Does appear he slept better with titration of olanzapine but unclear why he is struggling so much more today. Concerns for extensive ruminations and psychosis leading to thought blocking and his inability to engage in spontaneous conversation today. Review of labwork notable for normal glucose, HbA1c, total cholesterol/TGs/HDL with low risk LDL. Folic acid levels were normal. Deficient in Vitamin D and B12. He consents to starting supplementation for this. (1) MDD (major depressive disorder), recurrent, severe, with psychosis: (2) Generalized anxiety disorder with panic attacks: (3) Agoraphobia with panic attacks: (4) Vitamin D deficiency: (5) Vitamin B12 deficiency: Plan 06/05/2023: * continue (off-label) modafinil 200 mg QAM - increased 06/04/2023 from 100 mg, reduced 06/03/2023 to 100 mg, started 06/02/2023 at 200 mg * continue olanzapine 10 mg HS and 2.5 mg BID PRN - started 05/30/2023 * continue duloxetine 30 mg daily - started 05/30/2023 * continue ergocalciferol 50,000 IU twice weekly for loading - started 06/02/2023 * continue cyanocobalamin 1,000 mcg daily * recheck cyanocobalamin level to confirm adequacy of replacement 06/04/2023: * increase (off-label) modafinil back to 200 mg QAM - reduced 06/03/2023 to 100 mg, started 06/02/2023 at 200 mg * continue olanzapine 10 mg HS and 2.5 mg BID PRN - started 05/30/2023 * continue duloxetine 30 mg daily - started 05/30/2023 * continue ergocalciferol 50,000 IU twice weekly for loading * continue cyanocobalamin 1,000 mcg daily, recheck level in 2-3 days to confirm adequacy of replacement 06/03/2023: * reduce (off-label) modafinil to 100 mg QAM - started 06/02/2023 at 200 mg * continue olanzapine 10 mg HS and 2.5 mg BID PRN - started 05/30/2023 * continue duloxetine 30 mg daily - started 05/30/2023 * continue ergocalciferol 50,000 IU twice weekly for loading * continue cyanocobalamin 1,000 mcg daily, recheck level in 2-3 days to confirm adequacy of replacement 06/02/2023: * start (off-label) modafinil 200 mg QAM * continue olanzapine 10 mg HS and 2.5 mg BID PRN - started 05/30/2023 * continue duloxetine 30 mg daily - started 05/30/2023 * change vitamin D from cholecalciferol 800 IU daily to ergocalciferol 50,000 IU twice weekly for loading * continue cyanocobalamin 1,000 mcg daily, recheck level in 2-3 days to confirm adequacy of replacement 06/01/2023: * continue olanzapine 10 mg HS po and 2.5 mg BID prn - started 05/30/2023 * continue duloxetine 30 mg daily - started 05/30/2023 * change vitamin D from cholecalciferol 800 IU daily to ergocalciferol 50,000 IU twice weekly for loading * continue cyanocobalamin 1,000 mcg daily, recheck level in 2-3 days to confirm adequacy of replacement 05/31/2023: * Continue olanzapine 10mg HS po and 2.5mg BID prn for now * Continue duloxetine 30mg daily * Start Vit D and B12 supplementation 05/30/2023: The patient was admitted to the [facility] on q15 min checks (behavioral with suicide precautions) for safety. The patient will participate in group, recreational, and milieu therapies and will be offered additional individual and family sessions as clinically appropriate. -Start olanzapine 10mg HS po -Start duloxetine 30mg daily -AM labwork including fasting glucose, HbA1c, B12, Folic Acid, Vit D, fasting lipid panel Inventory Assets Strengths: supportive relationships, willing to get treatment Needs: safety and stabilization, medication adjustment, additional coping skills, increased outpatient services Suicide Risk Level Suicide Risk Level: Moderate (q15 min suicide checks) (depression with poor self care plan prior to admission but denies current SI, reports he feels safe in the hospital, and agrees to let nursing/staff know should they develop plan, intent or feel unable to remain safe. ) Risk Factors Assessment Male: Yes : Yes Do You Have Access To A Gun?: Yes (multiple at home, making plans to have these removed) Health Problems: Yes (peripheral neuropathy) Mental Health Diagnoses: Yes Substance Use Disorders: No Previous Attempt: No Family History of Suicide: No Previous Psychiatric Hospitalization: Yes Protective Factors Assessment Scientology Beliefs: Yes : Yes Employed: No (Retired) Stable Relationships: Yes Supportive Family: Yes Interval History Identifying Information JERARDO VELAZQUEZ is a 63-year-old man who currently lives in [place] with his , has a history of Major Depressive Disorder with psychotic features and suspicion for catatonia, and was admitted on 05/29/23 18:33 on a 201 voluntary commitment for lack of self-care/inability to function at home with refusal to eat/shower/attend to any self-care needs and increasing paranoia, agoraphobia and depression. Chief Complaint "I just don't know what's wrong with me". Review of Systems Sleep Information Total Hours of Sleep: 8.5 Sleep Comments: Woke up for a snack Meal Information Percent Meal Consumed - Breakfast: 0 Percent Meal Consumed - Lunch: 75 Percent Meal Consumed - Dinner: 0 Nutrition Comment: recorded from paper meal log Subjective Subjective The patient was seen and assessed and interval progress reviewed in a multidisciplinary team meeting with the treatment team. For details, see the "Impression" section. Overall I spent a total of 29 minutes for this inpatient follow-up including review of chart records, direct evaluation of the patient [id number], counseling the patient, medication education with the patient, risk assessment, discussion during interdisciplinary treatment rounds, and documentation in the electronic health record. Physical Exam Psychiatric Orientation: alert, oriented to person, oriented to place, oriented to time and cooperative (very superficially) Apperance: appropriately dressed, appropriately groomed and + disheveled Eye Contact: + fair eye contact Motor Behavior: no abnormal motor movements Speech: normal rate/rhythm/volume of speech Affect: + anxious affect and + constricted affect Mood: + anxious mood and + dysphoric mood Thought Process: goal directed thought process Thought Content: + preoccupation ("don't know what's wrong with me"), + cognitive distortions, reality based without delusions and + self deprecation Suicidal Thoughts: denies suicidal thoughts, denies suicidal plan and denies suicidal intent Homicidal Thoughts: denies homicidal thoughts Hallucinations: + visual hallucinations ("squiggles and dots" when he closes his eyes); no auditory hallucinations Cognition: recent memory grossly intact, remote memory grossly intact, attention grossly intact and language grossly intact Estimated Intelligence: consistent with education level Insight: + fair insight Judgment: + fair judgement Vital Signs (Past 24 Hours) Last Vital Signs Temp 36.4 C L 06/05/23 06:41 Pulse 78 06/05/23 06:52 Resp 16 06/05/23 06:41 BP 129/94 06/05/23 06:41 Pulse Ox 99 05/31/23 18:33 O2 Del Method Room Air 05/31/23 18:33 Results & Data ([facility]) Current Inpatient Medications Current Inpatient Medications: Current Inpatient Medications Acetaminophen (Acetaminophen 325 Mg Tab) 650 mg PO Q4H PRN PRN Reason: Headache or Minor Fever Stop: 06/28/23 18:32 Al Hydrox/Mg Hydrox/Simethicone (Aluminum/Magnesium Susp 30 Ml Udc) 30 ml PO Q4H PRN PRN Reason: GI Upset Stop: 06/28/23 18:32 Bismuth Subsalicylate (Bismuth Subsalicylate Liqd 236 Ml) 15 ml PO PRN PRN PRN Reason: Loose Stool Stop: 06/28/23 18:32 Cyanocobalamin (Cyanocobalamin (B-12) 500 Mcg Tablet) 1,000 mcg PO QAM [facility] Stop: 07/01/23 08:59 Last Admin: 06/05/23 08:36 Dose: 1,000 mcg Duloxetine HCl (Duloxetine Hcl 30 Mg Cap) 30 mg PO QAM [facility] Stop: 06/30/23 08:59 Last Admin: 06/05/23 08:36 Dose: 30 mg Ergocalciferol (Ergocalciferol 50,000 Units 1250 Mcg Cap) 50,000 units PO SuWe@0900 [facility] Stop: 07/02/23 08:59 Last Admin: 06/05/23 08:36 Dose: 50,000 units Hydroxyzine HCl (Hydroxyzine Hcl 25 Mg Tab) 50 mg PO HSZ PRN PRN Reason: Insomnia Stop: 06/28/23 18:32 Hydroxyzine HCl (Hydroxyzine Hcl 25 Mg Tab) 25 mg PO Q4H PRN PRN Reason: Anxiety Stop: 06/28/23 18:32 Magnesium Hydroxide (Magnesium Hydroxide Susp 30 Ml Udc) 30 ml PO DAILY PRN PRN Reason: Constipation Stop: 06/28/23 18:32 Modafinil (Modafinil 100 Mg Tab) 200 mg PO QAM DEANDRE Stop: 07/05/23 08:59 Last Admin: 06/05/23 08:36 Dose: 200 mg Olanzapine (Olanzapine 10 Mg Tab) 10 mg PO HS DEANDRE Stop: 06/29/23 21:59 Last Admin: 06/04/23 20:45 Dose: 10 mg Olanzapine (Olanzapine 2.5 Mg Tab) 2.5 mg PO BID PRN PRN Reason: Anxiety/Agitation Stop: 06/30/23 20:59 Sodium Chloride (Sodium Chloride 0.65% Na Soln 45 Ml ([place])) 1 - 2 sprays NA PRN PRN PRN Reason: Nasal Dryness/Congestion Stop: 06/28/23 18:32 Mental Health & Subst Abuse Tx Therapist Name of Therapist: None Filter Changer Name of Filter Changer: None Post Discharge Appointments Primary Care Physician Name Of Family Doctor/PCP: Dr. Sepulveda
[2023-06-05] MEDS: OLANZapine 10 MG TAB PO SCH (21:25)
[2023-06-06] MEDS: DULoxetine HCL 30 MG CAP PO SCH (09:29)
[2023-06-06] MEDS: CYANOCOBALAMIN (B-12) 500 MCG TABLET PO SCH (09:29)
[2023-06-06] MEDS: modafiniL 100 MG TAB PO SCH (09:31)
--- NOTE | 2023-06-06 11:56 | Psychiatric Progress Note ---
Date of Service June 06, 2023 Impression / Recommendations Impression Ed is a 63 year old man with a history of MDD with psychotic features who was admitted for worsening agoraphobia, paranoia, depression and anxiety with inability to provide for his self-care needs including significant weight loss (with ketones in his urine) and hopelessness. Diagnostically seems most consistent with major depressive disorder with psychotic features and generalized anxiety disorder with agoraphobia and panic attacks. No current signs of catatonia so will hold off on use of any benzodiazepines. He is deemed in need of psychiatric hospitalization for diagnostic clarification, safety and stabilization, medication management and development of further coping skills. MNPR due to extreme anxiety, paranoia, poor self-care/hygiene prior to admission 06/06/2023: Remains very help-rejecting. Spent most of the day out of bed once staff chivvied him up, then went to bed after supper and remained there. Continues to ruminate about "not understanding it" or that he "can't figure it out", "it" being fairly nebulous and difficult for him to specify. He agrees that he's been better during the day after having started AM modafinil but is concerned that "it seems to wear off by evening". Repeat B12 level was within the reference range at 382 pg/mL, indicating that current dose is appropriate. 06/05/2023: Following my meeting with pt yesterday, including discussion of the importance of participating in the milieu, benefits of physical activity, pt went to bed and wouldn't get back out. Today has thus far seemed much better - he's been out of his room, participated in the groups that have taken place . He remains preoccupied and perseverative, though this has changed from "I just can't function" to "I don't know what's wrong with me". Asks me several times if I think the medication I ordered recently (and have been discussing with him frequently) will help. Denies any problems with this morning's 200 mg modafinil dose. B12 replenishment was started 5 days ago. Will recheck level to confirm adequacy of the current dose. 06/04/2023: After a very good day yesterday, pt is back in bed, declining to participate in the milieu. He'd asked to reduce the modafinil dose yesterday due to a [id number] feeling that it was "too much". Once pried out of bed by staff he did stay out and participated in the milieu but has been perseverating on how he doesn't understand what's going on (with his mood). Discussed medication plan at length. Pt guardedly agrees to increase modafinil. 06/03/2023: Has been much more active today, out of his room attending groups. He's shaved and showered. Much more interactive and able to attend to conversation. He voices "feeling a little freaked out" by the change, which he doesn't think of as negative but he's surprised at how different he feels compared to yesterday. He wonders if the modafinil dose "might be too much" but can't really specify any particular problem. 06/02/2023: Pt has been out of his room a few times, attended exercise group this morning (but didn't participate much), but overall spends most of his time in bed awake. He continues to report that he "just can't function" in ways he can't specify. Endorses "paranoia" but can't or won't elaborate - when asked for more detail, says "the medication knocked me out last night". Says he's "having visual hallucinations" consisting of "dots and squiggles" when he closes his eyes. HIs attention is very poor and many questions must be repeated, but says he's not experiencing anything along the lines of auditory hallucinations or any specific thing that's occupying his attention. Very help-rejecting, even about things that I haven't actually specified yet. He certainly evidences substantial passive-aggressive personality traits. In reviewing MAR, pt has not needed any PRN olanzapine recently. Discussed off-label trial of modafinil, the primary use of which is to treat excessive daytime sleepiness (albeit for conditions he doesn't have) and for which there's significant evidence of efficacy for ADHD (which I don't think he has, though he certainly has great difficulty concentrating) and for major depression. I discussed that a related drug not used in the [place] (adrafinil) has a demonstrated risk of TEN (primarily in children) and that it's presumed that this could be the case with modafinil as well. Discussed risks of headache or upset stomach. Pt did not display much interest in seeking improvement but agreed to an off-label trial of modafinil. 06/01/2023: Pt says he just wants to sleep, but is actually awake in bed on approach and readily interacts. Eye contact is poor, and responses to many items are limited to shrugs. Pt isn't sure if medication has made any noticeable difference. He doesn't spontaneously report any of the obsessive, persecutory beliefs previously documented but when asked say there are thoughts he "just can't stop". 05/31/2023: Today presents as significantly worse and decompensated compared with yesterday with fairly extreme thought blocking, isolative, refusing meals. No classic signs of catatonia but possible this could be playing a role today as antipsychotic dose was increased. Does appear he slept better with titration of olanzapine but unclear why he is struggling so much more today. Concerns for extensive ruminations and psychosis leading to thought blocking and his inability to engage in spontaneous conversation today. Review of labwork notable for normal glucose, HbA1c, total cholesterol/TGs/HDL with low risk LDL. Folic acid levels were normal. Deficient in Vitamin D and B12. He consents to starting supplementation for this. (1) MDD (major depressive disorder), recurrent, severe, with psychosis: (2) Generalized anxiety disorder with panic attacks: (3) Agoraphobia with panic attacks: (4) Vitamin D deficiency: (5) Vitamin B12 deficiency: Plan 06/05/2023: * increase (off-label) modafinil to 200 mg QAM & 100 mg at 1300 - increased 06/04/2023 to 200 mg from 100 mg, reduced 06/03/2023 to 100 mg, started 06/02/2023 at 200 mg * continue olanzapine 10 mg HS and 2.5 mg BID PRN - started 05/30/2023 * continue duloxetine 30 mg daily - started 05/30/2023 * continue ergocalciferol 50,000 IU twice weekly for loading - started 06/02/2023 * continue cyanocobalamin 1,000 mcg daily 06/05/2023: * continue (off-label) modafinil 200 mg QAM - increased 06/04/2023 from 100 mg, reduced 06/03/2023 to 100 mg, started 06/02/2023 at 200 mg * continue olanzapine 10 mg HS and 2.5 mg BID PRN - started 05/30/2023 * continue duloxetine 30 mg daily - started 05/30/2023 * continue ergocalciferol 50,000 IU twice weekly for loading - started 06/02/2023 * continue cyanocobalamin 1,000 mcg daily * recheck cyanocobalamin level to confirm adequacy of replacement 06/04/2023: * increase (off-label) modafinil back to 200 mg QAM - reduced 06/03/2023 to 100 mg, started 06/02/2023 at 200 mg * continue olanzapine 10 mg HS and 2.5 mg BID PRN - started 05/30/2023 * continue duloxetine 30 mg daily - started 05/30/2023 * continue ergocalciferol 50,000 IU twice weekly for loading * continue cyanocobalamin 1,000 mcg daily, recheck level in 2-3 days to confirm adequacy of replacement 06/03/2023: * reduce (off-label) modafinil to 100 mg QAM - started 06/02/2023 at 200 mg * continue olanzapine 10 mg HS and 2.5 mg BID PRN - started 05/30/2023 * continue duloxetine 30 mg daily - started 05/30/2023 * continue ergocalciferol 50,000 IU twice weekly for loading * continue cyanocobalamin 1,000 mcg daily, recheck level in 2-3 days to confirm adequacy of replacement 06/02/2023: * start (off-label) modafinil 200 mg QAM * continue olanzapine 10 mg HS and 2.5 mg BID PRN - started 05/30/2023 * continue duloxetine 30 mg daily - started 05/30/2023 * change vitamin D from cholecalciferol 800 IU daily to ergocalciferol 50,000 IU twice weekly for loading * continue cyanocobalamin 1,000 mcg daily, recheck level in 2-3 days to confirm adequacy of replacement 06/01/2023: * continue olanzapine 10 mg HS po and 2.5 mg BID prn - started 05/30/2023 * continue duloxetine 30 mg daily - started 05/30/2023 * change vitamin D from cholecalciferol 800 IU daily to ergocalciferol 50,000 IU twice weekly for loading * continue cyanocobalamin 1,000 mcg daily, recheck level in 2-3 days to confirm adequacy of replacement 05/31/2023: * Continue olanzapine 10mg HS po and 2.5mg BID prn for now * Continue duloxetine 30mg daily * Start Vit D and B12 supplementation 05/30/2023: The patient was admitted to the [facility] ([facility]) on q15 min checks (behavioral with suicide precautions) for safety. The patient will participate in group, recreational, and milieu therapies and will be offered additional individual and family sessions as clinically appropriate. -Start olanzapine 10mg HS po -Start duloxetine 30mg daily -AM labwork including fasting glucose, HbA1c, B12, Folic Acid, Vit D, fasting lipid panel Inventory Assets Strengths: supportive relationships, willing to get treatment Needs: safety and stabilization, medication adjustment, additional coping skills, increased outpatient services Suicide Risk Level Suicide Risk Level: Moderate (q15 min suicide checks) (depression with poor self care plan prior to admission but denies current SI, reports he feels safe in the hospital, and agrees to let nursing/staff know should they develop plan, intent or feel unable to remain safe. ) Risk Factors Assessment Male: Yes : Yes Do You Have Access To A Gun?: Yes (multiple at home, making plans to have these removed) Health Problems: Yes (peripheral neuropathy) Mental Health Diagnoses: Yes Substance Use Disorders: No Previous Attempt: No Family History of Suicide: No Previous Psychiatric Hospitalization: Yes Protective Factors Assessment Temple Beliefs: Yes : Yes Employed: No (Retired) Stable Relationships: Yes Supportive Family: Yes Interval History Identifying Information JERARDO VELAZQUEZ is a 63-year-old man who currently lives in [place] with his , has a history of Major Depressive Disorder with psychotic features and suspicion for catatonia, and was admitted on 05/29/23 18:33 on a 201 voluntary commitment for lack of self-care/inability to function at home with refusal to eat/shower/attend to any self-care needs and increasing paranoia, agoraphobia and depression. Chief Complaint "I can't understand it all". Review of Systems Sleep Information Total Hours of Sleep: 6.75 Sleep Comments: Woke up for a snack Meal Information Percent Meal Consumed - Breakfast: 0 Percent Meal Consumed - Lunch: 50 Percent Meal Consumed - Dinner: 0 Nutrition Comment: recorded from paper meal log Subjective Subjective The patient was seen and assessed and interval progress reviewed in a multidisciplinary team meeting with the treatment team. For details, see the "Impression" section. Overall I spent a total of 32 minutes for this inpatient follow-up including review of chart records, direct evaluation of the patient [id number], aids counselor ing the patient, reconciling and ordering medication, medication education with the patient, risk assessment, discussion during interdisciplinary treatment rounds, and documentation in the electronic health record. Physical Exam Psychiatric Orientation: alert, oriented to person, oriented to place, oriented to time and cooperative (very superficially) Apperance: appropriately dressed, appropriately groomed and + disheveled Eye Contact: + fair eye contact Motor Behavior: no abnormal motor movements Speech: normal rate/rhythm/volume of speech Affect: + anxious affect and + constricted affect Mood: + anxious mood and + dysphoric mood Thought Process: goal directed thought process Thought Content: + preoccupation ("don't know what's wrong with me"), + cognitive distortions, reality based without delusions and + self deprecation Suicidal Thoughts: denies suicidal thoughts, denies suicidal plan and denies suicidal intent Homicidal Thoughts: denies homicidal thoughts Hallucinations: + visual hallucinations ("squiggles and dots" when he closes his eyes); no auditory hallucinations Cognition: recent memory grossly intact, remote memory grossly intact, attention grossly intact and language grossly intact Estimated Intelligence: consistent with education level Insight: + fair insight Judgment: + fair judgement Vital Signs (Past 24 Hours) Last Vital Signs Temp 36.1 C L 06/06/23 06:34 Pulse 83 06/06/23 06:36 Resp 18 06/06/23 06:34 BP 137/77 06/06/23 06:36 Pulse Ox 97 06/06/23 06:34 O2 Del Method Room Air 06/06/23 06:34 Results & Data (U) Current Inpatient Medications Current Inpatient Medications: Current Inpatient Medications Acetaminophen (Acetaminophen 325 Mg Tab) 650 mg PO Q4H PRN PRN Reason: Headache or Minor Fever Stop: 06/28/23 18:32 Al Hydrox/Mg Hydrox/Simethicone (Aluminum/Magnesium Susp 30 Ml Udc) 30 ml PO Q4H PRN PRN Reason: GI Upset Stop: 06/28/23 18:32 Bismuth Subsalicylate (Bismuth Subsalicylate Liqd 236 Ml) 15 ml PO PRN PRN PRN Reason: Loose Stool Stop: 06/28/23 18:32 Cyanocobalamin (Cyanocobalamin (B-12) 500 Mcg Tablet) 1,000 mcg PO QAM DEANDRE Stop: 07/01/23 08:59 Last Admin: 06/06/23 09:29 Dose: 1,000 mcg Duloxetine HCl (Duloxetine Hcl 30 Mg Cap) 30 mg PO QAM DEANDRE Stop: 06/30/23 08:59 Last Admin: 06/06/23 09:29 Dose: 30 mg Ergocalciferol (Ergocalciferol 50,000 Units 1250 Mcg Cap) 50,000 units PO SuWe@0900 [facility] Stop: 07/02/23 08:59 Last Admin: 06/05/23 08:36 Dose: 50,000 units Hydroxyzine HCl (Hydroxyzine Hcl 25 Mg Tab) 50 mg PO HSZ PRN PRN Reason: Insomnia Stop: 06/28/23 18:32 Hydroxyzine HCl (Hydroxyzine Hcl 25 Mg Tab) 25 mg PO Q4H PRN PRN Reason: Anxiety Stop: 06/28/23 18:32 Magnesium Hydroxide (Magnesium Hydroxide Susp 30 Ml Udc) 30 ml PO DAILY PRN PRN Reason: Constipation Stop: 06/28/23 18:32 Last Admin: 06/05/23 18:05 Dose: 30 ml Modafinil (Modafinil 100 Mg Tab) 200 mg PO QAM [facility] Stop: 07/05/23 08:59 Last Admin: 06/06/23 09:31 Dose: 200 mg Olanzapine (Olanzapine 10 Mg Tab) 10 mg PO HS DEANDRE Stop: 06/29/23 21:59 Last Admin: 06/05/23 21:25 Dose: 10 mg Olanzapine (Olanzapine 2.5 Mg Tab) 2.5 mg PO BID PRN PRN Reason: Anxiety/Agitation Stop: 06/30/23 20:59 Sodium Chloride (Sodium Chloride 0.65% Na Soln 45 Ml ([place])) 1 - 2 sprays NA PRN PRN PRN Reason: Nasal Dryness/Congestion Stop: 06/28/23 18:32 Mental Health & Subst Abuse Tx Therapist Name of Therapist: Angel "Zi" Estrada Therapist's Time of Therapist Appointment: [address] [place] [address] Therapy Appointment Comment: Please call if interested in mental health counseling. Upsetting Machine Operator Name of Upsetting Machine Operator: [facility] - Blended Case Management Phone Number for Upsetting Machine Operator: [phone] Case Management Appointment Comment: Please call if you are interested in blended case management. Post Discharge Appointments Primary Care Physician Name Of Family Doctor/PCP: [facility] Date of Future Appointment with PCP: 06/11/23 Time of Appointment with PCP: arrival 10:45 AM Provider Appointment Comment: [address] [place] [address] Contact Information Discharge Discharge Address: [facility] [address], [place] [address]
[2023-06-06] MEDS ORDERED: modafiniL 100 MG TAB PO SCH (13:00)
[2023-06-06] MEDS: OLANZapine 10 MG TAB PO SCH (21:32)
--- NOTE | 2023-06-07 09:00 | Psychiatric Progress Note ---
Date of Service June 07, 2023 Impression / Recommendations Impression Ed is a 63 year old man with a history of MDD with psychotic features who was admitted for worsening agoraphobia, paranoia, depression and anxiety with inability to provide for his self-care needs including significant weight loss (with ketones in his urine) and hopelessness. Diagnostically seems most consistent with major depressive disorder with psychotic features and generalized anxiety disorder with agoraphobia and panic attacks. No current signs of catatonia so will hold off on use of any benzodiazepines. He is deemed in need of psychiatric hospitalization for diagnostic clarification, safety and stabilization, medication management and development of further coping skills. MNPR due to extreme anxiety, paranoia, poor self-care/hygiene prior to admission 06/07/2023: Pt has resumed spending more time in bed, though to a lesser degree than before the addition of modafinil. He didn't eat supper last night nor has he yet had breakfast this morning. On rounds he lies fully-awake atop his blanket. It's certainly possible that his depression has melancholic features that may not respond well to medication. For the past week he hasn't evidenced any psychotic features, though that could certainly be due to olanzapine. The treatment team discussed the possibility of referral for ECT. However, a pattern of help-rejecting and passive aggression seems very consistent with his personality traits and may not be at all amenable to medication treatment. 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 Pt is clearly anxious but has not had any panic episodes for the past week. In my opinion his symptoms are responding to medication to the greatest degree they're likely to and that, unless he elects to pursue referral for ECT, there is little to be gained from prolonging his inp atient stay. He reports no adverse effects attributable to medications, including duloxetine started a week ago, so discussed proceeding with titration to planned target dose of 60 mg of duloxetine as well as increasing modafinil to typical dose of 200 mg BID. He agrees to this plan (but predicts it won't help). 06/06/2023: Remains very help-rejecting. Spent most of the day out of bed once staff chivvied him up, then went to bed after supper and remained there. Continues to ruminate about "not understanding it" or that he "can't figure it out", "it" being fairly nebulous and difficult for him to specify. He agrees that he's been better during the day after having started AM modafinil but is concerned that "it seems to wear off by evening". Repeat B12 level was within the reference range at 382 pg/mL, indicating that current dose is appropriate. 06/05/2023: Following my meeting with pt yesterday, including discussion of the importance of participating in the milieu, benefits of physical activity, pt went to bed and wouldn't get back out. Today has thus far seemed much better - he's been out of his room, participated in the groups that have taken place . He remains preoccupied and perseverative, though this has changed from "I just can't function" to "I don't know what's wrong with me". Asks me several times if I think the medication I ordered recently (and have been discussing with him frequently) will help. Denies any problems with this morning's 200 mg modafinil dose. B12 replenishment was started 5 days ago. Will recheck level to confirm adequacy of the current dose. 06/04/2023: After a very good day yesterday, pt is back in bed, declining to participate in the milieu. He'd asked to reduce the modafinil dose yesterday due to a [id number] feeling that it was "too much". Once pried out of bed by staff he did stay out and participated in the milieu but has been perseverating on how he doesn't understand what's going on (with his mood). Discussed medication plan at length. Pt guardedly agrees to increase modafinil. 06/03/2023: Has been much more active today, out of his room attending groups. He's shaved and showered. Much more interactive and able to attend to conversation. He voices "feeling a little freaked out" by the change, which he doesn't think of as negative but he's surprised at how different he feels compared to yesterday. He wonders if the modafinil dose "might be too much" but can't really specify any particular problem. 06/02/2023: Pt has been out of his room a few times, attended exercise group this morning (but didn't participate much), but overall spends most of his time in bed awake. He continues to report that he "just can't function" in ways he can't specify. Endorses "paranoia" but can't or won't elaborate - when asked for more detail, says "the medication knocked me out last night". Says he's "having visual hallucinations" consisting of "dots and squiggles" when he closes his eyes. HIs attention is very poor and many questions must be repeated, but says he's not experiencing anything along the lines of auditory hallucinations or any specific thing that's occupying his attention. Very help-rejecting, even about things that I haven't actually specified yet. He certainly evidences substantial passive-aggressive personality traits. In reviewing MAR, pt has not needed any PRN olanzapine recently. Discussed off-label trial of modafinil, the primary use of which is to treat excessive daytime sleepiness (albeit for conditions he doesn't have) and for which there's significant evidence of efficacy for ADHD (which I don't think he has, though he certainly has great difficulty concentrating) and for major depression. I discussed that a related drug not used in the [facility] (adrafinil) has a demonstrated risk of TEN (primarily in children) and that it's presumed that this could be the case with modafinil as well. Discussed risks of headache or upset stomach. Pt did not display much interest in seeking improvement but agreed to an off-label trial of modafinil. 06/01/2023: Pt says he just wants to sleep, but is actually awake in bed on approach and readily interacts. Eye contact is poor, and responses to many items are limited to shrugs. Pt isn't sure if medication has made any noticeable difference. He doesn't spontaneously report any of the obsessive, persecutory beliefs previously documented but when asked say there are thoughts he "just can't stop". 05/31/2023: Today presents as significantly worse and decompensated compared with yesterday with fairly extreme thought blocking, isolative, refusing meals. No classic signs of catatonia but possible this could be playing a role today as antipsychotic dose was increased. Does appear he slept better with titration of olanzapine but unclear why he is struggling so much more today. Concerns for extensive ruminations and psychosis leading to thought blocking and his inability to engage in spontaneous conversation today. Review of labwork notable for normal glucose, HbA1c, total cholesterol/TGs/HDL with low risk LDL. Folic acid levels were normal. Deficient in Vitamin D and B12. He consents to starting supplementation for this. (1) MDD (major depressive disorder), recurrent, severe, with psychosis: (2) Generalized anxiety disorder with panic attacks: (3) Agoraphobia with panic attacks: (4) Vitamin D deficiency: (5) Vitamin B12 deficiency: (6) Personality disorder: Plan 06/07/2023: * increase (off-label) modafinil to 200 mg QAM & at 1300 - increased 06/06/2023 to 200 mg QAM & 100 mg QPM, increased 06/04/2023 to 200 mg from 100 mg, reduced 06/03/2023 to 100 mg, started 06/02/2023 at 200 mg * continue olanzapine 10 mg HS and 2.5 mg BID PRN - started 05/30/2023 * increase duloxetine to 60 mg daily - started 05/30/2023 at 30 mg * continue ergocalciferol 50,000 IU twice weekly for loading - started 06/02/2023 * continue cyanocobalamin 1,000 mcg daily 06/06/2023: * increase (off-label) modafinil to 200 mg QAM & 100 mg at 1300 - increased 06/04/2023 to 200 mg from 100 mg, reduced 06/03/2023 to 100 mg, started 06/02/2023 at 200 mg * continue olanzapine 10 mg HS and 2.5 mg BID PRN - started 05/30/2023 * continue duloxetine 30 mg daily - started 05/30/2023 * continue ergocalciferol 50,000 IU twice weekly for loading - started 06/02/2023 * continue cyanocobalamin 1,000 mcg daily 06/05/2023: * continue (off-label) modafinil 200 mg QAM - increased 06/04/2023 from 100 mg, reduced 06/03/2023 to 100 mg, started 06/02/2023 at 200 mg * continue olanzapine 10 mg HS and 2.5 mg BID PRN - started 05/30/2023 * continue duloxetine 30 mg daily - started 05/30/2023 * continue ergocalciferol 50,000 IU twice weekly for loading - started 06/02/2023 * continue cyanocobalamin 1,000 mcg daily * recheck cyanocobalamin level to confirm adequacy of replacement 06/04/2023: * increase (off-label) modafinil back to 200 mg QAM - reduced 06/03/2023 to 100 mg, started 06/02/2023 at 200 mg * continue olanzapine 10 mg HS and 2.5 mg BID PRN - started 05/30/2023 * continue duloxetine 30 mg daily - started 05/30/2023 * continue ergocalciferol 50,000 IU twice weekly for loading * continue cyanocobalamin 1,000 mcg daily, recheck level in 2-3 days to confirm adequacy of replacement 06/03/2023: * reduce (off-label) modafinil to 100 mg QAM - started 06/02/2023 at 200 mg * continue olanzapine 10 mg HS and 2.5 mg BID PRN - started 05/30/2023 * continue duloxetine 30 mg daily - started 05/30/2023 * continue ergocalciferol 50,000 IU twice weekly for loading * continue cyanocobalamin 1,000 mcg daily, recheck level in 2-3 days to confirm adequacy of replacement 06/02/2023: * start (off-label) modafinil 200 mg QAM * continue olanzapine 10 mg HS and 2.5 mg BID PRN - started 05/30/2023 * continue duloxetine 30 mg daily - started 05/30/2023 * change vitamin D from cholecalciferol 800 IU daily to ergocalciferol 50,000 IU twice weekly for loading * continue cyanocobalamin 1,000 mcg daily, recheck level in 2-3 days to confirm adequacy of replacement 06/01/2023: * continue olanzapine 10 mg HS po and 2.5 mg BID prn - started 05/30/2023 * continue duloxetine 30 mg daily - started 05/30/2023 * change vitamin D from cholecalciferol 800 IU daily to ergocalciferol 50,000 IU twice weekly for loading * continue cyanocobalamin 1,000 mcg daily, recheck level in 2-3 days to confirm adequacy of replacement 05/31/2023: * Continue olanzapine 10mg HS po and 2.5mg BID prn for now * Continue duloxetine 30mg daily * Start Vit D and B12 supplementation 05/30/2023: The patient was admitted to the [facility] on q15 min checks (behavioral with suicide precautions) for safety. The patient will participate in group, recreational, and milieu therapies and will be offered additional individual and family sessions as clinically appropriate. -Start olanzapine 10mg HS po -Start duloxetine 30mg daily -AM labwork including fasting glucose, HbA1c, B12, Folic Acid, Vit D, fasting lipid panel Inventory Assets Strengths: supportive relationships, willing to get treatment Needs: safety and stabilization, medication adjustment, additional coping skills, increased outpatient services Suicide Risk Level Suicide Risk Level: Moderate (q15 min suicide checks) (depression with poor self care plan prior to admission but denies current SI, reports he feels safe in the hospital, and agrees to let nursing/staff know should they develop plan, intent or feel unable to remain safe. ) Risk Factors Assessment Male: Yes : Yes Do You Have Access To A Gun?: Yes (multiple at home, making plans to have these removed) Health Problems: Yes (peripheral neuropathy) Mental Health Diagnoses: Yes Substance Use Disorders: No Previous Attempt: No Family History of Suicide: No Previous Psychiatric Hospitalization: Yes Protective Factors Assessment Faith Beliefs: Yes : Yes Employed: No (Retired) Stable Relationships: Yes Supportive Family: Yes Interval History Identifying Information JERARDO VELAZQUEZ is a 63-year-old man who currently lives in [place] with his , has a history of Major Depressive Disorder with psychotic features and suspicion for catatonia, and was admitted on 05/29/23 18:33 on a 201 voluntary commitment for lack of self-care/inability to function at home with refusal to eat/shower/attend to any self-care needs and increasing paranoia, agoraphobia and depression. Chief Complaint "I don't know what's wrong with me". Review of Systems Sleep Information Total Hours of Sleep: 7.25 Sleep Comments: Woke up for a snack Meal Information Percent Meal Consumed - Breakfast: 0 Percent Meal Consumed - Lunch: 100 Percent Meal Consumed - Dinner: 0 Nutrition Comment: recorded from paper meal log Subjective Subjective The patient was seen and assessed and interval progress reviewed in a multidisciplinary team meeting with the treatment team. For details, see the "Impression" section. Overall I spent a total of 39 minutes for this inpatient follow-up including review of chart records, direct evaluation of the patient [id number], counseling the patient, reconciling and ordering medication, medication education with the patient, risk assessment, discussion during interdisciplinary treatment rounds, and documentation in the electronic health record. Physical Exam Psychiatric Orientation: alert, oriented to person, oriented to place, oriented to time and cooperative (very superficially) Apperance: appropriately dressed, appropriately groomed and + disheveled Eye Contact: + fair eye contact Motor Behavior: no abnormal motor movements Speech: normal rate/rhythm/volume of speech Affect: + anxious affect and + constricted affect Mood: + anxious mood and + dysphoric mood Thought Process: goal directed thought process Thought Content: + preoccupation ("don't know what's wrong with me"), + cognitive distortions, reality based without delusions and + self deprecation Suicidal Thoughts: denies suicidal thoughts, denies suicidal plan and denies suicidal intent Homicidal Thoughts: denies homicidal thoughts Hallucinations: + visual hallucinations ("squiggles and dots" when he closes his eyes); no auditory hallucinations Cognition: recent memory grossly intact, remote memory grossly intact, attention grossly intact and language grossly intact Estimated Intelligence: consistent with education level Insight: + fair insight Judgment: + fair judgement Vital Signs (Past 24 Hours) Last Vital Signs Temp 36.5 C 06/07/23 06:43 Pulse 100 H 06/07/23 07:02 Resp 16 06/07/23 06:43 BP 144/87 H 06/07/23 06:44 Pulse Ox 97 06/06/23 06:34 O2 Del Method Room Air 06/06/23 06:34 Results & Data ([facility]) Current Inpatient Medications Current Inpatient Medications: Current Inpatient Medications Acetaminophen (Acetaminophen 325 Mg Tab) 650 mg PO Q4H PRN PRN Reason: Headache or Minor Fever Stop: 06/28/23 18:32 Al Hydrox/Mg Hydrox/Simethicone (Aluminum/Magnesium Susp 30 Ml Udc) 30 ml PO Q4H PRN PRN Reason: GI Upset Stop: 06/28/23 18:32 Bismuth Subsalicylate (Bismuth Subsalicylate Liqd 236 Ml) 15 ml PO PRN PRN PRN Reason: Loose Stool Stop: 06/28/23 18:32 Cyanocobalamin (Cyanocobalamin (B-12) 500 Mcg Tablet) 1,000 mcg PO QAM DEANDRE Stop: 07/01/23 08:59 Last Admin: 06/06/23 09:29 Dose: 1,000 mcg Duloxetine HCl (Duloxetine Hcl 30 Mg Cap) 30 mg PO QAM [facility] Stop: 06/30/23 08:59 Last Admin: 06/06/23 09:29 Dose: 30 mg Ergocalciferol (Ergocalciferol 50,000 Units 1250 Mcg Cap) 50,000 units PO SuWe@0900 [facility] Stop: 07/02/23 08:59 Last Admin: 06/05/23 08:36 Dose: 50,000 units Hydroxyzine HCl (Hydroxyzine Hcl 25 Mg Tab) 50 mg PO HSZ PRN PRN Reason: Insomnia Stop: 06/28/23 18:32 Hydroxyzine HCl (Hydroxyzine Hcl 25 Mg Tab) 25 mg PO Q4H PRN PRN Reason: Anxiety Stop: 06/28/23 18:32 Magnesium Hydroxide (Magnesium Hydroxide Susp 30 Ml Udc) 30 ml PO DAILY PRN PRN Reason: Constipation Stop: 06/28/23 18:32 Last Admin: 06/05/23 18:05 Dose: 30 ml Modafinil (Modafinil 100 Mg Tab) 200 mg PO QAM [facility] Stop: 07/05/23 08:59 Last Admin: 06/06/23 09:31 Dose: 200 mg Modafinil (Modafinil 100 Mg Tab) 100 mg PO TODAY@1300 [facility] Stop: 07/06/23 12:59 Last Admin: 06/06/23 13:09 Dose: 100 mg Olanzapine (Olanzapine 10 Mg Tab) 10 mg PO HS DEANDRE Stop: 06/29/23 21:59 Last Admin: 06/06/23 21:32 Dose: 10 mg Olanzapine (Olanzapine 2.5 Mg Tab) 2.5 mg PO BID PRN PRN Reason: Anxiety/Agitation Stop: 06/30/23 20:59 Sodium Chloride (Sodium Chloride 0.65% Na Soln 45 Ml ([place])) 1 - 2 sprays NA PRN PRN PRN Reason: Nasal Dryness/Congestion Stop: 06/28/23 18:32 Mental Health & Subst Abuse Tx Therapist Name of Therapist: Angel Dorado (Skip) Therapist's Time of Therapist Appointment[address] [place] [address] Therapy Appointment Comment: Please call if interested in mental health counseling. Creative Arts Therapist Name of Creative Arts Therapist: [facility] - Blended Case Management Phone Number for Creative Arts Therapist: [phone] Case Management Appointment Comment: Please call if you are interested in blended case management. Post Discharge Appointments Primary Care Physician Name Of Family Doctor/PCP: [facility] Date of Future Appointment with PCP: 06/11/23 Time of Appointment with PCP: arrival 10:45 AM Provider Appointment Comment: [address] [place] [address] Contact Information Discharge Discharge Address: [facility] [place] [address] [address] [address]
[2023-06-07] MEDS: CYANOCOBALAMIN (B-12) 500 MCG TABLET PO SCH (09:28)
[2023-06-07] MEDS: modafiniL 100 MG TAB PO SCH (09:29)
[2023-06-07] MEDS: DULoxetine HCL 30 MG CAP PO SCH (09:29)
[2023-06-07] MEDS ORDERED: DULoxetine HCL 30 MG CAP PO ONE (12:04)
[2023-06-07] MEDS ORDERED: modafiniL 100 MG TAB PO SCH (13:00)
[2023-06-07] MEDS: OLANZapine 10 MG TAB PO SCH (21:15)
[2023-06-08] MEDS: CYANOCOBALAMIN (B-12) 500 MCG TABLET PO SCH (08:39)
[2023-06-08] MEDS: modafiniL 100 MG TAB PO SCH (08:39)
[2023-06-08] MEDS: DULoxetine HCL 60 MG CAP PO SCH (08:40)
[2023-06-08] MEDS: METHYLPHENIDATE HCL 5 MG TABLET PO SCH (13:15)
--- NOTE | 2023-06-08 18:50 | Psychiatric Progress Note ---
Date of Service June 08, 2023 Impression / Recommendations Impression Ed is a 63 year old man with a history of MDD with psychotic features who was admitted for worsening agoraphobia, paranoia, depression and anxiety with inability to provide for his self-care needs including significant weight loss (with ketones in his urine) and hopelessness. Diagnostically seems most consistent with major depressive disorder with psychotic features and generalized anxiety disorder with agoraphobia and panic attacks. No current signs of catatonia so will hold off on use of any benzodiazepines. He is deemed in need of psychiatric hospitalization for diagnostic clarification, safety and stabilization, medication management and development of further coping skills. MNPR due to extreme anxiety, paranoia, poor self-care/hygiene prior to admission 06/08/2023: Following discussion yesterday about anticipating discharge soon, pt had a really bad afternoon with aggressively passive behaviors. These included announcing that he'd "pooped [his] pants" while in bed then refusing for a time to change clothes or shower, as well as intimating that it was "going to happen again". Today initially resisted leaving his room with when staff insisted forcefully they were able to get him up, walked around the unit with him. He said he "couldn't" eat but did eat when they persistently reminded him that he obviously could eat. Today sits on bed (an improvement over lying on it) but continues to perseverate on all the things he "can't" (yet demonstrably actually can) do. Modafinil trial has patently failed despite initial promise. Pt exhibits numerous symptoms consistent with hypofrontality, for which stimulants are usually at least somewhat helpful. I'd hoped to minimize risk of exacerbating his anxiety, but at this point that risk seems to be outweighed by the need to address his passivity. 06/07/2023: Pt has resumed spending more time in bed, though to a lesser degree than before the addition of modafinil. He didn't eat supper last night nor has he yet had breakfast this morning. On rounds he lies fully-awake atop his blanket. It's certainly possible that his depression has melancholic features that may not respond well to medication. For the past week he hasn't evidenced any psychotic features, though that could certainly be due to olanzapine. The treatment team discussed the possibility of referral for ECT. However, a pattern of help-rejecting and passive aggression seems very consistent with his personality traits and may not be at all amenable to medication treatment. 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 Pt is clearly anxious but has not had any panic episodes for the past week. In my opinion his symptoms are responding to medication to the greatest degree they're likely to and that, unless he elects to pursue referral for ECT, there is little to be gained from prolonging his inpatient stay. He reports no adverse effects attributable to medications, including duloxetine started a week ago, so discussed proceeding with titration to planned target dose of 60 mg of duloxetine as well as increasing modafinil to typical dose of 200 mg BID. He agrees to this plan (but predicts it won't help). 06/06/2023: Remains very help-rejecting. Spent most of the day out of bed once staff chivvied him up, then went to bed after supper and remained there. Continues to ruminate about "not understanding it" or that he "can't figure it out", "it" being fairly nebulous and difficult for him to specify. He agrees that he's been better during the day after having started AM modafinil but is concerned that "it seems to wear off by evening". Repeat B12 level was within the reference range at 382 pg/mL, indicating that current dose is appropriate. 06/05/2023: Following my meeting with pt yesterday, including discussion of the importance of participating in the milieu, benefits of physical activity, pt went to bed and wouldn't get back out. Today has thus far seemed much better - he's been out of his room, participated in the groups that have taken place . He remains preoccupied and perseverative, though this has changed from "I just can't function" to "I don't know what's wrong with me". Asks me several times if I think the medication I ordered recently (and have been discussing with him frequently) will help. Denies any problems with this morning's 200 mg modafinil dose. B12 replenishment was started 5 days ago. Will recheck level to confirm adequacy of the current dose. 06/04/2023: After a very good day yesterday, pt is back in bed, declining to participate in the milieu. He'd asked to reduce the modafinil dose yesterday due to a [id number] feeling that it was "too much". Once pried out of bed by staff he did stay out and participated in the milieu but has been perseverating on how he doesn't understand what's going on (with his mood). Discussed medication plan at length. Pt guardedly agrees to increase modafinil. 06/03/2023: Has been much more active today, out of his room attending groups. He's shaved and showered. Much more interactive and able to attend to conversation. He voices "feeling a little freaked out" by the change, which he doesn't think of as negative but he's surprised at how different he feels compared to yesterday. He wonders if the modafinil dose "might be too much" but can't really specify any particular problem. 06/02/2023: Pt has been out of his room a few times, attended exercise group this morning (but didn't participate much), but overall spends most of his time in bed awake. He continues to report that he "just can't function" in ways he can't specify. Endorses "paranoia" but can't or won't elaborate - when asked for more detail, says "the medication knocked me out last night". Says he's "having visual hallucinations" consisting of "dots and squiggles" when he closes his eyes. HIs attention is very poor and many questions must be repeated, but says he's not experiencing anything along the lines of auditory hallucinations or any specific thing that's occupying his attention. Very help-rejecting, even about things that I haven't actually specified yet. He certainly evidences substantial passive-aggressive personality traits. In reviewing MAR, pt has not needed any PRN olanzapine recently. Discussed off-label trial of modafinil, the primary use of which is to treat excessive daytime sleepiness (albeit for conditions he doesn't have) and for whi ch there's significant evidence of efficacy for ADHD (which I don't think he has, though he certainly has great difficulty concentrating) and for major depression. I discussed that a related drug not used in the [place] (adrafinil) has a demonstrated risk of TEN (primarily in children) and that it's presumed that this could be the case with modafinil as well. Discussed risks of headache or upset stomach. Pt did not display much interest in seeking improvement but agreed to an off-label trial of modafinil. 06/01/2023: Pt says he just wants to sleep, but is actually awake in bed on approach and readily interacts. Eye contact is poor, and responses to many items are limited to shrugs. Pt isn't sure if medication has made any noticeable difference. He doesn't spontaneously report any of the obsessive, persecutory beliefs previously documented but when asked say there are thoughts he "just can't stop". 05/31/2023: Today presents as significantly worse and decompensated compared with yesterday with fairly extreme thought blocking, isolative, refusing meals. No classic signs of catatonia but possible this could be playing a role today as antipsychotic dose was increased. Does appear he slept better with titration of olanzapine but unclear why he is struggling so much more today. Concerns for extensive ruminations and psychosis leading to thought blocking and his inability to engage in spontaneous conversation today. Review of labwork notable for normal glucose, HbA1c, total cholesterol/TGs/HDL with low risk LDL. Folic acid levels were normal. Deficient in Vitamin D and B12. He consents to starting supplementation for this. (1) MDD (major depressive disorder), recurrent, severe, with psychosis: (2) Generalized anxiety disorder with panic attacks: (3) Agoraphobia with panic attacks: (4) Vitamin D deficiency: (5) Vitamin B12 deficiency: (6) Personality disorder: Plan 06/08/2023: * stop modafinil - increased 06/06/2023 to 200 mg QAM & 100 mg QPM, increased 06/04/2023 to 200 mg from 100 mg, reduced 06/03/2023 to 100 mg, started 06/02/2023 at 200 mg * begin trial of methylphenidate 5 mg QAM & QPM at 1400 * continue olanzapine 10 mg HS and 2.5 mg BID PRN - started 05/30/2023 * continue duloxetine 60 mg daily - increased 06/07/2023, started 05/30/2023 at 30 mg * continue ergocalciferol 50,000 IU twice weekly for loading - started 06/02/2023 * continue cyanocobalamin 1,000 mcg daily 06/07/2023: * increase (off-label) modafinil to 200 mg QAM & at 1300 - increased 06/06/2023 to 200 mg QAM & 100 mg QPM, increased 06/04/2023 to 200 mg from 100 mg, reduced 06/03/2023 to 100 mg, started 06/02/2023 at 200 mg * continue olanzapine 10 mg HS and 2.5 mg BID PRN - started 05/30/2023 * increase duloxetine to 60 mg daily - started 05/30/2023 at 30 mg * continue ergocalciferol 50,000 IU twice weekly for loading - started 06/02/2023 * continue cyanocobalamin 1,000 mcg daily 06/06/2023: * increase (off-label) modafinil to 200 mg QAM & 100 mg at 1300 - increased 06/04/2023 to 200 mg from 100 mg, reduced 06/03/2023 to 100 mg, started 06/02/2023 at 200 mg * continue olanzapine 10 mg HS and 2.5 mg BID PRN - started 05/30/2023 * continue duloxetine 30 mg daily - started 05/30/2023 * continue ergocalciferol 50,000 IU twice weekly for loading - started 06/02/2023 * continue cyanocobalamin 1,000 mcg daily 06/05/2023: * continue (off-label) modafinil 200 mg QAM - increased 06/04/2023 from 100 mg, reduced 06/03/2023 to 100 mg, started 06/02/2023 at 200 mg * continue olanzapine 10 mg HS and 2.5 mg BID PRN - started 05/30/2023 * continue duloxetine 30 mg daily - started 05/30/2023 * continue ergocalciferol 50,000 IU twice weekly for loading - started 06/02/2023 * continue cyanocobalamin 1,000 mcg daily * recheck cyanocobalamin level to confirm adequacy of replacement 06/04/2023: * increase (off-label) modafinil back to 200 mg QAM - reduced 06/03/2023 to 100 mg, started 06/02/2023 at 200 mg * continue olanzapine 10 mg HS and 2.5 mg BID PRN - started 05/30/2023 * continue duloxetine 30 mg daily - started 05/30/2023 * continue ergocalciferol 50,000 IU twice weekly for loading * continue cyanocobalamin 1,000 mcg daily, recheck level in 2-3 days to confirm adequacy of replacement 06/03/2023: * reduce (off-label) modafinil to 100 mg QAM - started 06/02/2023 at 200 mg * continue olanzapine 10 mg HS and 2.5 mg BID PRN - started 05/30/2023 * continue duloxetine 30 mg daily - started 05/30/2023 * continue ergocalciferol 50,000 IU twice weekly for loading * continue cyanocobalamin 1,000 mcg daily, recheck level in 2-3 days to confirm adequacy of replacement 06/02/2023: * start (off-label) modafinil 200 mg QAM * continue olanzapine 10 mg HS and 2.5 mg BID PRN - started 05/30/2023 * continue duloxetine 30 mg daily - started 05/30/2023 * change vitamin D from cholecalciferol 800 IU daily to ergocalciferol 50,000 IU twice weekly for loading * continue cyanocobalamin 1,000 mcg daily, recheck level in 2-3 days to confirm adequacy of replacement 06/01/2023: * continue olanzapine 10 mg HS po and 2.5 mg BID prn - started 05/30/2023 * continue duloxetine 30 mg daily - started 05/30/2023 * change vitamin D from cholecalciferol 800 IU daily to ergocalciferol 50,000 IU twice weekly for loading * continue cyanocobalamin 1,000 mcg daily, recheck level in 2-3 days to confirm adequacy of replacement 05/31/2023: * Continue olanzapine 10mg HS po and 2.5mg BID prn for now * Continue duloxetine 30mg daily * Start Vit D and B12 supplementation 05/30/2023: The patient was admitted to the [facility] (locked inpatient mental health unit) on q15 min checks (behavioral with suicide precautions) for safety. The patient will participate in group, recreational, and milieu therapies and will be offered additional individual and family sessions as clinically appropriate. -Start olanzapine 10mg HS po -Start duloxetine 30mg daily -AM labwork including fasting glucose, HbA1c, B12, Folic Acid, Vit D, fasting lipid panel Inventory Assets Strengths: supportive relationships, willing to get treatment Needs: safety and stabilization, medication adjustment, additional coping skills, increased outpatient services Suicide Risk Level Suicide Risk Level: Moderate (q15 min suicide checks) (depression with poor self care plan prior to admission but denies current SI, reports he feels safe in the hospital, and agrees to let nursing/staff know should they develop plan, intent or feel unable to remain safe. ) Risk Factors Assessment Male: Yes : Yes Do You Have Access To A Gun?: Yes (multiple at home, making plans to have these removed) Health Problems: Yes (peripheral neuropathy) Mental Health Diagnoses: Yes Substance Use Disorders: No Previous Attempt: No Family History of Suicide: No Previous Psychiatric Hospitalization: Yes Protective Factors Assessment L[employer] Day Beliefs: Yes : Yes Employed: No (Retired) Stable Relationships: Yes Supportive Family: Yes Interval History Identifying Information JERARDO VELAZQUEZ is a 63-year-old man who currently lives in [place] with his , has a history of Major Depressive Disorder with psychotic features and suspicion for catatonia, and was admitted on 05/29/23 18:33 on a 201 voluntary commitment for lack of self-care/inability to function at home with refusal to eat/shower/attend to any self-care needs and increasing paranoia, agoraphobia and depression. Chief Complaint "I just don't get it". Review of Systems Sleep Information Total Hours of Sleep: 7 Sleep Comments: Woke up for a snack Meal Information Percent Meal Consumed - Breakfast: 0 Percent Meal Consumed - Lunch: 100 Percent Meal Consumed - Dinner: 0 Nutrition Comment: recorded from paper meal log Subjective Subjective The patient was seen and assessed and interval progress reviewed in a multidisciplinary team meeting with nursing and social work. For details, see the "Impression" section. Overall I spent a total of 40 minutes for this inpatient follow-up including review of chart records, direct evaluation of the patient [id number], counseling the patient, reconciling and ordering medication, medication education with the patient, risk assessment, discussion during interdisciplinary treatment rounds, and documentation in the electronic health record. Physical Exam Psychiatric Orientation: alert, oriented to person, oriented to place, oriented to time and cooperative (very superficially) Apperance: appropriately dressed, appropriately groomed and + disheveled Eye Contact: + fair eye contact Motor Behavior: no abnormal motor movements Speech: normal rate/rhythm/volume of speech Affect: + anxious affect and + constricted affect Mood: + anxious mood and + dysphoric mood Thought Process: goal directed thought process Thought Content: + preoccupation ("don't know what's wrong with me"), + cognitive distortions, reality based without delusions and + self deprecation Suicidal Thoughts: denies suicidal thoughts, denies suicidal plan and denies suicidal intent Homicidal Thoughts: denies homicidal thoughts Hallucinations: + visual hallucinations ("squiggles and dots" when he closes his eyes); no auditory hallucinations Cognition: recent memory grossly intact, remote memory grossly intact, attention grossly intact and language grossly intact Estimated Intelligence: consistent with education level Insight: + limited insight Judgment: + limited judgement Vital Signs (Past 24 Hours) Last Vital Signs Temp 36.4 C 06/08/23 06:50 Pulse 88 06/08/23 06:50 Resp 16 06/08/23 06:50 BP 145/94 H 06/08/23 06:50 Pulse Ox 95 06/08/23 06:50 O2 Del Method Room Air 06/08/23 06:50 Results & Data ([facility]) Current Inpatient Medications Current Inpatient Medications: Current Inpatient Medications Acetaminophen (Acetaminophen 325 Mg Tab) 650 mg PO Q4H PRN PRN Reason: Headache or Minor Fever Stop: 06/28/23 18:32 Al Hydrox/Mg Hydrox/Simethicone (Aluminum/Magnesium Susp 30 Ml Udc) 30 ml PO Q4H PRN PRN Reason: GI Upset Stop: 06/28/23 18:32 Bismuth Subsalicylate (Bismuth Subsalicylate Liqd 236 Ml) 15 ml PO PRN PRN PRN Reason: Loose Stool Stop: 06/28/23 18:32 Cyanocobalamin (Cyanocobalamin (B-12) 500 Mcg Tablet) 1,000 mcg PO QAM DEANDRE Stop: 07/01/23 08:59 Last Admin: 06/08/23 08:39 Dose: 1,000 mcg Duloxetine HCl (Duloxetine Hcl 60 Mg Cap) 60 mg PO QAM DEANDRE Stop: 07/08/23 08:59 Last Admin: 06/08/23 08:40 Dose: 60 mg Ergocalciferol (Ergocalciferol 50,000 Units 1250 Mcg Cap) 50,000 units PO [id number]@[id number] DEANDRE Stop: 07/02/23 08:59 Last Admin: 06/05/23 08:36 Dose: 50,000 units Hydroxyzine HCl (Hydroxyzine Hcl 25 Mg Tab) 50 mg PO HSZ PRN PRN Reason: Insomnia Stop: 06/28/23 18:32 Hydroxyzine HCl (Hydroxyzine Hcl 25 Mg Tab) 25 mg PO Q4H PRN PRN Reason: Anxiety Stop: 06/28/23 18:32 Magnesium Hydroxide (Magnesium Hydroxide Susp 30 Ml Udc) 30 ml PO DAILY PRN PRN Reason: Constipation Stop: 06/28/23 18:32 Last Admin: 06/05/23 18:05 Dose: 30 ml Methylphenidate HCl (Methylphenidate Hcl 5 Mg Tablet) 5 mg PO [id number] DEANDRE Stop: 06/22/23 13:59 Last Admin: 06/08/23 13:15 Dose: 5 mg Olanzapine (Olanzapine 10 Mg Tab) 10 mg PO HS DEANDRE Stop: 06/29/23 21:59 Last Admin: 06/07/23 21:15 Dose: 10 mg Olanzapine (Olanzapine 2.5 Mg Tab) 2.5 mg PO BID PRN PRN Reason: Anxiety/Agitation Stop: 06/30/23 20:59 Sodium Chloride (Sodium Chloride 0.65% Na Soln 45 Ml ([facility])) 1 - 2 sprays NA PRN PRN PRN Reason: Nasal Dryness/Congestion Stop: 06/28/23 18:32 Mental Health & Subst Abuse Tx Therapist Name of Therapist: Angel Dorado (Skip) Therapist's Time of Therapist Appointment: Justa Nieves, [place] [address] Therapy Appointment Comment: Please call if interested in mental health counseling. Street Light Inspector Name of Street Light Inspector: [facility] [place] - Blended Case Management Phone Number for Street Light Inspector: [phone] Case Management Appointment Comment: Please call if you are interested in blended case management. Post Discharge Appointments Primary Care Physician Name Of Family Doctor/PCP: [facility] Date of Future Appointment with PCP: 06/11/23 Time of Appointment with PCP: arrival 10:45 AM Provider Appointment Comment: [address] [place] [address] Contact Information Discharge Discharge Address: [facility] [address], [place] [id number]
[2023-06-08] MEDS: OLANZapine 10 MG TAB PO SCH (21:08)
[2023-06-09] MEDS: METHYLPHENIDATE HCL 5 MG TABLET PO SCH ×2 (07:00→13:16)
[2023-06-09] MEDS: CYANOCOBALAMIN (B-12) 500 MCG TABLET PO SCH (08:38)
[2023-06-09] MEDS: ERGOCALCIFEROL 50,000 UNITS 1250 MCG CAP PO SCH (08:39)
[2023-06-09] MEDS: DULoxetine HCL 60 MG CAP PO SCH (08:39)
--- NOTE | 2023-06-09 14:38 | Psychiatric Progress Note ---
Date of Service June 09, 2023 Impression / Recommendations Impression Ed is a 63 year old man with a history of MDD with psychotic features who was admitted for worsening agoraphobia, paranoia, depression and anxiety with inability to provide for his self-care needs including significant weight loss (with ketones in his urine) and hopelessness. Diagnostically seems most consistent with major depressive disorder with psychotic features and generalized anxiety disorder with agoraphobia and panic attacks. No current signs of catatonia so will hold off on use of any benzodiazepines. He is deemed in need of psychiatric hospitalization for diagnostic clarification, safety and stabilization, medication management and development of further coping skills. MNPR due to extreme anxiety, paranoia, poor self-care/hygiene prior to admission 06/09/2023: cue worker has been documenting discussions with pt's about symptoms prior to admission and with the patient about this information (q.v.). Pt overtly denied most of what his had reported (which is very consistent w ith reports at the time of admission) but tacitly acknowledged it (e.g., by saying his had probably also reported his worries about finances, which is true, or that barricading them in their house is no way to live). Despite encouragement from essentially every staff member today, pt has not participated in groups. I reiterated that every aspect of the treatment program is necessary and mandatory and that if he's simply going to lie around in bed he can do that at home. He has been less ridiculously passive today. Highly help-rejecting, saying he "can't" get up and walk or eat meals. Staff have simply been demanding that he get up and walk and eat, but at times he's said he's unable to do such things even as he does them. He's been eating well. Pt utterly refuses to say whether he feels at all more anxious or restless on methylphenidate. There's certainly no evidence of increased energy. We may need to consider a less-sedating antipsychotic. A nurse brought up the possibility of a trial of transdermal selegiline. This is an intriguing possibility with much to recommend it. It is, however, a non- formulary drug here that retails for about $80 per patch (which is changed daily) making it very likely to be financially unattainable. Selegiline is available in an inexpensive oral formulation, but that has never proven effective for depression. First-pass liver degradation of the drug is very significant, and at oral doses sufficient to overcome that and the drug's specificity for MAO-B, significant side effects are typically seen and gut MAO-A is usually inhibited to a substantial degree, eliminating the significant advantages of the transdermal form vs. typical MAOIs. 06/08/2023: Following discussion yesterday about anticipating discharge soon, pt had a really bad afternoon with aggressively passive behaviors. These included announcing that he'd "pooped [his] pants" while in bed then refusing for a time to change clothes or shower, as well as intimating that it was "going to happen again". Today initially resisted leaving his room with when staff insisted forcefully they were able to get him up, walked around the unit with him. He s aid he "couldn't" eat but did eat when they persistently reminded him that he obviously could eat. Today sits on bed (an improvement over lying on it) but continues to perseverate on all the things he "can't" (yet demonstrably actually can) do. Modafinil trial has patently failed despite initial promise. Pt exhibits numerous symptoms consistent with hypofrontality, for which stimulants are usually at least somewhat helpful. I'd hoped to minimize risk of exacerbating his anxiety, but at this point that risk seems to be outweighed by the need to address his passivity. 06/07/2023: Pt has resumed spending more time in bed, though to a lesser degree than before the addition of modafinil. He didn't eat supper last night nor has he yet had breakfast this morning. On rounds he lies fully-awake atop his blanket. It's certainly possible that his depression has melancholic features that may not respond well to medication. For the past week he hasn't evidenced any psychotic features, though that could certainly be due to olanzapine. The treatment team discussed the possibility of referral for ECT. However, a pattern of help-rejecting and passive aggression seems very consistent with his pers onality traits and may not be at all amenable to medication treatment. 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 Pt is clearly anxious but has not had any panic episodes for the past week. In my opinion his symptoms are responding to medication to the greatest degree they're likely to and that, unless he elects to pursue referral for ECT, there is little to be gained from prolonging his inpatient stay. He reports no adverse effects attributable to medications, including duloxetine started a week ago, so discussed proceeding with titration to planned target dose of 60 mg of duloxetine as well as increasing modafinil to typical dose of 200 mg BID. He agrees to this plan (but predicts it won't help). 06/06/2023: Remains very help-rejecting. Spent most of the day out of bed once staff chivvied him up, then went to bed after supper and remained there. Continues to ruminate about "not understanding it" or that he "can't figure it out", "it" being fairly nebulous and difficult for him to specify. He agrees that he's been better during the day after having started AM modafinil but is concerned that "it seems to wear off by evening". Repeat B12 level was within the reference range at 382 pg/mL, indicating that current dose is appropriate. 06/05/2023: Following my meeting with pt yesterday, including discussion of the importance of participating in the milieu, benefits of physical activity, pt went to bed and wouldn't get back out. Today has thus far seemed much better - he's been out of his room, participated in the groups that have taken place . He remains preoccupied and perseverative, though this has changed from "I just can't function" to "I don't know what's wrong with me". Asks me several times if I think the medication I ordered recently (and have been discussing with him frequently) will help. Denies any problems with this morning's 200 mg modafinil dose. B12 replenishment was started 5 days ago. Will recheck level to confirm adequacy of the current dose. 06/04/2023: After a very good day yesterday, pt is back in bed, declining to participate in the milieu. He'd asked to reduce the modafinil dose yesterday due to a [id number] feeling that it was "too much". Once pried out of bed by staff he did stay out and participated in the milieu but has been perseverating on how he doesn't understand what's going on (with his mood). Discussed medication plan at length. Pt guardedly agrees to increase modafinil. 06/03/2023: Has been much more active today, out of his room attending groups. He's shaved and showered. Much more interactive and able to attend to conversation. He voices "feeling a little freaked out" by the change, which he doesn't think of as negative but he's surprised at how different he feels compared to yesterday. He wonders if the modafinil dose "might be too much" but can't really specify any particular problem. 06/02/2023: Pt has been out of his room a few times, attended exercise group this morning (but didn't participate much), but overall spends most of his time in bed awake. He continues to report that he "just can't function" in ways he can't specify. Endorses "paranoia" but can't or won't elaborate - when asked for more detail, says "the medication knocked me out last night". Says he's "having visual hallucinations" consisting of "dots and squiggles" when he closes his eyes. HIs attention is very poor and many questions must be repeated, but says he's not experiencing anything along the lines of auditory hallucinations or any specific thing that's occupying his attention. Very help-rejecting, even about things that I haven't actually specified yet. He certainly evidences substantial passive-aggressive personality traits. In reviewing MAR, pt has not needed any PRN olanzapine recently. Discussed off-label trial of modafinil, the primary use of which is to treat excessive daytime sleepiness (albeit for conditions he doesn't have) and for which there's significant evidence of efficacy for ADHD (which I don't think he has, though he certainly has great difficulty concentrating) and for major depression. I discussed that a related drug not used in the [place] (adrafinil) has a demonstrated risk of TEN (primarily in children) and that it's presumed that this could be the case with modafinil as well. Discussed risks of headache or upset stomach. Pt did not display much interest in seeking improvement but agreed to an off-label trial of modafinil. 06/01/2023: Pt says he just wants to sleep, but is actually awake in bed on approach and readily interacts. Eye contact is poor, and responses to many items are limited to shrugs. Pt isn't sure if medication has made any noticeable difference. He doesn't spontaneously report any of the obsessive, persecutory beliefs previously documented but when asked say there are thoughts he "just can't stop". 05/31/2023: Today presents as significantly worse and decompensated compared with yesterday with fairly extreme thought blocking, isolative, refusing meals. No classic signs of catatonia but possible this could be playing a role today as antipsychotic dose was increased. Does appear he slept better with titration of olanzapine but unclear why he is struggling so much more today. Concerns for extensive ruminations and psychosis leading to thought blocking and his inability to engage in spontaneous conversation today. Review of labwork notable for normal glucose, HbA1c, total cholesterol/TGs/HDL with low risk LDL. Folic acid levels were normal. Deficient in Vitamin D and B12. He consents to starting supplementation for this. (1) MDD (major depressive disorder), recurrent, severe, with psychosis: (2) Generalized anxiety disorder with panic attacks: (3) Agoraphobia with panic attacks: (4) Vitamin D deficiency: (5) Vitamin B12 deficiency: (6) Personality disorder: Plan 06/09/2023: * continue methylphenidate 10 mg QAM & 5 mg QPM at 1400 - started 06/08/2023 at 5 mg BID * continue olanzapine 10 mg HS and 2.5 mg BID PRN - started 05/30/2023 * continue duloxetine 60 mg daily - increased 06/07/2023, started 05/30/2023 at 30 mg * continue ergocalciferol 50,000 IU twice weekly for loading - started 06/02/2023 * continue cyanocobalamin 1,000 mcg daily 06/08/2023: * stop modafinil - increased 06/06/2023 to 200 mg QAM & 100 mg QPM, increased 06/04/2023 to 200 mg from 100 mg, reduced 06/03/2023 to 100 mg, started 06/02/2023 at 200 mg * begin trial of methylphenidate 5 mg QAM & QPM at 1400 * continue olanzapine 10 mg HS and 2.5 mg BID PRN - started 05/30/2023 * continue duloxetine 60 mg daily - increased 06/07/2023, started 05/30/2023 at 30 mg * continue ergocalciferol 50,000 IU twice weekly for loading - started 06/02/2023 * continue cyanocobalamin 1,000 mcg daily 06/07/2023: * increase (off-label) modafinil to 200 mg QAM & at 1300 - increased 06/06/2023 to 200 mg QAM & 100 mg QPM, increased 06/04/2023 to 200 mg from 100 mg, reduced 06/03/2023 to 100 mg, started 06/02/2023 at 200 mg * continue olanzapine 10 mg HS and 2.5 mg BID PRN - started 05/30/2023 * increase duloxetine to 60 mg daily - started 05/30/2023 at 30 mg * continue ergocalciferol 50,000 IU twice weekly for loading - started 06/02/2023 * continue cyanocobalamin 1,000 mcg daily 06/06/2023: * increase (off-label) modafinil to 200 mg QAM & 100 mg at 1300 - increased 06/04/2023 to 200 mg from 100 mg, reduced 06/03/2023 to 100 mg, started 06/02/2023 at 200 mg * continue olanzapine 10 mg HS and 2.5 mg BID PRN - started 05/30/2023 * continue duloxetine 30 mg daily - started 05/30/2023 * continue ergocalciferol 50,000 IU twice weekly for loading - started 06/02/2023 * continue cyanocobalamin 1,000 mcg daily 06/05/2023: * continue (off-label) modafinil 200 mg QAM - increased 06/04/2023 from 100 mg, reduced 06/03/2023 to 100 mg, started 06/02/2023 at 200 mg * continue olanzapine 10 mg HS and 2.5 mg BID PRN - started 05/30/2023 * continue duloxetine 30 mg daily - started 05/30/2023 * continue ergocalciferol 50,000 IU twice weekly for loading - started 06/02/2023 * continue cyanocobalamin 1,000 mcg daily * recheck cyanocobalamin level to confirm adequacy of replacement 06/04/2023: * increase (off-label) modafinil back to 200 mg QAM - reduced 06/03/2023 to 100 mg, started 06/02/2023 at 200 mg * continue olanzapine 10 mg HS and 2.5 mg BID PRN - started 05/30/2023 * continue duloxetine 30 mg daily - started 05/30/2023 * continue ergocalciferol 50,000 IU twice weekly for loading * continue cyanocobalamin 1,000 mcg daily, recheck level in 2-3 days to confirm adequacy of replacement 06/03/2023: * reduce (off-label) modafinil to 100 mg QAM - started 06/02/2023 at 200 mg * continue olanzapine 10 mg HS and 2.5 mg BID PRN - started 05/30/2023 * continue duloxetine 30 mg daily - started 05/30/2023 * continue ergocalciferol 50,000 IU twice weekly for loading * continue cyanocobalamin 1,000 mcg daily, recheck level in 2-3 days to confirm adequacy of replacement 06/02/2023: * start (off-label) modafinil 200 mg QAM * continue olanzapine 10 mg HS and 2.5 mg BID PRN - started 05/30/2023 * continue duloxetine 30 mg daily - started 05/30/2023 * change vitamin D from cholecalciferol 800 IU daily to ergocalciferol 50,000 IU twice weekly for loading * continue cyanocobalamin 1,000 mcg daily, recheck level in 2-3 days to confirm adequacy of replacement 06/01/2023: * continue olanzapine 10 mg HS po and 2.5 mg BID prn - started 05/30/2023 * continue duloxetine 30 mg daily - started 05/30/2023 * change vitamin D from cholecalciferol 800 IU daily to ergocalciferol 50,000 IU twice weekly for loading * continue cyanocobalamin 1,000 mcg daily, recheck level in 2-3 days to confirm adequacy of replacement 05/31/2023: * Continue olanzapine 10mg HS po and 2.5mg BID prn for now * Continue duloxetine 30mg daily * Start Vit D and B12 supplementation 05/30/2023: The patient was admitted to the [facility] ([facility]) on q15 min checks (behavioral with suicide precautions) for safety. The patient will participate in group, recreational, and milieu therapies and will be offered additional individual and family sessions as clinically appropriate. -Start olanzapine 10mg HS po -Start duloxetine 30mg daily -AM labwork including fasting glucose, HbA1c, B12, Folic Acid, Vit D, fasting lipid panel Inventory Assets Strengths: supportive relationships, willing to get treatment Needs: safety and stabilization, medication adjustment, additional coping skills, increased outpatient services Suicide Risk Level Suicide Risk Level: Moderate (q15 min suicide checks) (depression with poor self care plan prior to admission but denies current SI, reports he feels safe in the hospital, and agrees to let nursing/staff know should they develop plan, intent or feel unable to remain safe. ) Risk Factors Assessment Male: Yes : Yes Do You Have Access To A Gun?: Yes (multiple at home, making plans to have these removed) Health Problems: Yes (peripheral neuropathy) Mental Health Diagnoses: Yes Substance Use Disorders: No Previous Attempt: No Family History of Suicide: No Previous Psychiatric Hospitalization: Yes Protective Factors Assessment Confucianism Beliefs: Yes : Yes Employed: No (Retired) Stable Relationships: Yes Supportive Family: Yes Interval History Identifying Information JERARDO VELAZQUEZ is a 63-year-old man who currently lives in [place] with his , has a history of Major Depressive Disorder with psychotic features and suspicion for catatonia, and was admitted on 05/29/23 18:33 on a 201 voluntary commitment for lack of self-care/inability to function at home with refusal to eat/shower/attend to any self-care needs and increasing paranoia, agoraphobia and depression. Chief Complaint "I can't do anything". Review of Systems Sleep Information Total Hours of Sleep: 8 Sleep Comments: Woke up for a snack Meal Information Percent Meal Consumed - Breakfast: 25 Percent Meal Consumed - Lunch: 50 Percent Meal Consumed - Dinner: 0 Nutrition Comment: recorded from paper meal log Subjective Subjective The patient was seen and assessed and interval progress reviewed in a multidisciplinary team meeting with [the treatment team][psychiatric liaison ][nursing and social work]. For details, see the "Impression" section. Overall I spent a total of 48 minutes for this inpatient follow-up including review of chart records, direct evaluation of the patient [id number], counseling the patient, reconciling and ordering medication, medication education with the patient, risk assessment, discussion during interdisciplinary treatment rounds, and documentation in the electronic health record. Physical Exam Psychiatric Orientation: alert, oriented to person, oriented to place, oriented to time and cooperative (very superficially) Apperance: appropriately dressed, appropriately groomed and + disheveled Eye Contact: + fair eye contact Motor Behavior: no abnormal motor movements Speech: normal rate/rhythm/volume of speech Affect: + anxious affect and + constricted affect Mood: + anxious mood and + dysphoric mood Thought Process: + thought blocking, + circumstantial thought process and + tangential thought process Thought Content: + preoccupation ("don't know what's wrong with me"), + paranoid (subjectively, but can't elaborate), + cognitive distortions, reality based without delusions and + self deprecation Suicidal Thoughts: denies suicidal thoughts, denies suicidal plan and denies suicidal intent Homicidal Thoughts: denies homicidal thoughts Hallucinations: + visual hallucinations ("squiggles and dots" when he closes his eyes); no auditory hallucinations Cognition: recent memory grossly intact, remote memory grossly intact, attention grossly intact and language grossly intact Estimated Intelligence: consistent with education level Insight: + limited insight Judgment: + limited judgement Vital Signs (Past 24 Hours) Last Vital Signs Temp 36.4 C L 06/09/23 06:51 Pulse 102 H 06/09/23 06:51 Resp 18 06/09/23 06:51 BP 133/88 06/09/23 06:51 Pulse Ox 95 06/09/23 06:51 O2 Del Method Room Air 06/09/23 06:51 Results & Data (U) Current Inpatient Medications Current Inpatient Medications: Current Inpatient Medications Acetaminophen (Acetaminophen 325 Mg Tab) 650 mg PO Q4H PRN PRN Reason: Headache or Minor Fever Stop: 06/28/23 18:32 Al Hydrox/Mg Hydrox/Simethicone (Aluminum/Magnesium Susp 30 Ml Udc) 30 ml PO Q4H PRN PRN Reason: GI Upset Stop: 06/28/23 18:32 Bismuth Subsalicylate (Bismuth Subsalicylate Liqd 236 Ml) 15 ml PO PRN PRN PRN Reason: Loose Stool Stop: 06/28/23 18:32 Cyanocobalamin (Cyanocobalamin (B-12) 500 Mcg Tablet) 1,000 mcg PO QAM DEANDRE Stop: 07/01/23 08:59 Last Admin: 06/09/23 08:38 Dose: 1,000 mcg Duloxetine HCl (Duloxetine Hcl 60 Mg Cap) 60 mg PO QAM DEANDRE Stop: 07/08/23 08:59 Last Admin: 06/09/23 08:39 Dose: 60 mg Ergocalciferol (Ergocalciferol 50,000 Units 1250 Mcg Cap) 50,000 units PO [id number] [facility] Stop: 07/02/23 08:59 Last Admin: 06/09/23 08:39 Dose: 50,000 units Hydroxyzine HCl (Hydroxyzine Hcl 25 Mg Tab) 50 mg PO HSZ PRN PRN Reason: Insomnia Stop: 06/28/23 18:32 Hydroxyzine HCl (Hydroxyzine Hcl 25 Mg Tab) 25 mg PO Q4H PRN PRN Reason: Anxiety Stop: 06/28/23 18:32 Magnesium Hydroxide (Magnesium Hydroxide Susp 30 Ml Udc) 30 ml PO DAILY PRN PRN Reason: Constipation Stop: 06/28/23 18:32 Last Admin: 06/05/23 18:05 Dose: 30 ml Methylphenidate HCl (Methylphenidate Hcl 5 Mg Tablet) 5 mg PO [id number] [facility] Stop: 06/22/23 13:59 Last Admin: 06/09/23 13:16 Dose: 5 mg Olanzapine (Olanzapine 10 Mg Tab) 10 mg PO HS DEANDRE Stop: 06/29/23 21:59 Last Admin: 06/08/23 21:08 Dose: 10 mg Olanzapine (Olanzapine 2.5 Mg Tab) 2.5 mg PO BID PRN PRN Reason: Anxiety/Agitation Stop: 06/30/23 20:59 Sodium Chloride (Sodium Chloride 0.65% Na Soln 45 Ml ([place])) 1 - 2 sprays NA PRN PRN PRN Reason: Nasal Dryness/Congestion Stop: 06/28/23 18:32 Mental Health & Subst Abuse Tx Therapist Name of Therapist: Angel Dorado (Skip) Therapist's Time of Therapist [address]ment[address] [place] [address] Therapy Appointment Comment: Please call if interested in mental health counseling. Caterer Helper Name of Caterer Helper: [facility] - Blended Case Management Phone Number for Caterer Helper: [phone] Case Management Appointment Comment: Please call if you are interested in bl ended case management. Post Discharge Appointments Primary Care Physician Name Of Family Doctor/PCP: [facility] Date of Future Appointment with PCP: 06/11/23 Time of Appointment with PCP: arrival 10:45 AM Provider Appointment Comment: [address] [place] [address] Contact Information Discharge Discharge Address: [facility] [place] [address] [address] [address]
[2023-06-09] MEDS: OLANZapine 10 MG TAB PO SCH (21:04)
[2023-06-10] MEDS: CYANOCOBALAMIN (B-12) 500 MCG TABLET PO SCH (08:51)
[2023-06-10] MEDS: DULoxetine HCL 60 MG CAP PO SCH (08:51)
[2023-06-10] MEDS ORDERED: METHYLPHENIDATE HCL 10 MG TABLET PO SCH (09:00)
[2023-06-10] MEDS ORDERED: METHYLPHENIDATE HCL 5 MG TABLET PO SCH (14:00)
[2023-06-10] MEDS ORDERED: diazePAM 5 MG TABLET PO ONE (15:02)
[2023-06-10] MEDS ORDERED: GADOBUTROL 65ML VIAL IV ONE (17:12)
--- NOTE | 2023-06-10 18:09 | Magnetic Resonance Report ---
MRI OF THE BRAIN COMBO CLINICAL HISTORY: Change in mental status. Acute onset psychosis. COMPARISON STUDY: CT of the brain dated 05/29/2023. TECHNIQUE: MRI of the brain was performed utilizing various T1 and T2-weighted sequences in the axial , sagittal, and coronal planes. Contrast-enhanced sequences were acquired following the administratio n of 7.5 cc of Gadavist. FINDINGS: Brain parenchyma: The brain parenchyma is normal in appearance. There is no hemorrhage or mass effect . There is no restricted diffusion to suggest acute ischemia. No enhancing mass lesion is identified on the postcontrast images. Wright-white matter differentiation is preserved. No extra-axial fluid erickson ection is seen. The cerebellar tonsils are normal in configuration. Ventricles, sulci, and cisterns: Normal in configuration. Pituitary and sella: Unremarkable. Intracranial vasculature: Normal flow voids are maintained at the skull base. Orbits: The bony orbits are grossly intact. Orbital contents are normal in appearance. Sinuses and mastoids: There is mild mucosal thickening within the left maxillary antrum and left sphe noid sinus. The remaining paranasal sinuses are clear. There are left larger than right mastoid effus ions. Calvarium: Unremarkable. Cervical cord: Partially visualized cervical spinal cord is normal in morphology and signal intensity . IMPRESSION: No acute intracranial abnormality. ACT 112: Negative or not required by law. Electronically signed by: Ian Hui M.D. 06/10/2023 6:07 PM
--- NOTE | 2023-06-10 18:18 | Psychiatric Progress Note ---
Date of Service June 10, 2023 Impression / Recommendations Impression Ed is a 63 year old man with a history of MDD with psychotic features who was admitted for worsening agoraphobia, paranoia, depression and anxiety with inability to provide for his self-care needs including significant weight loss (with ketones in his urine) and hopelessness. Diagnostically seems most consistent with major depressive disorder with psychotic features and generalized anxiety disorder with agoraphobia and panic attacks. No current signs of catatonia so will hold off on use of any benzodiazepines. He is deemed in need of psychiatric hospitalization for diagnostic clarification, safety and stabilization, medication management and development of further coping skills. MNPR due to extreme anxiety, paranoia, poor self-care/hygiene prior to admission 06/10/2023: Continuing to do very poorly with marked passivity and active avoidance of participation in the treatment program. Has said he can't get up and attend meals, but has always ended up doing so. He has not appeared any more anxious since starting methylphenidate (he simply won't say whether he's noted any subjective increase in anxiety) nor is there any apparent benefit. He continues to avoid endorsing persecutory beliefs, but when asked won't deny them either. Pt assented to increasing dose. Olanzapine was initially selected in part in the hope that it might help regularize his sleep schedule. This has not been seen, despite evident sedation after taking it. I don't think we can add a daytime dose. Discussed switching to less-sedating aripiprazole to increase likelihood of acheiving effective dose without excessive sedation. Pt assented to this. The team devoted considerable time to reviewing evidence of significant change in personality and cognition about a year ago. While functional brain imaging would likely be much more helpful, concluded that anatomical brain imaging would likely nevertheless be helpful in ruling out such things as infarcts or focal atrophy. Also devoted considerable time to behavioral interventions. These are clearly needed but no consensus was reached about what they should be. All agreed that the approach must be clear and consistent. Will work on this with ANGELIA who has a background in formulating such plans then present for review to the entire team. 06/09/2023: workers' compensation commissioner has been documenting discussions with pt's about symptoms prior to admission and with the patient about this information (q.v.). Pt overtly denied most of what his had reported (which is very consistent with reports at the time of admission) but tacitly acknowledged it (e.g., by saying his had probably also reported his worries about finances, which is true, or that barricading them in their house is no way to live). Despite encouragement from essentially every staff member today, pt has not participated in groups. I reiterated that every aspect of the treatment program is necessary and mandatory and that if he's simply going to lie around in bed he can do that at home. He has been less ridiculously passive today. Highly help-rejecting, saying he "can't" get up and walk or eat meals. Staff have simply been demanding that he get up and walk and eat, but at times he's said he's unable to do such things even as he does them. He's been eating well. Pt utterly refuses to say whether he feels at all more anxious or restless on methylphenidate. There's certainly no evidence of increased energy. We may need to consider a less-sedating antipsychotic. A nurse brought up the possibility of a trial of transdermal selegiline. This is an intriguing possibility with much to recommend it. It is, however, a non- formulary drug here that retails for about $80 per patch (which is changed daily) making it very likely to be financially unattainable. Selegiline is available in an inexpensive oral formulation, but that has never proven effective for depression. First-pass liver degradation of the drug is very significant, and at oral doses sufficient to overcome that and the drug's specificity for MAO-B, significant side effects are typically seen and gut MAO-A is usually inhibited to a substantial degree, eliminating the significant advantages of the transdermal form vs. typical MAOIs. 06/08/2023: Following discussion yesterday about anticipating discharge soon, pt had a really bad afternoon with aggressively passive behaviors. These included announcing that he'd "pooped [his] pants" while in bed then refusing for a time to change clothes or shower, as well as intimating that it was "going to happen again". Today initially resisted leaving his room with when staff insisted forcefully they were able to get him up, walked around the unit with him. He said he "couldn't" eat but did eat when they persistently reminded him that he obviously could eat. Today sits on bed (an improvement over lying on it) but continues to perseverate on all the things he "can't" (yet demonstrably actually can) do. Modafinil trial has patently failed despite initial promise. Pt exhibits numerous symptoms consistent with hypofrontality, for which stimulants are usually at least somewhat helpful. I'd hoped to minimize risk of exacerbating his anxiety, but at this point that risk seems to be outweighed by the need to address his passivity. 06/07/2023: Pt has resumed spending more time in bed, though to a lesser degree than before the addition of modafinil. He didn't eat supper last night nor has he yet had breakfast this morning. On rounds he lies fully-awake atop his blanket. It's certainly possible that his depression has melancholic features that may not respond well to medication. For the past week he hasn't evidenced any psychotic features, though that could certainly be due to olanzapine. The treatment team discussed the possibility of referral for ECT. However, a pattern of help-rejecting and passive aggression seems very consistent with his personality traits and may not be at all amenable to medication treatment. 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 Pt is clearly anxious but has not had any panic episodes for the past week. In my opinion his symptoms are responding to medication to the greatest degree they're likely to and that, unless he elects to pursue referral for ECT, there is little to be gained from prolonging his inpatient stay. He reports no adverse effects attributable to medications, including duloxetine started a week ago, so discussed proceeding with titration to planned target dose of 60 mg of duloxetine as well as increasing modafinil to typical dose of 200 mg BID. He agrees to this plan (but predicts it won't help). 06/06/2023: Remains very help-rejecting. Spent most of the day out of bed once staff chivvied him up, then went to bed after supper and remained there. Con tinues to ruminate about "not understanding it" or that he "can't figure it out", "it" being fairly nebulous and difficult for him to specify. He agrees that he's been better during the day after having started AM modafinil but is concerned that "it seems to wear off by evening". Repeat B12 level was within the reference range at 382 pg/mL, indicating that current dose is appropriate. 06/05/2023: Following my meeting with pt yesterday, including discussion of the importance of participating in the milieu, benefits of physical activity, pt went to bed and wouldn't get back out. Today has thus far seemed much better - he's been out of his room, participated in the groups that have taken place . He remains preoccupied and perseverative, though this has changed from "I just can't function" to "I don't know what's wrong with me". Asks me several times if I think the medication I ordered recently (and have been discussing with him frequently) will help. Denies any problems with this morning's 200 mg modafinil dose. B12 replenishment was started 5 days ago. Will recheck level to confirm adequacy of the current dose. 06/04/2023: After a very good day yesterday, pt is back in bed, declining to participate in the milieu. He'd asked to reduce the modafinil dose yesterday due to a [id number] feeling that it was "too much". Once pried out of bed by staff he did stay out and participated in the milieu but has been perseverating on how he doesn't understand what's going on (with his mood). Discussed medication plan at length. Pt guardedly agrees to increase modafinil. 06/03/2023: Has been much more active today, out of his room attending groups. He's shaved and showered. Much more interactive and able to attend to conversation. He voices "feeling a little freaked out" by the change, which he doesn't think of as negative but he's surprised at how different he feels compared to yesterday. He wonders if the modafinil dose "might be too much" but can't really specify any particular problem. 06/02/2023: Pt has been out of his room a few times, attended exercise group this morning (but didn't participate much), but overall spends most of his time in bed awake. He continues to report that he "just can't function" in ways he can't specify. Endorses "paranoia" but can't or won't elaborate - when asked for more detail, says "the medication knocked me out last night". Says he's "having visual hallucinations" consisting of "dots and squiggles" when he closes his eyes. HIs attention is very poor and many questions must be repeated, but says he's not experiencing anything along the lines of auditory hallucinations or any specific thing that's occupying his attention. Very help-rejecting, even about things that I haven't actually specified yet. He certainly evidences substantial passive-aggressive personality traits. In reviewing MAR, pt has not needed any PRN olanzapine recently. Discussed off-label trial of modafinil, the primary use of which is to treat excessive daytime sleepiness (albeit for conditions he doesn't have) and for which there's significant evidence of efficacy for ADHD (which I don't think he has, though he certainly has great difficulty concentrating) and for major depression. I discussed that a related drug not used in the [place] (adrafinil) has a demonstrated risk of TEN (primarily in children) and that it's presumed that this could be the case with modafinil as well. Discussed risks of headache or upset stomach. Pt did not display much interest in seeking improvement but agreed to an off-label trial of modafinil. 06/01/2023: Pt says he just wants to sleep, but is actually awake in bed on approach and readily interacts. Eye contact is poor, and responses to many items are limited to shrugs. Pt isn't sure if medication has made any noticeable difference. He doesn't spontaneously report any of the obsessive, persecutory beliefs previously documented but when asked say there are thoughts he "just can't stop". 05/31/2023: Today presents as significantly worse and decompensated compared with yesterday with fairly extreme thought blocking, isolative, refusing meals. No classic signs of catatonia but possible this could be playing a role today as antipsychotic dose was increased. Does appear he slept better with titration of olanzapine but unclear why he is struggling so much more today. Concerns for extensive ruminations and psychosis leading to thought blocking and his inability to engage in spontaneous conversation today. Review of labwork notable for normal glucose, HbA1c, total cholesterol/TGs/HDL with low risk LDL. Folic acid levels were normal. Deficient in Vitamin D and B12. He consents to starting supplementation for this. (1) MDD (major depressive disorder), recurrent, severe, with psychosis: (2) Generalized anxiety disorder with panic attacks: (3) Agoraphobia with panic attacks: (4) Vitamin D deficiency: (5) Vitamin B12 deficiency: (6) Personality disorder: Plan 06/10/2023: * increase methylphenidate to 20 mg QAM & 10 mg QPM at 1400 - increased 06/09/2023 to 10 mg QAM & 5 mg QPM, started 06/08/2023 at 5 mg BID * start aripiprazole 10 mg * stop olanzapine * continue duloxetine 60 mg daily - increased 06/07/2023, started 05/30/2023 at 30 mg * continue ergocalciferol 50,000 IU twice weekly for loading - started 06/02/2023 * continue cyanocobalamin 1,000 mcg daily * MRI brain with contrast 06/09/2023: * continue methylphenidate 10 mg QAM & 5 mg QPM at 1400 - started 06/08/2023 at 5 mg BID * continue olanzapine 10 mg HS and 2.5 mg BID PRN - started 05/30/2023 * continue duloxetine 60 mg daily - increased 06/07/2023, started 05/30/2023 at 30 mg * continue ergocalciferol 50,000 IU twice weekly for loading - started 06/02/2023 * continue cyanocobalamin 1,000 mcg daily 06/08/2023: * stop modafinil - increased 06/06/2023 to 200 mg QAM & 100 mg QPM, increased 06/04/2023 to 200 mg from 100 mg, reduced 06/03/2023 to 100 mg, started at 200 mg * begin trial of methylphenidate 5 mg QAM & QPM at 1400 * continue olanzapine 10 mg HS and 2.5 mg BID PRN - started 05/30/2023 * continue duloxetine 60 mg daily - increased 06/07/2023, started 05/30/2023 at 30 mg * continue ergocalciferol 50,000 IU twice weekly for loading - started 06/02/2023 * continue cyanocobalamin 1,000 mcg daily 06/07/2023: * increase (off-label) modafinil to 200 mg QAM & at 1300 - increased 06/06/2023 to 200 mg QAM & 100 mg QPM, increased 06/04/2023 to 200 mg from 100 mg, reduced 06/03/2023 to 100 mg, started 06/02/2023 at 200 mg * continue olanzapine 10 mg HS and 2.5 mg BID PRN - started 05/30/2023 * increase duloxetine to 60 mg daily - started 05/30/2023 at 30 mg * continue ergocalciferol 50,000 IU twice weekly for loading - started 06/02/2023 * continue cyanocobalamin 1,000 mcg daily 06/06/2023: * increase (off-label) modafinil to 200 mg QAM & 100 mg at 1300 - increased 06/04/2023 to 200 mg from 100 mg, reduced 06/03/2023 to 100 mg, started 06/02/2023 at 200 mg * continue olanzapine 10 mg HS and 2.5 mg BID PRN - started 05/30/2023 * continue duloxetine 30 mg daily - started 05/30/2023 * continue ergocalciferol 50,000 IU twice weekly for loading - started 06/02/2023 * continue cyanocobalamin 1,000 mcg daily 06/05/2023: * continue (off-label) modafinil 200 mg QAM - increased 06/04/2023 from 100 mg, reduced 06/03/2023 to 100 mg, started 06/02/2023 at 200 mg * continue olanzapine 10 mg HS and 2.5 mg BID PRN - started 05/30/2023 * continue duloxetine 30 mg daily - started 05/30/2023 * continue ergocalciferol 50,000 IU twice weekly for loading - started 06/02/2023 * continue cyanocobalamin 1,000 mcg daily * recheck cyanocobalamin level to confirm adequacy of replacement 06/04/2023: * increase (off-label) modafinil back to 200 mg QAM - reduced 06/03/2023 to 100 mg, started 06/02/2023 at 200 mg * continue olanzapine 10 mg HS and 2.5 mg BID PRN - started 05/30/2023 * continue duloxetine 30 mg daily - started 05/30/2023 * continue ergocalciferol 50,000 IU twice weekly for loading * continue cyanocobalamin 1,000 mcg daily, recheck level in 2-3 days to confirm adequacy of replacement 06/03/2023: * reduce (off-label) modafinil to 100 mg QAM - started 06/02/2023 at 200 mg * continue olanzapine 10 mg HS and 2.5 mg BID PRN - started 05/30/2023 * continue duloxetine 30 mg daily - started 05/30/2023 * continue ergocalciferol 50,000 IU twice weekly for loading * continue cyanocobalamin 1,000 mcg daily, recheck level in 2-3 days to confirm adequacy of replacement 06/02/2023: * start (off-label) modafinil 200 mg QAM * continue olanzapine 10 mg HS and 2.5 mg BID PRN - started 05/30/2023 * continue duloxetine 30 mg daily - started 05/30/2023 * change vitamin D from cholecalciferol 800 IU daily to ergocalciferol 50,000 IU twice weekly for loading * continue cyanocobalamin 1,000 mcg daily, recheck level in 2-3 days to confirm adequacy of replacement 06/01/2023: * continue olanzapine 10 mg HS po and 2.5 mg BID prn - started 05/30/2023 * continue duloxetine 30 mg daily - started 05/30/2023 * change vitamin D from cholecalciferol 800 IU daily to ergocalciferol 50,000 IU twice weekly for loading * continue cyanocobalamin 1,000 mcg daily, recheck level in 2-3 days to confirm adequacy of replacement 05/31/2023: * Continue olanzapine 10mg HS po and 2.5mg BID prn for now * Continue duloxetine 30mg daily * Start Vit D and B12 supplementation 05/30/2023: The patient was admitted to the [facility] ([facility]) on q15 min checks (behavioral with suicide precautions) for safety. The patient will participate in group, recreational, and milieu therapies and will be offered additional individual and family sessions as clinically appropriate. -Start olanzapine 10mg HS po -Start duloxetine 30mg daily -AM labwork including fasting glucose, HbA1c, B12, Folic Acid, Vit D, fasting lipid panel Inventory Assets Strengths: supportive relationships, willing to get treatment Needs: safety and stabilization, medication adjustment, additional coping skills, increased outpatient services Suicide Risk Level Suicide Risk Level: Moderate (q15 min suicide checks) (depression with poor self care plan prior to admission but denies current SI, reports he feels safe in the hospital, and agrees to let nursing/staff know should they develop plan, intent or feel unable to remain safe. ) Risk Factors Assessment Male: Yes : Yes Do You Have Access To A Gun?: Yes (multiple at home, making plans to have these removed) Health Problems: Yes (peripheral neuropathy) Mental Health Diagnoses: Yes Substance Use Disorders: No Previous Attempt: No Family History of Suicide: No Previous Psychiatric Hospitalization: Yes Protective Factors Assessment Anabaptist Beliefs: Yes : Yes Employed: No (Retired) Stable Relationships: Yes Supportive Family: Yes Interval History Identifying Information JERARDO VELAZQUEZ is a 63-year-old man who currently lives in [place] with his , has a history of Major Depressive Disorder with psychotic features and suspicion for catatonia, and was admitted on 05/29/23 18:33 on a 201 voluntary commitment for lack of self-care/inability to function at home with refusal to eat/shower/attend to any self-care needs and increasing paranoia, agoraphobia and depression. Chief Complaint "I can't do anything". Review of Systems Sleep Information Total Hours of Sleep: 6 Sleep Comments: Woke up for a snack Meal Information Percent Meal Consumed - Breakfast: 100 Percent Meal Consumed - Lunch: 100 Percent Meal Consumed - Dinner: 100 Nutrition Comment: Pt ate all of his meal. Subjective Subjective The patient was seen and assessed and interval progress reviewed in a multidisciplinary team meeting with the treatment team. For details, see the "Impression" section. Overall I spent a total of 84 minutes for this inpatient follow-up including review of chart records, direct evaluation of the patient [id number], counseling the patient, reconciling and ordering medication, medication education with the patient, risk assessment, discussion during interdisciplinary treatment rounds, and documentation in the electronic health record. Physical Exam Psychiatric Orientation: alert, oriented to person, oriented to place, oriented to time and cooperative (very superficially) Apperance: appropriately dressed, appropriately groomed and + disheveled Eye Contact: good eye contact, + fair eye contact and + poor eye contact Motor Behavior: no abnormal motor movements Speech: normal rate/rhythm/volume of speech Affect: + depressed affect, + anxious affect and + constricted affect Mood: + depressed mood, + anxious mood and + dysphoric mood Thought Process: goal directed thought process, + thought blocking, + circumstantial thought process and + tangential thought process Thought Content: + preoccupation ("don't know what's wrong with me"), + paranoid (subjectively, but can't elaborate), + cognitive distortions, reality based without delusions, + derealization, + hopelessness, + guilt and + self deprecation Suicidal Thoughts: denies suicidal thoughts, denies suicidal plan and denies suicidal intent Homicidal Thoughts: denies homicidal thoughts Hallucinations: + visual hallucinations ("squiggles and dots" when he closes his eyes); no auditory hallucinations Cognition: recent memory grossly intact, remote memory grossly intact, attention grossly intact and language grossly intact Estimated Intelligence: consistent with education level Insight: + limited insight and + fair insight Judgment: + limited judgement and + fair judgement Vital Signs (Past 24 Hours) Last Vital Signs Temp 36.6 C 06/10/23 06:42 Pulse 114 H 06/10/23 06:43 Resp 16 06/10/23 06:42 BP 121/87 06/10/23 06:43 Pulse Ox 95 06/09/23 06:51 O2 Del Method Room Air 06/09/23 06:51 Results & Data ([facility]) Current Inpatient Medications Current Inpatient Medications: Current Inpatient Medications Acetaminophen (Acetaminophen 325 Mg Tab) 650 mg PO Q4H PRN PRN Reason: Headache or Minor Fever Stop: 06/28/23 18:32 Al Hydrox/Mg Hydrox/Simethicone (Aluminum/Magnesium Susp 30 Ml Udc) 30 ml PO Q4H PRN PRN Reason: GI Upset Stop: 06/28/23 18:32 Bismuth Subsalicylate (Bismuth Subsalicylate Liqd 236 Ml) 15 ml PO PRN PRN PRN Reason: Loose Stool Stop: 06/28/23 18:32 Cyanocobalamin (Cyanocobalamin (B-12) 500 Mcg Tablet) 1,000 mcg PO QAM DEANDRE Stop: 07/01/23 08:59 Last Admin: 06/10/23 08:51 Dose: 1,000 mcg Duloxetine HCl (Duloxetine Hcl 60 Mg Cap) 60 mg PO QAM DEANDRE Stop: 07/08/23 08:59 Last Admin: 06/10/23 08:51 Dose: 60 mg Ergocalciferol (Ergocalciferol 50,000 Units 1250 Mcg Cap) 50,000 units PO SuWe@0900 [facility] Stop: 07/02/23 08:59 Last Admin: 06/09/23 08:39 Dose: 50,000 units Hydroxyzine HCl (Hydroxyzine Hcl 25 Mg Tab) 50 mg PO HSZ PRN PRN Reason: Insomnia Stop: 06/28/23 18:32 Hydroxyzine HCl (Hydroxyzine Hcl 25 Mg Tab) 25 mg PO Q4H PRN PRN Reason: Anxiety Stop: 06/28/23 18:32 Magnesium Hydroxide (Magnesium Hydroxide Susp 30 Ml Udc) 30 ml PO DAILY PRN PRN Reason: Constipation Stop: 06/28/23 18:32 Last Admin: 06/05/23 18:05 Dose: 30 ml Methylphenidate HCl (Methylphenidate Hcl 5 Mg Tablet) 5 mg PO DAILY@1400 [facility] Stop: 06/24/23 13:59 Last Admin: 06/10/23 13:51 Dose: 5 mg Methylphenidate HCl (Methylphenidate Hcl 10 Mg Tablet) 10 mg PO QAM DEANDRE Stop: 06/24/23 08:59 Last Admin: 06/10/23 08:51 Dose: 10 mg Olanzapine (Olanzapine 10 Mg Tab) 10 mg PO HS DEANDRE Stop: 06/29/23 21:59 Last Admin: 06/09/23 21:04 Dose: 10 mg Olanzapine (Olanzapine 2.5 Mg Tab) 2.5 mg PO BID PRN PRN Reason: Anxiety/Agitation Stop: 06/30/23 20:59 Sodium Chloride (Sodium Chloride 0.65% Na Soln 45 Ml (Mertzon)) 1 - 2 sprays NA PRN PRN PRN Reason: Nasal Dryness/Congestion Stop: 06/28/23 18:32 Mental Health & Subst Abuse Tx Therapist Name of Therapist: Angel Dorado (Skip) Therapist's Time of Therapist Appointment: [address] [place] [address] Therapy Appointment Comment: Please call if interested in mental health counseling. Activity Director Name of Activity Director: [facility] [place] [facility] - Blended Case Management Phone Number for Activity Director: [phone] Case Management Appointment Comment: Please call if you are interested in blended case management. Post Discharge Appointments Primary Care Physician Name Of Family Doctor/PCP: [facility] Date of Future Appointment with PCP: 07/20/23 Time of Appointment with PCP: 11:05 arrival Provider Appointment Comment: [address], [place] [address] Contact Information Discharge Discharge Address: [facility] [address], [place] [address]
[2023-06-11] MEDS: ARIPiprazole 10 MG TAB PO SCH (08:55)
[2023-06-11] MEDS: METHYLPHENIDATE HCL 10 MG TABLET PO SCH ×2 (08:55→14:30)
[2023-06-11] MEDS: DULoxetine HCL 60 MG CAP PO SCH (08:56)
[2023-06-11] MEDS: CYANOCOBALAMIN (B-12) 500 MCG TABLET PO SCH (08:56)
--- NOTE | 2023-06-11 09:35 | Psychiatric Progress Note ---
Date of Service June 11, 2023 Impression / Recommendations Impression Ed is a 63 year old man with a history of MDD with psychotic features who was admitted for worsening agoraphobia, paranoia, depression and anxiety with inability to provide for his self-care needs including significant weight loss (with ketones in his urine) and hopelessness. Diagnostically seems most consistent with major depressive disorder with psychotic features and generalized anxiety disorder with agoraphobia and panic attacks. No current signs of catatonia so will hold off on use of any benzodiazepines. He is deemed in need of psychiatric hospitalization for diagnostic clarification, safety and stabilization, medication management and development of further coping skills. MNPR due to extreme anxiety, paranoia, poor self-care/hygiene prior to admission 06/11/2023: MRI with and without contrast yesterday was read as showing mucosal thickening of a paranasal sinus but no other findings. He had received 5 mg diazepam prior to going for the MRI and upon his return staff noted that he seemed much more able to initiate, was out of his room spontaneously, at supper without having to be encouraged. He tells me he "was just so tired and went straight to bed". The staff reports raise the intriguing possibility that anxiolysis from the diazepam contributed to noticeable improvement last evening and that perhaps a scheduled benzodiazepine could be helpful at least over the short term. 06/10/2023: Continuing to do very poorly with marked passivity and active avoidance of participation in the treatment program. Has said he can't get up and attend meals, but has always ended up doing so. He has not appeared any more anxious since starting methylphenidate (he simply won't say whether he's noted any subjective increase in anxiety) nor is there any apparent benefit. He continues to avoid endorsing persecutory beliefs, but when asked won't deny them either. Pt assented to increasing dose. Olanzapine was initially selected in part in the hope that it might help regularize his sleep schedule. This has not been seen, despite evident sedation after taking it. I don't think we can add a daytime dose. Discussed switching to less-sedating aripiprazole to increase likelihood of acheiving effective dose without excessive sedation. Pt assented to this. The team devoted considerable time to reviewing evidence of significant change in personality and cognition about a year ago. While functional brain imaging would likely be much more helpful, concluded that anatomical brain imaging would likely nevertheless be helpful in ruling out such things as infarcts or focal atrophy. Also devoted considerable time to behavioral interventions. These are clearly needed but no consensus was reached about what they should be. All agreed that the approach must be clear and consistent. Will work on this with SW who has a background in formulating such plans then present for review to the entire team. 06/09/2023: social worker health services has been documenting discussions with pt's about symptoms prior to admission and with the patient about this information (q.v.). Pt overtly denied most of what his had reported (which is very consistent with reports at the time of admission) but tacitly acknowledged it (e.g., by saying his had probably also reported his worries about finances, which is true, or that barricading them in their house is no way to live). Despite encouragement from essentially every staff member today, pt has not participated in groups. I reiterated that every aspect of the treatment program is necessary and mandatory and that if he's simply going to lie around in bed he can do that at home. He has been less ridiculously passive today. Highly help-rejecting, saying he "can't" get up and walk or eat meals. Staff have simply been demanding that he get up and walk and eat, but at times he's said he's unable to do such things even as he does them. He's been eating well. Pt utterly refuses to say whether he feels at all more anxious or restless on methylphenidate. There's certainly no evidence of increased energy. We may need to consider a less-sedating antipsychotic. A nurse brought up the possibility of a trial of transdermal selegiline. This is an intriguing possibility with much to recommend it. It is, however, a non- formulary drug here that retails for about $80 per patch (which is changed daily) making it very likely to be financially unattainable. Selegiline is available in an inexpensive oral formulation, but that has never proven effective for depression. First-pass liver degradation of the drug is very significant, and at oral doses sufficient to overcome that and the drug's specificity for MAO-B, significant side effects are typically seen and gut MAO-A is usually inhibited to a substantial degree, eliminating the significant advantages of the transdermal form vs. typical MAOIs. 06/08/2023: Following discussion yesterday about anticipating discharge soon, pt had a really bad afternoon with aggressively passive behaviors. These included announcing that he'd "pooped [his] pants" while in bed then refusing for a time to change clothes or shower, as well as intimating that it was "going to happen again". Today initially resisted leaving his room with when staff insisted forcefully they were able to get him up, walked around the unit with him. He said he "couldn't" eat but did eat when they persistently reminded him that he obviously could eat. Today sits on bed (an improvement over lying on it) but continues to perseverate on all the things he "can't" (yet demonstrably actually can) do. Modafinil trial has patently failed despite initial promise. Pt exhibits numerous symptoms consistent with hypofrontality, for which stimulants are usually at least somewhat helpful. I'd hoped to minimize risk of exacerbating his anxiety, but at this point that risk seems to be outweighed by the need to address his passivity. 06/07/2023: Pt has resumed spending more time in bed, though to a lesser degree than before the addition of modafinil. He didn't eat supper last night nor has he yet had breakfast this morning. On rounds he lies fully-awake atop his blanket. It's certainly possible that his depression has melancholic features that may not respond well to medication. For the past week he hasn't evidenced any psychotic features, though that could certainly be due to olanzapine. The treatment team discussed the possibility of referral for ECT. However, a pattern of help-rejecting and passive aggression seems very consistent with his personality traits and may not be at all amenable to medication treatment. 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 Pt is clearly anxious but has not had any panic episodes for the past week. In my opinion his symptoms are responding to medication to the greatest degree they're likely to and that, unless he elects to pursue referral for ECT, there is little to be gained from prolonging his inpatient stay. He reports no adverse effects attributable to medications, including duloxetine started a week ago, so discussed proceeding with titration to planned target dose of 60 mg of duloxetine as well as increasing modafinil to typical dose of 200 mg BID. He agrees to this plan (but predicts it won't help). 06/06/2023: Remains very help-rejecting. Spent most of the day out of bed once staff chivvied him up, then went to bed after supper and remained there. Continues to ruminate about "not understanding it" or that he "can't figure it out", "it" being fairly nebulous and difficult for him to specify. He agrees that he's been better during the day after having started AM modafinil but is concerned that "it seems to wear off by evening". Repeat B12 level was within the reference range at 382 pg/mL, indicating that current dose is appropriate. 06/05/2023: Following my meeting with pt yesterday, including discussion of the importance of participating in the milieu, benefits of physical activity, pt went to bed and wouldn't get back out. Today has thus far seemed much better - he's been out of his room, participated in the groups that have taken place . He remains preoccupied and perseverative, though this has changed from "I just can't function" to "I don't know what's wrong with me". Asks me several times if I think the medication I ordered recently (and have been discussing with him frequently) will help. Denies any problems with this morning's 200 mg modafinil dose. B12 replenishment was started 5 days ago. Will recheck level to confirm adequacy of the current dose. 06/04/2023: After a very good day yesterday, pt is back in bed, declining to participate in the milieu. He'd asked to reduce the modafinil dose yesterday due to a [id number] feeling that it was "too much". Once pried out of bed by staff he did stay out and participated in the milieu but has been perseverating on how he doesn't understand what's going on (with his mood). Discussed medication plan at length. Pt guardedly agrees to increase modafinil. 06/03/2023: Has been much more active today, out of his room attending groups. He's shaved and showered. Much more interactive and able to attend to conversation. He voices "feeling a little freaked out" by the change, which he doesn't think of as negative but he's surprised at how different he feels compared to yesterday. He wonders if the modafinil dose "might be too much" but can't really specify any particular problem. 06/02/2023: Pt has been out of his room a few times, attended exercise group this morning (but didn't participate much), but overall spends most of his time in bed awake. He continues to report that he "just can't function" in ways he can't specify. Endorses "paranoia" but can't or won't elaborate - when asked for more detail, says "the medication knocked me out last night". Says he's "having visual hallucinations" consisting of "dots and squiggles" when he closes his eyes. HIs attention is very poor and many questions must be repeated, but says he's not experiencing anything along the lines of auditory hallucinations or any specific thing that's occupying his attention. Very help-rejecting, even about things that I haven't actually specified yet. He certainly evidences substantial passive-aggressive personality traits. In reviewing MAR, pt has not needed any PRN olanzapine recently. Discussed off-label trial of modafinil, the primary use of which is to treat excessive daytime sleepiness (albeit for conditions he doesn't have) and for which there's significant evidence of efficacy for ADHD (which I don't think he has, though he certainly has great difficulty concentrating) and for major depression. I discussed that a related drug not used in the [place] (adrafinil) has a demonstrated risk of TEN (primarily in children) and that it's presumed that this could be the case with modafinil as well. Discussed risks of headache or upset stomach. Pt did not display much interest in seeking improvement but agreed to an off-label trial of modafinil. 06/01/2023: Pt says he just wants to sleep, but is actually awake in bed on approach and readily interacts. Eye contact is poor, and responses to many items are limited to shrugs. Pt isn't sure if medication has made any noticeable difference. He doesn't spontaneously report any of the obsessive, persecutory beliefs previously documented but when asked say there are thoughts he "just can't stop". 05/31/2023: Today presents as significantly worse and decompensated compared with yesterday with fairly extreme thought blocking, isolative, refusing meals. No classic signs of catatonia but possible this could be playing a role today as antipsychotic dose was increased. Does appear he slept better with titration of olanzapine but unclear why he is struggling so much more today. Concerns for extensive ruminations and psychosis leading to thought blocking and his inability to engage in spontaneous conversation today. Review of labwork notable for normal glucose, HbA1c, total cholesterol/TGs/HDL with low risk LDL. Folic acid levels were normal. Deficient in Vitamin D and B12. He consents to starting supplementation for this. (1) MDD (major depressive disorder), recurrent, severe, with psychosis: (2) Generalized anxiety disorder with panic attacks: (3) Agoraphobia with panic attacks: (4) Vitamin D deficiency: (5) Vitamin B12 deficiency: (6) Personality disorder: Plan 06/10/2023: * cautious trial of diazepam 5 mg BID * continue methylphenidate 20 mg QAM & 10 mg QPM at 1400 - increased 06/09/2023 to 10 mg QAM & 5 mg QPM, started 06/08/2023 at 5 mg BID * continue aripiprazole 10 mg QAM - started 06/10/2023 * continue duloxetine 60 mg daily - increased 06/07/2023, started 05/30/2023 at 30 mg * continue ergocalciferol 50,000 IU twice weekly for loading - started 06/02/2023 * continue cyanocobalamin 1,000 mcg daily 06/10/2023: * increase methylphenidate to 20 mg QAM & 10 mg QPM at 1400 - increased 2022 to 10 mg QAM & 5 mg QPM, started 06/08/2023 at 5 mg BID * start aripiprazole 10 mg * stop olanzapine * continue duloxetine 60 mg daily - increased 06/07/2023, started 05/30/2023 at 30 mg * continue ergocalciferol 50,000 IU twice weekly for loading - started 06/02/2023 * continue cyanocobalamin 1,000 mcg daily * MRI brain with contrast 06/09/2023: * continue methylphenidate 10 mg QAM & 5 mg QPM at 1400 - started 06/08/2023 at 5 mg BID * continue olanzapine 10 mg HS and 2.5 mg BID PRN - started 05/30/2023 * continue duloxetine 60 mg daily - increased 06/07/2023, started 05/30/2023 at 30 mg * continue ergocalciferol 50,000 IU twice weekly for loading - started 06/02/2023 * continue cyanocobalamin 1,000 mcg daily 06/08/2023: * stop modafinil - increased 06/06/2023 to 200 mg QAM & 100 mg QPM, increased 06/04/2023 to 200 mg from 100 mg, reduced 06/03/2023 to 100 mg, started 06/02/2023 at 200 mg * begin trial of methylphenidate 5 mg QAM & QPM at 1400 * continue olanzapine 10 mg HS and 2.5 mg BID PRN - started 05/30/2023 * continue duloxetine 60 mg daily - increased 06/07/2023, started 05/30/2023 at 30 mg * continue ergocalciferol 50,000 IU twice weekly for loading - started 06/02/2023 * continue cyanocobalamin 1,000 mcg daily 06/07/2023: * increase (off-label) modafinil to 200 mg QAM & at 1300 - increased 06/06/2023 to 200 mg QAM & 100 mg QPM, increased 06/04/2023 to 200 mg from 100 mg, red uced 06/03/2023 to 100 mg, started 06/02/2023 at 200 mg * continue olanzapine 10 mg HS and 2.5 mg BID PRN - started 05/30/2023 * increase duloxetine to 60 mg daily - started 05/30/2023 at 30 mg * continue ergocalciferol 50,000 IU twice weekly for loading - started 06/02/2023 * continue cyanocobalamin 1,000 mcg daily 06/06/2023: * increase (off-label) modafinil to 200 mg QAM & 100 mg at 1300 - increased 06/04/2023 to 200 mg from 100 mg, reduced 06/03/2023 to 100 mg, started 06/02/2023 at 200 mg * continue olanzapine 10 mg HS and 2.5 mg BID PRN - started 05/30/2023 * continue duloxetine 30 mg daily - started 05/30/2023 * continue ergocalciferol 50,000 IU twice weekly for loading - started 06/02/2023 * continue cyanocobalamin 1,000 mcg daily 06/05/2023: * continue (off-label) modafinil 200 mg QAM - increased 06/04/2023 from 100 mg, reduced 06/03/2023 to 100 mg, started 06/02/2023 at 200 mg * continue olanzapine 10 mg HS and 2.5 mg BID PRN - started 05/30/2023 * continue duloxetine 30 mg daily - started 05/30/2023 * continue ergocalciferol 50,000 IU twice weekly for loading - started 06/02/2023 * continue cyanocobalamin 1,000 mcg daily * recheck cyanocobalamin level to confirm adequacy of replacement 06/04/2023: * increase (off-label) modafinil back to 200 mg QAM - reduced 06/03/2023 to 100 mg, started 06/02/2023 at 200 mg * continue olanzapine 10 mg HS and 2.5 mg BID PRN - started 05/30/2023 * continue duloxetine 30 mg daily - started 05/30/2023 * continue ergocalciferol 50,000 IU twice weekly for loading * continue cyanocobalamin 1,000 mcg daily, recheck level in 2-3 days to confirm adequacy of replacement 06/03/2023: * reduce (off-label) modafinil to 100 mg QAM - started 06/02/2023 at 200 mg * continue olanzapine 10 mg HS and 2.5 mg BID PRN - started 05/30/2023 * continue duloxetine 30 mg daily - started 05/30/2023 * continue ergocalciferol 50,000 IU twice weekly for loading * continue cyanocobalamin 1,000 mcg daily, recheck level in 2-3 days to confirm adequacy of replacement 06/02/2023: * start (off-label) modafinil 200 mg QAM * continue olanzapine 10 mg HS and 2.5 mg BID PRN - started 05/30/2023 * continue duloxetine 30 mg daily - started 05/30/2023 * change vitamin D from cholecalciferol 800 IU daily to ergocalciferol 50,000 IU twice weekly for loading * continue cyanocobalamin 1,000 mcg daily, recheck level in 2-3 days to confirm adequacy of replacement 06/01/2023: * continue olanzapine 10 mg HS po and 2.5 mg BID prn - started 05/30/2023 * continue duloxetine 30 mg daily - started 05/30/2023 * change vitamin D from cholecalciferol 800 IU daily to ergocalciferol 50,000 IU twice weekly for loading * continue cyanocobalamin 1,000 mcg daily, recheck level in 2-3 days to confirm adequacy of replacement 05/31/2023: * Continue olanzapine 10mg HS po and 2.5mg BID prn for now * Continue duloxetine 30mg daily * Start Vit D and B12 supplementation 05/30/2023: The patient was admitted to the [facility] ([facility] mental health unit) on q15 min checks (behavioral with suicide precautions) for safety. The patient will participate in group, recreational, and milieu therapies and will be offered additional individual and family sessions as clinically appropriate. -Start olanzapine 10mg HS po -Start duloxetine 30mg daily -AM labwork including fasting glucose, HbA1c, B12, Folic Acid, Vit D, fasting lipid panel Inventory Assets Strengths: supportive relationships, willing to get treatment Needs: safety and stabilization, medication adjustment, additional coping skills, increased outpatient services Suicide Risk Level Suicide Risk Level: Moderate (q15 min suicide checks) (depression with poor self care plan prior to admission but denies current SI, reports he feels safe in the hospital, and agrees to let nursing/staff know should they develop plan, intent or feel unable to remain safe. ) Risk Factors Assessment Male: Yes : Yes Do You Have Access To A Gun?: Yes (multiple at home, making plans to have these removed) Health Problems: Yes (peripheral neuropathy) Mental Health Diagnoses: Yes Substance Use Disorders: No Previous Attempt: No Family History of Suicide: No Previous Psychiatric Hospitalization: Yes Protective Factors Assessment Mu-Ism Beliefs: Yes : Yes Employed: No (Retired) Stable Relationships: Yes Supportive Family: Yes Interval History Identifying Information JERARDO VELAZQUEZ is a 63-year-old man who currently lives in [place] with his , has a history of Major Depressive Disorder with psychotic features and suspicion for catatonia, and was admitted on 05/29/23 18:33 on a 201 voluntary commitment for lack of self-care/inability to function at home with refusal to eat/shower/attend to any self-care needs and increasing paranoia, agoraphobia and depression. Chief Complaint "I can't do anything". Review of Systems Sleep Information Total Hours of Sleep: 8 Sleep Comments: Woke up for a snack Meal Information Percent Meal Consumed - Breakfast: 100 Percent Meal Consumed - Lunch: 100 Percent Meal Consumed - Dinner: 100 Nutrition Comment: Pt ate all of his meal. Subjective Subjective The patient was seen and assessed and interval progress reviewed in a multidisciplinary team meeting with the treatment team. For details, see the "Impression" section. Overall I spent a total of 44 minutes for this inpatient follow-up including review of chart records, review of test results, direct evaluation of the patient [id number], counseling the patient, reconciling and ordering medication, medication education with the patient, risk assessment, discussion during interdisciplinary treatment rounds, and documentation in the electronic health record. Physical Exam Psychiatric Orientation: alert, oriented to person, oriented to place, oriented to time and cooperative (minimally) Apperance: appropriately dressed and + disheveled Eye Contact: + poor eye contact Motor Behavior: + psychomotor retardation Speech: normal rate/rhythm/volume of speech Affect: + anxious affect and + constricted affect Mood: + depressed mood and + anxious mood Thought Process: + thought blocking, + circumstantial thought process and + tangential thought process Thought Content: + preoccupation ("don't know what's wrong with me"), + paranoid (subjectively, but can't elaborate), + cognitive distortions, + derealization, + hopelessness, + guilt and + self deprecation Suicidal Thoughts: denies suicidal thoughts, denies suicidal plan and denies suicidal intent Homicidal Thoughts: denies homicidal thoughts Hallucinations: no auditory hallucinations and no visual hallucinations ("squiggles and dots" when he closes his eyes) Cognition: recent memory grossly intact, remote memory grossly intact and language grossly intact; + attention not intact Estimated Intelligence: consistent with education level Insight: + limited insight and + fair insight Judgment: + limited judgement and + fair judgement Vital Signs (Past 24 Hours) Last Vital Signs Temp 36.5 C 06/11/23 06:49 Pulse 116 H 06/11/23 06:50 Resp 16 06/11/23 06:49 BP 128/82 06/11/23 06:50 Pulse Ox 95 06/09/23 06:51 O2 Del Method Room Air 06/09/23 06:51 Results & Data ([facility]) Current Inpatient Medications Current Inpatient Medications: Current Inpatient Medications Acetaminophen (Acetaminophen 325 Mg Tab) 650 mg PO Q4H PRN PRN Reason: Headache or Minor Fever Stop: 06/28/23 18:32 Al Hydrox/Mg Hydrox/Simethicone (Aluminum/Magnesium Susp 30 Ml Udc) 30 ml PO Q4H PRN PRN Reason: GI Upset Stop: 06/28/23 18:32 Aripiprazole (Aripiprazole 10 Mg Tab) 10 mg PO QAM REPLACED BY [facility] Stop: 07/11/23 08:59 Last Admin: 06/11/23 08:55 Dose: 10 mg Bismuth Subsalicylate (Bismuth Subsalicylate Liqd 236 Ml) 15 ml PO PRN PRN PRN Reason: Loose Stool Stop: 06/28/23 18:32 Cyanocobalamin (Cyanocobalamin (B-12) 500 Mcg Tablet) 1,000 mcg PO QAM REPLACED BY [facility] Stop: 07/01/23 08:59 Last Admin: 06/11/23 08:56 Dose: 1,000 mcg Duloxetine HCl (Duloxetine Hcl 60 Mg Cap) [facility] Stop: 07/08/23 08:59 Last Admin: 06/11/23 08:56 Dose: 60 mg Ergocalciferol (Ergocalciferol 50,000 Units 1250 Mcg Cap) 50,000 units PO SuWe@0900 REPLACED BY [facility] Stop: 07/02/23 08:59 Last Admin: 06/09/23 08:39 Dose: 50,000 units Hydroxyzine HCl (Hydroxyzine Hcl 25 Mg Tab) 50 mg PO HSZ PRN PRN Reason: Insomnia Stop: 06/28/23 18:32 Hydroxyzine HCl (Hydroxyzine Hcl 25 Mg Tab) 25 mg PO Q4H PRN PRN Reason: Anxiety Stop: 06/28/23 18:32 Magnesium Hydroxide (Magnesium Hydroxide Susp 30 Ml Udc) 30 ml PO DAILY PRN PRN Reason: Constipation Stop: 06/28/23 18:32 Last Admin: 06/05/23 18:05 Dose: 30 ml Methylphenidate HCl (Methylphenidate Hcl 10 Mg Tablet) 10 mg PO DAILY@1400 DEANDRE Stop: 06/25/23 13:59 Methylphenidate HCl (Methylphenidate Hcl 10 Mg Tablet) 20 mg PO QAM DEANDRE Stop: 06/25/23 08:59 Last Admin: 06/11/23 08:55 Dose: 20 mg Sodium Chloride (Sodium Chloride 0.65% Na Soln 45 Ml ([place])) 1 - 2 sprays NA PRN PRN PRN Reason: Nasal Dryness/Congestion Stop: 06/28/23 18:32 Mental Health & Subst Abuse Tx Therapist Name of Therapist: Angel Dorado (Skip) Therapist's Time of Therapist Appointment: [address] [place] [address] Therapy Appointment Comment: Please call if interested in mental health counseling. Manager Highway Name of Manager Highway: [facility] [place] [facility] - Blended Case Management Phone Number for Manager Highway: [phone] Case Management Appointment Comment: Please call if you are interested in blended case management. Post Discharge Appointments Primary Care Physician Name Of Family Doctor/PCP: [facility] Date of Future Appointment with PCP: 07/20/23 Time of Appointment with PCP: 11:05 arrival Provider Appointment Comment: [address] [place] [address] Contact Information Discharge Discharge [address]: [address] [place], [place] [address] [address]
[2023-06-11] MEDS: diazePAM 5 MG TABLET PO SCH (20:42)
[2023-06-12] MEDS: diazePAM 5 MG TABLET PO SCH ×2 (08:59→22:34)
[2023-06-12] MEDS: ARIPiprazole 10 MG TAB PO SCH (08:59)
[2023-06-12] MEDS: CYANOCOBALAMIN (B-12) 500 MCG TABLET PO SCH (08:59)
[2023-06-12] MEDS: ERGOCALCIFEROL 50,000 UNITS 1250 MCG CAP PO SCH (08:59)
[2023-06-12] MEDS: DULoxetine HCL 60 MG CAP PO SCH (08:59)
[2023-06-12] MEDS: METHYLPHENIDATE HCL 10 MG TABLET PO SCH ×2 (09:00→14:09)
--- NOTE | 2023-06-12 19:10 | Psychiatric Progress Note ---
Date of Service June 12, 2023 Impression / Recommendations Impression Ed is a 63 year old man with a history of MDD with psychotic features who was admitted for worsening agoraphobia, paranoia, depression and anxiety with inability to provide for his self-care needs including significant weight loss (with ketones in his urine) and hopelessness. Diagnostically seems most consistent with major depressive disorder with psychotic features and generalized anxiety disorder with agoraphobia and panic attacks. No current signs of catatonia so will hold off on use of any benzodiazepines. He is deemed in need of psychiatric hospitalization for diagnostic clarification, safety and stabilization, medication management and development of further coping skills. MNPR due to extreme anxiety, paranoia, poor self-care/hygiene prior to admission 06/12/2023: Considerable improvement is noted today. Pt has been out of his room, showered spontaneously. Has attended groups. Much more interactive. Affect nearly euthymic - pt has even made a few jokes. On interview he certainly continues to perseverate, but this is more easily redirected. Similarly, his typical preoccupations (his 's health, not knowing what's wrong with him) continue, but he's more readily reassured. Reviewed all lab results from this admission (since this is the first time I thought he'd be able to benefit); he asked pertinent questions several times. No adverse effects reported after recent medication changes, including sedation (he appears much more alert and less passive). As promising as these changes appear, team are aware of a [id number]-[id number] improvement 8 days ago that lasted only a single day following a new medication. 06/11/2023: MRI with and without contrast yesterday was read as showing mucosal thickening of a paranasal sinus but no other findings. He had received 5 mg diazepam prior to going for the MRI and upon his return staff noted that he seemed much more able to initiate, was out of his room spontaneously, at supper without having to be encouraged. He tells me he "was just so tired and went straight to bed". The staff reports raise the intriguing possibility that anxiolysis from the diazepam contributed to noticeable improvement last evening and that perhaps a scheduled benzodiazepine could be helpful at least over the short term. 06/10/2023: Continuing to do very poorly with marked passivity and active avoidance of participation in the treatment program. Has said he can't get up and attend meals, but has always ended up doing so. He has not appeared any more anxious since starting methylphenidate (he simply won't say whether he's noted any subjective increase in anxiety) nor is there any apparent benefit. He continues to avoid endorsing persecutory beliefs, but when asked won't deny them either. Pt assented to increasing dose. Olanzapine was initially selected in part in the hope that it might help regularize his sleep schedule. This has not been seen, despite evident sedation after taking it. I don't think we can add a daytime dose. Discussed switching to less-sedating aripiprazole to increase likelihood of acheiving effective dose without excessive sedation. Pt assented to this. The team devoted considerable time to reviewing evidence of significant change in personality and cognition about a year ago. While functional brain imaging would likely be much more helpful, concluded that anatomical brain imaging would likely nevertheless be helpful in ruling out such things as infarcts or focal atrophy. Also devoted considerable time to behavioral interventions. These are clearly needed but no consensus was reached about what they should be. All agreed that the approach must be clear and consistent. Will work on this with SW who has a background in formulating such plans then present for review to the entire team. 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 Pt overtly denied most of what his had reported (which is very consistent with reports at the time of admission) but tacitly acknowledged it (e.g., by saying his had probably also reported his worries about finances, which is true, or that barricading them in their house is no way to live). Despite encouragement from essentially every staff member today, pt has not participated in groups. I reiterated that every aspect of the treatment program is necessary and mandatory and that if he's simply going to lie around in bed he can do that at home. He has been less ridiculously passive today. Highly help-rejecting, saying he "can't" get up and walk or eat meals. Staff have simply been demanding that he get up and walk and eat, but at times he's said he's unable to do such things even as he does them. He's been eating well. Pt utterly refuses to say whether he feels at all more anxious or restless on methylphenidate. There's certainly no evidence of increased energy. We may need to consider a less-sedating antipsychotic. A nurse brought up the possibility of a trial of transdermal selegiline. This is an intriguing possibility with much to recommend it. It is, however, a non- formulary drug here that retails for about $80 per patch (which is changed daily) making it very likely to be financially unattainable. Selegiline is available in an inexpensive oral formulation, but that has never proven effectiv e for depression. First-pass liver degradation of the drug is very significant, and at oral doses sufficient to overcome that and the drug's specificity for MAO-B, significant side effects are typically seen and gut MAO-A is usually inhibited to a substantial degree, eliminating the significant advantages of the transdermal form vs. typical MAOIs. 06/08/2023: Following discussion yesterday about anticipating discharge soon, pt had a really bad afternoon with aggressively passive behaviors. These included announcing that he'd "pooped [his] pants" while in bed then refusing for a time to change clothes or shower, as well as intimating that it was "going to happen again". Today initially resisted leaving his room with when staff insisted forcefully they were able to get him up, walked around the unit with him. He said he "couldn't" eat but did eat when they persistently reminded him that he obviously could eat. Today sits on bed (an improvement over lying on it) but continues to perseverate on all the things he "can't" (yet demonstrably actually can) do. Modafinil trial has patently failed despite initial promise. Pt exhibits numerous symptoms consistent with hypofrontality, for which stimulants are usually at least somewhat helpful. I'd hoped to minimize risk of exacerbating his anxiety, but at this point that risk seems to be outweighed by the need to address his passivity. 06/07/2023: Pt has resumed spending more time in bed, though to a lesser degree than before the addition of modafinil. He didn't eat supper last night nor has he yet had breakfast this morning. On rounds he lies fully-awake atop his blanket. It's certainly possible that his depression has melancholic features that may not respond well to medication. For the past week he hasn't evidenced any psychotic features, though that could certainly be due to olanzapine. The treatment team discussed the possibility of referral for ECT. However, a pattern of help-rejecting and passive aggression seems very consistent with his personality traits and may not be at all amenable to medication treatment. 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 Pt is clearly anxious but has not had any panic episodes for the past week. In my opinion his symptoms are responding to medication to the greatest degree they're likely to and that, unless he elects to pursue referral for ECT, there is little to be gained from prolonging his inpatient stay. He reports no adverse effects attributable to medications, including duloxetine started a week ago, so discussed proceeding with titration to planned target dose of 60 mg of duloxetine as well as increasing modafinil to typical dose of 200 mg BID. He agrees to this plan (but predicts it won't help). 06/06/2023: Remains very help-rejecting. Spent most of the day out of bed once staff chivvied him up, then went to bed after supper and remained there. Continues to ruminate about "not understanding it" or that he "can't figure it out", "it" being fairly nebulous and difficult for him to specify. He agrees that he's been better during the day after having started AM modafinil but is concerned that "it seems to wear off by evening". Repeat B12 level was within the reference range at 382 pg/mL, indicating that current dose is appropriate. 06/05/2023: Following my meeting with pt yesterday, including discussion of the importance of participating in the milieu, benefits of physical activity, pt went to bed and wouldn't get back out. Today has thus far seemed much better - he's been out of his room, participated in the groups that have taken place . He remains preoccupied and perseverative, though this has changed from "I just can't function" to "I don't know what's wrong with me". Asks me several times if I think the medication I ordered recently (and have been discussing with him frequently) will help. Denies any problems with this morning's 200 mg modafinil dose. B12 replenishment was started 5 days ago. Will recheck level to confirm adequacy of the current dose. 06/04/2023: After a very good day yesterday, pt is back in bed, declining to participate in the milieu. He'd asked to reduce the modafinil dose yesterday due to a [id number]-[id number] feeling that it was "too much". Once pried out of bed by staff he did stay out and participated in the milieu but has been perseverating on how he doesn't understand what's going on (with his mood). Discussed medication plan at length. Pt guardedly agrees to increase modafinil. 06/03/2023: Has been much more active today, out of his room attending groups. He's shaved and showered. Much more interactive and able to attend to conversation. He voices "feeling a little freaked out" by the change, which he doesn't think of as negative but he's surprised at how different he feels compared to yesterday. He wonders if the modafinil dose "might be too much" but can't really specify any particular problem. 06/02/2023: Pt has been out of his room a few times, attended exercise group this morning (but didn't participate much), but overall spends most of his time in bed awake. He continues to report that he "just can't function" in ways he can't specify. Endorses "paranoia" but can't or won't elaborate - when asked for more detail, says "the medication knocked me out last night". Says he's "having visual hallucinations" consisting of "dots and squiggles" when he closes his eyes. HIs attention is very poor and many questions must be repeated, but says he's not experiencing anything along the lines of auditory hallucinations or any specific thing that's occupying his attention. Very help-rejecting, even about things that I haven't actually specified yet. He certainly evidences substantial passive-aggressive personality traits. In reviewing MAR, pt has not needed any PRN olanzapine recently. Discussed off-label trial of modafinil, the primary use of which is to treat excessive daytime sleepiness (albeit for conditions he doesn't have) and for which there's significant evidence of efficacy for ADHD (which I don't think he has, though he certainly has great difficulty concentrating) and for major depression. I discussed that a related drug not used in the [facility] (adrafinil) has a demonstrated risk of TEN (primarily in children) and that it's presumed that this could be the case with modafinil as well. Discussed risks of headache or upset stomach. Pt did not display much interest in seeking improvement but agreed to an off-label trial of modafinil. 06/01/2023: Pt says he just wants to sleep, but is actually awake in bed on approach and readily interacts. Eye contact is poor, and responses to many items are limited to shrugs. Pt isn't sure if medication has made any noticeable difference. He doesn't spontaneously report any of the obsessive, persecutory beliefs previously documented but when asked say there are thoughts he "just can't stop". 05/31/2023: Today presents as significantly worse and decompensated compared with yesterday with fairly extreme thought blocking, isolative, refusing meals. No classic signs of catatonia but possible this could be playing a role today as antipsychotic dose was increased. Does appear he slept better with titration of olanzapine but unclear why he is struggling so much more today. Concerns for extensive ruminations and psychosis leading to thought blocking and his inability to engage in spontaneous conversation today. Review of labwork notable for normal glucose, HbA1c, total cholesterol/TGs/HDL with low risk LDL. Folic acid levels were normal. Deficient in Vitamin D and B12. He consents to starting supplementation for this. (1) MDD (major depressive disorder), recurrent, severe, with psychosis: (2) Generalized anxiety disorder with panic attacks: (3) Agoraphobia with panic attacks: (4) Vitamin D deficiency: (5) Vitamin B12 deficiency: (6) Personality disorder: Plan 06/12/2023: * continue diazepam 5 mg BID - started 06/11/2023 * continue methylphenidate 20 mg QAM & 10 mg QPM at 1400 - increased 06/09/2023 to 10 mg QAM & 5 mg QPM, started 06/08/2023 at 5 mg BID * continue aripiprazole 10 mg QAM - started 06/10/2023 to replace olanzapine * continue duloxetine 60 mg daily - increased 06/07/2023, started 05/30/2023 at 30 mg * continue ergocalciferol 50,000 IU twice weekly for loading - started 06/02/2023 * continue cyanocobalamin 1,000 mcg daily 06/11/2023: * cautious trial of diazepam 5 mg BID * continue methylphenidate 20 mg QAM & 10 mg QPM at 1400 - increased 06/09/2023 to 10 mg QAM & 5 mg QPM, started 06/08/2023 at 5 mg BID * continue aripiprazole 10 mg QAM - started 06/10/2023 * continue duloxetine 60 mg daily - increased 06/07/2023, started 05/30/2023 at 30 mg * continue ergocalciferol 50,000 IU twice weekly for loading - started 06/02/2023 * continue cyanocobalamin 1,000 mcg daily 06/10/2023: * increase methylphenidate to 20 mg QAM & 10 mg QPM at 1400 - increased 06/09/2023 to 10 mg QAM & 5 mg QPM, started 06/08/2023 at 5 mg BID * start aripiprazole 10 mg * stop olanzapine * continue duloxetine 60 mg daily - increased 06/07/2023, started 05/30/2023 at 30 mg * continue ergocalciferol 50,000 IU twice weekly for loading - started 06/02/2023 * continue cyanocobalamin 1,000 mcg daily * MRI brain with contrast 06/09/2023: * continue methylphenidate 10 mg QAM & 5 mg QPM at 1400 - started 06/08/2023 at 5 mg BID * continue olanzapine 10 mg HS and 2.5 mg BID PRN - started 05/30/2023 * continue duloxetine 60 mg daily - increased 06/07/2023, started 05/30/2023 at 30 mg * continue ergocalciferol 50,000 IU twice weekly for loading - started 06/02/2023 * continue cyanocobalamin 1,000 mcg daily 06/08/2023: * stop modafinil - increased 06/06/2023 to 200 mg QAM & 100 mg QPM, increased 06/04/2023 to 200 mg from 100 mg, reduced 06/03/2023 to 100 mg, started 06/02/2023 at 200 mg * begin trial of methylphenidate 5 mg QAM & QPM at 1400 * continue olanzapine 10 mg HS and 2.5 mg BID PRN - started 05/30/2023 * continue duloxetine 60 mg daily - increased 06/07/2023, started 05/30/2023 at 30 mg * continue ergocalciferol 50,000 IU twice weekly for loading - started 06/02/2023 * continue cyanocobalamin 1,000 mcg daily 06/07/2023: * increase (off-label) modafinil to 200 mg QAM & at 1300 - increased 06/06/2023 to 200 mg QAM & 100 mg QPM, increased 06/04/2023 to 200 mg from 100 mg, reduced 06/03/2023 to 100 mg, started 06/02/2023 at 200 mg * continue olanzapine 10 mg HS and 2.5 mg BID PRN - started 05/30/2023 * increase duloxetine to 60 mg daily - started 05/30/2023 at 30 mg * continue ergocalciferol 50,000 IU twice weekly for loading - started 06/02/2023 * continue cyanocobalamin 1,000 mcg daily 06/06/2023: * increase (off-label) modafinil to 200 mg QAM & 100 mg at 1300 - increased 06/04/2023 to 200 mg from 100 mg, reduced 06/03/2023 to 100 mg, started 06/02/2023 at 200 mg * continue olanzapine 10 mg HS and 2.5 mg BID PRN - started 05/30/2023 * continue duloxetine 30 mg daily - started 05/30/2023 * continue ergocalciferol 50,000 IU twice weekly for loading - started 06/02/2023 * continue cyanocobalamin 1,000 mcg daily 06/05/2023: * continue (off-label) modafinil 200 mg QAM - increased 06/04/2023 from 100 mg, reduced 06/03/2023 to 100 mg, started 06/02/2023 at 200 mg * continue olanzapine 10 mg HS and 2.5 mg BID PRN - started 05/30/2023 * continue duloxetine 30 mg daily - started 05/30/2023 * continue ergocalciferol 50,000 IU twice weekly for loading - started 06/02/2023 * continue cyanocobalamin 1,000 mcg daily * recheck cyanocobalamin level to confirm adequacy of replacement 06/04/2023: * increase (off-label) modafinil back to 200 mg QAM - reduced 06/03/2023 to 100 mg, started 06/02/2023 at 200 mg * continue olanzapine 10 mg HS and 2.5 mg BID PRN - started 05/30/2023 * continue duloxetine 30 mg daily - started 05/30/2023 * continue ergocalciferol 50,000 IU twice weekly for loading * continue cyanocobalamin 1,000 mcg daily, recheck level in 2-3 days to confirm adequacy of replacement 06/03/2023: * reduce (off-label) modafinil to 100 mg QAM - started 06/02/2023 at 200 mg * continue olanzapine 10 mg HS and 2.5 mg BID PRN - started 05/30/2023 * continue duloxetine 30 mg daily - started 05/30/2023 * continue ergocalciferol 50,000 IU twice weekly for loading * continue cyanocobalamin 1,000 mcg daily, recheck level in 2-3 days to confirm adequacy of replacement 06/02/2023: * start (off-label) modafinil 200 mg QAM * continue olanzapine 10 mg HS and 2.5 mg BID PRN - started 05/30/2023 * continue duloxetine 30 mg daily - started 05/30/2023 * change vitamin D from cholecalciferol 800 IU daily to ergocalciferol 50,000 IU twice weekly for loading * continue cyanocobalamin 1,000 mcg daily, recheck level in 2-3 days to confirm adequacy of replacement 06/01/2023: * continue olanzapine 10 mg HS po and 2.5 mg BID prn - started 05/30/2023 * continue duloxetine 30 mg daily - started 05/30/2023 * change vitamin D from cholecalciferol 800 IU daily to ergocalciferol 50,000 IU twice weekly for loading * continue cyanocobalamin 1,000 mcg daily, recheck level in 2-3 days to confirm adequacy of replacement 05/31/2023: * Continue olanzapine 10mg HS po and 2.5mg BID prn for now * Continue duloxetine 30mg daily * Start Vit D and B12 supplementation 05/30/2023: The patient was admitted to the [facility] ([facility]) on q15 min checks (behavioral with suicide precautions) for safety. The patient will participate in group, recreational, and milieu therapies and will be offered additional individual and family sessions as clinically appropriate. -Start olanzapine 10mg HS po -Start duloxetine 30mg daily -AM labwork including fasting glucose, HbA1c, B12, Folic Acid, Vit D, fasting lipid panel Inventory Assets Strengths: supportive relationships, willing to get treatment Needs: safety and stabilization, medication adjustment, additional coping skills, increased outpatient services Suicide Risk Level Suicide Risk Level: Moderate (q15 min suicide checks) (depression with poor self care plan prior to admission but denies current SI, reports he feels safe in the hospital, and agrees to let nursing/staff know should they develop plan, intent or feel unable to remain safe. ) Risk Factors Assessment Male: Yes : Yes Do You Have Access To A Gun?: Yes (multiple at home, making plans to have these removed) Health Problems: Yes (peripheral neuropathy) Mental Health Diagnoses: Yes Substance Use Disorders: No Previous Attempt: No Family History of Suicide: No Previous Psychiatric Hospitalization: Yes Protective Factors Assessment Hindu Beliefs: Yes : Yes Employed: No (Retired) Stable Relationships: Yes Supportive Family: Yes Interval History Identifying Information JERARDO VELAZQUEZ is a 63-year-old man who currently lives in [place] with his , has a history of Major Depressive Disorder with psychotic features and suspicion for catatonia, and was admitted on 05/29/23 18:33 on a 201 voluntary commitment for lack of self-care/inability to function at home with refusal to eat/shower/attend to any self-care needs and increasing paranoia, agoraphobia and depression. Chief Complaint "Actually seem a little better". Review of Systems Sleep Information Total Hours of Sleep: 7.5 Sleep Comments: Woke up for a snack Meal Information Percent Meal Consumed - Breakfast: 100 Percent Meal Consumed - Lunch: 95 Percent Meal Consumed - Dinner: 100 Nutrition Comment: Pt ate all of his meal. Subjective Subjective The patient was seen and assessed and interval progress reviewed in a multidisciplinary team meeting with the treatment team. For details, see the "Impression" section. Overall I spent a total of 48 minutes for this inpatient follow-up including review of chart records, direct evaluation of the patient [id number], counseling the patient, medication education with the patient, risk assessment, discussion during interdisciplinary treatment rounds, and documentation in the electronic health record. Physical Exam Psychiatric Orientation: alert, oriented to person, oriented to place, oriented to time and cooperative (minimally) Apperance: appropriately dressed and appropriately groomed Eye Contact: good eye contact Motor Behavior: no abnormal motor movements Speech: normal rate/rhythm/volume of speech Affect: + anxious affect and + constricted affect Mood: + anxious mood and + dysphoric mood Thought Process: + tangential thought process and + concrete thought process Thought Content: + preoccupation ("don't know what's wrong with me"), + cognitive distortions, reality based without delusions and + self deprecation Suicidal Thoughts: denies suicidal thoughts, denies suicidal plan and denies suicidal intent Homicidal Thoughts: denies homicidal thoughts Hallucinations: no auditory hallucinations and no visual hallucinations ("squiggles and dots" when he closes his eyes) Cognition: recent memory grossly intact, remote memory grossly intact and language grossly intact; + attention not intact Estimated Intelligence: consistent with education level Insight: + fair insight Judgment: + fair judgement Vital Signs (Past 24 Hours) Last Vital Signs Temp 36.4 C L 06/12/23 06:00 Pulse 109 H 06/12/23 06:34 Resp 16 06/12/23 06:00 BP 135/93 06/12/23 06:34 Pulse Ox 95 06/09/23 06:51 O2 Del Method Room Air 06/09/23 06:51 Results & Data ([facility]) Current Inpatient Medications Current Inpatient Medications: Current Inpatient Medications Acetaminophen (Acetaminophen 325 Mg Tab) 650 mg PO Q4H PRN PRN Reason: Headache or Minor Fever Stop: 06/28/23 18:32 Al Hydrox/Mg Hydrox/Simethicone (Aluminum/Magnesium Susp 30 Ml Udc) 30 ml PO Q4H PRN PRN Reason: GI Upset Stop: 06/28/23 18:32 Aripiprazole (Aripiprazole 10 Mg Tab) 10 mg PO QAM DEANDRE Stop: 07/11/23 08:59 Last Admin: 06/12/23 08:59 Dose: 10 mg Bismuth Subsalicylate (Bismuth Subsalicylate Liqd 236 Ml) 15 ml PO PRN PRN PRN Reason: Loose Stool Stop: 06/28/23 18:32 Cyanocobalamin (Cyanocobalamin (B-12) 500 Mcg Tablet) 1,000 mcg PO QAM [facility] Stop: 07/01/23 08:59 Last Admin: 06/12/23 08:59 Dose: 1,000 mcg Diazepam (Diazepam 5 Mg Tablet) 5 mg PO BID [facility] Stop: 07/11/23 20:59 Last Admin: 06/12/23 08:59 Dose: 5 mg Duloxetine HCl (Duloxetine Hcl 60 Mg Cap) 60 mg PO QAM [facility] Stop: 07/08/23 08:59 Last Admin: 06/12/23 08:59 Dose: 60 mg Ergocalciferol (Ergocalciferol 50,000 Units 1250 Mcg Cap) 50,000 units PO SuWe@0900 [facility] Stop: 07/02/23 08:59 Last Admin: 06/12/23 08:59 Dose: 50,000 units Hydroxyzine HCl (Hydroxyzine Hcl 25 Mg Tab) 50 mg PO HSZ PRN PRN Reason: Insomnia Stop: 06/28/23 18:32 Hydroxyzine HCl (Hydroxyzine Hcl 25 Mg Tab) 25 mg PO Q4H PRN PRN Reason: Anxiety Stop: 06/28/23 18:32 Magnesium Hydroxide (Magnesium Hydroxide Susp 30 Ml Udc) 30 ml PO DAILY PRN PRN Reason: Constipation Stop: 06/28/23 18:32 Last Admin: 06/05/23 18:05 Dose: 30 ml Methylphenidate HCl (Methylphenidate Hcl 10 Mg Tablet) 10 mg PO DAILY@1400 [facility] Stop: 06/25/23 13:59 Last Admin: 06/12/23 14:09 Dose: 10 mg Methylphenidate HCl (Methylphenidate Hcl 10 Mg Tablet) 20 mg PO QAM [facility] Stop: 06/25/23 08:59 Last Admin: 06/12/23 09:00 Dose: 20 mg Sodium Chloride (Sodium Chloride 0.65% Na Soln 45 Ml ([place])) 1 - 2 sprays NA PRN PRN PRN Reason: Nasal Dryness/Congestion Stop: 06/28/23 18:32 Mental Health & Subst Abuse Tx Therapist Name of Therapist: Angel "Zi" Estrada Therapist's Time of Therapist Appointment: [address] [place] [place] [address] Therapy Appointment Comment: Please call if interested in mental health counseling. [employer] Name of Diesel Truck Mechanic: [facility] - Blended Case Management Phone Number for Diesel Truck Mechanic: [phone] Case Management Appointment Comment: Please call if you are interested in blended case management. Post Discharge Appointments Primary Care Physician Name Of Family Doctor/PCP: [facility] Date of Future Appointment with PCP: 07/20/23 Time of Appointment with PCP: 11:05 arrival Provider Appointment Comment: [address] [place] [address] Contact Information Discharge Discharge Address: [facility] [address], [place] [address]
[2023-06-13] MEDS: diazePAM 5 MG TABLET PO SCH ×2 (08:56→20:41)
[2023-06-13] MEDS: CYANOCOBALAMIN (B-12) 500 MCG TABLET PO SCH (08:56)
[2023-06-13] MEDS: ARIPiprazole 10 MG TAB PO SCH (08:56)
[2023-06-13] MEDS: DULoxetine HCL 60 MG CAP PO SCH (08:57)
[2023-06-13] MEDS: METHYLPHENIDATE HCL 10 MG TABLET PO SCH ×2 (08:57→14:12)
--- NOTE | 2023-06-13 09:08 | Psychiatric Progress Note ---
Date of Service June 13, 2023 Impression / Recommendations Impression Ed is a 63 year old man with a history of MDD with psychotic features who was admitted for worsening agoraphobia, paranoia, depression and anxiety with inability to provide for his self-care needs including significant weight loss (with ketones in his urine) and hopelessness. Diagnostically seems most consistent with major depressive disorder with psychotic features and generalized anxiety disorder with agoraphobia and panic attacks. No current signs of catatonia so will hold off on use of any benzodiazepines. He is deemed in need of psychiatric hospitalization for diagnostic clarification, safety and stabilization, medication management and development of further coping skills. MNPR due to extreme anxiety, paranoia, poor self-care/hygiene prior to admission 06/13/2023: Following a remarkably good day most of yesterday, pt went to bed right after supper. Today, though, he has been up, showered, attending groups. Smiles spontaneously. Is able to discuss plans for after discharge. Has started to talk about former hobbies and interests. No side effects are evident. Might consider adding a small midday diazepam dose, but I hope to avoid any sedation. 06/12/2023: Considerable improvement is noted today. Pt has been out of his room, showered spontaneously. Has attended groups. Much more interactive. Affect nearly euthymic - pt has even made a few jokes. On interview he certainly continues to perseverate, but this is more easily redirected. Similarly, his typical preoccupations (his 's health, not knowing what's wrong with him) continue, but he's more readily reassured. Reviewed all lab results from this admission (since this is the first time I thought he'd be able to benefit); he asked pertinent questions several times. No adverse effects reported after recent medication changes, including sedation (he appears much more alert and less passive). As promising as these changes appear, team are aware of a odoozr-[id number] improvement 8 days ago that lasted only a single day following a new medication. 06/11/2023: MRI with and without contrast yesterday was read as showing mucosal thickening of a paranasal sinus but no other findings. He had received 5 mg diazepam prior to going for the MRI and upon his return staff noted that he seemed much more able to initiate, was out of his room spontaneously, at supper without having to be encouraged. He tells me he "was ju st so tired and went straight to bed". The staff reports raise the intriguing possibility that anxiolysis from the diazepam contributed to noticeable improvement last evening and that perhaps a scheduled benzodiazepine could be helpful at least over the short term. 06/10/2023: Continuing to do very poorly with marked passivity and active avoidance of participation in the treatment program. Has said he can't get up and attend meals, but has always ended up doing so. He has not appeared any more anxious since starting methylphenidate (he simply won't say whether he's noted any subjective increase in anxiety) nor is there any apparent benefit. He continues to avoid endorsing persecutory beliefs, but when asked won't deny them either. Pt assented to increasing dose. Olanzapine was initially selected in part in the hope that it might help regularize his sleep schedule. This has not been seen, despite evident sedation after taking it. I don't think we can add a daytime dose. Discussed switching to less-sedating aripiprazole to increase likelihood of acheiving effective dose without excessive sedation. Pt assented to this. The team devoted considerable time to reviewing evidence of significant change in personality and cognition about a year ago. While functional brain imaging would likely be much more helpful, concluded that anatomical brain imaging would likely nevertheless be helpful in ruling out such things as infarcts or focal atrophy. Also devoted considerable time to behavioral interventions. These are clearly needed but no consensus was reached about what they should be. All agreed that the approach must be clear and consistent. Will work on this with SW who has a background in formulating such plans then present for review to the entire team. 06/09/2023: bottling room worker has been documenting discussions with pt's about symptoms prior to admission and with the patient about this information (q.v.). Pt overtly denied most of what his had reported (which is very consistent with reports at the time of admission) but tacitly acknowledged it (e.g., by saying his had probably also reported his worries about finances, which is true, or that barricading them in their house is no way to live). Despite encouragement from essentially every staff member today, pt has not participated in groups. I reiterated that every aspect of the treatment program is necessary and mandatory and that if he's simply going to lie around in bed he can do that at home. He has been less ridiculously passive today. Highly help-rejecting, saying he "can't" get up and walk or eat meals. Staff have simply been demanding that he get up and walk and eat, but at times he's said he's unable to do such things even as he does them. He's been eating well. Pt utterly refuses to say whether he feels at all more anxious or restless on methylphenidate. There's certainly no evidence of increased energy. We may need to consider a less-sedating antipsychotic. A nurse brought up the possibility of a trial of transdermal selegiline. This is an intriguing possibility with much to recommend it. It is, however, a non- formulary drug here that retails for about $80 per patch (which is changed daily) making it very likely to be financially unattainable. Selegiline is available in an inexpensive oral formulation, but that has never proven effective for depression. First-pass liver degradation of the drug is very significant, and at oral doses sufficient to overcome that and the drug's specificity for MAO-B, significant side effects are typically seen and gut MAO-A is usually inhibited to a substantial degree, eliminating the significant advantages of the transdermal form vs. typical MAOIs. 06/08/2023: Following discussion yesterday about anticipating discharge soon, pt had a really bad afternoon with aggressively passive behaviors. These included announcing that he'd "pooped [his] pants" while in bed then refusing for a time to change clothes or shower, as well as intimating that it was "going to happen again". Today initially resisted leaving his room with when staff insisted forcefully they were able to get him up, walked around the unit with him. He said he "couldn't" eat but did eat when they persistently reminded him that he obviously could eat. Today sits on bed (an improvement over lying on it) but continues to perseverate on all the things he "can't" (yet demonstrably actually can) do. Modafinil trial has patently failed despite initial promise. Pt exhibits numerous symptoms consistent with hypofrontality, for which stimulants are usually at least somewhat helpful. I'd hoped to minimize risk of exacerbating his anxiety, but at this point that risk seems to be outweighed by the need to address his passivity. 06/07/2023: Pt has resumed spending more time in bed, though to a lesser degree than before the addition of modafinil. He didn't eat supper last night nor has he yet had breakfast this morning. On rounds he lies fully-awake atop his blanket. It's certainly possible that his depression has melancholic features that may not respond well to medication. For the past week he hasn't evidenced any psychotic features, though that could certainly be due to olanzapine. The treatment team discussed the possibility of referral for ECT. However, a pattern of help-rejecting and passive aggression seems very consistent with his personality traits and may not be at all amenable to medication treatment. 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 Pt is clearly anxious but has not had any panic episodes for the past week. In my opinion his symptoms are responding to medication to the greatest degree they're likely to and that, unless he elects to pursue referral for ECT, there is little to be gained from prolonging his inpatient stay. He reports no adverse effects attributable to medications, including duloxetine started a week ago, so discussed proceeding with titration to planned target dose of 60 mg of duloxetine as well as increasing modafinil to typical dose of 200 mg BID. He agrees to this plan (but predicts it won't help). 06/06/2023: Remains very help-rejecting. Spent most of the day out of bed once staff chivvied him up, then went to bed after supper and remained there. Continues to ruminate about "not understanding it" or that he "can't figure it out", "it" being fairly nebulous and difficult for him to specify. He agrees that he's been better during the day after having started AM modafinil but is concerned that "it seems to wear off by evening". Repeat B12 level was within the reference range at 382 pg/mL, indicating that current dose is appropriate. 06/05/2023: Following my meeting with pt yesterday, including discussion of the importance of participating in the milieu, benefits of physical activity, pt went to bed and wouldn't get back out. Today has thus far seemed much better - he's been out of his room, participated in the groups that have taken place . He remains preoccupied and perseverative, though this has changed from "I just can't function" to "I don't know what's wrong with me". Asks me several times if I think the medication I ordered recently (and have been discussing with him frequently) will help. Denies any problems with this morning's 200 mg modafinil dose. B12 replenishment was started 5 days ago. Will recheck level to confirm adequacy of the current dose. 06/04/2023: After a very good day yesterday, pt is back in bed, declining to participate in the milieu. He'd asked to reduce the modafinil dose yesterday due to a [id number] feeling that it was "too much". Once pried out of bed by staff he did stay out and participated in the milieu but has been perseverating on how he doesn't understand what's going on (with his mood). Discussed medication plan at length. Pt guardedly agrees to increase modafinil. 06/03/2023: Has been much more active today, out of his room attending groups. He's shaved and showered. Much more interactive and able to attend to conversation. He voices "feeling a little freaked out" by the change, which he doesn't think of as negative but he's surprised at how different he feels compared to yesterday. He wonders if the modafinil dose "might be too much" but can't really specify any particular problem. 06/02/2023: Pt has been out of his room a few times, attended exercise group this morning (but didn't participate much), but overall spends most of his time in bed awake. He continues to report that he "just can't function" in ways he can't specify. Endorses "paranoia" but can't or won't elaborate - when asked for more detail, says "the medication knocked me out last night". Says he's "having visual hallucinations" consisting of "dots and squiggles" when he closes his eyes. HIs attention is very poor and many questions must be repeated, but says he's not experiencing anything along the lines of auditory hallucinations or any specific thing that's occupying his attention. Very help-rejecting, even about things that I haven't actually specified yet. He certainly evidences substantial passive-aggressive personality traits. In reviewing MAR, pt has not needed any PRN olanzapine recently. Discussed off-label trial of modafinil, the primary use of which is to treat excessive daytime sleepiness (albeit for conditions he doesn't have) and for which there's significant evidence of efficacy for ADHD (which I don't think he has, though he certainly has great difficulty concentrating) and for major depression. I discussed that a related drug not used in the [facility] (adrafinil) has a demonstrated risk of TEN (primarily in children) and that it's presumed that this could be the case with modafinil as well. Discussed risks of headache or upset stomach. Pt did not display much interest in seeking improvement but agreed to an off-label trial of modafinil. 06/01/2023: Pt says he just wants to sleep, but is actually awake in bed on approach and readily interacts. Eye contact is poor, and responses to many items are limited to shrugs. Pt isn't sure if medication has made any noticeable difference. He doesn't spontaneously report any of the obsessive, persecutory beliefs previously documented but when asked say there are thoughts he "just can't stop". 05/31/2023: Today presents as significantly worse and decompensated compared with yesterday with fairly extreme thought blocking, isolative, refusing meals. No classic signs of catatonia but possible this could be playing a role today as antipsychotic dose was increased. Does appear he slept better with titration of olanzapine but unclear why he is struggling so much more today. Concerns for extensive ruminations and psychosis leading to thought blocking and his inability to engage in spontaneous conversation today. Review of labwork notable for normal glucose, HbA1c, total cholesterol/TGs/HDL with low risk LDL. Folic acid levels were normal. Deficient in Vitamin D and B12. He consents to starting supplementation for this. (1) MDD (major depressive disorder), recurrent, severe, with psychosis: (2) Generalized anxiety disorder with panic attacks: (3) Agoraphobia with panic attacks: (4) Vitamin D deficiency: (5) Vitamin B12 deficiency: (6) Personality disorder: Plan 06/13/2023: * continue diazepam 5 mg BID - started 06/11/2023 * continue methylphenidate 20 mg QAM & 10 mg QPM at 1400 - increased 06/09/2023 to 10 mg QAM & 5 mg QPM, started 06/08/2023 at 5 mg BID * continue aripiprazole 10 mg QAM - started 06/10/2023 to replace olanzapine * continue duloxetine 60 mg daily - increased 06/07/2023, started 05/30/2023 at 30 mg * continue ergocalciferol 50,000 IU twice weekly for loading - started 06/02/2023 * continue cyanocobalamin 1,000 mcg daily 06/12/2023: * continue diazepam 5 mg BID - started 06/11/2023 * continue methylphenidate 20 mg QAM & 10 mg QPM at 1400 - increased 06/09/2023 to 10 mg QAM & 5 mg QPM, started 06/08/2023 at 5 mg BID * continue aripiprazole 10 mg QAM - started 06/10/2023 to replace olanzapine * continue duloxetine 60 mg daily - increased 06/07/2023, started 05/30/2023 at 30 mg * continue ergocalciferol 50,000 IU twice weekly for loading - started 06/02/2023 * continue cyanocobalamin 1,000 mcg daily 06/11/2023: * cautious trial of diazepam 5 mg BID * continue methylphenidate 20 mg QAM & 10 mg QPM at 1400 - increased 06/09/2023 to 10 mg QAM & 5 mg QPM, started 06/08/2023 at 5 mg BID * continue aripiprazole 10 mg QAM - started 06/10/2023 * continue duloxetine 60 mg daily - increased 06/07/2023, started 05/30/2023 at 30 mg * continue ergocalciferol 50,000 IU twice weekly for loading - started 06/02/2023 * continue cyanocobalamin 1,000 mcg daily 06/10/2023: * increase methylphenidate to 20 mg QAM & 10 mg QPM at 1400 - increased 06/09/2023 to 10 mg QAM & 5 mg QPM, started 06/08/2023 at 5 mg BID * start aripiprazole 10 mg * stop olanzapine * continue duloxetine 60 mg daily - increased 06/07/2023, started 05/30/2023 at 30 mg * continue ergocalciferol 50,000 IU twice weekly for loading - started 06/02/2023 * continue cyanocobalamin 1,000 mcg daily * MRI brain with contrast 06/09/2023: * continue methylphenidate 10 mg QAM & 5 mg QPM at 1400 - started 06/08/2023 at 5 mg BID * continue olanzapine 10 mg HS and 2.5 mg BID PRN - started 05/30/2023 * continue duloxetine 60 mg daily - increased 06/07/2023, started 05/30/2023 at 30 mg * continue ergocalciferol 50,000 IU twice weekly for loading - started 06/02/2023 * continue cyanocobalamin 1,000 mcg daily 06/08/2023: * stop modafinil - increased 06/06/2023 to 200 mg QAM & 100 mg QPM, increased 06/04/2023 to 200 mg from 100 mg, reduced 06/03/2023 to 100 mg, started 06/02/2023 at 200 mg * begin trial of methylphenidate 5 mg QAM & QPM at 1400 * continue olanzapine 10 mg HS and 2.5 mg BID PRN - started 05/30/2023 * continue duloxetine 60 mg daily - increased 06/07/2023, started 05/30/2023 at 30 mg * continue ergocalciferol 50,000 IU twice weekly for loading - started 06/02/2023 * continue cyanocobalamin 1,000 mcg daily 06/07/2023: * increase (off-label) modafinil to 200 mg QAM & at 1300 - increased 06/06/2023 to 200 mg QAM & 100 mg QPM, increased 06/04/2023 to 200 mg from 100 mg, reduced 06/03/2023 to 100 mg, started 06/02/2023 at 200 mg * continue olanzapine 10 mg HS and 2.5 mg BID PRN - started 05/30/2023 * increase duloxetine to 60 mg daily - started 05/30/2023 at 30 mg * continue ergocalciferol 50,000 IU twice weekly for loading - started 06/02/2023 * continue cyanocobalamin 1,000 mcg daily 06/06/2023: * increase (off-label) modafinil to 200 mg QAM & 100 mg at 1300 - increased 06/04/2023 to 200 mg from 100 mg, reduced 06/03/2023 to 100 mg, started 06/02/2023 at 200 mg * continue olanzapine 10 mg HS and 2.5 mg BID PRN - started 05/30/2023 * continue duloxetine 30 mg daily - started 05/30/2023 * continue ergocalciferol 50,000 IU twice weekly for loading - started 06/02/2023 * continue cyanocobalamin 1,000 mcg daily 06/05/2023: * continue (off-label) modafinil 200 mg QAM - increased 06/04/2023 from 100 mg, reduced 06/03/2023 to 100 mg, started 06/02/2023 at 200 mg * continue olanzapine 10 mg HS and 2.5 mg BID PRN - started 05/30/2023 * continue duloxetine 30 mg daily - started 05/30/2023 * continue ergocalciferol 50,000 IU twice weekly for loading - started 06/02/2023 * continue cyanocobalamin 1,000 mcg daily * recheck cyanocobalamin level to confirm adequacy of replacement 06/04/2023: * increase (off-label) modafinil back to 200 mg QAM - reduced 06/03/2023 to 100 mg, started 06/02/2023 at 200 mg * continue olanzapine 10 mg HS and 2.5 mg BID PRN - started 05/30/2023 * continue duloxetine 30 mg daily - started 05/30/2023 * continue ergocalciferol 50,000 IU twice weekly for loading * continue cyanocobalamin 1,000 mcg daily, recheck level in 2-3 days to confirm adequacy of replacement 06/03/2023: * reduce (off-label) modafinil to 100 mg QAM - started 06/02/2023 at 200 mg * continue olanzapine 10 mg HS and 2.5 mg BID PRN - started 05/30/2023 * continue duloxetine 30 mg daily - started 05/30/2023 * continue ergocalciferol 50,000 IU twice weekly for loading * continue cyanocobalamin 1,000 mcg daily, recheck level in 2-3 days to confirm adequacy of replacement 06/02/2023: * start (off-label) modafinil 200 mg QAM * continue olanzapine 10 mg HS and 2.5 mg BID PRN - started 05/30/2023 * continue duloxetine 30 mg daily - started 05/30/2023 * change vitamin D from cholecalciferol 800 IU daily to ergocalciferol 50,000 IU twice weekly for loading * continue cyanocobalamin 1,000 mcg daily, recheck level in 2-3 days to confirm adequacy of replacement 06/01/2023: * continue olanzapine 10 mg HS po and 2.5 mg BID prn - started 05/30/2023 * continue duloxetine 30 mg daily - started 05/30/2023 * change vitamin D from cholecalciferol 800 IU daily to ergocalciferol 50,000 IU twice weekly for loading * continue cyanocobalamin 1,000 mcg daily, recheck level in 2-3 days to confirm adequacy of replacement 05/31/2023: * Continue olanzapine 10mg HS po and 2.5mg BID prn for now * Continue duloxetine 30mg daily * Start Vit D and B12 supplementation 05/30/2023: The patient was admitted to the [facility] ([facility]) on q15 min checks (behavioral with suicide precautions) for safety. The patient will participate in group, recreational, and milieu therapies and will be offered additional individual and family sessions as clinically appropriate. -Start olanzapine 10mg HS po -Start duloxetine 30mg daily -AM labwork including fasting glucose, HbA1c, B12, Folic Acid, Vit D, fasting lipid panel Inventory Assets Strengths: supportive relationships, willing to get treatment Needs: safety and stabilization, medication adjustment, additional coping skills, increased outpatient services Suicide Risk Level Suicide Risk Level: Moderate (q15 min suicide checks) (depression with poor self care plan prior to admission but denies current SI, reports he feels safe in the hospital, and agrees to let nursing/staff know should they develop plan, intent or feel unable to remain safe. ) Risk Factors Assessment Male: Yes : Yes Do You Have Access To A Gun?: Yes (multiple at home, making plans to have these removed) Health Problems: Yes (peripheral neuropathy) Mental Health Diagnoses: Yes Substance Use Disorders: No Previous Attempt: No Family History of Suicide: No Previous Psychiatric Hospitalization: Yes Protective Factors Assessment Alevism Beliefs: Yes : Yes Employed: No (Retired) Stable Relationships: Yes Supportive Family: Yes Interval History Identifying Information JERARDO VELAZQUEZ is a 63-year-old man who currently lives in [place] with his , has a history of Major Depressive Disorder with psychotic features and suspicion for catatonia, and was admitted on 05/29/23 18:33 on a 201 voluntary commitment for lack of self-care/inability to function at home with refusal to eat/shower/attend to any self-care needs and increasing paranoia, agoraphobia and depression. Chief Complaint "Getting to be OK, maybe". Review of Systems Sleep Information Total Hours of Sleep: 9.25 Sleep Comments: Woke up for a snack Meal Information Percent Meal Consumed - Breakfast: 100 Percent Meal Consumed - Lunch: 95 Percent Meal Consumed - Dinner: 100 Nutrition Comment: Pt ate all of his meal. Subjective Subjective The patient was seen and assessed and interval progress reviewed in a multidisciplinary team meeting with the treatment team. For details, see the "Impression" section. Overall I spent a total of 32 minutes for this inpatient follow-up including review of chart records, review of test results, direct evaluation of the patient [id number], counseling the patient, reconciling and ordering medication, medication education with the patient, risk assessment, discussion during interdisciplinary treatment rounds, and documentation in the electronic health record. Physical Exam Psychiatric Orientation: alert, oriented to person, oriented to place, oriented to time and cooperative (minimally) Apperance: appropriately dressed and appropriately groomed Eye Contact: good eye contact Motor Behavior: no abnormal motor movements Speech: normal rate/rhythm/volume of speech Affect: + anxious affect and + constricted affect Mood: + anxious mood and + dysphoric mood Thought Process: goal directed thought process and + concrete thought process Thought Content: + preoccupation ("don't know what's wrong with me"), + cognitive distortions, reality based without delusions and + self deprecation Suicidal Thoughts: denies suicidal thoughts, denies suicidal plan and denies suicidal intent Homicidal Thoughts: denies homicidal thoughts Hallucinations: no auditory hallucinations and no visual hallucinations ("squiggles and dots" when he closes his eyes) Cognition: recent memory grossly intact, remote memory grossly intact and language grossly intact; + attention not intact Estimated Intelligence: consistent with education level Insight: + fair insight Judgment: + fair judgement Vital Signs (Past 24 Hours) Last Vital Signs Temp 36.3 C L 06/13/23 06:00 Pulse 125 H 06/13/23 06:36 Resp 18 06/13/23 06:00 BP 135/95 06/13/23 06:36 Pulse Ox 95 06/09/23 06:51 O2 Del Method Room Air 06/09/23 06:51 Results & Data ([facility]) Current Inpatient Medications Current Inpatient Medications: Current Inpatient Medications Acetaminophen (Acetaminophen 325 Mg Tab) 650 mg PO Q4H PRN PRN Reason: Headache or Minor Fever Stop: 06/28/23 18:32 Al Hydrox/Mg Hydrox/Simethicone (Aluminum/Magnesium Susp 30 Ml Udc) 30 ml PO Q4H PRN PRN Reason: GI Upset Stop: 06/28/23 18:32 Aripiprazole (Aripiprazole 10 Mg Tab) [facility]: 07/11/23 08:59 Last Admin: 06/13/23 08:56 Dose: 10 mg Bismuth Subsalicylate (Bismuth Subsalicylate Liqd 236 Ml) 15 ml PO PRN PRN PRN Reason: Loose Stool Stop: 06/28/23 18:32 Cyanocobalamin (Cyanocobalamin (B-12) 500 Mcg Tablet) 1,000 mcg [facility] [place] Stop: 07/01/23 08:59 Last Admin: 06/13/23 08:56 Dose: 1,000 mcg Diazepam (Diazepam 5 Mg Tablet) 5 mg PO BID [facility] Stop: 07/11/23 20:59 Last Admin: 06/13/23 08:56 Dose: 5 mg Duloxetine HCl (Duloxetine Hcl 60 Mg Cap) 60 [facility] Stop: 07/08/23 08:59 Last Admin: 06/13/23 08:57 Dose: 60 mg Ergocalciferol (Ergocalciferol 50,000 Units 1250 Mcg Cap) 50,000 units PO SuWe@0900 [facility] Stop: 07/02/23 08:59 Last Admin: 06/12/23 08:59 Dose: 50,000 units Hydroxyzine HCl (Hydroxyzine Hcl 25 Mg Tab) 50 mg PO HSZ PRN PRN Reason: Insomnia Stop: 06/28/23 18:32 Hydroxyzine HCl (Hydroxyzine Hcl 25 Mg Tab) 25 mg PO Q4H PRN PRN Reason: Anxiety Stop: 06/28/23 18:32 Magnesium Hydroxide (Magnesium Hydroxide Susp 30 Ml Udc) 30 ml PO DAILY PRN PRN Reason: Constipation Stop: 06/28/23 18:32 Last Admin: 06/05/23 18:05 Dose: 30 ml Methylphenidate HCl (Methylphenidate Hcl 10 Mg Tablet) 10 mg PO DAILY@1400 DEANDRE Stop: 06/25/23 13:59 Last Admin: 06/12/23 14:09 Dose: 10 mg Methylphenidate HCl (Methylphenidate Hcl 10 Mg Tablet) 20 mg PO QAM DEANDRE Stop: 06/25/23 08:59 Last Admin: 06/13/23 08:57 Dose: 20 mg Sodium Chloride (Sodium Chloride 0.65% Na Soln 45 Ml ([place])) 1 - 2 sprays NA PRN PRN PRN Reason: Nasal Dryness/Congestion Stop: 06/28/23 18:32 Mental Health & Subst Abuse Tx Therapist Name of Therapist: Angel Dorado (Skip) Therapist's Time of Therapist Appointment: [address] [place] [address] Therapy Appointment Comment: Please call if interested in mental health counseling. Varitypist Name of Varitypist: [facility] [place] [facility] - Blended Case Management Phone Number for Varitypist: [phone] Case Management Appointment Comment: Please call if you are interested in blended case management. Post Discharge Appointments Primary Care Physician Name Of Family Doctor/PCP: [facility] Date of Future Appointment with PCP: 07/20/23 Time of Appointment with PCP: 11:05 arrival Provider Appointment Comment: [place] [id number] Contact Information Discharge Discharge Address: [address] [place] [address] [place] [id number]
[2023-06-14] MEDS: CYANOCOBALAMIN (B-12) 500 MCG TABLET PO SCH (08:46)
[2023-06-14] MEDS: ARIPiprazole 10 MG TAB PO SCH (08:46)
[2023-06-14] MEDS: DULoxetine HCL 60 MG CAP PO SCH (08:46)
[2023-06-14] MEDS: diazePAM 5 MG TABLET PO SCH ×2 (08:49→20:55)
[2023-06-14] MEDS: METHYLPHENIDATE HCL 10 MG TABLET PO SCH ×2 (08:59→14:01)
--- NOTE | 2023-06-14 16:56 | Psychiatric Progress Note ---
Date of Service June 14, 2023 Impression / Recommendations Impression Ed is a 63 year old man with a history of MDD with psychotic features who was admitted for worsening agoraphobia, paranoia, depression and anxiety with inability to provide for his self-care needs including significant weight loss (with ketones in his urine) and hopelessness. Diagnostically seems most consistent with major depressive disorder with psychotic features and generalized anxiety disorder with agoraphobia and panic attacks. No current signs of catatonia so will hold off on use of any benzodiazepines. He is deemed in need of psychiatric hospitalization for diagnostic clarification, safety and stabilization, medication management and development of further coping skills. MNPR due to extreme anxiety, paranoia, poor self-care/hygiene prior to admission 06/14/2023: Continues to do very well. He has continued to get up, do ADL's, attend and participate in groups. Tells me he'd like to go home tomorrow. Discussed discharge plan in some detail. 06/13/2023: Following a remarkably good day most of yesterday, pt went to bed right after supper. Today, though, he has been up, showered, attending groups. Smiles spontaneously. Is able to discuss plans for after discharge. Has started to talk about former hobbies and interests. No side effects are evident. Might consider adding a small midday diazepam dose, but I hope to avoid any sedation. 06/12/2023: Considerable improvement is noted today. Pt has been out of his room, showered spontaneously. Has attended groups. Much more interactive. Affect nearly euthymic - pt has even made a few jokes. On interview he certainly continues to perseverate, but this is more easily redirected. Similarly, his typical preoccupations (his 's health, not knowing what's wrong with him) continue, but he's more readily reassured. Reviewed all lab results from this admission (since this is the first time I thought he'd be able to benefit); he asked pertinent questions several times. No adverse effects reported after recent medication changes, including sedation (he appears much more alert and less passive). As promising as these changes appear, team are aware of a ywodwa-zr-[id number] improvement 8 days ago that lasted only a single day following a new medication. 06/11/2023: MRI with and without contrast yesterday was read as showing mucosal thickening of a paranasal sinus but no other findings. He had received 5 mg diazepam prior to going for the MRI and upon his return staff noted that he seemed much more able to initiate, was out of his room spontaneously, at supper without having to be encouraged. He tells me he "was just so tired and went straight to bed". The staff reports raise the intriguing possibility that anxiolysis from the diazepam contributed to noticeable improvement last evening and that perhaps a scheduled benzodiazepine could be helpful at least over the short term. 06/10/2023: Continuing to do very poorly with marked passivity and active avoidance of participation in the treatment program. Has said he can't get up and attend meals, but has always ended up doing so. He has not appeared any more anxious since starting methylphenidate (he simply won't say whether he's noted any subjective increase in anxiety) nor is there any apparent benefit. He continues to avoid endorsing persecutory beliefs, but when asked won't deny them either. Pt assented to increasing dose. Olanzapine was initially selected in part in the hope that it might help regularize his sleep schedule. This has not been seen, despite evident sedation after taking it. I don't think we can add a daytime dose. Discussed switching to less-sedating aripiprazole to increase likelihood of acheiving effective dose without excessive sedation. Pt assented to this. The team devoted considerable time to reviewing evidence of significant change in personality and cognition about a year ago. While functional brain imaging would likely be much more helpful, concluded that anatomical brain imaging would likely nevertheless be helpful in ruling out such things as infarcts or focal atrophy. Also devoted considerable time to behavioral interventions. These are clearly needed but no consensus was reached about what they should be. All agreed that the approach must be clear and consistent. Will work on this with SW who has a background in formulating such plans then present for review to the entire team. 06/09/2023: direct service worker has been documenting discussions with pt's about symptoms prior to admission and with the patient about this information (q.v.). Pt overtly denied most of what his had reported (which is very consistent with reports at the time of admission) but tacitly acknowledged it (e.g., by saying his had probably also reported his worries about finances, which is true, or that barricading them in their house is no way to live). Despite encouragement from essentially every staff member today, pt has not participated in groups. I reiterated that every aspect of the treatment program is necessary and mandatory and that if he's simply going to lie around in bed he can do that at home. He has been less ridiculously passive today. Highly help-rejecting, saying he "can't" get up and walk or eat meals. Staff have simply been demanding that he get up and walk and eat, but at times he's said he's unable to do such things even as he does them. He's been eating well. Pt utterly refuses to say whether he feels at all more anxious or restless on methylphenidate. There's certainly no evidence of increased energy. We may need to consider a less-sedating antipsychotic. A nurse brought up the possibility of a trial of transdermal selegiline. This is an intriguing possibility with much to recommend it. It is, however, a non- formulary drug here that retails for about $80 per patch (which is changed daily) making it very likely to be financially unattainable. Selegiline is available in an inexpensive oral formulation, but that has never proven effective for depression. First-pass liver degradation of the drug is very significant, and at oral doses sufficient to overcome that and the drug's specificity for MAO-B, significant side effects are typically seen and gut MAO-A is usually inhibited to a substantial degree, eliminating the significant advantages of the transdermal form vs. typical MAOIs. 06/08/2023: Following discussion yesterday about anticipating discharge soon, pt had a really bad afternoon with aggressively passive behaviors. These included announcing that he'd "pooped [his] pants" while in bed then refusing for a time to change clothes or shower, as well as intimating that it was "going to happen again". Today initially resisted leaving his room with when staff insisted forcefully they were able to get him up, walked around the unit with him. He said he "couldn't" eat but did eat when they persistently reminded him that he obviously could eat. Today sits on bed (an improvement over lying on it) but continues to perseverate on all the things he "can't" (yet demonstrably actually can) do. Modafinil trial has patently failed despite initial promise. Pt exhibits numerous symptoms consistent with hypofrontality, for which stimulants are usually at least somewhat helpful. I'd hoped to minimize risk of exacerbating his anxiety, but at this point that risk seems to be outweighed by the need to address his passivity. 06/07/2023: Pt has resumed spending more time in bed, though to a lesser degree than before the addition of modafinil. He didn't eat supper last night nor has he yet had breakfast this morning. On rounds he lies fully-awake atop his blanket. It's certainly possible that his depression has melancholic features that may not respond well to medication. For the past week he hasn't evidenced any psychotic features, though that could certainly be due to olanzapine. The treatment team discussed the possibility of referral for ECT. However, a pattern of help-rejecting and passive aggression seems very consistent with his personality traits and may not be at all amenable to medication treatment. 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 Pt is clearly anxious but has not had any panic epis odes for the past week. In my opinion his symptoms are responding to medication to the greatest degree they're likely to and that, unless he elects to pursue referral for ECT, there is little to be gained from prolonging his inpatient stay. He reports no adverse effects attributable to medications, including duloxetine started a week ago, so discussed proceeding with titration to planned target dose of 60 mg of duloxetine as well as increasing modafinil to typical dose of 200 mg BID. He agrees to this plan (but predicts it won't help). 06/06/2023: Remains very help-rejecting. Spent most of the day out of bed once staff chivvied him up, then went to bed after supper and remained there. Continues to ruminate about "not understanding it" or that he "can't figure it out", "it" being fairly nebulous and difficult for him to specify. He agrees that he's been better during the day after having started AM modafinil but is concerned that "it seems to wear off by evening". Repeat B12 level was within the reference range at 382 pg/mL, indicating that current dose is appropriate. 06/05/2023: Following my meeting with pt yesterday, including discussion of the importance of participating in the milieu, benefits of physical activity, pt went to bed and wouldn't get back out. Today has thus far seemed much better - he's been out of his room, participated in the groups that have taken place . He remains preoccupied and perseverative, though this has changed from "I just can't function" to "I don't know what's wrong with me". Asks me several times if I think the medication I ordered recently (and have been discussing with him frequently) will help. Denies any problems with this morning's 200 mg modafinil dose. B12 replenishment was started 5 days ago. Will recheck level to confirm adequacy of the current dose. 06/04/2023: After a very good day yesterday, pt is back in bed, declining to participate in the milieu. He'd asked to reduce the modafinil dose yesterday due to a [id number] feeling that it was "too much". Once pried out of bed by staff he did stay out and participated in the milieu but has been perseverating on how he doesn't understand what's going on (with his mood). Discussed medication plan at length. Pt guardedly agrees to increase modafinil. 06/03/2023: Has been much more active today, out of his room attending groups. He's shaved and showered. Much more interactive and able to attend to conversation. He voices "feeling a little freaked out" by the change, which he doesn't think of as negative but he's surprised at how different he feels c ompared to yesterday. He wonders if the modafinil dose "might be too much" but can't really specify any particular problem. 06/02/2023: Pt has been out of his room a few times, attended exercise group this morning (but didn't participate much), but overall spends most of his time in bed awake. He continues to report that he "just can't function" in ways he can't specify. Endorses "paranoia" but can't or won't elaborate - when asked for more detail, says "the medication knocked me out last night". Says he's "having visual hallucinations" consisting of "dots and squiggles" when he closes his e yes. HIs attention is very poor and many questions must be repeated, but says he's not experiencing anything along the lines of auditory hallucinations or any specific thing that's occupying his attention. Very help-rejecting, even about things that I haven't actually specified yet. He certainly evidences substantial passive-aggressive personality traits. In reviewing MAR, pt has not needed any PRN olanzapine recently. Discussed off-label trial of modafinil, the primary use of which is to treat excessive daytime sleepiness (albeit for conditions he doesn't have) and for which there's significant evidence of efficacy for ADHD (which I don't think he has, though he certainly has great difficulty concentrating) and for major depression. I discussed that a related drug not used in the [place] (adrafinil) has a demonstrated risk of TEN (primarily in children) and that it's presumed that this could be the case with modafinil as well. Discussed risks of headache or upset stomach. Pt did not display much interest in seeking improvement but agreed to an off-label trial of modafinil. 06/01/2023: Pt says he just wants to sleep, but is actually awake in bed on approach and readily interacts. Eye contact is poor, and responses to many items are limited to shrugs. Pt isn't sure if medication has made any noticeable difference. He doesn't spontaneously report any of the obsessive, persecutory b eliefs previously documented but when asked say there are thoughts he "just can't stop". 05/31/2023: Today presents as significantly worse and decompensated compared with yesterday with fairly extreme thought blocking, isolative, refusing meals. No classic signs of catatonia but possible this could be playing a role today as antipsychotic dose was increased. Does appear he slept better with titration of olanzapine but unclear why he is struggling so much more today. Concerns for extensive ruminations and psychosis leading to thought blocking and his inability to engage in spontaneous conversation today. Review of labwork notable for normal glucose, HbA1c, total cholesterol/TGs/HDL with low risk LDL. Folic acid levels were normal. Deficient in Vitamin D and B12. He consents to starting supplementation for this. (1) MDD (major depressive disorder), recurrent, severe, with psychosis: (2) Generalized anxiety disorder with panic attacks: (3) Agoraphobia with panic attacks: (4) Vitamin D deficiency: (5) Vitamin B12 deficiency: (6) Personality disorder: Plan 06/14/2023: * continue diazepam 5 mg BID - started 06/11/2023 * continue methylphenidate 20 mg QAM & 10 mg QPM at 1400 - increased 06/09/2023 to 10 mg QAM & 5 mg QPM, started 06/08/2023 at 5 mg BID * continue aripiprazole 10 mg QAM - started 06/10/2023 to replace olanzapine * continue duloxetine 60 mg daily - increased 06/07/2023, started 05/30/2023 at 30 mg * continue ergocalciferol 50,000 IU twice weekly for loading - started 06/02/2023 * continue cyanocobalamin 1,000 mcg daily 06/13/2023: * continue diazepam 5 mg BID - started 06/11/2023 * continue methylphenidate 20 mg QAM & 10 mg QPM at 1400 - increased 06/09/2023 to 10 mg QAM & 5 mg QPM, started 06/08/2023 at 5 mg BID * continue aripiprazole 10 mg QAM - started 06/10/2023 to replace olanzapine * continue duloxetine 60 mg daily - increased 06/07/2023, started 05/30/2023 at 30 mg * continue ergocalciferol 50,000 IU twice weekly for loading - started 06/02/2023 * continue cyanocobalamin 1,000 mcg daily 06/12/2023: * continue diazepam 5 mg BID - started 06/11/2023 * continue methylphenidate 20 mg QAM & 10 mg QPM at 1400 - increased 06/09/2023 to 10 mg QAM & 5 mg QPM, started 06/08/2023 at 5 mg BID * continue aripiprazole 10 mg QAM - started 06/10/2023 to replace olanzapine * continue duloxetine 60 mg daily - increased 06/07/2023, started 05/30/2023 at 30 mg * continue ergocalciferol 50,000 IU twice weekly for loading - started 06/02/2023 * continue cyanocobalamin 1,000 mcg daily 06/11/2023: * cautious trial of diazepam 5 mg BID * continue methylphenidate 20 mg QAM & 10 mg QPM at 1400 - increased 06/09/2023 to 10 mg QAM & 5 mg QPM, started 06/08/2023 at 5 mg BID * continue aripiprazole 10 mg QAM - started 06/10/2023 * continue duloxetine 60 mg daily - increased 06/07/2023, started 05/30/2023 at 30 mg * continue ergocalciferol 50,000 IU twice weekly for loading - started 06/02/2023 * continue cyanocobalamin 1,000 mcg daily 06/10/2023: * increase methylphenidate to 20 mg QAM & 10 mg QPM at 1400 - increased 06/09/2023 to 10 mg QAM & 5 mg QPM, started 06/08/2023 at 5 mg BID * start aripiprazole 10 mg * stop olanzapine * continue duloxetine 60 mg daily - increased 06/07/2023, started 05/30/2023 at 30 mg * continue ergocalciferol 50,000 IU twice weekly for loading - started 06/02/2023 * continue cyanocobalamin 1,000 mcg daily * MRI brain with contrast 06/09/2023: * continue methylphenidate 10 mg QAM & 5 mg QPM at 1400 - started 06/08/2023 at 5 mg BID * continue olanzapine 10 mg HS and 2.5 mg BID PRN - started 05/30/2023 * continue duloxetine 60 mg daily - increased 06/07/2023, started 05/30/2023 at 30 mg * continue ergocalciferol 50,000 IU twice weekly for loading - started 06/02/2023 * continue cyanocobalamin 1,000 mcg daily 06/08/2023: * stop modafinil - increased 06/06/2023 to 200 mg QAM & 100 mg QPM, increased 06/04/2023 to 200 mg from 100 mg, reduced 06/03/2023 to 100 mg, started 06/02/2023 at 200 mg * begin trial of methylphenidate 5 mg QAM & QPM at 1400 * continue olanzapine 10 mg HS and 2.5 mg BID PRN - started 05/30/2023 * continue duloxetine 60 mg daily - increased 06/07/2023, started 05/30/2023 at 30 mg * continue ergocalciferol 50,000 IU twice weekly for loading - started 06/02/2023 * continue cyanocobalamin 1,000 mcg daily 06/07/2023: * increase (off-label) modafinil to 200 mg QAM & at 1300 - increased 06/06/2023 to 200 mg QAM & 100 mg QPM, increased 06/04/2023 to 200 mg from 100 mg, reduced 06/03/2023 to 100 mg, started 06/02/2023 at 200 mg * continue olanzapine 10 mg HS and 2.5 mg BID PRN - started 05/30/2023 * increase duloxetine to 60 mg daily - started 05/30/2023 at 30 mg * continue ergocalciferol 50,000 IU twice weekly for loading - started 06/02/2023 * continue cyanocobalamin 1,000 mcg daily 06/06/2023: * increase (off-label) modafinil to 200 mg QAM & 100 mg at 1300 - increased 06/04/2023 to 200 mg from 100 mg, reduced 06/03/2023 to 100 mg, started 06/02/2023 at 200 mg * continue olanzapine 10 mg HS and 2.5 mg BID PRN - started 05/30/2023 * continue duloxetine 30 mg daily - started 05/30/2023 * continue ergocalciferol 50,000 IU twice weekly for loading - started * continue cyanocobalamin 1,000 mcg daily 06/05/2023: * continue (off-label) modafinil 200 mg QAM - increased 06/04/2023 from 100 mg, reduced 06/03/2023 to 100 mg, started 06/02/2023 at 200 mg * continue olanzapine 10 mg HS and 2.5 mg BID PRN - started 05/30/2023 * continue duloxetine 30 mg daily - started 05/30/2023 * continue ergocalciferol 50,000 IU twice weekly for loading - started 05/15 * continue cyanocobalamin 1,000 mcg daily * recheck cyanocobalamin level to confirm adequacy of replacement 06/04/2023: * increase (off-label) modafinil back to 200 mg QAM - reduced 06/03/2023 to 100 mg, started 06/02/2023 at 200 mg * continue olanzapine 10 mg HS and 2.5 mg BID PRN - started 05/30/2023 * continue duloxetine 30 mg daily - started 05/30/2023 * continue ergocalciferol 50,000 IU twice weekly for loading * continue cyanocobalamin 1,000 mcg daily, recheck level in 2-3 days to confirm adequacy of replacement 06/03/2023: * reduce (off-label) modafinil to 100 mg QAM - started 06/02/2023 at 200 mg * continue olanzapine 10 mg HS and 2.5 mg BID PRN - started 05/30/2023 * continue duloxetine 30 mg daily - started 05/30/2023 * continue ergocalciferol 50,000 IU twice weekly for loading * continue cyanocobalamin 1,000 mcg daily, recheck level in 2-3 days to confirm adequacy of replacement 06/02/2023: * start (off-label) modafinil 200 mg QAM * continue olanzapine 10 mg HS and 2.5 mg BID PRN - started 05/30/2023 * continue duloxetine 30 mg daily - started 05/30/2023 * change vitamin D from cholecalciferol 800 IU daily to ergocalciferol 50,000 IU twice weekly for loading * continue cyanocobalamin 1,000 mcg daily, recheck level in 2-3 days to confirm adequacy of replacement 06/01/2023: * continue olanzapine 10 mg HS po and 2.5 mg BID prn - started 05/30/2023 * continue duloxetine 30 mg daily - started 05/30/2023 * change vitamin D from cholecalciferol 800 IU daily to ergocalciferol 50,000 IU twice weekly for loading * continue cyanocobalamin 1,000 mcg daily, recheck level in 2-3 days to confirm adequacy of replacement 05/31/2023: * Continue olanzapine 10mg HS po and 2.5mg BID prn for now * Continue duloxetine 30mg daily * Start Vit D and B12 supplementation 05/30/2023: The patient was admitted to the [facility] ([facility] inpatient mental health unit) on q15 min checks (behavioral with suicide precautions) for safety. The patient will participate in group, recreational, and milieu therapies and will be offered additional individual and family sessions as clinically appropriate. -Start olanzapine 10mg HS po -Start duloxetine 30mg daily -AM labwork including fasting glucose, HbA1c, B12, Folic Acid, Vit D, fasting lipid panel Inventory Assets Strengths: supportive relationships, willing to get treatment Needs: safety and stabilization, medication adjustment, additional coping skills, increased outpatient services Suicide Risk Level Suicide Risk Level: Moderate (q15 min suicide checks) (depression with poor self care plan prior to admission but denies current SI, reports he feels safe in the hospital, and agrees to let nursing/staff know should they develop plan, intent or feel unable to remain safe. ) Risk Factors Assessment Male: Yes : Yes Do You Have Access To A Gun?: Yes (multiple at home, making plans to have these removed) Health Problems: Yes (peripheral neuropathy) Mental Health Diagnoses: Yes Substance Use Disorders: No Previous Attempt: No Family History of Suicide: No Previous Psychiatric Hospitalization: Yes Protective Factors Assessment Restorationist Beliefs: Yes : Yes Employed: No (Retired) Stable Relationships: Yes Supportive Family: Yes Interval History Identifying Information JERARDO VELAZQUEZ is a 63-year-old man who currently lives in [place] with his , has a history of Major Depressive Disorder with psychotic features and suspicion for catatonia, and was admitted on 05/29/23 18:33 on a 201 voluntary commitment for lack of self-care/inability to function at home with refusal to eat/shower/attend to any self-care needs and increasing paranoia, agoraphobia and depression. Chief Complaint "Pretty good, actually". Review of Systems Sleep Information Total Hours of Sleep: 6 Sleep Comments: Woke up for a snack Meal Information Percent Meal Consumed - Breakfast: 100 Percent Meal Consumed - Lunch: 100 Percent Meal Consumed - Dinner: 100 Nutrition Comment: Pt ate all of his meal. Subjective Subjective The patient was seen and assessed and interval progress reviewed in a multidisciplinary team meeting with the treatment team. For details, see the "Impression" section. Overall I spent a total of 32 minutes for this inpatient follow-up including review of chart records, direct evaluation of the patient [id number], counseling the patient, medication education with the patient, risk assessment, discussion during interdisciplinary treatment rounds, and documentation in the electronic health record. Physical Exam Psychiatric Orientation: alert, oriented x 3, oriented to person, oriented to place, oriented to time and cooperative (minimally) Apperance: appropriately dressed, appropriately groomed and + disheveled Eye Contact: good eye contact, + fair eye contact and + poor eye contact Motor Behavior: no abnormal motor movements and + psychomotor retardation Speech: normal rate/rhythm/volume of speech Affect: + depressed affect, + anxious affect and + constricted affect Mood: + depressed mood, + anxious mood and + dysphoric mood Thought Process: goal directed thought process, + thought blocking, + circumstantial thought process, + tangential thought process and + concrete thought process Thought Content: + preoccupation ("don't know what's wrong with me"), + paranoid (subjectively, but can't elaborate), + cognitive distortions, reality based without delusions, + derealization, + hopelessness, + guilt and + self deprecation Suicidal Thoughts: denies suicidal thoughts, denies suicidal plan and denies bean icidal intent Homicidal Thoughts: denies homicidal thoughts Hallucinations: no auditory hallucinations and no visual hallucinations ("squiggles and dots" when he closes his eyes) Cognition: recent memory grossly intact, remote memory grossly intact and language grossly intact; + attention not intact Estimated Intelligence: consistent with education level Insight: + limited insight and + fair insight Judgment: + limited judgement and + fair judgement Vital Signs (Past 24 Hours) Last Vital Signs Temp 36.4 C L 06/14/23 06:39 Pulse 120 H 06/14/23 06:40 Resp 16 06/14/23 06:39 BP 116/80 06/14/23 06:40 Pulse Ox 95 06/09/23 06:51 O2 Del Method Room Air 06/09/23 06:51 Results & Data ([facility]) Current Inpatient Medications Current Inpatient Medications: Current Inpatient Medications Acetaminophen (Acetaminophen 325 Mg Tab) 650 mg PO Q4H PRN PRN Reason: Headache or Minor Fever Stop: 06/28/23 18:32 Al Hydrox/Mg Hydrox/Simethicone (Aluminum/Magnesium Susp 30 Ml Udc) 30 ml PO Q4H PRN PRN Reason: GI Upset Stop: 06/28/23 18:32 Aripiprazole (Aripiprazole 10 Mg Tab) 10 mg PO QAM [facility] Stop: 07/11/23 08:59 Last Admin: 06/14/23 08:46 Dose: 10 mg Bismuth Subsalicylate (Bismuth Subsalicylate Liqd 236 Ml) 15 ml PO PRN PRN PRN Reason: Loose Stool Stop: 06/28/23 18:32 Cyanocobalamin (Cyanocobalamin (B-12) 500 Mcg Tablet) 1,000 mcg PO QAM [facility] Stop: 07/01/23 08:59 Last Admin: 06/14/23 08:46 Dose: 1,000 mcg Diazepam (Diazepam 5 Mg Tablet) 5 mg PO BID [facility] Stop: 07/11/23 20:59 Last Admin: 06/14/23 08:49 Dose: 5 mg Duloxetine HCl (Duloxetine Hcl 60 Mg Cap) [facility] Stop: 07/08/23 08:59 Last Admin: 06/14/23 08:46 Dose: 60 mg Ergocalciferol (Ergocalciferol 50,000 Units 1250 Mcg Cap) 50,000 units PO SuWe@0900 [facility] Stop: 07/02/23 08:59 Last Admin: 06/12/23 08:59 Dose: 50,000 units Hydroxyzine HCl (Hydroxyzine Hcl 25 Mg Tab) 50 mg PO HSZ PRN PRN Reason: Insomnia Stop: 06/28/23 18:32 Hydroxyzine HCl (Hydroxyzine Hcl 25 Mg Tab) 25 mg PO Q4H PRN PRN Reason: Anxiety Stop: 06/28/23 18:32 Magnesium Hydroxide (Magnesium Hydroxide Susp 30 Ml Udc) 30 ml PO DAILY PRN PRN Reason: Constipation Stop: 06/28/23 18:32 Last Admin: 06/05/23 18:05 Dose: 30 ml Methylphenidate HCl (Methylphenidate Hcl 10 Mg Tablet) 10 mg PO DAILY@1400 [facility] Stop: 06/25/23 13:59 Last Admin: 06/14/23 14:01 Dose: 10 mg Methylphenidate HCl (Methylphenidate Hcl 10 Mg Tablet) 20 mg PO QAM [facility] Stop: 06/25/23 08:59 Last Admin: 06/14/23 08:59 Dose: 20 mg Sodium Chloride (Sodium Chloride 0.65% Na Soln 45 Ml ([place])) 1 - 2 sprays NA PRN PRN PRN Reason: Nasal Dryness/Congestion Stop: 06/28/23 18:32 Mental Health & Subst Abuse Tx Therapist Name of Therapist: Angel Dorado (Skip) Therapist's Time of Therapist Appointment: [address], [place] [address] Therapy Appointment Comment: Please call if interested in mental health counseling. 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 Post Discharge Appointments Primary Care Physician Name Of Family Doctor/PCP: [facility] Date of Future Appointment with PCP: 07/20/23 Time of Appointment with PCP: 11:05 arrival Provider Appointment Comment: [address] [place] [address] Contact Information Discharge Discharge Address: [facility] [place] [address] [address]
[2023-06-15] MEDS: METHYLPHENIDATE HCL 10 MG TABLET PO SCH ×2 (09:34→14:17)
[2023-06-15] MEDS: DULoxetine HCL 60 MG CAP PO SCH (09:34)
[2023-06-15] MEDS: ARIPiprazole 10 MG TAB PO SCH (09:34)
[2023-06-15] MEDS: CYANOCOBALAMIN (B-12) 500 MCG TABLET PO SCH (09:34)
[2023-06-15] MEDS: diazePAM 5 MG TABLET PO SCH (09:34)
--- NOTE | 2023-06-15 18:36 | Discharge Summary ---
Date of Service June 15, 2023 History of Present Illness Dario was brought to the ED via police after his called them due to her concern for his worsening lack of attention to self-care needs with significant lack of eating (she reports he has lost ~130lbs in the last year; per chart review he has lost 45 lbs since he was in the ED in June 2022), lack of showering in almost 6 weeks, and paranoia. He was previously admitted to [facility] in May 2022 for depression with psychotic features and catatonia. During that admission there was also concern for possible cognitive impairment though he did show improvement in depression and psychotic symptoms with use of escitalopram and risperidone. Today he reports stopping all of his medications shortly after his discharge from the [facility] last year because "it got to the point it was overwhelming, I lost track of days of time". Since then he reports daily anxiety, especially when he is not focused on a task, in which he worries about all manner of things including fears the appliances are breaking, concerns that he and his are g etting older, concerns something bad will happen to her and "I guess I'd call it paranoia". He states he has hardly left the house in the last 9 months noting "I'm scared to go out or do anything" and that he feels a sense of "just anxiety, depression, mood swings and I'm always worried that something bad is going to happen". Reports very poor sleep, low appetite, weight loss, and significant anhedonia. Remarks that he is now retired and "this should be the best time in my life but it's just awful". Notes he is constantly thinking "you can't do this...I just can't get myself better". Further recent collateral and history per ED CM note from 05/29/2023: "According to patients , patient was inpatient at [address] [place] [address] in May 2022 and at the [facility] in June 2022. Patient was provided an aftercare plan upon discharge but did not follow through with medication management or mental health outpatient services. Patient has not left his home for any occasion since July 2022 due to extreme agoraphobia. Patient reports depressive symptoms, that he feels helpless/hopeless, sad, and has no motivation. He has lost around 130lbs since July 2022 due to having no appetite. Patient reports his sleep habits are also poor. Patient denies any hyun and states he feels depressed or anxious almost constantly. Patient reports he cannot concentrate and worries about and fears almost everything. Patients reports he does not want her leaving the house for fear she will not return. Patient appears paranoid as he believes people are coming into his home and taking his belongings from him. Patient reports panic attacks almost daily, and that this is accompanied by heavy breathing, and an upset stomach. He does not have any positive coping skills that he utilizes at this time. Patient reports his depression and anxiety became severe when he lost his employment at the [employer]. Aside from not eating and not sleeping patient states he has gone 6 weeks without a shower. Patient feels he needs inpatient treatment at this time and his agrees. Though he is not currently suicidal, patient has several guns in the home, however his has made arrangements to have the guns removed from the home by her brothers. Patient reports a history of diabetes and high blood pressure, but has no other health issues/concerns. He does not use substances or drink alcohol, but smokes cigarettes daily." Additional symptoms per psych liason note from 05/29/2023: "alert and oriented x 4 - thought blocking present and patient frequently says "I don't know" when answering questions, denies SI/HI, denies hallucinations/delusions - but per patient often believes that appliances in the house are not working even though they are or has paranoid thoughts about people watching him, patient last inpatient at the [facility] in June 2022 but also [facility]22, per his patient never followed up with any outpatient providers and has not taken any medications since his discharge in July, he has deteriorated since and has not left the house in many months or showered in about 6 weeks - also reports 100lbs weight loss, patient is a poor historian but does endorse daily anxiety and panic attacks - particularly in regards to being around groups of people, patient denies drug/alcohol use, to secure weapons at home, oriented to unit at this time." He is not currently prescribed any psychiatric medications. Psychiatric ROS notable for no current nor history of symptoms of hyun, PTSD, OCD nor eating disorder. Physical Exam Mental Examination Appearance: Disheveled Eye Contact: Avoids Eye Contact Motor Behavior: Slowed Speech: Soft Mood: Depressed and Sad Affect: Flat, Nervous and Sad Thought Process: Disorganized and Slowed Thinking Hallucinations: None Insight: Poor Judgement: Poor Psychiatric Orientation: alert, oriented x 3, oriented to person, oriented to place, oriented to time and cooperative (minimally) The patient is oriented to person place time and situation. Apperance: appropriately dressed, appropriately groomed and + disheveled Slightly disheveled. Eye Contact: good eye contact, + fair eye contact and + poor eye contact Fair Motor Behavior: no abnormal motor movements and + psychomotor retardation No abnormal involuntary movements. Speech: normal rate/rhythm/volume of speech Patient's speech is spontaneous, fluid, and delivered at a normal rate and volume. Affect: + depressed affect, + anxious affect and + constricted affect Constricted at first, but brightens during the encounter. He is able to smile and laugh appropriately several times during today's meeting. Mood: + depressed mood, + anxious mood and + dysphoric mood "I guess I am okay." Thought Process: goal directed thought process, + thought blocking, + circumstantial thought process, + tangential thought process and + concrete thought process Patient's associations are tight and goal-directed. Thought Content: + preoccupation ("don't know what's wrong with me"), + paranoid (subjectively, but can't elaborate), + cognitive distortions, reality based without delusions, + derealization, + hopelessness, + guilt and + self deprecation The patient's thought content is devoid of any psychotic features. He focuses of themes of helplessness, apathy, and anhedonia. Suicidal Thoughts: denies suicidal thoughts, denies suicidal plan and denies suicidal intent Mr. Rodarte reports that he has no thoughts of suicide, has not had any such thoughts in the past. Homicidal Thoughts: denies homicidal thoughts Patient reports that he has no thoughts of causing physical harm to the person or property of others. Hallucinations: no auditory hallucinations and no visual hallucinations ("squiggles and dots" when he closes his eyes) There is no evidence perceptional disturbance. Specifically, the patient reports that he is not hearing things that other people do not hear, and he also says that he is not having visions or otherwise seeing things that other people do not see. Cognition: recent memory grossly intact, remote memory grossly intact and language grossly intact; + attention not intact The patient has demonstrated during the stay that he has fairly good short-term, long-term and immediate memory. For example, when being taken to the first floor for diagnostic testing, he was able to promptly and appropriate tell his ask that she had turned the wrong way on the return trip back up to the unit Estimated Intelligence: consistent with education level Average based on abstraction, and vocabulary. Insight: + limited insight and + fair insight Limited Judgment: + limited judgement and + fair judgement There Vital Signs (Past 24 Hours) Last Vital Signs Temp 36.4 C L 06/15/23 13:47 Pulse 70 06/15/23 13:47 Resp 16 06/15/23 13:47 BP 133/88 06/15/23 13:47 Pulse Ox 95 06/15/23 13:47 O2 Del Method Room Air 06/09/23 06:51 The admission physical examination is excepted for purposes of the full examination at discharge. Principal Diagnosis Major depressive disorder, recurrent, with psychotic features. Psychiatric Data See daily stay summary. In short, safety was maintained and the patient was cooperative with care. Medication changes included addition of aripiprazole and methylphenidate added to assist the treatment resistant for retarded depression. And he has tolerated this well. A family session was and safety plan was completed prior to discharge. Day of Discharge Assessment Today the patient voices readiness for discharge. They note improvement in mood and deny thoughts to harm self or others. Thoughts remain organized and they are improved from admission. There is no evidence of psychosis. They agree to take mediations as prescribed and keep follow-up appointments. They are stable for discharge to outpatient level of care. Perhaps as a function of the patient's unspecified personality disorder, he told psychiatric staff yesterday that he felt ready for discharge. Today, he told the undersigned that he was feeling better and was ready for discharge. Shortly thereafter, when his came to pick him up, he was heard to turn to his and say, "I am a mess. I am no better. I did not even take a shower today." Transition of Care Transition Of Care Record: was reviewed with the patient Advance Directives Advance Directives Information Provided: Yes Advance Directives: No Mental Health Advance Directive: No Advance Directives on File: No Living Will: No Power of Vp Communications: No Advance Directives Reason:: Declines as Mental Health Visit. Suicide Risk Level Suicide Risk Level: Low (q15 min observation checks) Suicide Risk Level Comments: Patient reports that he has never had any suicidal thoughts and specifically denies any suicidal ideation today. He has completed a community safety plan and on questioning is familiar with its content. He also reports an intent to follow the plan should the need arise in the future, although he thinks that it will not. Risk Factors Assessment Male: Yes : Yes Do You Have Access To A Gun?: Yes (multiple at home, making plans to have these removed) Health Problems: Yes (peripheral neuropathy) Mental Health Diagnoses: Yes Substance Use Disorders: No Previous Attempt: No Family History of Suicide: No Previous Psychiatric Hospitalization: Yes Protective Factors Assessment Mormon Beliefs: Yes : Yes Employed: No (Retired) Stable Relationships: Yes Supportive Family: Yes Antipsychotic Medications Patient has been diagnosed with psychotic depression. He is also being given aripiprazole as an adjunct to his primary antidepressant medication, duloxetine Total Time Total Time Spent: Greater Than 30 Minutes Discharge Data Lab Results 05/29/23 05/29/23 05/29/23 15:00 16:09 17:10 WBC 5.65 RBC 4.97 Hgb 15.3 Hct 43.3 MCV 87.1 MCH 30.8 MCHC 35.3 RDW Std Deviation 40.6 RDW Coeff of Janes 12.7 Plt Count 219 MPV 9.8 Immature Gran % (Auto) 0.2 Neut % (Auto) 57.5 Lymph % (Auto) 32.2 Ogle % (Auto) 7.1 Eos % (Auto) 1.9 Baso % (Auto) 1.1 Neut # (Auto) 3.25 Lymph # (Auto) 1.82 Ogle # (Auto) 0.40 Eos # (Auto) 0.11 Baso # (Auto) 0.06 Immature Gran # (Auto) 0.01 Sodium 140 Potassium 4.3 Chloride 109 H Carbon Dioxide 22 Anion Gap 9 BUN 13 Creatinine 0.79 Est Cr Clr Drug Dosing 98.8 Est GFR ( Amer) 110.8 Est GFR (Non-Af Amer) 95.6 BUN/Creatinine Ratio 16.5 Glucose 90 Fasting Glucose Estimat Average Glucose Hemoglobin A1c Calcium 9.8 Total Bilirubin 1.5 H AST 13 ALT 8 Alkaline Phosphatase 45 Total Protein 7.0 Albumin 4.3 Globulin 2.7 Albumin/Globulin Ratio 1.6 Triglycerides Cholesterol LDL Cholesterol, Calc VLDL Cholesterol, Calc HDL Cholesterol Cholesterol/HDL Ratio Vitamin B12 25-OH Vitamin D Total Folate TSH 1.049 Urine Color Yellow Urine Appearance Clear Urine pH 6.5 Ur Specific [place] 1.008 Urine Protein Negative Urine Glucose (UA) Negative Urine Ketones 1+ H Urine Blood Negative Urine Nitrite Negative Urine Bilirubin Negative Urine Urobilinogen Negative Ur Leukocyte Esterase Negative Salicylates < 3.0 L Urine Opiates Screen Neg Ur Methadone, Qual Neg Acetaminophen < 3 L Urine Barbiturates Neg Ur Phencyclidine (PCP) Neg U Amphetamin/Meth Scrn Neg MDMA (Ecstasy) Screen Neg U Benzodiazepines Scrn Neg Ur Cocaine Metabolite Neg U Marijuana (THC) Screen Neg Ethyl Alcohol mg/dL < 10.0 SARS-CoV-2, RNA, NAAT NEGATIVE 05/31/23 06/05/23 08:39 10:42 WBC RBC Hgb Hct MCV MCH MCHC RDW Std Deviation RDW Coeff of Janes Plt Count MPV Immature Gran % (Auto) Neut % (Auto) Lymph % (Auto) Ogle % (Auto) Eos % (Auto) Baso % (Auto) Neut # (Auto) Lymph # (Auto) Ogle # (Auto) Eos # (Auto) Baso # (Auto) Immature Gran # (Auto) Sodium Potassium Chloride Carbon Dioxide Anion Gap BUN Creatinine Est Cr Clr Drug Dosing Est GFR ( Amer) Est GFR (Non-Af Amer) BUN/Creatinine Ratio Glucose Fasting Glucose 99 Estimat Average Glucose 103 Hemoglobin A1c 5.2 Calcium Total Bilirubin AST ALT Alkaline Phosphatase Total Protein Albumin Globulin Albumin/Globulin Ratio Triglycerides 105 Cholesterol 186 LDL Cholesterol, Calc 115 VLDL Cholesterol, Calc 21 HDL Cholesterol 50 Cholesterol/HDL Ratio 3.7 Vitamin B12 173 L 382 25-OH Vitamin D Total 24.2 L Folate 5.60 TSH Urine Color Urine Appearance Urine pH Ur Specific [place] Urine Protein Urine Glucose (UA) Urine Ketones Urine Blood Urine Nitrite Urine Bilirubin Urine Urobilinogen Ur Leukocyte Esterase Salicylates Urine Opiates Screen Ur Methadone, Qual Acetaminophen Urine Barbiturates Ur Phencyclidine (PCP) U Amphetamin/Meth Scrn MDMA (Ecstasy) Screen U Benzodiazepines Scrn Ur Cocaine Metabolite U Marijuana (THC) Screen Ethyl Alcohol mg/dL SARS-CoV-2, RNA, NAAT Hospital Course (1) MDD (major depressive disorder), recurrent, severe, with psychosis: Continue treatment for major depressive disorder on an outpatient basis. Patient no longer requires the inpatient level of care, and can be safely and effectively treated on an outpatient basis. (2) Generalized anxiety disorder with panic attacks: Continue treatment for generalized anxiety disorder with panic attacks on an outpatient basis. (3) Agoraphobia with panic attacks: Continue treatment for agoraphobia with panic attacks on an outpatient basis. He has been prescribed as needed diazepam (4) Vitamin D deficiency: Continue vitamin D supplement therapy. (5) Vitamin B12 deficiency: Continue vitamin B12 supplement therapy. (6) Personality disorder: Patient show decided passive dependent character traits during the hospitalization. As described above, after telling the hospital nurses and attending physicians that he was better and ready for discharge, he immediately told his , upon seeing her at discharge, that he was essentially no better and "a mess." The nature of the patient's relationship with his may harm some of his behaviors. Plan 06/14/2023: * continue diazepam 5 mg BID - started 06/11/2023 * continue methylphenidate 20 mg QAM & 10 mg QPM at 1400 - increased 06/09/2023 to 10 mg QAM & 5 mg QPM, started 06/08/2023 at 5 mg BID * continue aripiprazole 10 mg QAM - started 06/10/2023 to replace olanzapine * continue duloxetine 60 mg daily - increased 06/07/2023, started 05/30/2023 at 30 mg * continue ergocalciferol 50,000 IU twice weekly for loading - started 06/02/2023 * continue cyanocobalamin 1,000 mcg daily 06/13/2023: * continue diazepam 5 mg BID - started 06/11/2023 * continue methylphenidate 20 mg QAM & 10 mg QPM at 1400 - increased 06/09/2023 to 10 mg QAM & 5 mg QPM, started 06/08/2023 at 5 mg BID * continue aripiprazole 10 mg QAM - started 06/10/2023 to replace olanzapine * continue duloxetine 60 mg daily - increased 06/07/2023, started 05/30/2023 at 30 mg * continue ergocalciferol 50,000 IU twice weekly for loading - started * continue cyanocobalamin 1,000 mcg daily 06/12/2023: * continue diazepam 5 mg BID - started 06/11/2023 * continue methylphenidate 20 mg QAM & 10 mg QPM at 1400 - increased 06/09/2023 to 10 mg QAM & 5 mg QPM, started 06/08/2023 at 5 mg BID * continue aripiprazole 10 mg QAM - started 06/10/2023 to replace olanzapine * continue duloxetine 60 mg daily - increased 06/07/2023, started 05/30/2023 at 30 mg * continue ergocalciferol 50,000 IU twice weekly for loading - started 06/02/2023 * continue cyanocobalamin 1,000 mcg daily 06/11/2023: * cautious trial of diazepam 5 mg BID * continue methylphenidate 20 mg QAM & 10 mg QPM at 1400 - increased 06/09/2023 to 10 mg QAM & 5 mg QPM, started 06/08/2023 at 5 mg BID * continue aripiprazole 10 mg QAM - started 06/10/2023 * continue duloxetine 60 mg daily - increased 06/07/2023, started 05/30/2023 at 30 mg * continue ergocalciferol 50,000 IU twice weekly for loading - started 06/02/2023 * continue cyanocobalamin 1,000 mcg daily 06/10/2023: * increase methylphenidate to 20 mg QAM & 10 mg QPM at 1400 - increased 06/09/2023 to 10 mg QAM & 5 mg QPM, started 06/08/2023 at 5 mg BID * start aripiprazole 10 mg * stop olanzapine * continue duloxetine 60 mg daily - increased 06/07/2023, started 05/30/2023 at 30 mg * continue ergocalciferol 50,000 IU twice weekly for loading - started 06/02/2023 * continue cyanocobalamin 1,000 mcg daily * MRI brain with contrast 06/09/2023: * continue methylphenidate 10 mg QAM & 5 mg QPM at 1400 - started 06/08/2023 at 5 mg BID * continue olanzapine 10 mg HS and 2.5 mg BID PRN - started 05/30/2023 * continue duloxetine 60 mg daily - increased 06/07/2023, started 05/30/2023 at 30 mg * continue ergocalciferol 50,000 IU twice weekly for loading - started 06/02/2023 * continue cyanocobalamin 1,000 mcg daily 06/08/2023: * stop modafinil - increased 06/06/2023 to 200 mg QAM & 100 mg QPM, increased 06/04/2023 to 200 mg from 100 mg, reduced 06/03/2023 to 100 mg, started 06/02/2023 at 200 mg * begin trial of methylphenidate 5 mg QAM & QPM at 1400 * continue olanzapine 10 mg HS and 2.5 mg BID PRN - started 05/30/2023 * continue duloxetine 60 mg daily - increased 06/07/2023, started 05/30/2023 at 30 mg * continue ergocalciferol 50,000 IU twice weekly for loading - started 06/02/2023 * continue cyanocobalamin 1,000 mcg daily 06/07/2023: * increase (off-label) modafinil to 200 mg QAM & at 1300 - increased 06/06/2023 to 200 mg QAM & 100 mg QPM, increased 06/04/2023 to 200 mg from 100 mg, reduced 06/03/2023 to 100 mg, started 06/02/2023 at 200 mg * continue olanzapine 10 mg HS and 2.5 mg BID PRN - started 05/30/2023 * increase duloxetine to 60 mg daily - started 05/30/2023 at 30 mg * continue ergocalciferol 50,000 IU twice weekly for loading - started 06/02/2023 * continue cyanocobalamin 1,000 mcg daily 06/06/2023: * increase (off-label) modafinil to 200 mg QAM & 100 mg at 1300 - increased 06/04/2023 to 200 mg from 100 mg, reduced 06/03/2023 to 100 mg, started 06/02/2023 at 200 mg * continue olanzapine 10 mg HS and 2.5 mg BID PRN - started 05/30/2023 * continue duloxetine 30 mg daily - started 05/30/2023 * continue ergocalciferol 50,000 IU twice weekly for loading - started 06/02/2023 * continue cyanocobalamin 1,000 mcg daily 06/05/2023: * continue (off-label) modafinil 200 mg QAM - increased 06/04/2023 from 100 mg, reduced 06/03/2023 to 100 mg, started 06/02/2023 at 200 mg * continue olanzapine 10 mg HS and 2.5 mg BID PRN - started 05/30/2023 * continue duloxetine 30 mg daily - started 05/30/2023 * continue ergocalciferol 50,000 IU twice weekly for loading - started 06/02/2023 * continue cyanocobalamin 1,000 mcg daily * recheck cyanocobalamin level to confirm adequacy of replacement 06/04/2023: * increase (off-label) modafinil back to 200 mg QAM - reduced 06/03/2023 to 100 mg, started 06/02/2023 at 200 mg * continue olanzapine 10 mg HS and 2.5 mg BID PRN - started 05/30/2023 * continue duloxetine 30 mg daily - started 05/30/2023 * continue ergocalciferol 50,000 IU twice weekly for loading * continue cyanocobalamin 1,000 mcg daily, recheck level in 2-3 days to confirm adequacy of replacement 06/03/2023: * reduce (off-label) modafinil to 100 mg QAM - started 06/02/2023 at 200 mg * continue olanzapine 10 mg HS and 2.5 mg BID PRN - started 05/30/2023 * continue duloxetine 30 mg daily - started 05/30/2023 * continue ergocalciferol 50,000 IU twice weekly for loading * continue cyanocobalamin 1,000 mcg daily, recheck level in 2-3 days to confirm adequacy of replacement 06/02/2023: * start (off-label) modafinil 200 mg QAM * continue olanzapine 10 mg HS and 2.5 mg BID PRN - started 05/30/2023 * continue duloxetine 30 mg daily - started 05/30/2023 * change vitamin D from cholecalciferol 800 IU daily to ergocalciferol 50,000 IU twice weekly for loading * continue cyanocobalamin 1,000 mcg daily, recheck level in 2-3 days to confirm adequacy of replacement 06/01/2023: * continue olanzapine 10 mg HS po and 2.5 mg BID prn - started 05/30/2023 * continue duloxetine 30 mg daily - started 05/30/2023 * change vitamin D from cholecalciferol 800 IU daily to ergocalciferol 50,000 IU twice weekly for loading * continue cyanocobalamin 1,000 mcg daily, recheck level in 2-3 days to confirm adequacy of replacement 05/31/2023: * Continue olanzapine 10mg HS po and 2.5mg BID prn for now * Continue duloxetine 30mg daily * Start Vit D and B12 supplementation 05/30/2023: The patient was admitted to the [facility] ([facility]) on q15 min checks (behavioral with suicide precautions) for safety. The patient will participate in group, recreational, and milieu therapies and will be offered additional individual and family sessions as clinically appropriate. -Start olanzapine 10mg HS po -Start duloxetine 30mg daily -AM labwork including fasting glucose, HbA1c, B12, Folic Acid, Vit D, fasting lipid panel Mental Health & Subst Abuse Tx Therapist Name of Therapist: Angel Dorado (Skip) Therapist's Time of Therapist Appointment: [address] [facility] [place] [address] Therapy Appointment Comment: Please call if interested in mental health counseling. Field Crop Farmworker Name of Field Crop Farmworker: [facility] - Blended Case Management Phone Number for Field Crop Farmworker: [phone] Case Management Appointment Comment: Please call if you are interested in blended case management. Post Discharge Appointments Primary Care Physician Name Of Family Doctor/PCP: Carole Li [facility] Date of Future Appointment with PCP: 07/20/23 Time of Appointment with PCP: 11:05 arrival Provider Appointment Comment: [address] [place] [address] Primary Care Release of Information: Obtained, Reviewed and Signed Contact Information Discharge Discharge Address: [facility] [address] [place] [place] [address] [address] Discharge Plan Discharge Items Patient Disposition: Home - Self-Care Reason For Visit: UNSPECIFIED DEPRESSIVE DISORDER Discharge Diagnosis: Major Depressive Disorder, Recurrent, Severe, Without Psychotic Features Condition on Discharge: Fair Activity: Resume your previous activity Non-emergency contact: Primary Care Provider and Therapist Call non-emergency contact if: you have any medication questions and your symptoms worsen Follow-up/Referrals: Elvis Li MD [Primary Care Provider] - Diet: Carb Consistent or DM2 Addtl Attending Provider Instructions: Speak with primary care provider about ruling out Obstructive Sleep Apnea (causing fatigue and somnolence). Consider melatonin 10 mg with dinner to help with day-night reversal (sleep). Pending Studies at Discharge: No Stand-Alone Forms: My [facility] Medications and DC Order Prescriptions: New methylphenidate HCl 10 mg Tablet See Rx Instructions .ROUTE .COMPLEX Qty: 90 0RF Rx Instructions: Two tabs by mouth qAM and one tab by mouth every day at 2 p.m. diazepam 5 mg Tablet 5 mg PO BID Qty: 60 0RF duloxetine 60 mg Capsule,Delayed Release(Dr/Ec) 60 mg PO QAM Qty: 30 0RF Discharge Orders: Discharge Order (Routine); Ordered 06/15/23 Ordered By: Carlos Olsen Admission Data Admit Date/Time: 05/29/23 18:33 Attending Provider: Gladys Dorsey Admit Provider: Gladys Dorsey Primary Care Provider: Elvis Li Other Interventions: Discharge Summary Assessment (RN) Last Done: 06/15/23 13:47 PSY Interdisciplinary Discharge Planning Last Done: 06/15/23 14:09 [place] [address] D/C day mgmt > 30 min Patient Type Established History Expanded Problem Focused Exam Expanded Problem Focused Medical Decision Making Moderate Complexity Diagnoses MDD (major depressive disorder), recurrent, severe, with psychosis F33.3 Generalized anxiety disorder with panic attacks F41.1; F41.0 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
== END 2023-06-15 14:48 | disposition home or self-care (01) | DRG 885 ==
LOC: ED 14:39 → 3S 18:33

== ENCOUNTER 2024-09-14 18:16 | Observation (INO) ==
--- NOTE | 2024-09-14 18:35 | Emergency Department Note ---
Impression & Plan Syncope, Orthostatic hypotension, Head injury, Acute respiratory alkalosis ED Provider Note NAME: JERARDO [id number] MARCUS AGE: 64 SEX: M : 1960 ARRIVES VIA: Ambulance INFORMANT: Patient, EMS ED PROVIDER(S): Cali Marcos DO CHIEF COMPLAINT: Syncope HPI: The patient is a 64-year-old male who presented to the emergency department in the skilled nursing. The patient had a syncopal episode prior to arrival. The patient was seen in our facility yesterday for similar episode. At that time he was treated for orthostatic hypotension. He was able to be discharged back to the skilled nursing. The patient was found to be confused. He was noted on video to have an episode of syncope. The patient at this time complains of allover pain. The patient is difficult to understand. According to the guards he may be slightly confused from his baseline. ROS: See above HPI for pertinent positives & negatives. A total of 10 systems reviewed and were otherwise negative. PAST MEDICAL HISTORY: See Below PAST SURGICAL HISTORY: See Below FAMILY HISTORY: See Below SOCIAL HISTORY: See Below HOME MEDICATIONS: See Below ALLERGIES: See Below VITALS: See Below PHYSICAL EXAMINATION: GENERAL: The patient is listless and slow to respond to questions. EYES: The conjunctivae are clear. The pupils are round and reactive. EARS, NOSE, MOUTH AND THROAT: The nose is without any evidence of any deformity. NECK: Rigid cervical collar was placed prior to arrival. RESPIRATORY: Normal respiratory effort is noted there is no evidence of wheezing rhonchi or rales CARDIOVASCULAR: Regular rate and rhythm noted there no murmurs rubs or gallops normal S1 normal S2. GASTROINTESTINAL: The abdomen is soft. Abdomen is nontender. BACK: No specific midline tenderness was noted over the thoracolumbar spine. Range of motion does appear intact. MUSCULOSKELETAL/EXTREMITIES: There is no evidence of gross deformity full range of motion is noted in the hips and shoulders. SKIN: There is no obvious evidence of any rash. There are no petechiae, pallor or cyanosis noted. NEUROLOGIC: Patient is awake and oriented to person place and time. Strength is symmetric but diminished. MEDICAL DECISION MAKING: The patient is a 64-year-old male who presented to the emergency department for an evaluation after having a syncopal episode at the skilled nursing. The patient was seen in our facility recently for similar complaints. He was treated with IV fluids in the emergency department. He was reevaluated multiple times. On reevaluation blood pressure did improve. His lactic acid was elevated. I do not feel this represents an infection although I am unsure why the patient would be orthostatic at this time. Certainly reviewed the patient's medications does reveal multiple medications that could cause this. I discussed the patient's condition with him. I also discussed his condition with the on-call [facility] hospitalist. They have agreed to evaluate the patient in the emergency department for further management and disposition. Triage Nursing notes reviewed. Prior medical records reviewed Vital Signs: reviewed and remarkable for initial hypotension Differential diagnosis: Vasovagal event, dehydration, infection, hypoglycemia, electrolyte abnormalities, cardiac sources, intracerebral event, pulmonary embolism, seizure, toxicologic, neurologic, as well as other pathologies. ER treatment provided: See below Diagnostics interpreted by me: ECG: EKG was obtained in the emergency department. My interpretation is normal sinus rhythm at 83 bpm. There is no ectopy. There is no acute ST segment abnormalities noted. This was carried to a tracing from September 13, 2024. No changes were noted. Cardiac Monitoring: An order was placed for continuous cardiac monitoring. The monitor shows a rate of 75 bpm with sinus rhythm. Laboratory studies: As stated above and show below. Imaging studies: See below. Radiographic imaging was reviewed by myself Consultation(s): I discussed this case with Dr. Gordillo [facility] 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 Vitamin B12 deficiency Vitamin D deficiency Agoraphobia with panic attacks DM2 (diabetes mellitus, type 2) HTN (hypertension) Reflux (Chronic) Abdominal pain (Acute) Colitis (Acute) Diverticulitis (Acute) Medical History Tachycardia Catatonia Leukocytosis Laceration of knee HLD (hyperlipidemia) GI bleeding HTN (hypertension) Surgical History No pertinent past surgical history Family History Other Family history non-contributory Social History Smoking Status: Unknown if ever smoked Tobacco Type: Cigarettes Hx Alcohol Use: Yes Hx Substance Use: No Preferred Language: German Communication Ability: Effective 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 Beliefs That Will Affect Care: Jainism current occupational status: employed Feels Safe at Home: Yes Gender Identity: Male Assistive Devices: Brace/Splint/Immobilizer Allergies Allergies Allergy/AdvReac Type Severity Reaction Status Date / Time No Known Allergies Allergy Verified 09/13/24 20:55 Home Meds Home Medications Medication Instructions Recorded Confirmed acetaminophen 500 mg tablet 1,000 mg PO BID PRN DIRECTED 09/14/24 09/14/24 cetirizine 10 mg tablet (Allergy 10 mg PO DAILY 09/14/24 09/14/24 Relief (cetirizine)) docusate sodium 100 mg capsule 100 mg PO BID PRN Constipation 09/14/24 09/14/24 (Colace) duloxetine 60 mg capsule,delayed 60 mg PO DAILY 09/14/24 09/14/24 release fluticasone 100 mcg-salmeterol 50 1 inh inhalation BID 09/14/24 09/14/24 mcg/dose blistr powdr for inhalation (Advair Diskus) furosemide 40 mg tablet 40 mg PO DAILY 09/14/24 09/14/24 lisinopril 20 mg tablet 20 mg PO DAILY 09/14/24 09/14/24 multivitamin 1 tab PO DAILY 09/14/24 09/14/24 olanzapine 5 mg tablet (Zyprexa) 5 mg PO BID 09/14/24 09/14/24 omeprazole 20 mg capsule,delayed 20 mg PO QAM 09/14/24 09/14/24 release potassium chloride 10 mEq 20 meq PO DAILY 09/14/24 09/14/24 tablet,extended release quetiapine 50 mg tablet (Seroquel) 150 mg PO HS 09/14/24 09/14/24 tamsulosin 0.4 mg capsule 0.4 mg PO DAILY 09/14/24 09/14/24 Results & Data (ED) Vital Signs Vital Signs - 24 hr 09/14/24 18:25 09/14/24 18:33 09/14/24 18:38 Temperature 36.4 C 36.4 C Temperature Source Oral Pulse Rate 83 81 84 Pulse Rate [Apical] Pulse Rate from SpO2 Sensor Respiratory Rate 18 18 Respiratory Effort / Characteristics Respiratory Depth Normal Respiratory Pattern Blood Pressure 92/50 L 94/67 L Blood Pressure [Left Arm] Blood Pressure Mean 64 Blood Pressure Mean [Left Arm] Pulse Oximetry 98 96 Oxygen Delivery Method Room Air Room Air Oxygen Flow Rate 0 Sepsis Recent Fever Within 48 Hours No Sepsis New/Unexplained Change in Mental Status No Sepsis Action Taken by Nursing No Action Required 09/14/24 18:59 09/14/24 19:00 09/14/24 19:00 Temperature Temperature Source Pulse Rate 88 Pulse Rate [Apical] Pulse Rate from SpO2 Sensor 88 Respiratory Rate 19 Respiratory Effort / Characteristics Respiratory Depth Respiratory Pattern Blood Pressure 134/81 122/73 Blood Pressure [Left Arm] Blood Pressure Mean 89 85 Blood Pressure Mean [Left Arm] Pulse Oximetry 99 Oxygen Delivery Method Oxygen Flow Rate Sepsis Recent Fever Within 48 Hours Sepsis New/Unexplained Change in Mental Status Sepsis Action Taken by Nursing 09/14/24 19:05 09/14/24 19:15 09/14/24 19:30 Temperature Temperature Source Pulse Rate 89 Pulse Rate [Apical] 91 H 92 H Pulse Rate from SpO2 Sensor 90 Respiratory Rate 15 19 14 Respiratory Effort / Characteristics Non-Labored Spontaneous Respiratory Depth Normal Respiratory Pattern Regular Blood Pressure Blood Pressure [Left Arm] 122/73 113/73 Blood Pressure Mean Blood Pressure Mean [Left Arm] 89 86 Pulse Oximetry 98 99 100 Oxygen Delivery Method Room Air Room Air Oxygen Flow Rate Sepsis Recent Fever Within 48 Hours Sepsis New/Unexplained Change in Mental Status Sepsis Action Taken by Nursing 09/14/24 19:30 09/14/24 19:42 09/14/24 19:44 Temperature Temperature Source Pulse Rate 89 Pulse Rate [Apical] 92 H Pulse Rate from SpO2 Sensor 90 Respiratory Rate 17 14 Respiratory Effort / Characteristics Spontaneous Respiratory Depth Normal Respiratory Pattern Regular Blood Pressure 113/73 Blood Pressure [Left Arm] 113/73 Blood Pressure Mean 87 Blood Pressure Mean [Left Arm] 86 Pulse Oximetry 100 100 Oxygen Delivery Method Room Air Oxygen Flow Rate Sepsis Recent Fever Within 48 Hours Sepsis New/Unexplained Change in Mental Status Sepsis Action Taken by Nursing 09/14/24 19:44 09/14/24 19:54 09/14/24 20:00 Temperature Temperature Source Pulse Rate 93 H Pulse Rate [Apical] 90 Pulse Rate from SpO2 Sensor 93 H Respiratory Rate 18 18 Respiratory Effort / Characteristics Respiratory Depth Respiratory Pattern Blood Pressure 113/73 Blood Pressure [Left Arm] 123/82 Blood Pressure Mean 87 Blood Pressure Mean [Left Arm] 95 Pulse Oximetry 100 100 Oxygen Delivery Method Room Air Oxygen Flow Rate Sepsis Recent Fever Within 48 Hours Sepsis New/Unexplained Change in Mental Status Sepsis Action Taken by Nursing 09/14/24 20:00 09/14/24 20:00 09/14/24 20:03 Temperature Temperature Source Pulse Rate 97 H Pulse Rate [Apical] Pulse Rate from SpO2 Sensor 95 H Respiratory Rate 19 Respiratory Effort / Characteristics Respiratory Depth Respiratory Pattern Blood Pressure 122/73 122/73 Blood Pressure [Left Arm] Blood Pressure Mean 83 83 Blood Pressure Mean [Left Arm] Pulse Oximetry 99 Oxygen Delivery Method Oxygen Flow Rate Sepsis Recent Fever Within 48 Hours Sepsis New/Unexplained Change in Mental Status Sepsis Action Taken by Nursing 09/14/24 20:14 09/14/24 20:21 09/14/24 21:00 Temperature Temperature Source Pulse Rate 90 Pulse Rate [Apical] 91 H Pulse Rate from SpO2 Sensor 90 Respiratory Rate 15 18 Respiratory Effort / Characteristics Respiratory Depth Respiratory Pattern Blood Pressure 123/82 Blood Pressure [Left Arm] 107/49 L Blood Pressure Mean 92 Blood Pressure Mean [Left Arm] 68 Pulse Oximetry 100 97 Oxygen Delivery Method Room Air Oxygen Flow Rate Sepsis Recent Fever Within 48 Hours Sepsis New/Unexplained Change in Mental Status Sepsis Action Taken by Nursing 09/14/24 22:00 Temperature Temperature Source Pulse Rate Pulse Rate [Apical] 93 H Pulse Rate from SpO2 Sensor Respiratory Rate 18 Respiratory Effort / Characteristics Respiratory Depth Respiratory Pattern Blood Pressure Blood Pressure [Left Arm] 131/80 Blood Pressure Mean Blood Pressure Mean [Left Arm] 97 Pulse Oximetry 98 Oxygen Delivery Method Room Air Oxygen Flow Rate Sepsis Recent Fever Within 48 Hours Sepsis New/Unexplained Change in Mental Status Sepsis Action Taken by [facility] Medications Current Medication List: was personally reviewed by me Laboratory Data Attestation: I reviewed the patient's lab results. 09/14/24 18:42 09/14/24 19:41 Lab Results 09/14/24 09/14/24 09/14/24 Range/Units 18:26 18:40 18:42 WBC 9.45 (4.8-10.8) K/ul RBC 4.63 L (4.70-6.10) M/uL Hgb 14.3 D (14.0-18.0) g/dl Hct 40.7 L (42.0-52.0) % MCV 87.9 (80.0-100.0) fL MCH 30.9 (25.0-34.0) pg MCHC 35.1 (32.0-36.0) g/dL RDW Std Deviation 39.6 (36.4-46.3) fL RDW Coeff of Janes 12.3 (11.5-14.5) % Plt Count 267 (130-400) K/uL MPV 10.1 (9.4-12.4) fL Immature Gran % (Auto) 0.3 % Neut % (Auto) 58.1 % Lymph % (Auto) 32.5 % [place] % (Auto) 7.8 % Eos % (Auto) 0.8 % Baso % (Auto) 0.5 % Neut # (Auto) 5.48 (1.40-6.50) K/uL Lymph # (Auto) 3.07 (1.20-3.40) K/uL [place] # (Auto) 0.74 H (0.11-0.59) K/uL Eos # (Auto) 0.08 (0.00-0.50) K/uL Baso # (Auto) 0.05 (0.00-0.20) K/uL Immature Gran # (Auto) 0.03 (0.01-0.20) K/uL Platelet Estimate Normal (Normal) PT 10.7 (9.0-12.0) Seconds INR 1.0 (0.9-1.1) APTT 21 (21-31) Seconds PTT Ratio 0.8 VBG pH 7.63 H (7.36-7.41) VBG pCO2 21 L (38-50) mmHg VBG pO2 39 mmHg VBG HCO3 22 mmol/L VBG O2 Saturation 77.6 % VBG Base Excess 2.9 mEq/L Sodium 132 L (136-145) mmol/L Potassium TNP Chloride 100 (98-107) mmol/L Carbon Dioxide 22 (21-32) mmol/L Anion Gap 10 (3-11) BUN 16 (6-23) mg/dl Creatinine 1.09 (0.6-1.4) mg/dl Est Cr Clr Drug Dosing 76.7 ml/min eGFR 75.79 BUN/Creatinine Ratio 14.7 (10-20) Glucose 130 H (70-99(Fasting)) mg/dl POC Glucose 121 H (70-99) mg/dl Lactate 3.0 H* (0.4-2.0) mmol/L Calcium 8.9 (8.6-10.3) mg/dl Magnesium 1.9 (1.7-2.4) mg/dl Total Bilirubin 0.7 (0.2-1.0) mg/dl Direct Bilirubin TNP AST TNP ALT 13 (7-52) U/L Alkaline Phosphatase 53 (34-104) U/L Troponin I High Sens < 2.3 (0-20) pg/ml C-Reactive Protein < 0.50 (0-0.5) mg/dl Total Protein 7.0 (6.0-8.3) gm/dl Albumin 4.1 (3.4-5.0) gm/dl Procalcitonin < 0.02 (0-0.5) ng/ml Urine Color Urine Appearance (Clear) Urine pH (4.5-7.5) Ur Specific [place] (1.000-1.030) Urine Protein (Negative) Urine Glucose (UA) (Negative) Urine Ketones (Negative) Urine Blood (Negative) Urine Nitrite (Negative) Urine Bilirubin (Negative) Urine Urobilinogen (Negative) Ur Leukocyte Esterase (Negative) Urine WBC (Auto) (0-5) /hpf Urine RBC (Auto) (0-2) /hpf U Hyaline Cast (Auto) (0-2) /lpf U Epithel Cells (Auto) (0-2) /hpf Urine Bacteria (Auto) (None Seen) Salicylates (3.0-30) mg/dl Urine Opiates Screen (Neg) Ur Methadone, Qual (Neg) Urine Fentanyl Screen (Neg) Acetaminophen (10-30) ug/ml Urine Barbiturates (Neg) Ur Phencyclidine (PCP) (Neg) U Amphetamin/Meth Scrn (Neg) MDMA (Ecstasy) Screen (Neg) U Benzodiazepines Scrn (Neg) Ur Cocaine Metabolite (Neg) U Marijuana (THC) Screen (Neg) Ethyl Alcohol mg/dL (<10.0) mg/dl SARS-CoV-2 (PCR) NEGATIVE (Negative) Influenza Type A (PCR) Negative (Neg) Influenza Type B (PCR) Negative (Neg) RSV (RT-PCR) Negative (Neg) 09/14/24 09/14/24 09/14/24 Range/Units 18:47 19:09 19:41 WBC (4.8-10.8) K/ul RBC (4.70-6.10) M/uL Hgb (14.0-18.0) g/dl Hct (42.0-52.0) % MCV (80.0-100.0) fL MCH (25.0-34.0) pg MCHC (32.0-36.0) g/dL RDW Std Deviation (36.4-46.3) fL RDW Coeff of Janes (11.5-14.5) % Plt Count (130-400) K/uL MPV (9.4-12.4) fL Immature Gran % (Auto) % Neut % (Auto) % Lymph % (Auto) % [place] % (Auto) % Eos % (Auto) % Baso % (Auto) % Neut # (Auto) (1.40-6.50) K/uL Lymph # (Auto) (1.20-3.40) K/uL [place] # (Auto) (0.11-0.59) K/uL Eos # (Auto) (0.00-0.50) K/uL Baso # (Auto) (0.00-0.20) K/uL Immature Gran # (Auto) (0.01-0.20) K/uL Platelet Estimate (Normal) PT (9.0-12.0) Seconds INR (0.9-1.1) APTT (21-31) Seconds PTT Ratio VBG pH (7.36-7.41) VBG pCO2 (38-50) mmHg VBG pO2 mmHg VBG HCO3 mmol/L VBG O2 Saturation % VBG Base Excess mEq/L Sodium (136-145) mmol/L Potassium 3.8 Chloride (98-107) mmol/L Carbon Dioxide (21-32) mmol/L Anion Gap (3-11) BUN (6-23) mg/dl Creatinine (0.6-1.4) mg/dl Est Cr Clr Drug Dosing ml/min eGFR BUN/Creatinine Ratio (10-20) Glucose (70-99(Fasting)) mg/dl POC Glucose (70-99) mg/dl Lactate (0.4-2.0) mmol/L Calcium (8.6-10.3) mg/dl Magnesium (1.7-2.4) mg/dl Total Bilirubin (0.2-1.0) mg/dl Direct Bilirubin 0.1 AST 19 ALT (7-52) U/L Alkaline Phosphatase (34-104) U/L Troponin I High Sens (0-20) pg/ml C-Reactive Protein (0-0.5) mg/dl Total Protein (6.0-8.3) gm/dl Albumin (3.4-5.0) gm/dl Procalcitonin (0-0.5) ng/ml Urine Color Yellow Urine Appearance Clear (Clear) Urine pH 7.5 (4.5-7.5) Ur Specific [place] 1.019 (1.000-1.030) Urine Protein Negative (Negative) Urine Glucose (UA) Negative (Negative) Urine Ketones Trace H (Negative) Urine Blood Trace H (Negative) Urine Nitrite Negative (Negative) Urine Bilirubin Negative (Negative) Urine Urobilinogen Negative (Negative) Ur Leukocyte Esterase 1+ H (Negative) Urine WBC (Auto) 0-5 (0-5) /hpf Urine RBC (Auto) 0-2 (0-2) /hpf U Hyaline Cast (Auto) 3-5 H (0-2) /lpf U Epithel Cells (Auto) 0-2 (0-2) /hpf Urine Bacteria (Auto) None Seen (None Seen) Salicylates < 3.0 L (3.0-30) mg/dl Urine Opiates Screen Neg (Neg) Ur Methadone, Qual Neg (Neg) Urine Fentanyl Screen Neg (Neg) Acetaminophen < 3 L (10-30) ug/ml Urine Barbiturates Neg (Neg) Ur Phencyclidine (PCP) Neg (Neg) U Amphetamin/Meth Scrn Neg (Neg) MDMA (Ecstasy) Screen Neg (Neg) U Benzodiazepines Scrn Neg (Neg) Ur Cocaine Metabolite Neg (Neg) U Marijuana (THC) Screen Neg (Neg) Ethyl Alcohol mg/dL < 10.0 (<10.0) mg/dl SARS-CoV-2 (PCR) (Negative) Influenza Type A (PCR) (Neg) Influenza Type B (PCR) (Neg) RSV (RT-PCR) (Neg) 09/14/24 Range/Units 20:37 WBC (4.8-10.8) K/ul RBC (4.70-6.10) M/uL Hgb (14.0-18.0) g/dl Hct (42.0-52.0) % MCV (80.0-100.0) fL MCH (25.0-34.0) pg MCHC (32.0-36.0) g/dL RDW Std Deviation (36.4-46.3) fL RDW Coeff of Janes (11.5-14.5) % Plt Count (130-400) K/uL MPV (9.4-12.4) fL Immature Gran % (Auto) % Neut % (Auto) % Lymph % (Auto) % [place] % (Auto) % Eos % (Auto) % Baso % (Auto) % Neut # (Auto) (1.40-6.50) K/uL Lymph # (Auto) (1.20-3.40) K/uL [place] # (Auto) (0.11-0.59) K/uL Eos # (Auto) (0.00-0.50) K/uL Baso # (Auto) (0.00-0.20) K/uL Immature Gran # (Auto) (0.01-0.20) K/uL Platelet Estimate (Normal) PT (9.0-12.0) Seconds INR (0.9-1.1) APTT (21-31) Seconds PTT Ratio VBG pH (7.36-7.41) VBG pCO2 (38-50) mmHg VBG pO2 mmHg VBG HCO3 mmol/L VBG O2 Saturation % VBG Base Excess mEq/L Sodium (136-145) mmol/L Potassium Chloride (98-107) mmol/L Carbon Dioxide (21-32) mmol/L Anion Gap (3-11) BUN (6-23) mg/dl Creatinine (0.6-1.4) mg/dl Est Cr Clr Drug Dosing ml/min eGFR BUN/Creatinine Ratio (10-20) Glucose (70-99(Fasting)) mg/dl POC Glucose (70-99) mg/dl Lactate 1.8 (0.4-2.0) mmol/L Calcium (8.6-10.3) mg/dl Magnesium (1.7-2.4) mg/dl Total Bilirubin (0.2-1.0) mg/dl Direct Bilirubin AST ALT (7-52) U/L Alkaline Phosphatase (34-104) U/L Troponin I High Sens (0-20) pg/ml C-Reactive Protein (0-0.5) mg/dl Total Protein (6.0-8.3) gm/dl Albumin (3.4-5.0) gm/dl Procalcitonin (0-0.5) ng/ml Urine Color Urine Appearance (Clear) Urine pH (4.5-7.5) Ur Specific [place] (1.000-1.030) Urine Protein (Negative) Urine Glucose (UA) (Negative) Urine Ketones (Negative) Urine Blood (Negative) Urine Nitrite (Negative) Urine Bilirubin (Negative) Urine Urobilinogen (Negative) Ur Leukocyte Esterase (Negative) Urine WBC (Auto) (0-5) /hpf Urine RBC (Auto) (0-2) /hpf U Hyaline Cast (Auto) (0-2) /lpf U Epithel Cells (Auto) (0-2) /hpf Urine Bacteria (Auto) (None Seen) Salicylates (3.0-30) mg/dl Urine Opiates Screen (Neg) Ur Methadone, Qual (Neg) Urine Fentanyl Screen (Neg) Acetaminophen (10-30) ug/ml Urine Barbiturates (Neg) Ur Phencyclidine (PCP) (Neg) U Amphetamin/Meth Scrn (Neg) MDMA (Ecstasy) Screen (Neg) U Benzodiazepines Scrn (Neg) Ur Cocaine Metabolite (Neg) U Marijuana (THC) Screen (Neg) Ethyl Alcohol mg/dL (<10.0) mg/dl SARS-CoV-2 (PCR) (Negative) Influenza Type A (PCR) (Neg) Influenza Type B (PCR) (Neg) RSV (RT-PCR) (Neg) Administered Medications Discontinued Medications Sodium Chloride (Nss) 1,000 mls @ 999 mls/hr IV .Q1H1M ONE Stop: 09/14/24 19:22 Last Infusion: 09/14/24 20:17 Dose: Infused Documented By: Admin: 09/14/24 19:00 Dose: 999 mls/hr Documented By: SHARON Sodium Chloride (Nss) 1,000 mls @ 999 mls/hr IV .Q1H1M ONE Stop: 09/14/24 20:34 Last Infusion: 09/14/24 20:39 Dose: Infused Documented By: Admin: 09/14/24 19:38 Dose: 999 mls/hr Documented By: MED Ioversol (Optiray 320 125ml) 117 ml IV ONCE ONE Stop: 09/14/24 18:46 Last Admin: 09/14/24 18:45 Dose: 117 ml Documented By: MAAN Imaging Data Attestation: I personally reviewed and interpreted this imaging study as follows: My Impression: CT of the brain was obtained in the emergency department. My interpretation is no intracranial hemorrhage or mass effect, final report below. CT of the chest was obtained in the emergency department. My interpretation is no free air or definite infiltrate, final report below. Radiologist's Impression: Abdomen/Pelvis CT 09/14/24 18:22 EXAMINATION: CT of the abdomen and pelvis performed after the administration of IV contrast TECHNIQUE: Helical CT images from the lung bases through the symphysis pubis were obtained with contrast. Coronal and sagittal reformatted images were generated at a workstation for further assessment. Dose reduction techniques were achieved by using automatic exposure control and/or adjustment of mA and/or kV according to patient size and/or use of iterative reconstruction technique. COMPARISON: None HISTORY: Abdominal pain FINDINGS: Lower chest: No consolidation. No pleural effusion or pneumothorax. Liver: No suspicious liver lesions. Portal veins appear patent. Gallbladder: No gallstones. No evidence of acute cholecystitis. Spleen: Normal size. Pancreas: No suspicious pancreatic lesions. The pancreatic duct is not dilated. Adrenal glands: No adrenal nodules. Kidneys: No hydronephrosis or obstructing renal stones. Few, small renal cysts. Bladder / Pelvic organs: A Stinson catheter is in place. There is mild air in the bladder. The bladder is incompletely distended. Mild contrast material seen dependently in the urinary bladder, and also the renal collecting systems and ureters. Bowel: No bowel obstruction. No abnormal bowel wall thickening. The appendix is unremarkable. Left colonic diverticulosis without diverticulitis. There is a large colonic stool burden suggesting constipation. Small sliding hiatal hernia. Lymph nodes: No retroperitoneal, mesenteric, or pelvic lymphadenopathy. Peritoneum / Retroperitoneum: No free fluid or air within the abdomen. Vessels: No infrarenal aortic aneurysm. Bones and soft tissues: No suspicious lesion in the bones. Small fatty umbilical hernia. IMPRESSION: No acute abnormality of the abdomen or pelvis. Electronically signed by Waldemar Cardenas 09-14-2024 7:[address] 09/14/24 18:22 CT cervical spine without IV contrast History: Trauma Comparison: None Technique: Using multidetector thin collimation helical acquisition technique, axial, coronal and sagittal CT images through the cervical spine were obtained without intravenous contrast. Dose reduction techniques were achieved by using automatic exposure control and/or adjustment of mA and/or kV according to patient size and/or use of iterative reconstruction technique. Findings: The cervical vertebrae are normally aligned. Straightened cervical lordosis. No acute fracture or subluxation. No prevertebral edema. Severe discogenic degenerative changes associated with small disc osteophyte complexes at C5-6 and C6-7. No abnormality of the paraspinous soft tissues. Impression: No acute fracture or traumatic subluxation. Electronically signed by Waldemar Cardenas 09-14-2024 7:24 PM Chest CTA 09/14/24 18:22 CT pulmonary angiogram with IV contrast History: Chest pain COMPARISON: None TECHNIQUE: CT angiography of the chest was performed without IV contrast followed by IV contrast, including 3D post processing CTA image reconstruction. Dose reduction techniques were achieved by using automatic exposure control and/or adjustment of mA and/or kV according to patient size and/or use of iterative reconstruction technique. FINDINGS: Diagnostic quality: Adequate There is no evidence for pulmonary embolism. The heart is not enlarged. Moderate coronary calcification. There is no pericardial effusion. There are no abnormally enlarged hilar or mediastinal lymph nodes. The central tracheobronchial tree is clear. The lungs are clear. There is no pleural effusion. Limited visualized upper abdomen. Small sliding hiatal hernia. No destructive osseous changes are seen. There is a healing, posterior right 10th rib fracture with healing callus, that is nondisplaced, other subacute or chronic. IMPRESSION: No evidence for pulmonary embolism. Healing, chronic or subacute posterior right rib 10 fracture. Electronically signed by Waldemar Cardenas 09-14-2024 7:24 PM Chest X-Ray 09/14/24 18:22 EXAM: XR chest 1V portable CLINICAL HISTORY: Sepsis. TECHNIQUE: An X-ray image of the chest is obtained in AP projection. COMPARISON: Prior chest X-ray dated 09/13/2024. FINDINGS: Pulmonary Parenchyma: No evidence of consolidation, collapse, or focal opacities. No pulmonary nodules are identified. No evidence of pleural effusion or pleural thickening. Heart and Mediastinum: Cardiac size cannot be accurately assessed in AP projection, however cardiac shadow appears within normal limits. Bony Thorax: Bony thorax appears intact without fractures or deformities. Soft Tissues: Soft tissues overlying the chest wall are unremarkable. Cardiac monitoring electrodes. IMPRESSION: 1. No acute cardiopulmonary abnormalities are identified. 2. No changes on interval. Electronically signed by Kyle Rebolledo 09-14-2024 8:[address] 09/14/24 18:22 CT head without contrast History: Trauma Comparison: None Technique: Using multidetector thin collimation helical acquisition technique, axial, coronal and sagittal CT images from the skull base to the vertex were obtained without intravenous contrast. Dose reduction techniques were achieved by using automatic exposure control and/or adjustment of mA and/or kV according to patient size and/or use of iterative reconstruction technique. Findings: No intracranial hemorrhage, mass-effect, or midline shift. The ventricles are proportionate to the cerebral sulci. The busby to white matter differentiation of the cerebral hemispheres is preserved. The basal cisterns are patent. The visualized paranasal sinuses are clear. Mastoid air cells are clear. Impression: No acute intracranial pathology. Electronically signed by Waldemar Cardenas 09-14-2024 7:23 PM Discharge Plan Visit Data Chief Complaint: Trauma ED Provider: Cali Marcos Discharge Problem: Syncope, Orthostatic hypotension, Head injury, Acute respiratory alkalosis Patient Disposition: Being Evaluated by Hospitalist Forms Stand Alone Forms: My [facility] Prescriptions Prescriptions: No Action cetirizine [Allergy Relief (cetirizine)] 10 mg tablet 10 mg PO DAILY docusate sodium [Colace] 100 mg Capsule 100 mg PO BID PRN (Reason: Constipation) omeprazole 20 mg capsule,delayed release(DR/EC) 20 mg PO QAM duloxetine 60 mg capsule,delayed release(DR/EC) 60 mg PO DAILY multivitamin Tablet 1 tab PO DAILY furosemide 40 mg Tablet 40 mg PO DAILY lisinopril 20 mg Tablet 20 mg PO DAILY acetaminophen 500 mg Tablet 1,000 mg PO BID PRN (Reason: DIRECTED) fluticasone propion-salmeterol [Advair Diskus] 100-50 mcg/dose Blister With Device 1 inh INHALATION BID potassium chloride 10 mEq Tablet Extended Release 20 meq PO DAILY olanzapine [Zyprexa] 5 mg Tablet 5 mg PO BID tamsulosin 0.4 mg Capsule 0.4 mg PO DAILY quetiapine [Seroquel] 50 mg Tablet 150 mg PO HS Referrals Referrals: [facility] [Primary Care Provider] -
[2024-09-14] MEDS: OPTIRAY 320 125ml IV ONE (18:45)
[2024-09-14 18:56] LABS: Base Excess VBG 2.9 mEq/L; HCO3 VBG 22 mmol/L; Oxygen Saturation VBG 77.6 %; PCO2 VBG 21 mmHg (38-50); PO2 VBG 39 mmHg; pH VBG 7.63 (7.36-7.41)
[2024-09-14] MEDS: SODIUM CHLORIDE 0.9% 1,000 ML IV ONE ×2 (19:00→19:38)
[2024-09-14 19:20] LABS: Alanine Aminotransferase 13 U/L (7-52); Alkaline Phosphatase 53 U/L (34-104); Anion Gap 10 (3-11); BUN Creatinine Ratio 14.7 (10-20); Bilirubin,Total 0.7 mg/dl (0.2-1.0); Blood Urea Nitrogen 16 mg/dl (6-23); C Reactive Protein < 0.50 mg/dl (0-0.5); Calcium 8.9 mg/dl (8.6-10.3); Carbon Dioxide 22 mmol/L (21-32); Chloride 100 mmol/L (98-107); Creatinine Clr Calc Pharmacy 76.7 ml/min; Glucose 130 mg/dl (70-99(Fasting)); Magnesium 1.9 mg/dl (1.7-2.4); Sodium 132 mmol/L (136-145)
[2024-09-14 19:24] LABS: Troponin I High Sensitivity < 2.3 pg/ml (0-20)
[2024-09-14 19:24] LABS: Acetaminophen < 3 ug/ml (10-30); Salicylate < 3.0 mg/dl (3.0-30)
--- NOTE | 2024-09-14 19:24 | CT Scan Report ---
CT head without contrast History: Trauma Comparison: None Technique: Using multidetector thin collimation helical acquisition technique, axial, coronal and sagittal CT images from the skull base to the vertex were obtained without intravenous contrast. Dose reduction techniques were achieved by using automatic exposure control and/or adjustment of mA and/or kV according to patient size and/or use of iterative reconstruction technique. Findings: No intracranial hemorrhage, mass-effect, or midline shift. The ventricles are proportionate to the cerebral sulci. The busby to white matter differentiation of the cerebral hemispheres is preserved. The basal cisterns are patent. The visualized paranasal sinuses are clear. Mastoid air cells are clear. Impression: No acute intracranial pathology. Electronically signed by Waldemar Cardenas 09-14-2024 7:23 PM
--- NOTE | 2024-09-14 19:25 | CT Scan Report ---
CT pulmonary angiogram with IV contrast History: Chest pain COMPARISON: None TECHNIQUE: CT angiography of the chest was performed without IV contrast followed by IV contrast, including 3D post processing CTA image reconstruction. Dose reduction techniques were achieved by using automatic exposure control and/or adjustment of mA and/or kV according to patient size and/or use of iterative reconstruction technique. FINDINGS: Diagnostic quality: Adequate There is no evidence for pulmonary embolism. The heart is not enlarged. Moderate coronary calcification. There is no pericardial effusion. There are no abnormally enlarged hilar or mediastinal lymph nodes. The central tracheobronchial tree is clear. The lungs are clear. There is no pleural effusion. Limited visualized upper abdomen. Small sliding hiatal hernia. No destructive osseous changes are seen. There is a healing, posterior right 10th rib fracture with healing callus, that is nondisplaced, other subacute or chronic. IMPRESSION: No evidence for pulmonary embolism. Healing, chronic or subacute posterior right rib 10 fracture. Electronically signed by Waldemar Cardenas 09-14-2024 7:24 PM
--- NOTE | 2024-09-14 19:25 | CT Scan Report ---
CT cervical spine without IV contrast History: Trauma Comparison: None Technique: Using multidetector thin collimation helical acquisition technique, axial, coronal and sagittal CT images through the cervical spine were obtained without intravenous contrast. Dose reduction techniques were achieved by using automatic exposure control and/or adjustment of mA and/or kV according to patient size and/or use of iterative reconstruction technique. Findings: The cervical vertebrae are normally aligned. Straightened cervical lordosis. No acute fracture or subluxation. No prevertebral edema. Severe discogenic degenerative changes associated with small disc osteophyte complexes at C5-6 and C6-7. No abnormality of the paraspinous soft tissues. Impression: No acute fracture or traumatic subluxation. Electronically signed by Waldemar Cardenas 09-14-2024 7:24 PM
--- NOTE | 2024-09-14 19:25 | CT Scan Report ---
EXAMINATION: CT of the abdomen and pelvis performed after the administration of IV contrast TECHNIQUE: Helical CT images from the lung bases through the symphysis pubis were obtained with contrast. Coronal and sagittal reformatted images were generated at a workstation for further assessment. Dose reduction techniques were achieved by using automatic exposure control and/or adjustment of mA and/or kV according to patient size and/or use of iterative reconstruction technique. COMPARISON: None HISTORY: Abdominal pain FINDINGS: Lower chest: No consolidation. No pleural effusion or pneumothorax. Liver: No suspicious liver lesions. Portal veins appear patent. Gallbladder: No gallstones. No evidence of acute cholecystitis. Spleen: Normal size. Pancreas: No suspicious pancreatic lesions. The pancreatic duct is not dilated. Adrenal glands: No adrenal nodules. Kidneys: No hydronephrosis or obstructing renal stones. Few, small renal cysts. Bladder / Pelvic organs: A Stinson catheter is in place. There is mild air in the bladder. The bladder is incompletely distended. Mild contrast material seen dependently in the urinary bladder, and also the renal collecting systems and ureters. Bowel: No bowel obstruction. No abnormal bowel wall thickening. The appendix is unremarkable. Left colonic diverticulosis without diverticulitis. There is a large colonic stool burden suggesting constipation. Small sliding hiatal hernia. Lymph nodes: No retroperitoneal, mesenteric, or pelvic lymphadenopathy. Peritoneum / Retroperitoneum: No free fluid or air within the abdomen. Vessels: No infrarenal aortic aneurysm. Bones and soft tissues: No suspicious lesion in the bones. Small fatty umbilical hernia. IMPRESSION: No acute abnormality of the abdomen or pelvis. Electronically signed by Waldemar Cardenas 09-14-2024 7:24 PM
[2024-09-14 19:28] LABS: Appearance Urine Clear (Clear); Bacteria Urine Automated None Seen (None Seen); Bilirubin Urine Negative (Negative); Blood Urine Trace (Negative); Color Urine Yellow; Epithelial Cell Urine Auto 0-2 /hpf (0-2); Glucose Urine UA Negative (Negative); Ketones Urine Trace (Negative); Leukocyte Esterase Urine 1+ (Negative); Nitrite Urine Negative (Negative); Protein Urine Negative (Negative); RBC Urine Automated 0-2 /hpf (0-2); Specific Gravity Urine 1.019 (1.000-1.030); Urobilinogen Urine Negative (Negative); WBC Urine Automated 0-5 /hpf (0-5); pH Urine 7.5 (4.5-7.5)
[2024-09-14 19:31] LABS: Partial Thromboplastin Ratio 0.8; Partial Thromboplastin Time 21 Seconds (21-31); Prothrombin Time 10.7 Seconds (9.0-12.0)
[2024-09-14 19:40] LABS: Influenza A virus by PCR Negative (Neg); Influenza B virus by PCR Negative (Neg); RSV by PCR Negative (Neg); SARS CoV2 RNA(COVID-19) Ceph NEGATIVE (Negative)
[2024-09-14 19:51] LABS: Hematocrit (blood only) 40.7 % (42.0-52.0); Hemoglobin 14.3 g/dl (14.0-18.0); Mean Corpuscular Hemoglobin 30.9 pg (25.0-34.0); Mean Corpuscular Hgb Conc 35.1 g/dL (32.0-36.0); Mean Corpuscular Volume 87.9 fL (80.0-100.0); Mean Platelet Volume 10.1 fL (9.4-12.4); Platelet Count 267 K/uL (130-400); RDW Coefficient of Variation 12.3 % (11.5-14.5); RDW Standard Deviation 39.6 fL (36.4-46.3); Red Blood Count 4.63 M/uL (4.70-6.10); White Blood Count 9.45 K/ul (4.8-10.8)
[2024-09-14 19:54] LABS: Basophils # (auto) 0.05 K/uL (0.00-0.20); Basophils % (auto) 0.5 %; Eosinophils # (auto) 0.08 K/uL (0.00-0.50); Eosinophils % (auto) 0.8 %; Immature Granulocytes # (auto) 0.03 K/uL (0.01-0.20); Immature Granulocytes % (auto) 0.3 %; Lymphocytes # (auto) 3.07 K/uL (1.20-3.40); Lymphocytes % (auto) 32.5 %; Monocytes # (auto) 0.74 K/uL (0.11-0.59); Monocytes % (auto) 7.8 %; Neutrophils # (auto) 5.48 K/uL (1.40-6.50); Neutrophils % (auto) 58.1 %; Platelet Estimate Normal (Normal)
--- NOTE | 2024-09-14 20:01 | XRay Report ---
EXAM: XR chest 1V portable CLINICAL HISTORY: Sepsis. TECHNIQUE: An X-ray image of the chest is obtained in AP projection. COMPARISON: Prior chest X-ray dated 09/13/2024. FINDINGS: Pulmonary Parenchyma: No evidence of consolidation, collapse, or focal opacities. No pulmonary nodules are identified. No evidence of pleural effusion or pleural thickening. Heart and Mediastinum: Cardiac size cannot be accurately assessed in AP projection, however cardiac shadow appears within normal limits. Bony Thorax: Bony thorax appears intact without fractures or deformities. Soft Tissues: Soft tissues overlying the chest wall are unremarkable. Cardiac monitoring electrodes. IMPRESSION: 1. No acute cardiopulmonary abnormalities are identified. 2. No changes on interval. Electronically signed by Kyle Rebolledo 09-14-2024 8:01 PM
[2024-09-14 20:16] LABS: Bilirubin Direct 0.1 mg/dl (0-0.2); Potassium 3.8 mmol/L (3.5-5.1)
[2024-09-14 20:33] LABS: Amphetamines+Metham, Urine Neg (Neg); Barbiturates, Urine Neg (Neg); Benzodiazepine, Urine Neg (Neg); Cocaine, Urine Neg (Neg); Fentanyl, Urine Neg (Neg); MDMA (Ecstacy), Urine Neg (Neg); Marijuana, Urine Neg (Neg); Methadone, Urine Neg (Neg); Opiate, Urine Neg (Neg); Phencyclidine, Urine Neg (Neg)
[2024-09-14 20:48] LABS: Albumin Level 4.1 gm/dl (3.4-5.0)
--- NOTE | 2024-09-14 21:52 | History & Physical Report ---
Date of Service September 14, 2024 Assessment & Plan (1) Syncope and collapse: Plan: 64-year-old female with past medical history significant for type 2 diabetes, dyslipidemia, hypertension, GERD, carpal tunnel syndrome, erythrocytosis, depression, personality disorder coming from [facility] with syncope/seizures. Patient is in the ER yesterday with syncope and was thought to be secondary to orthostatic hypotension and also acute on chronic urinary retention. Imaging studies were okay except showed right parietal scalp laceration. Was given fluids. Was placed on Stinson catheter and started on Flomax and discharged back to senior care. Today again patient is brought in because of syncope-like episode. Patient was noticed on the camera that he fell backwards. He seemed laid on the ground for 10 minutes. No shaking of the body. No biting of tongue. Seems he rolled his eyes backwards and fell down. No incontinence during the episode. After he woke up he was confused until he came to the hospital for about half hour. Currently alert and oriented. Has occipital laceration. Has some headache. Has some pain in the left ear ,side of the injury. Says he felt dizzy and blacked out. Says lately he is feeling dizzy. Vision is okay. No runny nose or sore throat. No cough. No fevers. Denies any palpitations. Denies chest pain. Currently feeling somewhat short of breath. Denies any nausea. No abdominal pain. Normal bowel movements. Currently hemodynamics are okay. As per the senior care guards patient seems not eating much since last 2 months. Syncope/seizures Has occipital laceration Passed out for about 10 minutes and was confused for about half hour Second episode since yesterday CT head no acute findings CTA chest no pulmonary embolism Cervical spine CT no acute findings CT abdomen pelvis no acute findings EKG shows junctional rhythm Hemodynamics okay Initial lactic acid was 3 and repeat is 1.8. Troponin unremarkable Procalcitonin negative UA unremarkable Drug screen unremarkable COVID, flu and RSV negative Will monitor on telemetry Orthostatics Follow serial enzymes and follow labs Echo EEG Seizure precautions Consult cardiology and neurology in a.m. for further recommendations History of hypertension Continue lisinopril Holding Lasix and potassium supplement Seems to be on Lasix for lower extreme edema Diabetes As outpatient was on Jardiance Seems currently not on any medications Per senior care guards patient not eating much since last [address] on sliding scale Will monitor blood sugars and HbA1c levels Depression Personality disorder On Zyprexa, Seroquel and duloxetine GERD On omeprazole Urinary retention Status post Stinson yesterday On Flomax Follow-up with urology DVT prophylaxis SCDs Disposition Telemetry Full code. History of Present Illness Chief Complaint: Syncope Primary Care Provider: [facility] 64-year-old female with past medical history significant for type 2 diabetes, dyslipidemia, hypertension, GERD, carpal tunnel syndrome, erythrocytosis, depression, personality disorder coming from [facility] with syncope/seizures. Patient is in the ER yesterday with syncope and was thought to be secondary to orthostatic hypotension and also acute on chronic urinary retention. Imaging studies were okay except showed right parietal scalp laceration. Was given fluids. Was placed on Stinson catheter and started on Flomax and discharged back to senior care. Today again patient is brought in because of syncope-like episode. Patient was noticed on the camera that he fell backwards. He seemed laid on the ground for 10 minutes. No shaking of the body. No biting of tongue. Seems he rolled his eyes backwards and fell down. No incontinence during the episode. After he woke up he was confused until he came to the hospital for about half hour. Currently alert and oriented. Has occipital laceration. Has some headache. Has some pain in the left ear ,side of the injury. Says he felt dizzy and blacked out. Says lately he is feeling dizzy. Vision is okay. No runny nose or sore throat. No cough. No fevers. Denies any palpitations. Denies chest pain. Currently feeling somewhat short of breath. Denies any nausea. No abdominal pain. Normal bowel movements. Currently hemodynamics are okay. As per the senior care guards patient seems not eating much since last 2 months. Past medical history. As mentioned above Past surgical history. Carpal tunnel surgery bilaterally. Colonoscopy. Social history. Quit smoking 1999. Smoked 1 pack a day 15 years. Alcohol occasional. No drug use. Family history. Mother had diabetes. Hypertension. Heart disorder. Father had CHF. Sister has diabetes. Hypertension. Brother had hypertension and of stroke at age 31. Allergies Allergy/AdvReac Type Severity Reaction Status Date / Time No Known Allergies Allergy Verified 09/13/24 20:55 Home Medications Medication Instructions Recorded Confirmed Type acetaminophen 500 mg tablet 1,000 mg PO BID PRN DIRECTED 09/14/24 09/14/24 History cetirizine 10 mg tablet (Allergy 10 mg PO DAILY 09/14/24 09/14/24 History Relief (cetirizine)) docusate sodium 100 mg capsule 100 mg PO BID PRN Constipation 09/14/24 09/14/24 History (Colace) duloxetine 60 mg capsule,delayed 60 mg PO DAILY 09/14/24 09/14/24 History release fluticasone 100 mcg-salmeterol 50 1 inh inhalation BID 09/14/24 09/14/24 History mcg/dose blistr powdr for inhalation (Advair Diskus) furosemide 40 mg tablet 40 mg PO DAILY 09/14/24 09/14/24 History lisinopril 20 mg tablet 20 mg PO DAILY 09/14/24 09/14/24 History multivitamin 1 tab PO DAILY 09/14/24 09/14/24 History olanzapine 5 mg tablet (Zyprexa) 5 mg PO BID 09/14/24 09/14/24 History omeprazole 20 mg capsule,delayed 20 mg PO QAM 09/14/24 09/14/24 History release potassium chloride 10 mEq 20 meq PO DAILY 09/14/24 09/14/24 History tablet,extended release quetiapine 50 mg tablet (Seroquel) 150 mg PO HS 09/14/24 09/14/24 History tamsulosin 0.4 mg capsule 0.4 mg PO DAILY 09/14/24 09/14/24 History 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 Vitamin B12 deficiency Vitamin D deficiency Agoraphobia with panic attacks DM2 (diabetes mellitus, type 2) HTN (hypertension) Reflux (Chronic) Abdominal pain (Acute) Colitis (Acute) Diverticulitis (Acute) Medical History Tachycardia Catatonia Leukocytosis Laceration of knee HLD (hyperlipidemia) GI bleeding HTN (hypertension) Surgical History No pertinent past surgical history Family History Other Family history non-contributory Social History Smoking Status: Unknown if ever smoked Tobacco Type: Cigarettes Hx Alcohol Use: Yes Hx Substance Use: No Preferred Language: Bengali Communication Ability: Effective Bliss Press Operator Required: No Beliefs That Will Affect Care: Sabianist current occupational status: employed Feels Safe at Home: Yes Gender Identity: Male Assistive Devices: Brace/Splint/Immobilizer Review of Systems Review of Systems: All systems reviewed & are unremarkable except as noted in HPI & below Physical Exam Physical Exam: General- Not in distress Head- occipital laceration Eyes- PERRL. ENT- oropharynx clear Neck- supple, no JVD. Lungs- clear to auscultation no wheezing or crackles Heart- regular rate and rhythm; no murmur, no gallop. Abdomen- normal bowel sounds, soft, nontender, no distension Extremities- no pretibial edema, no erythema seen Neuro- alert, oriented x 3; PERRL, no facial palsy; no dysarthria; motor 5/5 bilaterally; no pronator drift, co ordination of movements normal Results & Data Results & Data Vital Signs (Past 12 Hours) Vital Signs Temp Pulse Pulse Resp BP BP Pulse Ox 09/14/24 21:00 91 H 18 107/49 L 97 09/14/24 20:21 90 15 100 09/14/24 20:14 123/82 09/14/24 20:03 97 H 19 99 09/14/24 20:00 122/73 09/14/24 20:00 122/73 09/14/24 20:00 90 18 123/82 100 09/14/24 19:54 93 H 18 100 09/14/24 19:44 113/73 09/14/24 19:44 113/09/14/24 19:42 89 14 100 09/14/24 19:30 92 H 17 113/73 100 09/14/24 19:30 92 H 14 113/73 100 09/14/24 19:15 89 19 99 09/14/24 19:05 91 H 15 122/73 98 09/14/24 19:00 122/73 09/14/24 19:00 88 19 99 09/14/24 18:59 134/81 09/14/24 18:38 36.4 C 84 18 94/67 L 96 09/14/24 18:33 36.4 C 81 18 92/50 L 98 09/14/24 18:25 83 O2 Del Method O2 Flow Rate 09/14/24 21:00 Room Air 09/14/24 20:21 09/14/24 20:14 09/14/24 20:03 09/14/24 20:00 09/14/24 20:00 09/14/24 20:00 Room Air 09/14/24 19:54 09/14/24 19:44 09/14/24 19:44 09/14/24 19:42 09/14/24 19:30 Room Air 09/14/24 19:30 Room Air 09/14/24 19:15 09/14/24 19:05 Room Air 09/14/24 19:00 09/14/24 19:00 09/14/24 18:59 09/14/24 18:38 Room Air 0 09/14/24 18:33 Room Air 09/14/24 18:25 Diagnostic Findings Laboratory Results WBC 9.45 K/ul (4.8-10.8) 09/14/24 18:42 RBC 4.63 M/uL (4.70-6.10) L 09/14/24 18:42 Hgb 14.3 g/dl (14.0-18.0) D 09/14/24 18:42 Hct 40.7 % (42.0-52.0) L 09/14/24 18:42 MCV 87.9 fL (80.0-100.0) 09/14/24 18:42 MCH 30.9 pg (25.0-34.0) 09/14/24 18:42 MCHC 35.1 g/dL (32.0-36.0) 09/14/24 18:42 RDW Std Deviation 39.6 fL (36.4-46.3) 09/14/24 18:42 RDW Coeff of Janes 12.3 % (11.5-14.5) 09/14/24 18:42 Plt Count 267 K/uL (130-400) 09/14/24 18:42 MPV 10.1 fL (9.4-12.4) 09/14/24 18:42 Immature Gran % (Auto) 0.3 % 09/14/24 18:42 Neut % (Auto) 58.1 % 09/14/24 18:42 Lymph % (Auto) 32.5 % 09/14/24 18:42 [place] % (Auto) 7.8 % 09/14/24 18:42 Eos % (Auto) 0.8 % 09/14/24 18:42 Baso % (Auto) 0.5 % 09/14/24 18:42 Neut # (Auto) 5.48 K/uL (1.40-6.50) 09/14/24 18:42 Lymph # (Auto) 3.07 K/uL (1.20-3.40) 09/14/24 18:42 [place] # (Auto) 0.74 K/uL (0.11-0.59) H 09/14/24 18:42 Eos # (Auto) 0.08 K/uL (0.00-0.50) 09/14/24 18:42 Baso # (Auto) 0.05 K/uL (0.00-0.20) 09/14/24 18:42 Immature Gran # (Auto) 0.03 K/uL (0.01-0.20) 09/14/24 18:42 Platelet Estimate Normal (Normal) 09/14/24 18:42 PT 10.7 Seconds (9.0-12.0) 09/14/24 18:42 INR 1.0 (0.9-1.1) 09/14/24 18:42 APTT 21 Seconds (21-31) 09/14/24 18:42 PTT Ratio 0.8 09/14/24 18:42 VBG pH 7.63 (7.36-7.41) H 09/14/24 18:42 VBG pCO2 21 mmHg (38-50) L 09/14/24 18:42 VBG pO2 39 mmHg 09/14/24 18:42 VBG HCO3 22 mmol/L 09/14/24 18:42 VBG O2 Saturation 77.6 % 09/14/24 18:42 VBG Base Excess 2.9 mEq/L 09/14/24 18:42 Sodium 132 mmol/L (136-145) L 09/14/24 18:42 Potassium 3.8 mmol/L (3.5-5.1) 09/14/24 19:41 Chloride 100 mmol/L (98-107) 09/14/24 18:42 Carbon Dioxide 22 mmol/L (21-32) 09/14/24 18:42 Anion Gap 10 (3-11) 09/14/24 18:42 BUN 16 mg/dl (6-23) 09/14/24 18:42 Creatinine 1.09 mg/dl (0.6-1.4) 09/14/24 18:42 Est Cr Clr Drug Dosing 76.7 ml/min 09/14/24 18:42 eGFR 75.79 09/14/24 18:42 BUN/Creatinine Ratio 14.7 (10-20) 09/14/24 18:42 Glucose 130 mg/dl (70-99(Fasting)) H 09/14/24 18:42 POC Glucose 121 mg/dl (70-99) H 09/14/24 18:26 Lactate 1.8 mmol/L (0.4-2.0) 09/14/24 20:37 Calcium 8.9 mg/dl (8.6-10.3) 09/14/24 18:42 Magnesium 1.9 mg/dl (1.7-2.4) 09/14/24 18:42 Total Bilirubin 0.7 mg/dl (0.2-1.0) 09/14/24 18:42 Direct Bilirubin 0.1 mg/dl (0-0.2) 09/14/24 19:41 AST 19 U/L (13-39) 09/14/24 19:41 ALT 13 U/L (7-52) 09/14/24 18:42 Alkaline Phosphatase 53 U/L (34-104) 09/14/24 18:42 Troponin I High Sens < 2.3 pg/ml (0-20) 09/14/24 18:42 C-Reactive Protein < 0.50 mg/dl (0-0.5) 09/14/24 18:42 Total Protein 7.0 gm/dl (6.0-8.3) 09/14/24 18:42 Albumin 4.1 gm/dl (3.4-5.0) 09/14/24 18:42 Procalcitonin < 0.02 ng/ml (0-0.5) 09/14/24 18:42 Urine Color Yellow 09/14/24 19:09 Urine Appearance Clear (Clear) 09/14/24 19:09 Urine pH 7.5 (4.5-7.5) 09/14/24 19:09 Ur Specific [place] 1.019 (1.000-1.030) 09/14/24 19:09 Urine Protein Negative (Negative) 09/14/24 19:09 Urine Glucose (UA) Negative (Negative) 09/14/24 19:09 Urine Ketones Trace (Negative) H 09/14/24 19:09 Urine Blood Trace (Negative) H 09/14/24 19:09 Urine Nitrite Negative (Negative) 09/14/24 19:09 Urine Bilirubin Negative (Negative) 09/14/24 19:09 Urine Urobilinogen Negative (Negative) 09/14/24 19:09 Ur Leukocyte Esterase 1+ (Negative) H 09/14/24 19:09 Urine WBC (Auto) 0-5 /hpf (0-5) 09/14/24 19:09 Urine RBC (Auto) 0-2 /hpf (0-2) 09/14/24 19:09 U Hyaline Cast (Auto) 3-5 /lpf (0-2) H 09/14/24 19:09 U Epithel Cells (Auto) 0-2 /hpf (0-2) 09/14/24 19:09 Urine Bacteria (Auto) None Seen (None Seen) 09/14/24 19:09 Salicylates < 3.0 mg/dl (3.0-30) L 09/14/24 18:47 Urine Opiates Screen Neg (Neg) 09/14/24 19:09 Ur Methadone, Qual Neg (Neg) 09/14/24 19:09 Urine Fentanyl Screen Neg (Neg) 09/14/24 19:09 Acetaminophen < 3 ug/ml (10-30) L 09/14/24 18:47 Urine Barbiturates Neg (Neg) 09/14/24 19:09 Ur Phencyclidine (PCP) Neg (Neg) 09/14/24 19:09 U Amphetamin/Meth Scrn Neg (Neg) 09/14/24 19:09 MDMA (Ecstasy) Screen Neg (Neg) 09/14/24 19:09 U Benzodiazepines Scrn Neg (Neg) 09/14/24 19:09 Ur Cocaine Metabolite Neg (Neg) 09/14/24 19:09 U Marijuana (THC) Screen Neg (Neg) 09/14/24 19:09 Ethyl Alcohol mg/dL < 10.0 mg/dl (<10.0) 09/14/24 19:41 SARS-CoV-2 (PCR) NEGATIVE (Negative) 09/14/24 18:40 Influenza Type A (PCR) Negative (Neg) 09/14/24 18:40 Influenza Type B (PCR) Negative (Neg) 09/14/24 18:40 RSV (RT-PCR) Negative (Neg) 09/14/24 18:40 Impressions Abdomen/Pelvis CT 09/14/24 18:22 EXAMINATION: CT of the abdomen and pelvis performed after the administration of IV contrast TECHNIQUE: Helical CT images from the lung bases through the symphysis pubis were obtained with contrast. Coronal and sagittal reformatted images were generated at a workstation for further assessment. Dose reduction techniques were achieved by using automatic exposure control and/or adjustment of mA and/or kV according to patient size and/or use of iterative reconstruction technique. COMPARISON: None HISTORY: Abdominal pain FINDINGS: Lower chest: No consolidation. No pleural effusion or pneumothorax. Liver: No suspicious liver lesions. Portal veins appear patent. Gallbladder: No gallstones. No evidence of acute cholecystitis. Spleen: Normal size. Pancreas: No suspicious pancreatic lesions. The pancreatic duct is not dilated. Adrenal glands: No adrenal nodules. Kidneys: No hydronephrosis or obstructing renal stones. Few, small renal cysts. Bladder / Pelvic organs: A Stinson catheter is in place. There is mild air in the bladder. The bladder is incompletely distended. Mild contrast material seen dependently in the urinary bladder, and also the renal collecting systems and ureters. Bowel: No bowel obstruction. No abnormal bowel wall thickening. The appendix is unremarkable. Left colonic diverticulosis without diverticulitis. There is a large colonic stool burden suggesting constipation. Small sliding hiatal hernia. Lymph nodes: No retroperitoneal, mesenteric, or pelvic lymphadenopathy. Peritoneum / Retroperitoneum: No free fluid or air within the abdomen. Vessels: No infrarenal aortic aneurysm. Bones and soft tissues: No suspicious lesion in the bones. Small fatty umbilical hernia. IMPRESSION: No acute abnormality of the abdomen or pelvis. Electronically signed by Waldemar Cardenas 09-14-2024 7:[address] 09/14/24 18:22 CT cervical spine without IV contrast History: Trauma Comparison: None Technique: Using multidetector thin collimation helical acquisition technique, axial, coronal and sagittal CT images through the cervical spine were obtained without intravenous contrast. Dose reduction techniques were achieved by using automatic exposure control and/or adjustment of mA and/or kV according to patient size and/or use of iterative reconstruction technique. Findings: The cervical vertebrae are normally aligned. Straightened cervical lordosis. No acute fracture or subluxation. No prevertebral edema. Severe discogenic degenerative changes associated with small disc osteophyte complexes at C5-6 and C6-7. No abnormality of the paraspinous soft tissues. Impression: No acute fracture or traumatic subluxation. Electronically signed by Waldemar Cardenas 09-14-2024 7:24 PM Chest CTA 09/14/24 18:22 CT pulmonary angiogram with IV contrast History: Chest pain COMPARISON: None TECHNIQUE: CT angiography of the chest was performed without IV contrast followed by IV contrast, including 3D post processing CTA image reconstruction. Dose reduction techniques were achieved by using automatic exposure control and/or adjustment of mA and/or kV according to patient size and/or use of iterative reconstruction technique. FINDINGS: Diagnostic quality: Adequate There is no evidence for pulmonary embolism. The heart is not enlarged. Moderate coronary calcification. There is no pericardial effusion. There are no abnormally enlarged hilar or mediastinal lymph nodes. The central tracheobronchial tree is clear. The lungs are clear. There is no pleural effusion. Limited visualized upper abdomen. Small sliding hiatal hernia. No destructive osseous changes are seen. There is a healing, posterior right 10th rib fracture with healing callus, that is nondisplaced, other subacute or chronic. IMPRESSION: No evidence for pulmonary embolism. Healing, chronic or subacute posterior right rib 10 fracture. Electronically signed by Waldemar Cardenas 09-14-2024 7:24 PM Chest X-Ray 09/14/24 18:22 EXAM: XR chest 1V portable CLINICAL HISTORY: Sepsis. TECHNIQUE: An X-ray image of the chest is obtained in AP projection. COMPARISON: Prior chest X-ray dated 09/13/2024. FINDINGS: Pulmonary Parenchyma: No evidence of consolidation, collapse, or focal opacities. No pulmonary nodules are identified. No evidence of pleural effusion or pleural thickening. Heart and Mediastinum: Cardiac size cannot be accurately assessed in AP projection, however cardiac shadow appears within normal limits. Bony Thorax: Bony thorax appears intact without fractures or deformities. Soft Tissues: Soft tissues overlying the chest wall are unremarkable. Cardiac monitoring electrodes. IMPRESSION: 1. No acute cardiopulmonary abnormalities are identified. 2. No changes on interval. Electronically signed by Kyle Rebolledo 09-14-2024 8:[address] 09/14/24 18:22 CT head without contrast History: Trauma Comparison: None Technique: Using multidetector thin collimation helical acquisition technique, axial, coronal and sagittal CT images from the skull base to the vertex were obtained without intravenous contrast. Dose reduction techniques were achieved by using automatic exposure control and/or adjustment of mA and/or kV according to patient size and/or use of iterative reconstruction technique. Findings: No intracranial hemorrhage, mass-effect, or midline shift. The ventricles are proportionate to the cerebral sulci. The busby to white matter differentiation of the cerebral hemispheres is preserved. The basal cisterns are patent. The visualized paranasal sinuses are clear. Mastoid air cells are clear. Impression: No acute intracranial pathology. Electronically signed by Waldemar Cardenas 09-14-2024 7:23 PM ECG Additional Comments: ECG. Accelerated junctional rhythm with rate of 83. QTc 455. Code Status & VTE Plan VTE Prophylaxis Plan VTE Prophylaxis will be ordered: Yes
[2024-09-14] MEDS ORDERED: GLUCOSE 10 TAB/TUBE PO PRN (23:32)
[2024-09-14] MEDS ORDERED: NITROGLYCERIN SL 0.4 MG/TAB TAB SL PRN (23:32)
[2024-09-14] MEDS ORDERED: GLUCOSE 40% GEL 15 GM TUBE PO PRN (23:32)
[2024-09-14] MEDS ORDERED: DOCUSATE SODIUM 100 MG CAP PO PRN (23:32)
[2024-09-14] MEDS ORDERED: DEXTROSE 50% 50 ML SYRINGE IV PRN (23:32)
[2024-09-14] MEDS ORDERED: CARBOHYDRATES FOR HYPOGLYCEMIA PO PRN (23:32)
[2024-09-14] MEDS ORDERED: GLUCAGON FOR INJ 1 MG VIAL SQ PRN (23:32)
[2024-09-15] MEDS: INSULIN ASPART PER UNIT CHARGE SC SCH ×2 (00:17→16:25)
[2024-09-15] MEDS: OLANZapine 5 MG TABLET PO SCH (00:48)
[2024-09-15] MEDS: SODIUM CHLORIDE 0.9% 1,000 ML IV SCH (00:50)
[2024-09-15 07:56] LABS: Basophils # (auto) 0.03 K/uL (0.00-0.20); Basophils % (auto) 0.3 %; Eosinophils # (auto) 0.08 K/uL (0.00-0.50); Eosinophils % (auto) 0.9 %; Hemoglobin 13.2 g/dl (14.0-18.0); Immature Granulocytes # (auto) 0.02 K/uL (0.01-0.20); Immature Granulocytes % (auto) 0.2 %; Lymphocytes # (auto) 2.01 K/uL (1.20-3.40); Lymphocytes % (auto) 21.5 %; Mean Corpuscular Hemoglobin 31.1 pg (25.0-34.0); Mean Corpuscular Hgb Conc 34.7 g/dL (32.0-36.0); Mean Corpuscular Volume 89.6 fL (80.0-100.0); Mean Platelet Volume 9.7 fL (9.4-12.4); Monocytes # (auto) 0.82 K/uL (0.11-0.59); Monocytes % (auto) 8.8 %; Neutrophils # (auto) 6.37 K/uL (1.40-6.50); Neutrophils % (auto) 68.3 %; Platelet Count 247 K/uL (130-400); RDW Coefficient of Variation 12.5 % (11.5-14.5); RDW Standard Deviation 41.3 fL (36.4-46.3); Red Blood Count 4.24 M/uL (4.70-6.10); White Blood Count 9.33 K/ul (4.8-10.8)
[2024-09-15 08:17] LABS: Anion Gap 5 (3-11); BUN Creatinine Ratio 16.5 (10-20); Blood Urea Nitrogen 13 mg/dl (6-23); Calcium 8.4 mg/dl (8.6-10.3); Carbon Dioxide 24 mmol/L (21-32); Chloride 106 mmol/L (98-107); Creatinine Clr Calc Pharmacy 105.9 ml/min; Glucose 93 mg/dl (70-99(Fasting)); Magnesium 1.8 mg/dl (1.7-2.4); Potassium 3.8 mmol/L (3.5-5.1); Sodium 135 mmol/L (136-145)
[2024-09-15 08:23] LABS: Troponin I High Sensitivity < 2.3 pg/ml (0-20)
[2024-09-15] MEDS: FLUTICASONE/VILANTEROL 100/25MCG 14 PUFFS/INHALER INH SCH (09:38)
[2024-09-15] MEDS: DULoxetine HCL 60 MG CAP PO SCH (09:40)
[2024-09-15] MEDS: lisinopril 20 MG TAB PO SCH (09:40)
[2024-09-15] MEDS: MULTIVITAMIN TAB PO SCH (09:40)
[2024-09-15] MEDS: CETIRIZINE HCL 10 MG TABLET PO SCH (09:40)
[2024-09-15] MEDS: PANTOprazole 40 MG TAB PO SCH (09:41)
[2024-09-15] MEDS: TAMSULOSIN HCL 0.4 MG CAP PO SCH (09:41)
--- NOTE | 2024-09-15 12:35 | Cardiology Consultation ---
Date of Consultation September 15, 2024 Assessment & Plan (1) Syncope: (2) Orthostatic hypotension: Plan 64-year-old male admitted with recurrent syncope. Etiology appears to be orthostatic hypotension in the setting of volume depletion and recent prescription of Flomax. Chronic antihypertensive therapy includes lisinopril. 2D echocardiogram demonstrates hyperdynamic LV function without significant valvular pathology. Recommendations: * Continue IV hydration with normal saline * Monitor telemetry * Reduce lisinopril from 20 mg to 5 mg daily * Hold outpatient furosemide * Consider discontinuation of Flomax * Assess orthostatic blood pressure every shift * Add lower extremity compression stockings * Fall precautions advised Uriah Acuña DO [facility] History of Present Illness Reason for Consultation: syncope Requesting Physician: Dr. Gordillo Attending Physician: Moiz Delgado MD History of Present Illness 64-year-old male presents to the emergency department with syncope. Patient stood from his bed and walked approximately 5 steps when he experienced significant lightheadedness and syncope. Fell backwards with subsequent posterior scalp laceration. Experienced a similar episode approximately 1 week ago and 09/13/24. Evaluated in the emergency department 09/13/2024 with evidence of urinary retention. Stinson catheter was placed and discharged with Flomax. Reports positional lightheadedness over the past few weeks. Typically occurs when he changes from lying supine to standing. No palpitations, chest discomfort, or unusual shortness of breath. Admits to poor hydration. No palpitations, orthopnea, PND, or lower extremity edema. Allergies Allergy/AdvReac Type Severity Reaction Status Date / Time No Known Allergies Allergy Verified 09/13/24 20:55 Home Medications Medication Instructions Recorded Confirmed Type acetaminophen 500 mg tablet 1,000 mg PO BID PRN DIRECTED 09/14/24 09/14/24 History cetirizine 10 mg tablet (Allergy 10 mg PO DAILY 09/14/24 09/14/24 History Relief (cetirizine)) docusate sodium 100 mg capsule 100 mg PO BID PRN Constipation 09/14/24 09/14/24 History (Colace) duloxetine 60 mg capsule,delayed 60 mg PO DAILY 09/14/24 09/14/24 History release fluticasone 100 mcg-salmeterol 50 1 inh inhalation BID 09/14/24 09/14/24 History mcg/dose blistr powdr for inhalation (Advair Diskus) furosemide 40 mg tablet 40 mg PO DAILY 09/14/24 09/14/24 History lisinopril 20 mg tablet 20 mg PO DAILY 09/14/24 09/14/24 History multivitamin 1 tab PO DAILY 09/14/24 09/14/24 History olanzapine 5 mg tablet (Zyprexa) 5 mg PO BID 09/14/24 09/14/24 History omeprazole 20 mg capsule,delayed 20 mg PO QAM 09/14/24 09/14/24 History release potassium chloride 10 mEq 20 meq PO DAILY 09/14/24 09/14/24 History tablet,extended release quetiapine 50 mg tablet (Seroquel) 150 mg PO HS 09/14/24 09/14/24 History tamsulosin 0.4 mg capsule 0.4 mg PO DAILY 09/14/24 09/14/24 History Patient History Medical History Tachycardia Catatonia Leukocytosis Laceration of knee HLD (hyperlipidemia) GI bleeding HTN (hypertension) Surgical History No pertinent past surgical history Family History Other Family history non-contributory Social History Smoking Status: Unknown if ever smoked Tobacco Type: Cigarettes Hx Alcohol Use: No Hx Substance Use: No Preferred Language: Greenlandic Communication Ability: Effective Center Punch Operator Required: No Beliefs That Will Affect Care: None Current Living Situation: Other Current Living Situation Comment: Long Term current occupational status: employed Feels Safe at Home: Yes Gender Identity: Male Assistive Devices: None Review of Systems Review of Systems: All systems reviewed & are unremarkable except as noted in Subjective Physical Exam Constitutional: well nourished; no acute distress Respiratory: no respiratory distress, no labored breathing and no retractions Auscultation: no crackles, no rales, no rhonchi and no wheezes Cardiovascular: Rate/Rhythm: regular rate and regular rhythm Heart Sounds: normal S1 and normal S2; no murmur Vessels: no JVD and no carotid bruit Extremities: no edema Gastrointestinal (Abdomen): Inspection/Auscultation: abdomen normal to inspection; abdomen not distended and + abnormal bowel sounds Percussion/Palpation: abdomen soft; abdomen nontender, no guarding and abdomen not rigid Neurologic: CN's II-XI intact bilaterally and moves all extremities; no focal motor deficits Results & Data Vital Signs (Past 12 Hours) Vital Signs Pulse Pulse Resp BP BP Pulse Ox O2 Del Method 09/15/24 10:24 103 H 19 130/78 100 Room Air 09/15/24 09:21 94 H 13 163/98 H 97 09/15/24 08:00 89 12 119/87 99 09/15/24 07:30 94 H 19 106/78 97 09/15/24 07:00 90 15 133/82 97 09/15/24 04:14 84 17 120/72 99 Room Air Laboratory Results Cardiac Enzymes 09/14/24 09/14/24 09/15/24 Range/Units 18:42 19:41 07:13 AST TNP 19 Troponin I High Sens < 2.3 < 2.3 (0-20) pg/ml Coagulation 09/14/24 Range/Units 18:42 PT 10.7 (9.0-12.0) Seconds APTT 21 (21-31) Seconds CBC 09/14/24 09/15/24 Range/Units 18:42 07:13 WBC 9.45 9.33 (4.8-10.8) K/ul RBC 4.63 L 4.24 L (4.70-6.10) M/uL Hgb 14.3 D 13.2 L (14.0-18.0) g/dl Hct 40.7 L 38.0 L (42.0-52.0) % Plt Count 267 247 (130-400) K/uL Neut # (Auto) 5.48 6.37 (1.40-6.50) K/uL Lymph # (Auto) 3.07 2.01 (1.20-3.40) K/uL Sherman # (Auto) 0.74 H 0.82 H (0.11-0.59) K/uL Eos # (Auto) 0.08 0.08 (0.00-0.50) K/uL Baso # (Auto) 0.05 0.03 (0.00-0.20) K/uL Comprehensive Metabolic Panel 09/14/24 09/14/2409/15/25 Range/Units 18:42 19:41 07:13 Sodium 132 L 135 L (136-145) mmol/L Potassium TNP 3.8 3.8 Chloride 100 106 (98-107) mmol/L Carbon Dioxide 22 24 (21-32) mmol/L BUN 16 13 (6-23) mg/dl Creatinine 1.09 0.79 D (0.6-1.4) mg/dl Glucose 130 H 93 (70-99(Fasting)) mg/dl Calcium 8.9 8.4 L (8.6-10.3) mg/dl Direct Bilirubin TNP 0.1 AST TNP 19 ALT 13 (7-52) U/L Alkaline Phosphatase 53 (34-104) U/L Total Protein 7.0 (6.0-8.3) gm/dl Albumin 4.1 (3.4-5.0) gm/dl Intake and Output 09/14/24 09/15/24 09/15/24 22:59 06:59 14:59 Intake Total 2300 / 2300 0 / 2300 Output Total 1200 / 1200 Balance 2300 / 1100 -1200 / 1100 Intake: IV 2300 / 2300 Sodium Chloride 0.9% 1,000 ml @ 2000 / 2000 999 mls/hr IV .Q1H1M ONE Rx#: [id number] Right Antecubital 300 / 300 Oral 0 / 0 Output: Urine Amount (Catheter) 1200 / 1200 Stinson/Indwelling 1200 / 1200 Other: Weight 88.4 kg 88.7 kg 88.7 kg Weight Measurement Method Built in [facility] Built in [facility] Built in [facility] Patient Weight 09/16/24 06:59 Weight 88.7 kg ECG Additional Comments: ECG: Normal sinus rhythm, low voltage QRS, nonspecific ST abnormality. Telemetry: Sinus rhythm in the 90s (1) Syncope Syncope type: unspecified Qualified Code(s): R55 - Syncope and collapse
[2024-09-15 13:23] LABS: Estimated Average Glucose 120 mg/dl; Hemoglobin A1C 5.8 % (4.5-5.6)
--- NOTE | 2024-09-15 14:57 | Hospitalist Progress Note ---
Date of Service September 15, 2024 Assessment & Plan (1) Syncope and collapse: Plan: 64-year-old female with past medical history significant for type 2 diabetes, dyslipidemia, hypertension, GERD, carpal tunnel syndrome, erythrocytosis, depression, personality disorder coming from long term with syncope/seizures. Patient is in the ER yesterday with syncope and was thought to be secondary to orthostatic hypotension and also acute on chronic urinary retention. Imaging studies were okay except showed right parietal scalp laceration. Was given fluids. Was placed on Stinson catheter and started on Flomax and discharged back to long term. Today again patient is brought in because of syncope-like episode. Patient was noticed on the camera that he fell backwards. He seemed laid on the ground for 10 minutes. No shaking of the body. No biting of tongue. Seems he rolled his eyes backwards and fell down. No incontinence during the episode. After he woke up he was confused until he came to the hospital for about half hour. Currently alert and oriented. Has occipital laceration. Has some headache. Has some pain in the left ear ,side of the injury. Says he felt dizzy and blacked out. Says lately he is feeling dizzy. Vision is okay. No runny nose or sore throat. No cough. No fevers. Denies any palpitations. Denies chest pain. Currently feeling somewhat short of breath. Denies any nausea. No abdominal pain. Normal bowel movements. Currently hemodynamics are okay. As per the long term guards patient seems not eating much since last 2 months. Syncope/seizures Has occipital laceration Passed out for about 10 minutes and was confused for about half hour Second episode since day prior CT head no acute findings CTA chest no pulmonary embolism Cervical spine CT no acute findings CT abdomen pelvis no acute findings EKG shows junctional rhythm Hemodynamics okay Initial lactic acid was 3 and repeat is 1.8. Troponin unremarkable Procalcitonin negative UA unremarkable Drug screen unremarkable COVID, flu and RSV negative Will monitor on telemetry Orthostatics Follow serial enzymes and follow labs Echo obtained EEG pending Seizure precautions Consult cardiology and neurology in a.m. for further recommendations Per Cardiology - Etiology appears to be orthostatic hypotension in the setting of volume depletion and recent prescription of Flomax. Chronic antihypertensive therapy includes lisinopril. 2D echocardiogram demonstrates hyperdynamic LV function without significant valvular pathology. Recommendations: * Continue IV hydration with normal saline * Monitor telemetry * Reduce lisinopril from 20 mg to 5 mg daily * Hold outpatient furosemide * Consider discontinuation of Flomax * Assess orthostatic blood pressure every shift * Add lower extremity compression stockings * Fall precautions advised History of hypertension Continue lisinopril - dose changed as above Holding Lasix and potassium supplement Seems to be on Lasix for lower extreme edema Diabetes As outpatient was on Jardiance Seems currently not on any medications Per long term guards patient not eating much since last 2 months sliding scale - monitor blood sugars, current HbA1c level 5.8% Depression Personality disorder On Zyprexa, Seroquel and duloxetine GERD On omeprazole Urinary retention Status post Stinson yesterday On Flomax Follow-up with urology DVT prophylaxis SCDs Disposition Telemetry Full code. Admission and Anticipated Discharge Date Admission Date: September 14, 2024 Subjective Pt seen in follow up of syncope Currently lying in bed in [facility] Reports feeling well while lying down but feeling lightheaded as soon as he sits up no chest pain, no shortness of breath, no abd. pain some SAHA from hitting his head, when fell Review of Systems Review of Systems: All systems reviewed & are unremarkable except as noted in Subjective Physical Exam Physical Exam: General- WD/WN M in NAD Head- occipital laceration Eyes- PERRL. Neck- supple Lungs- clear to auscultation no wheezing or crackles Heart- regular rate and rhythm; no murmur Abdomen- normal bowel sounds, soft, nontender, no distension Extremities- no pretibial edema, no erythema seen Neuro- alert, oriented x 3; PERRL, no facial palsy; no dysarthria; motor 5/5 bilaterally Results & Data Results & Data Vital Signs (Past 12 Hours) Vital Signs Pulse Pulse Resp BP BP Pulse Ox O2 Del Method 09/15/24 11:00 98 H 14 133/84 99 09/15/24 10:27 100 H 12 126/91 100 09/15/24 10:24 103 H 19 130/78 100 Room Air 09/15/24 09:21 94 H 13 163/98 H 97 09/15/24 08:00 89 12 119/87 99 09/15/24 07:30 94 H 19 106/78 97 09/15/24 07:00 90 15 133/82 97 09/15/24 04:14 84 17 120/72 99 Room Air Laboratory Results 09/15/24 09/15/24 09/15/24 Range/Units 11:59 11:39 07:13 WBC 9.33 (4.8-10.8) K/ul RBC 4.24 L (4.70-6.10) M/uL Hgb 13.2 L (14.0-18.0) g/dl Hct 38.0 L (42.0-52.0) % MCV 89.6 (80.0-100.0) fL MCH 31.1 (25.0-34.0) pg MCHC 34.7 (32.0-36.0) g/dL RDW Std Deviation 41.3 (36.4-46.3) fL RDW Coeff of Janes 12.5 (11.5-14.5) % Plt Count 247 (130-400) K/uL MPV 9.7 (9.4-12.4) fL Immature Gran % (Auto) 0.2 % Neut % (Auto) 68.3 % Lymph % (Auto) 21.5 % [place] % (Auto) 8.8 % Eos % (Auto) 0.9 % Baso % (Auto) 0.3 % Neut # (Auto) 6.37 (1.40-6.50) K/uL Lymph # (Auto) 2.01 (1.20-3.40) K/uL [place] # (Auto) 0.82 H (0.11-0.59) K/uL Eos # (Auto) 0.08 (0.00-0.50) K/uL Baso # (Auto) 0.03 (0.00-0.20) K/uL Immature Gran # (Auto) 0.02 (0.01-0.20) K/uL Platelet Estimate (Normal) PT (9.0-12.0) Seconds INR (0.9-1.1) APTT (21-31) Seconds PTT Ratio VBG pH (7.36-7.41) VBG pCO2 (38-50) mmHg VBG pO2 mmHg VBG HCO3 mmol/L VBG O2 Saturation % VBG Base Excess mEq/L Sodium 135 L (136-145) mmol/L Potassium 3.8 Chloride 106 (98-107) mmol/L Carbon Dioxide 24 (21-32) mmol/L Anion Gap 5 (3-11) BUN 13 (6-23) mg/dl Creatinine 0.79 D (0.6-1.4) mg/dl Est Cr Clr Drug Dosing 105.9 ml/min eGFR 99.20 BUN/Creatinine Ratio 16.5 (10-20) Glucose 93 (70-99(Fasting)) mg/dl POC Glucose 112 H (70-99) mg/dl Estimat Average Glucose 120 mg/dl Hemoglobin A1c 5.8 H (4.5-5.6) % Lactate (0.4-2.0) mmol/L Calcium 8.4 L (8.6-10.3) mg/dl Magnesium 1.8 (1.7-2.4) mg/dl Total Bilirubin (0.2-1.0) mg/dl Direct Bilirubin AST ALT (7-52) U/L Alkaline Phosphatase (34-104) U/L Troponin I High Sens < 2.3 < 2.3 (0-20) pg/ml C-Reactive Protein (0-0.5) mg/dl Total Protein (6.0-8.3) gm/dl Albumin (3.4-5.0) gm/dl Procalcitonin (0-0.5) ng/ml Urine Color Urine Appearance (Clear) Urine pH (4.5-7.5) Ur Specific [place] (1.000-1.030) Urine Protein (Negative) Urine Glucose (UA) (Negative) Urine Ketones (Negative) Urine Blood (Negative) Urine Nitrite (Negative) Urine Bilirubin (Negative) Urine Urobilinogen (Negative) Ur Leukocyte Esterase (Negative) Urine WBC (Auto) (0-5) /hpf Urine RBC (Auto) (0-2) /hpf U Hyaline Cast (Auto) (0-2) /lpf U Epithel Cells (Auto) (0-2) /hpf Urine Bacteria (Auto) (None Seen) Nasal Screen MRSA (PCR) (Negative) Salicylates (3.0-30) mg/dl Urine Opiates Screen (Neg) Ur Methadone, Qual (Neg) Urine Fentanyl Screen (Neg) Acetaminophen (10-30) ug/ml Urine Barbiturates (Neg) Ur Phencyclidine (PCP) (Neg) U Amphetamin/Meth Scrn (Neg) MDMA (Ecstasy) Screen (Neg) U Benzodiazepines Scrn (Neg) Ur Cocaine Metabolite (Neg) U Marijuana (THC) Screen (Neg) Ethyl Alcohol mg/dL (<10.0) mg/dl SARS-CoV-2 (PCR) (Negative) Influenza Type A (PCR) (Neg) Influenza Type B (PCR) (Neg) RSV (RT-PCR) (Neg) 09/15/24 09/15/24 09/15/24 Range/Units 05:32 05:27 00:10 WBC (4.8-10.8) K/ul RBC (4.70-6.10) M/uL Hgb (14.0-18.0) g/dl Hct (42.0-52.0) % MCV (80.0-100.0) fL MCH (25.0-34.0) pg MCHC (32.0-36.0) g/dL RDW Std Deviation (36.4-46.3) fL RDW Coeff of Janes (11.5-14.5) % Plt Count (130-400) K/uL MPV (9.4-12.4) fL Immature Gran % (Auto) % Neut % (Auto) % Lymph % (Auto) % [place] % (Auto) % Eos % (Auto) % Baso % (Auto) % Neut # (Auto) (1.40-6.50) K/uL Lymph # (Auto) (1.20-3.40) K/uL [place] # (Auto) (0.11-0.59) K/uL Eos # (Auto) (0.00-0.50) K/uL Baso # (Auto) (0.00-0.20) K/uL Immature Gran # (Auto) (0.01-0.20) K/uL Platelet Estimate (Normal) PT (9.0-12.0) Seconds INR (0.9-1.1) APTT (21-31) Seconds PTT Ratio VBG pH (7.36-7.41) VBG pCO2 (38-50) mmHg VBG pO2 mmHg VBG HCO3 mmol/L VBG O2 Saturation % VBG Base Excess mEq/L Sodium (136-145) mmol/L Potassium Chloride (98-107) mmol/L Carbon Dioxide (21-32) mmol/L Anion Gap (3-11) BUN (6-23) mg/dl Creatinine (0.6-1.4) mg/dl Est Cr Clr Drug Dosing ml/min eGFR BUN/Creatinine Ratio (10-20) Glucose (70-99(Fasting)) mg/dl POC Glucose 88 125 H (70-99) mg/dl Estimat Average Glucose mg/dl Hemoglobin A1c (4.5-5.6) % Lactate (0.4-2.0) mmol/L Calcium (8.6-10.3) mg/dl Magnesium (1.7-2.4) mg/dl Total Bilirubin (0.2-1.0) mg/dl Direct Bilirubin AST ALT (7-52) U/L Alkaline Phosphatase (34-104) U/L Troponin I High Sens (0-20) pg/ml C-Reactive Protein (0-0.5) mg/dl Total Protein (6.0-8.3) gm/dl Albumin (3.4-5.0) gm/dl Procalcitonin (0-0.5) ng/ml Urine Color Urine Appearance (Clear) Urine pH (4.5-7.5) Ur Specific [place] (1.000-1.030) Urine Protein (Negative) Urine Glucose (UA) (Negative) Urine Ketones (Negative) Urine Blood (Negative) Urine Nitrite (Negative) Urine Bilirubin (Negative) Urine Urobilinogen (Negative) Ur Leukocyte Esterase (Negative) Urine WBC (Auto) (0-5) /hpf Urine RBC (Auto) (0-2) /hpf U Hyaline Cast (Auto) (0-2) /lpf U Epithel Cells (Auto) (0-2) /hpf Urine Bacteria (Auto) (None Seen) Nasal Screen MRSA (PCR) Negative (Negative) Salicylates (3.0-30) mg/dl Urine Opiates Screen (Neg) Ur Methadone, Qual (Neg) Urine Fentanyl Screen (Neg) Acetaminophen (10-30) ug/ml Urine Barbiturates (Neg) Ur Phencyclidine (PCP) (Neg) U Amphetamin/Meth Scrn (Neg) MDMA (Ecstasy) Screen (Neg) U Benzodiazepines Scrn (Neg) Ur Cocaine Metabolite (Neg) U Marijuana (THC) Screen (Neg) Ethyl Alcohol mg/dL (<10.0) mg/dl SARS-CoV-2 (PCR) (Negative) Influenza Type A (PCR) (Neg) Influenza Type B (PCR) (Neg) RSV (RT-PCR) (Neg) 09/14/24 09/14/24 09/14/24 Range/Units 20:37 19:41 19:09 WBC (4.8-10.8) K/ul RBC (4.70-6.10) M/uL Hgb (14.0-18.0) g/dl Hct (42.0-52.0) % MCV (80.0-100.0) fL MCH (25.0-34.0) pg MCHC (32.0-36.0) g/dL RDW Std Deviation (36.4-46.3) fL RDW Coeff of Janes (11.5-14.5) % Plt Count (130-400) K/uL MPV (9.4-12.4) fL Immature Gran % (Auto) % Neut % (Auto) % Lymph % (Auto) % [place] % (Auto) % Eos % (Auto) % Baso % (Auto) % Neut # (Auto) (1.40-6.50) K/uL Lymph # (Auto) (1.20-3.40) K/uL [place] # (Auto) (0.11-0.59) K/uL Eos # (Auto) (0.00-0.50) K/uL Baso # (Auto) (0.00-0.20) K/uL Immature Gran # (Auto) (0.01-0.20) K/uL Platelet Estimate (Normal) PT (9.0-12.0) Seconds INR (0.9-1.1) APTT (21-31) Seconds PTT Ratio VBG pH (7.36-7.41) VBG pCO2 (38-50) mmHg VBG pO2 mmHg VBG HCO3 mmol/L VBG O2 Saturation % VBG Base Excess mEq/L Sodium (136-145) mmol/L Potassium 3.8 Chloride (98-107) mmol/L Carbon Dioxide (21-32) mmol/L Anion Gap (3-11) BUN (6-23) mg/dl Creatinine (0.6-1.4) mg/dl Est Cr Clr Drug Dosing ml/min eGFR BUN/Creatinine Ratio (10-20) Glucose (70-99(Fasting)) mg/dl POC Glucose (70-99) mg/dl Estimat Average Glucose mg/dl Hemoglobin A1c (4.5-5.6) % Lactate 1.8 (0.4-2.0) mmol/L Calcium (8.6-10.3) mg/dl Magnesium (1.7-2.4) mg/dl Total Bilirubin (0.2-1.0) mg/dl Direct Bilirubin 0.1 AST 19 ALT (7-52) U/L Alkaline Phosphatase (34-104) U/L Troponin I High Sens (0-20) pg/ml C-Reactive Protein (0-0.5) mg/dl Total Protein (6.0-8.3) gm/dl Albumin (3.4-5.0) gm/dl Procalcitonin (0-0.5) ng/ml Urine Color Yellow Urine Appearance Clear (Clear) Urine pH 7.5 (4.5-7.5) Ur Specific [place] 1.019 (1.000-1.030) Urine Protein Negative (Negative) Urine Glucose (UA) Negative (Negative) Urine Ketones Trace H (Negative) Urine Blood Trace H (Negative) Urine Nitrite Negative (Negative) Urine Bilirubin Negative (Negative) Urine Urobilinogen Negative (Negative) Ur Leukocyte Esterase 1+ H (Negative) Urine WBC (Auto) 0-5 (0-5) /hpf Urine RBC (Auto) 0-2 (0-2) /hpf U Hyaline Cast (Auto) 3-5 H (0-2) /lpf U Epithel Cells (Auto) 0-2 (0-2) /hpf Urine Bacteria (Auto) None Seen (None Seen) Nasal Screen MRSA (PCR) (Negative) Salicylates (3.0-30) mg/dl Urine Opiates Screen Neg (Neg) Ur Methadone, Qual Neg (Neg) Urine Fentanyl Screen Neg (Neg) Acetaminophen (10-30) ug/ml Urine Barbiturates Neg (Neg) Ur Phencyclidine (PCP) Neg (Neg) U Amphetamin/Meth Scrn Neg (Neg) MDMA (Ecstasy) Screen Neg (Neg) U Benzodiazepines Scrn Neg (Neg) Ur Cocaine Metabolite Neg (Neg) U Marijuana (THC) Screen Neg (Neg) Ethyl Alcohol mg/dL < 10.0 (<10.0) mg/dl SARS-CoV-2 (PCR) (Negative) Influenza Type A (PCR) (Neg) Influenza Type B (PCR) (Neg) RSV (RT-PCR) (Neg) 09/14/24 09/14/24 09/14/24 Range/Units 18:47 18:42 18:40 WBC 9.45 (4.8-10.8) K/ul RBC 4.63 L (4.70-6.10) M/uL Hgb 14.3 D (14.0-18.0) g/dl Hct 40.7 L (42.0-52.0) % MCV 87.9 (80.0-100.0) fL MCH 30.9 (25.0-34.0) pg MCHC 35.1 (32.0-36.0) g/dL RDW Std Deviation 39.6 (36.4-46.3) fL RDW Coeff of Janes 12.3 (11.5-14.5) % Plt Count 267 (130-400) K/uL MPV 10.1 (9.4-12.4) fL Immature Gran % (Auto) 0.3 % Neut % (Auto) 58.1 % Lymph % (Auto) 32.5 % [place] % (Auto) 7.8 % Eos % (Auto) 0.8 % Baso % (Auto) 0.5 % Neut # (Auto) 5.48 (1.40-6.50) K/uL Lymph # (Auto) 3.07 (1.20-3.40) K/uL [place] # (Auto) 0.74 H (0.11-0.59) K/uL Eos # (Auto) 0.08 (0.00-0.50) K/uL Baso # (Auto) 0.05 (0.00-0.20) K/uL Immature Gran # (Auto) 0.03 (0.01-0.20) K/uL Platelet Estimate Normal (Normal) PT 10.7 (9.0-12.0) Seconds INR 1.0 (0.9-1.1) APTT 21 (21-31) Seconds PTT Ratio 0.8 VBG pH 7.63 H (7.36-7.41) VBG pCO2 21 L (38-50) mmHg VBG pO2 39 mmHg VBG HCO3 22 mmol/L VBG O2 Saturation 77.6 % VBG Base Excess 2.9 mEq/L Sodium 132 L (136-145) mmol/L Potassium TNP Chloride 100 (98-107) mmol/L Carbon Dioxide 22 (21-32) mmol/L Anion Gap 10 (3-11) BUN 16 (6-23) mg/dl Creatinine 1.09 (0.6-1.4) mg/dl Est Cr Clr Drug Dosing 76.7 ml/min eGFR 75.79 BUN/Creatinine Ratio 14.7 (10-20) Glucose 130 H (70-99(Fasting)) mg/dl POC Glucose (70-99) mg/dl Estimat Average Glucose mg/dl Hemoglobin A1c (4.5-5.6) % Lactate 3.0 H* (0.4-2.0) mmol/L Calcium 8.9 (8.6-10.3) mg/dl Magnesium 1.9 (1.7-2.4) mg/dl Total Bilirubin 0.7 (0.2-1.0) mg/dl Direct Bilirubin TNP AST TNP ALT 13 (7-52) U/L Alkaline Phosphatase 53 (34-104) U/L Troponin I High Sens < 2.3 (0-20) pg/ml C-Reactive Protein < 0.50 (0-0.5) mg/dl Total Protein 7.0 (6.0-8.3) gm/dl Albumin 4.1 (3.4-5.0) gm/dl Procalcitonin < 0.02 (0-0.5) ng/ml Urine Color Urine Appearance (Clear) Urine pH (4.5-7.5) Ur Specific [place] (1.000-1.030) Urine Protein (Negative) Urine Glucose (UA) (Negative) Urine Ketones (Negative) Urine Blood (Negative) Urine Nitrite (Negative) Urine Bilirubin (Negative) Urine Urobilinogen (Negative) Ur Leukocyte Esterase (Negative) Urine WBC (Auto) (0-5) /hpf Urine RBC (Auto) (0-2) /hpf U Hyaline Cast (Auto) (0-2) /lpf U Epithel Cells (Auto) (0-2) /hpf Urine Bacteria (Auto) (None Seen) Nasal Screen MRSA (PCR) (Negative) Salicylates < 3.0 L (3.0-30) mg/dl Urine Opiates Screen (Neg) Ur Methadone, Qual (Neg) Urine Fentanyl Screen (Neg) Acetaminophen < 3 L (10-30) ug/ml Urine Barbiturates (Neg) Ur Phencyclidine (PCP) (Neg) U Amphetamin/Meth Scrn (Neg) MDMA (Ecstasy) Screen (Neg) U Benzodiazepines Scrn (Neg) Ur Cocaine Metabolite (Neg) U Marijuana (THC) Screen (Neg) Ethyl Alcohol mg/dL (<10.0) mg/dl SARS-CoV-2 (PCR) NEGATIVE (Negative) Influenza Type A (PCR) Negative (Neg) Influenza Type B (PCR) Negative (Neg) RSV (RT-PCR) Negative (Neg) 09/14/24 Range/Units 18:26 WBC (4.8-10.8) K/ul RBC (4.70-6.10) M/uL Hgb (14.0-18.0) g/dl Hct (42.0-52.0) % MCV (80.0-100.0) fL MCH (25.0-34.0) pg MCHC (32.0-36.0) g/dL RDW Std Deviation (36.4-46.3) fL RDW Coeff of Janes (11.5-14.5) % Plt Count (130-400) K/uL MPV (9.4-12.4) fL Immature Gran % (Auto) % Neut % (Auto) % Lymph % (Auto) % [place] % (Auto) % Eos % (Auto) % Baso % (Auto) % Neut # (Auto) (1.40-6.50) K/uL Lymph # (Auto) (1.20-3.40) K/uL [place] # (Auto) (0.11-0.59) K/uL Eos # (Auto) (0.00-0.50) K/uL Baso # (Auto) (0.00-0.20) K/uL Immature Gran # (Auto) (0.01-0.20) K/uL Platelet Estimate (Normal) PT (9.0-12.0) Seconds INR (0.9-1.1) APTT (21-31) Seconds PTT Ratio VBG pH (7.36-7.41) VBG pCO2 (38-50) mmHg VBG pO2 mmHg VBG HCO3 mmol/L VBG O2 Saturation % VBG Base Excess mEq/L Sodium (136-145) mmol/L Potassium Chloride (98-107) mmol/L Carbon Dioxide (21-32) mmol/L Anion Gap (3-11) BUN (6-23) mg/dl Creatinine (0.6-1.4) mg/dl Est Cr Clr Drug Dosing ml/min eGFR BUN/Creatinine Ratio (10-20) Glucose (70-99(Fasting)) mg/dl POC Glucose 121 H (70-99) mg/dl Estimat Average Glucose mg/dl Hemoglobin A1c (4.5-5.6) % Lactate (0.4-2.0) mmol/L Calcium (8.6-10.3) mg/dl Magnesium (1.7-2.4) mg/dl Total Bilirubin (0.2-1.0) mg/dl Direct Bilirubin AST ALT (7-52) U/L Alkaline Phosphatase (34-104) U/L Troponin I High Sens (0-20) pg/ml C-Reactive Protein (0-0.5) mg/dl Total Protein (6.0-8.3) gm/dl Albumin (3.4-5.0) gm/dl Procalcitonin (0-0.5) ng/ml Urine Color Urine Appearance (Clear) Urine pH (4.5-7.5) Ur Specific [place] (1.000-1.030) Urine Protein (Negative) Urine Glucose (UA) (Negative) Urine Ketones (Negative) Urine Blood (Negative) Urine Nitrite (Negative) Urine Bilirubin (Negative) Urine Urobilinogen (Negative) Ur Leukocyte Esterase (Negative) Urine WBC (Auto) (0-5) /hpf Urine RBC (Auto) (0-2) /hpf U Hyaline Cast (Auto) (0-2) /lpf U Epithel Cells (Auto) (0-2) /hpf Urine Bacteria (Auto) (None Seen) Nasal Screen MRSA (PCR) (Negative) Salicylates (3.0-30) mg/dl Urine Opiates Screen (Neg) Ur Methadone, Qual (Neg) Urine Fentanyl Screen (Neg) Acetaminophen (10-30) ug/ml Urine Barbiturates (Neg) Ur Phencyclidine (PCP) (Neg) U Amphetamin/Meth Scrn (Neg) MDMA (Ecstasy) Screen (Neg) U Benzodiazepines Scrn (Neg) Ur Cocaine Metabolite (Neg) U Marijuana (THC) Screen (Neg) Ethyl Alcohol mg/dL (<10.0) mg/dl SARS-CoV-2 (PCR) (Negative) Influenza Type A (PCR) (Neg) Influenza Type B (PCR) (Neg) RSV (RT-PCR) (Neg) Medications Administered Current Inpatient Medications Acetaminophen (Acetaminophen 325 Mg Tab) 650 mg PO Q4H PRN PRN Reason: Pain or Fever Stop: 10/14/24 23:31 Cetirizine HCl (Cetirizine Hcl 10 Mg Tablet) 10 mg PO DAILY DEANDRE Stop: 10/15/24 08:59 Last Admin: 09/15/24 09:40 Dose: 10 mg Dextrose (Dextrose 50% 50 Ml Syringe) 25 - 50 ml IV UD PRN; Protocol PRN Reason: Hypoglycemia Protocol Stop: 10/14/24 23:31 Docusate Sodium (Docusate Sodium 100 Mg Cap) 100 mg PO BID PRN PRN Reason: Constipation Stop: 10/14/24 23:31 Duloxetine HCl (Duloxetine Hcl 60 Mg Cap) 60 mg PO DAILY DEANDRE Stop: 10/15/24 08:59 Last Admin: 09/15/24 09:40 Dose: 60 mg Fluticasone/Vilanterol (Fluticasone/Vilanterol 100/25mcg 14 Puffs/Inhaler) 1 puffs INH DAILY DEANDRE Stop: 10/15/24 08:59 Last Admin: 09/15/24 09:38 Dose: 1 puffs Glucagon (Glucagon For Inj 1 Mg Vial) 1 mg SQ UD PRN; Protocol PRN Reason: Hypoglycemia Protocol Stop: 10/14/24 23:31 Glucose (Glucose 40% Gel 15 Gm Tube) 15 - 30 gm PO UD PRN; Protocol PRN Reason: Hypoglycemia Protocol Stop: 10/14/24 23:31 Glucose (Glucose 10 Tab/Tube) 4 - 8 tab PO UD PRN; Protocol PRN Reason: Hypoglycemia Protocol Stop: 10/14/24 23:31 Sodium Chloride (Nss) 1,000 mls @ 80 mls/hr IV .[id number] DEANDRE Stop: 09/16/24 00:44 Last Admin: 09/15/24 13:39 Dose: 80 mls/hr Insulin Aspart (Insulin Aspart Per Unit Charge) 0 units SC Q6 DEANDRE Stop: 10/14/24 23:44 Last Admin: 09/15/24 12:31 Dose: Not Given Lisinopril (Lisinopril 5 Mg Tab) 5 mg PO DAILY DEANDRE Stop: 10/16/24 08:59 Miscellaneous (Carbohydrates For Hypoglycemia ) 15 - 30 gm PO UD PRN PRN Reason: Hypoglycemia Protocol Stop: 10/14/24 23:31 Multivitamins (Multivitamin Tab) 1 tab PO DAILY DEANDRE Stop: 10/15/24 08:59 Last Admin: 09/15/24 09:40 Dose: 1 tab Nitroglycerin (Nitroglycerin Sl 0.4 Mg/Tab Tab) 0.4 mg SL Q5M PRN PRN Reason: Chest Pain Stop: 10/14/24 23:31 Olanzapine (Olanzapine 5 Mg Tablet) 5 mg PO BID DEANDRE Stop: 10/14/24 23:31 Last Admin: 09/15/24 09:40 Dose: 5 mg Pantoprazole Sodium (Pantoprazole 40 Mg Tab) 40 mg PO QAM DEANDRE Stop: 10/15/24 08:59 Last Admin: 09/15/24 09:41 Dose: 40 mg Quetiapine Fumarate (Quetiapine Fumarate 25 Mg Tablet) 150 mg PO HS DEANDRE Stop: 10/15/24 20:59 Tamsulosin HCl (Tamsulosin Hcl 0.4 Mg Cap) 0.4 mg PO DAILY DEANDRE Stop: 10/15/24 08:59 Last Admin: 09/15/24 09:41 Dose: 0.4 mg
--- NOTE | 2024-09-15 17:32 | Neurology Consultation ---
Date of Consultation September 15, 2024 Assessment & Plan (1) Syncope and collapse: Likely related to orthostatic hypotension, agree with cardiology's plan. Event is less likely to represent a seizure no need for seizure workup Plan Hydration, elastic stockings, consider abdominal elastic waistbands. Medication adjustments regarding his Flomax that contributes to orthostatic hypotension. Consider adjusting his diabetic medications. , Telehealth Consultation Telehealth Information Telehealth Information: I performed this visit using a real-time telehealth connection between my location and the patients location ([facility]). After connecting through interactive tele-video, patient was identified by name and date of and/or wristband check.Patient (or authorized healthcare wireless sales representative) was informed that this was a telemedicine visit and it was being conducted confidentially over secure lines. My office door was closed and no one else was present in the room with me.Patient (or authorized healthcare wireless sales representative) provided consent to proceed with the visit, expressed an understanding of privacy and security of the telemedicine visit, and gave permission to have a hospital wireless sales representative in the room in order to assist with the visit and to conduct portions of the visit, as needed. I informed the patient (or authorized healthcare wireless sales representative) that I reviewed their record and presented the opportunity for them to ask any questions regarding the visit today. The patient agreed to participate. History of Present Illness Reason for Consultation: Loss of consciousness Requesting Physician: Moiz Delgado MD Attending Physician: Moiz Delgado MD History of Present Illness Mr. Cayden Bishop is a 64-year-old male patient with PMH of type II DM, HTN, GE reflux disease, depression, personality disorder, who has presented from assisted after a syncope and collapse, the patient reports that he was walking through the door and suddenly his vision blacked out and he lost consciousness, he woke up on the floor. He had hit his head as he fell backwards and remained with significant soreness over the right parietal scalp. The patient has had near fainting spell the day before that was thought related to orthostatic hypotension and urinary retention he was given fluids was placed on a Stinson catheter started on Flomax and discharged back to assisted. Of note that the patient is on furosemide per his previous medications. Today he tells me that he had no shaking, some urinary incontinence but no tonic-clonic movements, he was a little confused afterwards but his overwhelming complaint is the dizziness. There was no recent illnesses. Allergies Allergy/AdvReac Type Severity Reaction Status Date / Time No Known Allergies Allergy Verified 09/13/24 20:55 Home Medications Medication Instructions Recorded Confirmed Type acetaminophen 500 mg tablet 1,000 mg PO BID PRN DIRECTED 09/14/24 09/14/24 History cetirizine 10 mg tablet (Allergy 10 mg PO DAILY 09/14/24 09/14/24 History Relief (cetirizine)) docusate sodium 100 mg capsule 100 mg PO BID PRN Constipation 09/14/24 09/14/24 History (Colace) duloxetine 60 mg capsule,delayed 60 mg PO DAILY 09/14/24 09/14/24 History release fluticasone 100 mcg-salmeterol 50 1 inh inhalation BID 09/14/24 09/14/24 History mcg/dose blistr powdr for inhalation (Advair Diskus) furosemide 40 mg tablet 40 mg PO DAILY 09/14/24 09/14/24 History lisinopril 20 mg tablet 20 mg PO DAILY 09/14/24 09/14/24 History multivitamin 1 tab PO DAILY 09/14/24 09/14/24 History olanzapine 5 mg tablet (Zyprexa) 5 mg PO BID 09/14/24 09/14/24 History omeprazole 20 mg capsule,delayed 20 mg PO QAM 09/14/24 09/14/24 History release potassium chloride 10 mEq 20 meq PO DAILY 09/14/24 09/14/24 History tablet,extended release quetiapine 50 mg tablet (Seroquel) 150 mg PO HS 09/14/24 09/14/24 History tamsulosin 0.4 mg capsule 0.4 mg PO DAILY 09/14/24 09/14/24 History Patient History Medical History Tachycardia Catatonia Leukocytosis Laceration of knee HLD (hyperlipidemia) GI bleeding HTN (hypertension) Surgical History No pertinent past surgical history Family History Other Family history non-contributory Social History Smoking Status: Unknown if ever smoked Tobacco Type: Cigarettes Hx Alcohol Use: No Hx Substance Use: No Preferred Language: Vincentian Communication Ability: Effective 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 Chair Assembler Required: No Beliefs That Will Affect Care: None Current Living Situation: Other Current Living Situation Comment: [employer] current occupational status: employed Feels Safe at Home: Yes Gender Identity: Male Assistive Devices: None Review of Systems Constitutional: Patient denies weight loss, fever, chills, and night sweats Eyes: Patient denies change in vision, tearing, pain, and redness ENT: Patient denies pain, bleeding, rhinorrhea, and dysphagia Cardiovascular: Patient denies chest pain, palpitation, dyspnea at rest, and dyspnea with exertion Respiratory: Patient denies shortness of breath, cough, wheezing, and productive cough GI: Patient denies reflux, pain, constipation, and diarrhea Skin: Patient denies rash, dryness, and itching Allergies/Immune System: Patient denies rhinorrhea, seasonal allergies, reaction to current MEDS, and joint swelling Endocrine: Patient denies weight loss, weight gain, temperature intolerance, and excessive thirst Neurological: All negative unless mentioned in the HPI Physical Exam General Constitutional: Appearance normally developed Head and face: normocephalic and atraumatic Eyes: no ptosis, no anisocoria, and no dysconjugate gaze Respiratory: normal effort Cardiovascular: regular rhythm and regular rate Abdomen: non distended Skin: no rashes, lesions, or ulcers noted Psychiatric: normal judgement and insight, normal mood, and normal affect NEUROLOGIC EXAMINATION: Mental Status:alert, oriented to time, place, person, normal recent memory, normal remote memory, normal attention span, normal concentration, normal language and normal fund of knowledge Cranial Nerves: CN 2 - no visual defect on confrontation and pupils round, equal, reactive to light CN 3, 4, 6 - extra-ocular movements intact and no nystagmus CN 5 - facial sensation intact CN 7 - no facial asymmetry CN 8 - intact hearing CN 9, 10 - palate symmetric, normal gag CN 11 - good shoulder shrug CN 12 - tongue midline MOTOR: Strength was at least antigravity throughout, Pronator drift was absent and There were no abnormal movements SENSATION: intact and symmetric to pinprick, light touch, vibration and joint position GAIT: stable, no ataxia and can perform tandem walking COORDINATION: no ataxia with finger to nose testing and heel to quesada testing REFLEXES: cannot assess over telemedicine Results & Data Vital Signs (Past 12 Hours) Vital Signs Temp Pulse Pulse Resp BP BP Pulse Ox 09/15/24 15:41 36.8 C 90 18 146/74 H 99 09/15/24 11:00 98 H 14 133/84 99 09/15/24 10:27 100 H 12 126/91 100 09/15/24 10:24 103 H 19 130/78 100 09/15/24 09:21 94 H 13 163/98 H 97 09/15/24 08:00 89 12 119/87 99 09/15/24 07:30 94 H 19 106/78 97 09/15/24 07:00 90 15 133/82 97 O2 Del Method 09/15/24 15:41 Room Air 09/15/24 11:00 09/15/24 10:27 09/15/24 10:24 Room Air 09/15/24 09:21 09/15/24 08:00 09/15/24 07:30 09/15/24 07:00 Laboratory Results Laboratory Results - last 24 hr 09/14/24 09/14/24 09/14/24 18:26 18:40 18:42 WBC 9.45 RBC 4.63 L Hgb 14.3 D Hct 40.7 L MCV 87.9 MCH 30.9 MCHC 35.1 RDW Std Deviation 39.6 RDW Coeff of Janes 12.3 Plt Count 267 MPV 10.1 Immature Gran % (Auto) 0.3 Neut % (Auto) 58.1 Lymph % (Auto) 32.5 [place] % (Auto) 7.8 Eos % (Auto) 0.8 Baso % (Auto) 0.5 Neut # (Auto) 5.48 Lymph # (Auto) 3.07 [place] # (Auto) 0.74 H Eos # (Auto) 0.08 Baso # (Auto) 0.05 Immature Gran # (Auto) 0.03 Platelet Estimate Normal PT 10.7 INR 1.0 APTT 21 PTT Ratio 0.8 VBG pH 7.63 H VBG pCO2 21 L VBG pO2 39 VBG HCO3 22 VBG O2 Saturation 77.6 VBG Base Excess 2.9 Sodium 132 L Potassium TNP Chloride 100 Carbon Dioxide 22 Anion Gap 10 BUN 16 Creatinine 1.09 Est Cr Clr Drug Dosing 76.7 eGFR 75.79 BUN/Creatinine Ratio 14.7 Glucose 130 H POC Glucose 121 H Estimat Average Glucose Hemoglobin A1c Lactate 3.0 H* Calcium 8.9 Magnesium 1.9 Total Bilirubin 0.7 Direct Bilirubin TNP AST TNP ALT 13 Alkaline Phosphatase 53 Troponin I High Sens < 2.3 C-Reactive Protein < 0.50 Total Protein 7.0 Albumin 4.1 Procalcitonin < 0.02 Urine Color Urine Appearance Urine pH Ur Specific [place] Urine Protein Urine Glucose (UA) Urine Ketones Urine Blood Urine Nitrite Urine Bilirubin Urine Urobilinogen Ur Leukocyte Esterase Urine WBC (Auto) Urine RBC (Auto) U Hyaline Cast (Auto) U Epithel Cells (Auto) Urine Bacteria (Auto) Nasal Screen MRSA (PCR) Salicylates Urine Opiates Screen Ur Methadone, Qual Urine Fentanyl Screen Acetaminophen Urine Barbiturates Ur Phencyclidine (PCP) U Amphetamin/Meth Scrn MDMA (Ecstasy) Screen U Benzodiazepines Scrn Ur Cocaine Metabolite U Marijuana (THC) Screen Ethyl Alcohol mg/dL SARS-CoV-2 (PCR) NEGATIVE Influenza Type A (PCR) Negative Influenza Type B (PCR) Negative RSV (RT-PCR) Negative 09/14/24 09/14/24 09/14/24 18:47 19:09 19:41 WBC RBC Hgb Hct MCV MCH MCHC RDW Std Deviation RDW Coeff of Janes Plt Count MPV Immature Gran % (Auto) Neut % (Auto) Lymph % (Auto) [place] % (Auto) Eos % (Auto) Baso % (Auto) Neut # (Auto) Lymph # (Auto) [place] # (Auto) Eos # (Auto) Baso # (Auto) Immature Gran # (Auto) Platelet Estimate PT INR APTT PTT Ratio VBG pH VBG pCO2 VBG pO2 VBG HCO3 VBG O2 Saturation VBG Base Excess Sodium Potassium 3.8 Chloride Carbon Dioxide Anion Gap BUN Creatinine Est Cr Clr Drug Dosing eGFR BUN/Creatinine Ratio Glucose POC Glucose Estimat Average Glucose Hemoglobin A1c Lactate Calcium Magnesium Total Bilirubin Direct Bilirubin 0.1 AST 19 ALT Alkaline Phosphatase Troponin I High Sens C-Reactive Protein Total Protein Albumin Procalcitonin Urine Color Yellow Urine Appearance Clear Urine pH 7.5 Ur Specific [place] 1.019 Urine Protein Negative Urine Glucose (UA) Negative Urine Ketones Trace H Urine Blood Trace H Urine Nitrite Negative Urine Bilirubin Negative Urine Urobilinogen Negative Ur Leukocyte Esterase 1+ H Urine WBC (Auto) 0-5 Urine RBC (Auto) 0-2 U Hyaline Cast (Auto) 3-5 H U Epithel Cells (Auto) 0-2 Urine Bacteria (Auto) None Seen Nasal Screen MRSA (PCR) Salicylates < 3.0 L Urine Opiates Screen Neg Ur Methadone, Qual Neg Urine Fentanyl Screen Neg Acetaminophen < 3 L Urine Barbiturates Neg Ur Phencyclidine (PCP) Neg U Amphetamin/Meth Scrn Neg MDMA (Ecstasy) Screen Neg U Benzodiazepines Scrn Neg Ur Cocaine Metabolite Neg U Marijuana (THC) Screen Neg Ethyl Alcohol mg/dL < 10.0 SARS-CoV-2 (PCR) Influenza Type A (PCR) Influenza Type B (PCR) RSV (RT-PCR) 09/14/24 09/15/24 09/15/24 20:37 00:10 05:27 WBC RBC Hgb Hct MCV MCH MCHC RDW Std Deviation RDW Coeff of Janes Plt Count MPV Immature Gran % (Auto) Neut % (Auto) Lymph % (Auto) [place] % (Auto) Eos % (Auto) Baso % (Auto) Neut # (Auto) Lymph # (Auto) [place] # (Auto) Eos # (Auto) Baso # (Auto) Immature Gran # (Auto) Platelet Estimate PT INR APTT PTT Ratio VBG pH VBG pCO2 VBG pO2 VBG HCO3 VBG O2 Saturation VBG Base Excess Sodium Potassium Chloride Carbon Dioxide Anion Gap BUN Creatinine Est Cr Clr Drug Dosing eGFR BUN/Creatinine Ratio Glucose POC Glucose 125 H 88 Estimat Average Glucose Hemoglobin A1c Lactate 1.8 Calcium Magnesium Total Bilirubin Direct Bilirubin AST ALT Alkaline Phosphatase Troponin I High Sens C-Reactive Protein Total Protein Albumin Procalcitonin Urine Color Urine Appearance Urine pH Ur Specific [place] Urine Protein Urine Glucose (UA) Urine Ketones Urine Blood Urine Nitrite Urine Bilirubin Urine Urobilinogen Ur Leukocyte Esterase Urine WBC (Auto) Urine RBC (Auto) U Hyaline Cast (Auto) U Epithel Cells (Auto) Urine Bacteria (Auto) Nasal Screen MRSA (PCR) Salicylates Urine Opiates Screen Ur Methadone, Qual Urine Fentanyl Screen Acetaminophen Urine Barbiturates Ur Phencyclidine (PCP) U Amphetamin/Meth Scrn MDMA (Ecstasy) Screen U Benzodiazepines Scrn Ur Cocaine Metabolite U Marijuana (THC) Screen Ethyl Alcohol mg/dL SARS-CoV-2 (PCR) Influenza Type A (PCR) Influenza Type B (PCR) RSV (RT-PCR) 0309/15/24 09/15/24 05:32 07:13 11:39 WBC 9.33 RBC 4.24 L Hgb 13.2 L Hct 38.0 L MCV 89.6 MCH 31.1 MCHC 34.7 RDW Std Deviation 41.3 RDW Coeff of Janes 12.5 Plt Count 247 MPV 9.7 Immature Gran % (Auto) 0.2 Neut % (Auto) 68.3 Lymph % (Auto) 21.5 [place] % (Auto) 8.8 Eos % (Auto) 0.9 Baso % (Auto) 0.3 Neut # (Auto) 6.37 Lymph # (Auto) 2.01 [place] # (Auto) 0.82 H Eos # (Auto) 0.08 Baso # (Auto) 0.03 Immature Gran # (Auto) 0.02 Platelet Estimate PT INR APTT PTT Ratio VBG pH VBG pCO2 VBG pO2 VBG HCO3 VBG O2 Saturation VBG Base Excess Sodium 135 L Potassium 3.8 Chloride 106 Carbon Dioxide 24 Anion Gap 5 BUN 13 Creatinine 0.79 D Est Cr Clr Drug Dosing 105.9 eGFR 99.20 BUN/Creatinine Ratio 16.5 Glucose 93 POC Glucose 112 H Estimat Average Glucose 120 Hemoglobin A1c 5.8 H Lactate Calcium 8.4 L Magnesium 1.8 Total Bilirubin Direct Bilirubin AST ALT Alkaline Phosphatase Troponin I High Sens < 2.3 C-Reactive Protein Total Protein Albumin Procalcitonin Urine Color Urine Appearance Urine pH Ur Specific [place] Urine Protein Urine Glucose (UA) Urine Ketones Urine Blood Urine Nitrite Urine Bilirubin Urine Urobilinogen Ur Leukocyte Esterase Urine WBC (Auto) Urine RBC (Auto) U Hyaline Cast (Auto) U Epithel Cells (Auto) Urine Bacteria (Auto) Nasal Screen MRSA (PCR) Negative Salicylates Urine Opiates Screen Ur Methadone, Qual Urine Fentanyl Screen Acetaminophen Urine Barbiturates Ur Phencyclidine (PCP) U Amphetamin/Meth Scrn MDMA (Ecstasy) Screen U Benzodiazepines Scrn Ur Cocaine Metabolite U Marijuana (THC) Screen Ethyl Alcohol mg/dL SARS-CoV-2 (PCR) Influenza Type A (PCR) Influenza Type B (PCR) RSV (RT-PCR) 09/15/24 09/15/24 09/15/24 11:59 15:38 17:04 WBC RBC Hgb Hct MCV MCH MCHC RDW Std Deviation RDW Coeff of Janes Plt Count MPV Immature Gran % (Auto) Neut % (Auto) Lymph % (Auto) [place] % (Auto) Eos % (Auto) Baso % (Auto) Neut # (Auto) Lymph # (Auto) [place] # (Auto) Eos # (Auto) Baso # (Auto) Immature Gran # (Auto) Platelet Estimate PT INR APTT PTT Ratio VBG pH VBG pCO2 VBG pO2 VBG HCO3 VBG O2 Saturation VBG Base Excess Sodium Potassium Chloride Carbon Dioxide Anion Gap BUN Creatinine Est Cr Clr Drug Dosing eGFR BUN/Creatinine Ratio Glucose POC Glucose 110 H Estimat Average Glucose Hemoglobin A1c Lactate Calcium Magnesium Total Bilirubin Direct Bilirubin AST ALT Alkaline Phosphatase Troponin I High Sens < 2.3 Pending C-Reactive Protein Total Protein Albumin Procalcitonin Urine Color Urine Appearance Urine pH Ur Specific [place] Urine Protein Urine Glucose (UA) Urine Ketones Urine Blood Urine Nitrite Urine Bilirubin Urine Urobilinogen Ur Leukocyte Esterase Urine WBC (Auto) Urine RBC (Auto) U Hyaline Cast (Auto) U Epithel Cells (Auto) Urine Bacteria (Auto) Nasal Screen MRSA (PCR) Salicylates Urine Opiates Screen Ur Methadone, Qual Urine Fentanyl Screen Acetaminophen Urine Barbiturates Ur Phencyclidine (PCP) U Amphetamin/Meth Scrn MDMA (Ecstasy) Screen U Benzodiazepines Scrn Ur Cocaine Metabolite U Marijuana (THC) Screen Ethyl Alcohol mg/dL SARS-CoV-2 (PCR) Influenza Type A (PCR) Influenza Type B (PCR) RSV (RT-PCR) Diagnostic Findings Abdomen/Pelvis CT 09/14/24 18:22 EXAMINATION: CT of the abdomen and pelvis performed after the administration of IV contrast TECHNIQUE: Helical CT images from the lung bases through the symphysis pubis were obtained with contrast. Coronal and sagittal reformatted images were generated at a workstation for further assessment. Dose reduction techniques were achieved by using automatic exposure control and/or adjustment of mA and/or kV according to patient size and/or use of iterative reconstruction technique. COMPARISON: None HISTORY: Abdominal pain FINDINGS: Lower chest: No consolidation. No pleural effusion or pneumothorax. Liver: No suspicious liver lesions. Portal veins appear patent. Gallbladder: No gallstones. No evidence of acute cholecystitis. Spleen: Normal size. Pancreas: No suspicious pancreatic lesions. The pancreatic duct is not dilated. Adrenal glands: No adrenal nodules. Kidneys: No hydronephrosis or obstructing renal stones. Few, small renal cysts. Bladder / Pelvic organs: A Stinson catheter is in place. There is mild air in the bladder. The bladder is incompletely distended. Mild contrast material seen dependently in the urinary bladder, and also the renal collecting systems and ureters. Bowel: No bowel obstruction. No abnormal bowel wall thickening. The appendix is unremarkable. Left colonic diverticulosis without diverticulitis. There is a large colonic stool burden suggesting constipation. Small sliding hiatal hernia. Lymph nodes: No retroperitoneal, mesenteric, or pelvic lymphadenopathy. Peritoneum / Retroperitoneum: No free fluid or air within the abdomen. Vessels: No infrarenal aortic aneurysm. Bones and soft tissues: No suspicious lesion in the bones. Small fatty umbilical hernia. IMPRESSION: No acute abnormality of the abdomen or pelvis. Electronically signed by Waldemar Cardenas 09-14-2024 7:[address] 09/14/24 18:22 CT cervical spine without IV contrast History: Trauma Comparison: None Technique: Using multidetector thin collimation helical acquisition technique, axial, coronal and sagittal CT images through the cervical spine were obtained without intravenous contrast. Dose reduction techniques were achieved by using automatic exposure control and/or adjustment of mA and/or kV according to patient size and/or use of iterative reconstruction technique. Findings: The cervical vertebrae are normally aligned. Straightened cervical lordosis. No acute fracture or subluxation. No prevertebral edema. Severe discogenic degenerative changes associated with small disc osteophyte complexes at C5-6 and C6-7. No abnormality of the paraspinous soft tissues. Impression: No acute fracture or traumatic subluxation. Electronically signed by Waldemar Cardenas 09-14-2024 7:24 PM Chest CTA 09/14/24 18:22 CT pulmonary angiogram with IV contrast History: Chest pain COMPARISON: None TECHNIQUE: CT angiography of the chest was performed without IV contrast followed by IV contrast, including 3D post processing CTA image reconstruction. Dose reduction techniques were achieved by using automatic exposure control and/or adjustment of mA and/or kV according to patient size and/or use of iterative reconstruction technique. FINDINGS: Diagnostic quality: Adequate There is no evidence for pulmonary embolism. The heart is not enlarged. Moderate coronary calcification. There is no pericardial effusion. There are no abnormally enlarged hilar or mediastinal lymph nodes. The central tracheobronchial tree is clear. The lungs are clear. There is no pleural effusion. Limited visualized upper abdomen. Small sliding hiatal hernia. No destructive osseous changes are seen. There is a healing, posterior right 10th rib fracture with healing callus, that is nondisplaced, other subacute or chronic. IMPRESSION: No evidence for pulmonary embolism. Healing, chronic or subacute posterior right rib 10 fracture. Electronically signed by Waldemar Cardenas 09-14-2024 7:24 PM Chest X-Ray 09/14/24 18:22 EXAM: XR chest 1V portable CLINICAL HISTORY: Sepsis. TECHNIQUE: An X-ray image of the chest is obtained in AP projection. COMPARISON: Prior chest X-ray dated 09/13/2024. FINDINGS: Pulmonary Parenchyma: No evidence of consolidation, collapse, or focal opacities. No pulmonary nodules are identified. No evidence of pleural effusion or pleural thickening. Heart and Mediastinum: Cardiac size cannot be accurately assessed in AP projection, however cardiac shadow appears within normal limits. Bony Thorax: Bony thorax appears intact without fractures or deformities. Soft Tissues: Soft tissues overlying the chest wall are unremarkable. Cardiac monitoring electrodes. IMPRESSION: 1. No acute cardiopulmonary abnormalities are identified. 2. No changes on interval. Electronically signed by Kyle Rebolledo 09-14-2024 8:[address] 09/14/24 18:22 CT head without contrast History: Trauma Comparison: None Technique: Using multidetector thin collimation helical acquisition technique, axial, coronal and sagittal CT images from the skull base to the vertex were obtained without intravenous contrast. Dose reduction techniques were achieved by using automatic exposure control and/or adjustment of mA and/or kV according to patient size and/or use of iterative reconstruction technique. Findings: No intracranial hemorrhage, mass-effect, or midline shift. The ventricles are proportionate to the cerebral sulci. The busby to white matter differentiation of the cerebral hemispheres is preserved. The basal cisterns are patent. The visualized paranasal sinuses are clear. Mastoid air cells are clear. Impression: No acute intracranial pathology. Electronically signed by Waldemar Cardenas 09-14-2024 7:23 PM Medications Administered Home Medications Medication Instructions Recorded Confirmed Last Taken acetaminophen 500 mg tablet 1,000 mg PO BID PRN DIRECTED 09/14/24 09/14/24 Unknown cetirizine 10 mg tablet (Allergy 10 mg PO DAILY 09/14/24 09/14/24 Unknown Relief (cetirizine)) docusate sodium 100 mg capsule 100 mg PO BID PRN Constipation 09/14/24 09/14/24 Unknown (Colace) duloxetine 60 mg capsule,delayed 60 mg PO DAILY 09/14/24 09/14/24 Unknown release fluticasone 100 mcg-salmeterol 50 1 inh inhalation BID 09/14/24 09/14/24 Unknown mcg/dose blistr powdr for inhalation (Advair Diskus) furosemide 40 mg tablet 40 mg PO DAILY 09/14/24 09/14/24 Unknown lisinopril 20 mg tablet 20 mg PO DAILY 09/14/24 09/14/24 Unknown multivitamin 1 tab PO DAILY 09/14/24 09/14/24 Unknown olanzapine 5 mg tablet (Zyprexa) 5 mg PO BID 09/14/24 09/14/24 Unknown omeprazole 20 mg capsule,delayed 20 mg PO QAM 09/14/24 09/14/24 Unknown release potassium chloride 10 mEq 20 meq PO DAILY 09/14/24 09/14/24 Unknown tablet,extended release quetiapine 50 mg tablet (Seroquel) 150 mg PO HS 09/14/24 09/14/24 Unknown tamsulosin 0.4 mg capsule 0.4 mg PO DAILY 09/14/24 09/14/24 Unknown Active Medications Generic Name Dose Route Start Last Admin Trade Name Danteq PRN Reason Stop Dose Admin Cetirizine HCl 10 mg 09/15/24 09:00 09/15/24 09:40 Cetirizine Hcl 10 Mg Tablet PO 10/15/24 08:59 10 mg DAILY DEANDRE Administration Duloxetine HCl 60 mg 09/15/24 09:00 09/15/24 09:40 Duloxetine Hcl 60 Mg Cap PO 10/15/24 08:59 60 mg DAILY DEANDRE Administration Fluticasone/Vilanterol 1 puffs 09/15/24 09:00 09/15/24 09:38 Fluticasone/Vilanterol 100/25mcg 14 Puffs/Inhaler INH 10/15/24 08:59 1 puffs DAILY DEANDRE Administration Sodium Chloride 1,000 mls @ 80 mls/hr 09/14/24 23:45 09/15/24 13:39 Nss IV 09/16/24 00:44 80 mls/hr .[id number] DEANDRE Administration Insulin Aspart 0 units 09/15/24 16:30 09/15/24 16:25 Insulin Aspart Per Unit Charge SC 10/15/24 16:29 Not Given ACHS DEANDRE Multivitamins 1 tab 09/15/24 09:00 09/15/24 09:40 Multivitamin Tab PO 10/15/24 08:59 1 tab DAILY DEANDRE Administration Olanzapine 5 mg 09/14/24 23:32 09/15/24 09:40 Olanzapine 5 Mg Tablet PO 10/14/24 23:31 5 mg BID DEANDRE Administration Pantoprazole Sodium 40 mg 09/15/24 09:00 09/15/24 09:41 Pantoprazole 40 Mg Tab PO 10/15/24 08:59 40 mg QAM DEANDRE Administration Tamsulosin HCl 0.4 mg 09/15/24 09:00 09/15/24 09:41 Tamsulosin Hcl 0.4 Mg Cap PO 10/15/24 08:59 0.4 mg DAILY DEANDRE Administration
[2024-09-15] MEDS: QUEtiapine FUMARATE 25 MG TABLET PO SCH (20:41)
[2024-09-16] MEDS: ACETAMINOPHEN 325 MG TAB PO PRN (06:11)
[2024-09-16 06:20] LABS: Hematocrit (blood only) 35.9 % (42.0-52.0); Hemoglobin 12.5 g/dl (14.0-18.0); Mean Corpuscular Hemoglobin 31.6 pg (25.0-34.0); Mean Corpuscular Hgb Conc 34.8 g/dL (32.0-36.0); Mean Corpuscular Volume 90.9 fL (80.0-100.0); Mean Platelet Volume 9.9 fL (9.4-12.4); Platelet Count 218 K/uL (130-400); RDW Coefficient of Variation 12.3 % (11.5-14.5); Red Blood Count 3.95 M/uL (4.70-6.10); White Blood Count 6.44 K/ul (4.8-10.8)
[2024-09-16 06:46] LABS: BUN Creatinine Ratio 9.2 (10-20); Calcium 8.6 mg/dl (8.6-10.3); Creatinine Clr Calc Pharmacy 128.6 ml/min; Magnesium 1.9 mg/dl (1.7-2.4); Phosphorus 3.2 mg/dl (2.5-4.9); Potassium 3.8 mmol/L (3.5-5.1)
[2024-09-16] MEDS: lisinopril 5 MG TAB PO SCH (08:14)
--- NOTE | 2024-09-16 12:18 | Cardiology Progress Note ---
Date of Service September 16, 2024 Assessment & Plan (1) Syncope: (2) Orthostatic hypotension: Plan 64-year-old male admitted with recurrent syncope secondary to orthostatic hypotension in the setting of volume depletion and recent prescription of Flomax. Chronic antihypertensive therapy includes lisinopril, reduced from 20mg daily on admission to 5mg daily today. Remains borderline hypotensive despite adjustment of medical therapies. 2D echocardiogram demonstrates hyperdynamic LV function without significant valvular pathology. Recommendations: * Encourage hydration * Monitor telemetry * Hold all antihypertensive therapies and furosemide * Consider discontinuation of Flomax * Assess orthostatic blood pressure every shift * Add lower extremity compression stockings * Fall precautions advised * No further inpatient cardiac testing or intervention recommended at this time. Uriah Acuña DO, [facility] Admission and Anticipated Discharge Date Admission Date: September 14, 2024 Subjective Patient seen and examined at the bedside. Positional lightheadedness improved. Remains borderline hypotensive. Denies chest pain or shortness of breath. Telemetry reveals sinus rhythm in the 70s and 80s. No dysrhythmias recorded. Review of Systems Review of Systems: All systems reviewed & are unremarkable except as noted in Subjective Physical Exam Constitutional: well nourished; no acute distress Respiratory: no respiratory distress, no labored breathing and no retractions Auscultation: no crackles, no rales, no rhonchi and no wheezes Cardiovascular: Rate/Rhythm: regular rate and regular rhythm Heart Sounds: normal S1 and normal S2; no murmur Vessels: no JVD and no carotid bruit Extremities: no edema Gastrointestinal (Abdomen): Inspection/Auscultation: abdomen normal to inspection; abdomen not distended and + abnormal bowel sounds Percussion/Palpation: abdomen soft; abdomen nontender, no guarding and abdomen not rigid Neurologic: CN's II-XI intact bilaterally and moves all extremities; no focal motor deficits Results & Data Vital Signs (Past 12 Hours) Vital Signs Temp Pulse Resp BP Pulse Ox O2 Del Method 09/16/24 11:13 36.8 C 82 19 102/66 96 Room Air 09/16/24 10:21 Room Air 09/16/24 07:16 36.5 C 82 19 116/73 94 Room Air 09/16/24 02:50 36.9 C 78 19 113/76 95 Room Air Laboratory Results Cardiac Enzymes 09/15/24 09/15/24 Range/Units 11:59 17:04 Troponin I High Sens < 2.3 < 2.3 (0-20) pg/ml CBC 09/16/24 Range/Units 05:53 WBC 6.44 (4.8-10.8) K/ul RBC 3.95 L (4.70-6.10) M/uL Hgb 12.5 L (14.0-18.0) g/dl Hct 35.9 L (42.0-52.0) % Plt Count 218 (130-400) K/uL Comprehensive Metabolic Panel 09/16/24 Range/Units 05:53 Sodium 138 (136-145) mmol/L Potassium 3.8 (3.5-5.1) mmol/L Chloride 106 (98-107) mmol/L Carbon Dioxide 26 (21-32) mmol/L BUN 6 (6-23) mg/dl Creatinine 0.65 (0.6-1.4) mg/dl Glucose 77 (70-99(Fasting)) mg/dl Calcium 8.6 (8.6-10.3) mg/dl Intake and Output 09/15/24 09/16/24 09/16/24 22:59 06:59 14:59 Intake Total 200 / 2920 1720 / 2920 Output Total 1550 / 3200 1650 / 3200 Balance -1350 / -280 70 / -280 Intake: IV 1000 / 2000 Sodium Chloride 0.9% 1,000 ml @ 1000 / 2000 80 mls/hr IV .[id number] [facility] Rx#: [id number] Oral 200 / 920 720 / 920 Output: Urine Amount (Catheter) 1550 / 3200 1650 / 3200 Stinson/Indwelling 1550 / 3200 1650 / 3200 Other: Weight 88.4 kg Weight Measurement Method Built in [facility] (1) Syncope Syncope type: unspecified Qualified Code(s): R55 - Syncope and collapse
--- NOTE | 2024-09-16 14:35 | Hospitalist Progress Note ---
Date of Service September 16, 2024 Assessment & Plan (1) Syncope and collapse: Plan 64-year-old female with past medical history significant for type 2 diabetes, dyslipidemia, hypertension, GERD, carpal tunnel syndrome, erythrocytosis, depression, personality disorder coming from [facility] with syncope/seizures. Patient was in the ER yesterday with syncope and was thought to be secondary to orthostatic hypotension and also acute on chronic urinary retention. Syncope Passed out for about 10 minutes and was confused for about half hour Second episode over the past [address] head no acute findings CTA chest no pulmonary embolism Cervical spine CT no acute findings CT abdomen pelvis no acute findings EKG shows junctional rhythm Echo noting EF >70%, hyperdynamic activity Orthostatic vitals initially concerning Initial lactic acid was 3 and repeat is 1.8. Troponin unremarkable Procalcitonin negative UA unremarkable Drug screen unremarkable COVID, flu and RSV negative EEG pending Seizure precautions Cardiology was consulted, noted/stated the following: -likely in setting of orthostatic hypotension related to medications -recommended the following: "...Encourage hydration, Monitor telemetry, Hold all antihypertensive therapies and furosemide, Consider discontinuation of Flomax...Add lower extremity compression stockings..." Neurology also consulted, appreciate recs. Noted/stated the following: "...Likely related to orthostatic hypotension, agree with cardiology's plan. Event is less likely to represent a seizure no need for seizure workup...Hydration, elastic stockings, consider abdominal elastic waistbands...Medication adjustments regarding his Flomax that contributes to orthostatic hypotension...Consider adjusting his diabetic medications..." Home Lisinopril, lasix and Flomax currently on hold IV fluids, TEDs Continue to monitor Head/Scalp Abrasion Due to fall Mupirocin BID Bandages as needed TDAP uptodate, chart review shows last in 2021 Continue to monitor History of hypertension Was on lisinopril - dose changed as above, has since been placed on hold Holding Lasix and potassium supplements Seems to be on Lasix for lower extremity edema Diabetes As outpatient was on Jardiance Seems currently not on any medications Per [facility] guards patient not eating much since last 2 months sliding scale monitor blood sugars, current HbA1c level 5.8% Depression Personality disorder On Zyprexa, Seroquel and duloxetine GERD On omeprazole Urinary retention Status post Gallegos yesterday On Flomax Follow-up with urology Diet: DMII, safe tray minced and moist DVT prophylaxis: SCDs, heparin SQ Dispo: Back to the [facility] once medically stable Admission and Anticipated Discharge Date Admission Date: September 14, 2024 Subjective pt was seen with guards at bedside. Stated that his symptoms had improved though he still felt a bit unsteady on his feet Asking about having the gallegos removed. Denied dizziness or palpitations Review of Systems Review of Systems: All systems reviewed & are unremarkable except as noted in Subjective Physical Exam Physical Exam: General: Alert, oriented. No acute distress Skin: scalp with noted abrasion Psych: Appropriate mood and affect Neuro:AAOx3, no gross deficits HEENT: NC/AT CV: RRR Resp: Breath sounds clear bilaterally Abdomen:Soft, nontender Extremities: No edema in lower extremities bilaterally. Results & Data Results & Data Vital Signs (Past 12 Hours) Vital Signs Temp Pulse Resp BP Pulse Ox O2 Del Method 09/16/24 11:13 36.8 C 82 19 102/66 96 Room Air 09/16/24 10:21 Room Air 09/16/24 07:16 36.5 C 82 19 116/73 94 Room Air 09/16/24 02:50 36.9 C 78 19 113/76 95 Room Air Diagnostic Findings Abdomen/Pelvis CT 09/14/24 18:22 EXAMINATION: CT of the abdomen and pelvis performed after the administration of IV contrast TECHNIQUE: Helical CT images from the lung bases through the symphysis pubis were obtained with contrast. Coronal and sagittal reformatted images were generated at a workstation for further assessment. Dose reduction techniques were achieved by using automatic exposure control and/or adjustment of mA and/or kV according to patient size and/or use of iterative reconstruction technique. COMPARISON: None HISTORY: Abdominal pain FINDINGS: Lower chest: No consolidation. No pleural effusion or pneumothorax. Liver: No suspicious liver lesions. Portal veins appear patent. Gallbladder: No gallstones. No evidence of acute cholecystitis. Spleen: Normal size. Pancreas: No suspicious pancreatic lesions. The pancreatic duct is not dilated. Adrenal glands: No adrenal nodules. Kidneys: No hydronephrosis or obstructing renal stones. Few, small renal cysts. Bladder / Pelvic organs: A Gallegos catheter is in place. There is mild air in the bladder. The bladder is incompletely distended. Mild contrast material seen dependently in the urinary bladder, and also the renal collecting systems and ureters. Bowel: No bowel obstruction. No abnormal bowel wall thickening. The appendix is unremarkable. Left colonic diverticulosis without diverticulitis. There is a large colonic stool burden suggesting constipation. Small sliding hiatal hernia. Lymph nodes: No retroperitoneal, mesenteric, or pelvic lymphadenopathy. Peritoneum / Retroperitoneum: No free fluid or air within the abdomen. Vessels: No infrarenal aortic aneurysm. Bones and soft tissues: No suspicious lesion in the bones. Small fatty umbilical hernia. IMPRESSION: No acute abnormality of the abdomen or pelvis. Electronically signed by Waldemar Cardenas 09-14-2024 7:[address] 09/14/24 18:22 CT cervical spine without IV contrast History: Trauma Comparison: None Technique: Using multidetector thin collimation helical acquisition technique, axial, coronal and sagittal CT images through the cervical spine were obtained without intravenous contrast. Dose reduction techniques were achieved by using automatic exposure control and/or adjustment of mA and/or kV according to patient size and/or use of iterative reconstruction technique. Findings: The cervical vertebrae are normally aligned. Straightened cervical lordosis. No acute fracture or subluxation. No prevertebral edema. Severe discogenic degenerative changes associated with small disc osteophyte complexes at C5-6 and C6-7. No abnormality of the paraspinous soft tissues. Impression: No acute fracture or traumatic subluxation. Electronically signed by Waldemar Cardenas 09-14-2024 7:24 PM Chest CTA 09/14/24 18:22 CT pulmonary angiogram with IV contrast History: Chest pain COMPARISON: None TECHNIQUE: CT angiography of the chest was performed without IV contrast followed by IV contrast, including 3D post processing CTA image reconstruction. Dose reduction techniques were achieved by using automatic exposure control and/or adjustment of mA and/or kV according to patient size and/or use of iterative reconstruction technique. FINDINGS: Diagnostic quality: Adequate There is no evidence for pulmonary embolism. The heart is not enlarged. Moderate coronary calcification. There is no pericardial effusion. There are no abnormally enlarged hilar or mediastinal lymph nodes. The central tracheobronchial tree is clear. The lungs are clear. There is no pleural effusion. Limited visualized upper abdomen. Small sliding hiatal hernia. No destructive osseous changes are seen. There is a healing, posterior right 10th rib fracture with healing callus, that is nondisplaced, other subacute or chronic. IMPRESSION: No evidence for pulmonary embolism. Healing, chronic or subacute posterior right rib 10 fracture. Electronically signed by Waldemar Cardenas 09-14-2024 7:24 PM Chest X-Ray 09/14/24 18:22 EXAM: XR chest 1V portable CLINICAL HISTORY: Sepsis. TECHNIQUE: An X-ray image of the chest is obtained in AP projection. COMPARISON: Prior chest X-ray dated 09/13/2024. FINDINGS: Pulmonary Parenchyma: No evidence of consolidation, collapse, or focal opacities. No pulmonary nodules are identified. No evidence of pleural effusion or pleural thickening. Heart and Mediastinum: Cardiac size cannot be accurately assessed in AP projection, however cardiac shadow appears within normal limits. Bony Thorax: Bony thorax appears intact without fractures or deformities. Soft Tissues: Soft tissues overlying the chest wall are unremarkable. Cardiac monitoring electrodes. IMPRESSION: 1. No acute cardiopulmonary abnormalities are identified. 2. No changes on interval. Electronically signed by Kyle Rebolledo 09-14-2024 8:[address] 09/14/24 18:22 CT head without contrast History: Trauma Comparison: None Technique: Using multidetector thin collimation helical acquisition technique, axial, coronal and sagittal CT images from the skull base to the vertex were obtained without intravenous contrast. Dose reduction techniques were achieved by using automatic exposure control and/or adjustment of mA and/or kV according to patient size and/or use of iterative reconstruction technique. Findings: No intracranial hemorrhage, mass-effect, or midline shift. The ventricles are proportionate to the cerebral sulci. The busby to white matter differentiation of the cerebral hemispheres is preserved. The basal cisterns are patent. The visualized paranasal sinuses are clear. Mastoid air cells are clear. Impression: No acute intracranial pathology. Electronically signed by Waldemar Cardenas 09-14-2024 7:23 PM
--- NOTE | 2024-09-16 15:53 | Electrocardiogram Report ---
Test Reason : Blood Pressure : */* mmHG Vent. Rate : 77 BPM Atrial Rate : * BPM P-R Int : * ms QRS Dur : 94 ms QT Int : 380 ms P-R-T Axes : * -5 58 degrees QTcB Int : 430 ms Sinus rhythm Low voltage QRS Abnormal ECG When compared with ECG of 15-Sep-2024 10:37, (unconfirmed) No significant change Confirmed by Timothy Irwin ([id number]) on 09/16/2024 3:52:59 PM Referred By: [facility] Confirmed By: Timothy Irwin
[2024-09-16] MEDS: SODIUM CHLORIDE 0.9% 1,000 ML IV SCH (18:23)
--- NOTE | 2024-09-16 20:32 | Electrocardiogram Report ---
Test Reason : Blood Pressure : */* mmHG Vent. Rate : 83 BPM Atrial Rate : * BPM P-R Int : * ms QRS Dur : 88 ms QT Int : 388 ms P-R-T Axes : * -6 55 degrees QTcB Int : 455 ms Sinus rhythm Low voltage QRS Abnormal ECG When compared with ECG of 13-Sep-2024 16:33, (unconfirmed) No significant change Confirmed by Timothy rIwin ([id number]) on 09/16/2024 8:31:47 PM Referred By: [facility] Confirmed By: Timothy Irwin
[2024-09-16] MEDS: MUPIROCIN 2% OINT 22 GM TUBE EXT SCH (20:51)
[2024-09-16] MEDS: HEPARIN SOD 5,000 UNIT/0.5 ML VIAL SQ SCH (20:52)
--- NOTE | 2024-09-16 21:01 | Electrocardiogram Report ---
Test Reason : Blood Pressure : */* mmHG Vent. Rate : 97 BPM Atrial Rate : 97 BPM P-R Int : 136 ms QRS Dur : 84 ms QT Int : 362 ms P-R-T Axes : 49 -11 61 degrees QTcB Int : 459 ms Normal sinus rhythm Low voltage QRS Nonspecific ST abnormality Abnormal ECG When compared with ECG of 14-Sep-2024 18:27, (unconfirmed) No significant change Confirmed by iTmothy Irwin ([id number]) on 09/16/2024 9:01:05 PM Referred By: [facility] Confirmed By: Timothy Irwin
[2024-09-17] MEDS: OPTIRAY 320 125ml IV ONE (09:03)
--- NOTE | 2024-09-17 09:25 | CT Scan Report ---
CT angio neck with con CLINICAL HISTORY: dizziness, L arm weakness. COMPARISON STUDY: None TECHNIQUE: Following the IV administration of 120 of Optiray, CT angiogram of the neck was performed from the aortic arch to the skull base. Images are reviewed in the axial, sagittal, and coronal plane s. 3-D MIPS images are created and assessed. IV contrast was administered without complication. All m easurements were calculated based on NASCET criteria. A dose lowering technique was utilized adherin g to the principles of ALARA. FINDINGS: There is spray and motion artifact inferiorly. There are mild atherosclerotic calcification s. Bilateral common and internal carotid and bilateral vertebral arteries show no significant narrowi ng or occlusion. Bilateral vertebral arteries are mildly diminutive beyond PICA, anatomic variant. IMPRESSION: No significant arterial narrowing or occlusion seen at the neck. ACT 112: Negative or not required by law. The above report was generated using voice recognition software. It may contain grammatical, syntax o r spelling errors. Electronically signed by: Carlos Killian M.D. 09/17/2024 9:23 AM
--- NOTE | 2024-09-17 09:30 | CT Scan Report ---
CTA ANGIOGRAPHY OF THE HEAD CLINICAL HISTORY: dizziness, L arm weakness COMPARISON STUDY: MRI of the brain June 10, 2023. Head CT September 14, 2024. TECHNIQUE: Helical axial images of the head were obtained following uneventful intravenous administr ation of 120 cc of Optiray. Sagittal and coronal reconstructions were viewed as well as maximal inten sity projections on an independent 3-D workstation. Automated exposure control was utilized for the study. A dose lowering technique was utilized adhering to the principles of ALARA. FINDINGS: No acute intracranial hemorrhage is present. There is slight asymmetric prominence of the e xtra-axial space overlying the right frontal lobe. This is CSF attenuation and measures 4 mm in thick ness. Within the adjacent right frontal lobe, on axial image 132 of 260, there is a 1.4 cm subcortica l hypodense focus. The ventricular system is unremarkable. Basal cisterns are patent. The bilateral M 1, M2, A1 and A2 segments are patent. There is mild plaque within the right cavernous carotid without stenosis. No intracranial aneurysm is patent. No intracranial vessel occlusion is present. IMPRESSION: 1. No intracranial vessel occlusion identified. No intracranial aneurysm. 2. Slight asymmetric prominence of the extra-axial space overlying the right frontal lobe which has C SF attenuation. This favors a small subdural hygroma, possibly traumatic. No acute hemorrhage identif ied. 3. 1.4 cm subcortical hypodense focus within the right frontal lobe adjacent to the hygroma. Given tr auma history, a small contusion is favored. This could be assessed with an MRI of the brain. ACT 112: Negative or not required by law. Electronically signed by: Maximino Pearson M.D. 09/17/2024 9:28 AM
--- NOTE | 2024-09-17 09:49 | CT Scan Report ---
CT head/brain wo con CLINICAL HISTORY: 64 years-old Male with dizziness, L arm weakness. Acute dizziness with stroke like symptoms TECHNIQUE: Multiple axial CT images of the head were obtained without contrast. A dose lowering tech nique was utilized adhering to the principles of ALARA. CT DOSE: 1026.18 mGy.cm COMPARISON: Head CT 09/14/2024, brain MRI 06/10/2023. FINDINGS: No acute intracranial hemorrhage, midline shift, intracranial mass, hydrocephalus, territorial ischem ia or abnormal extra-axial collection. Ill-defined hypodense focus of the anterior right frontal lobe with asymmetric prominence of the subdural space measuring 4 mm on image 13 series 2 representing a change from the 09/14/2024 study. Adjacent 1.4 cm subcortical hypodense focus within the anterior right frontal lobe. The calvarium is intact. The paranasal sinuses, mastoid air cells, and middle ear cavities are clear . IMPRESSION: 1. No acute intracranial hemorrhage, midline shift or acute calvarial fracture. 2. Probable small right sided posttraumatic subdural hygroma. 3. 1.4 cm subcortical hypodense focus within the right frontal lobe adjacent to the hygroma. Given tr auma history, a small contusion is favored. This could be assessed with an MRI of the brain. ACT 112: Negative or not required by law. The above report was generated using voice recognition software. It may contain grammatical, syntax o r spelling errors. Electronically signed by: Kvng Huizar M.D. 09/17/2024 9:48 AM
[2024-09-17 10:12] LABS: Basophils # (auto) 0.03 K/uL (0.00-0.20); Basophils % (auto) 0.6 %; Eosinophils # (auto) 0.07 K/uL (0.00-0.50); Eosinophils % (auto) 1.4 %; Hematocrit (blood only) 37.9 % (42.0-52.0); Hemoglobin 12.9 g/dl (14.0-18.0); Immature Granulocytes # (auto) 0.01 K/uL (0.01-0.20); Immature Granulocytes % (auto) 0.2 %; Lymphocytes # (auto) 1.55 K/uL (1.20-3.40); Lymphocytes % (auto) 30.8 %; Mean Corpuscular Hemoglobin 30.7 pg (25.0-34.0); Mean Corpuscular Volume 90.2 fL (80.0-100.0); Mean Platelet Volume 9.4 fL (9.4-12.4); Monocytes # (auto) 0.37 K/uL (0.11-0.59); Monocytes % (auto) 7.3 %; Neutrophils # (auto) 3.01 K/uL (1.40-6.50); Neutrophils % (auto) 59.7 %; Platelet Count 215 K/uL (130-400); RDW Coefficient of Variation 12.3 % (11.5-14.5); RDW Standard Deviation 40.6 fL (36.4-46.3); White Blood Count 5.04 K/ul (4.8-10.8)
[2024-09-17 10:30] LABS: BUN Creatinine Ratio 11.5 (10-20); Calcium 8.6 mg/dl (8.6-10.3); Creatinine Clr Calc Pharmacy 107.1 ml/min; Magnesium 1.9 mg/dl (1.7-2.4); Phosphorus 2.6 mg/dl (2.5-4.9); Potassium 3.8 mmol/L (3.5-5.1)
--- NOTE | 2024-09-17 10:39 | Hospitalist Progress Note ---
Date of Service September 17, 2024 Assessment & Plan (1) Syncope and collapse: Plan 64-year-old female with past medical history significant for type 2 diabetes, dyslipidemia, hypertension, GERD, carpal tunnel syndrome, erythrocytosis, depression, personality disorder coming from [facility] with syncope/seizures. Patient was in the ER yesterday with syncope and was thought to be secondary to orthostatic hypotension and also acute on chronic urinary retention. Syncope Passed out for about 10 minutes and was confused for about half hour Second episode over the past [address] head no acute findings CTA chest no pulmonary embolism Cervical spine CT no acute findings CT abdomen pelvis no acute findings EKG shows junctional rhythm Echo noting EF >70%, hyperdynamic activity Orthostatic vitals initially concerning Initial lactic acid was 3 and repeat is 1.8. Troponin unremarkable Procalcitonin negative UA unremarkable Drug screen unremarkable COVID, flu and RSV negative EEG pending Seizure precautions Cardiology was consulted, noted/stated the following: -likely in setting of orthostatic hypotension related to medications -recommended the following: "...Encourage hydration, Monitor telemetry, Hold all antihypertensive therapies and furosemide, Consider discontinuation of Flomax...Add lower extremity compression stockings..." Neurology also consulted, appreciate recs. Noted/stated the following: "...Likely related to orthostatic hypotension, agree with cardiology's plan. Event is less likely to represent a seizure no need for seizure workup...Hydration, elastic stockings, consider abdominal elastic waistbands...Medication adjustments regarding his Flomax that contributes to orthostatic hypotension...Consider adjusting his diabetic medications..." Home Lisinopril, lasix and Flomax currently on hold IV fluids, TEDs Continue to monitor BP improving Head/Scalp Abrasion Due to fall Mupirocin BID Bandages as needed TDAP up to date, chart review shows last in 2021 Continue to monitor Episode of dizziness and weakness Pt states that he was dizzy and weak on the left overnight and into the AM of 09/[address], head and neck CTA unremarkable Brain MRI pending He also notes, he is having trouble swallowing- speech consult placed Continue to monitor History of hypertension Was on lisinopril - dose changed as above, has since been placed on hold Holding Lasix and potassium supplements Seems to be on Lasix for lower extremity edema Diabetes As outpatient was on Jardiance Seems currently not on any medications Per [facility] guards patient not eating much since last 2 months sliding scale monitor blood sugars, current HbA1c level 5.8% Depression Personality disorder On Zyprexa, Seroquel and duloxetine GERD On omeprazole Urinary retention Status post Stinson placement on admission On Flomax, currently on hold Follow-up with urology Diet: DMII, safe tray minced and moist DVT prophylaxis: SCDs, heparin SQ Dispo: Back to the [facility] once medically stable Admission and Anticipated Discharge Date Admission Date: September 14, 2024 Subjective pt was seen with guards and nurse at bedside. Stated that he felt "off" this AM. Reports overnight he felt dizzy and that he was having left sided weakness and difficulty ambulating. This AM says the symptoms are still present States that he cannot swallow Denied dizziness or palpitations Review of Systems Review of Systems: All systems reviewed & are unremarkable except as noted in Subjective Physical Exam Physical Exam: General: Alert, oriented. No acute distress Skin: scalp with noted abrasion Psych: Appropriate mood and affect Neuro:AAOx3, no gross deficits, strength 5/5 bilaterally, sensation grossly intact, no facial droop HEENT: NC/AT CV: RRR Resp: Breath sounds clear bilaterally Abdomen:Soft, nontender Extremities: No edema in lower extremities bilaterally. Results & Data Results & Data Vital Signs (Past 12 Hours) Vital Signs Temp Pulse Resp BP Pulse Ox O2 Del Method O2 Del Method 09/17/24 08:22 36.8 C 60 16 118/75 100 BiPAP 09/17/24 08:19 36.6 C 85 18 126/79 98 Room Air 09/17/24 03:11 36.5 C 79 19 118/75 94 Room Air 09/17/24 00:00 Room Air 09/16/24 22:58 36.6 C 81 18 106/67 95 Room Air Diagnostic Findings Abdomen/Pelvis CT 09/14/24 18:22 EXAMINATION: CT of the abdomen and pelvis performed after the administration of IV contrast TECHNIQUE: Helical CT images from the lung bases through the symphysis pubis were obtained with contrast. Coronal and sagittal reformatted images were generated at a workstation for further assessment. Dose reduction techniques were achieved by using automatic exposure control and/or adjustment of mA and/or kV according to patient size and/or use of iterative reconstruction technique. COMPARISON: None HISTORY: Abdominal pain FINDINGS: Lower chest: No consolidation. No pleural effusion or pneumothorax. Liver: No suspicious liver lesions. Portal veins appear patent. Gallbladder: No gallstones. No evidence of acute cholecystitis. Spleen: Normal size. Pancreas: No suspicious pancreatic lesions. The pancreatic duct is not dilated. Adrenal glands: No adrenal nodules. Kidneys: No hydronephrosis or obstructing renal stones. Few, small renal cysts. Bladder / Pelvic organs: A Stinson catheter is in place. There is mild air in the bladder. The bladder is incompletely distended. Mild contrast material seen dependently in the urinary bladder, and also the renal collecting systems and ureters. Bowel: No bowel obstruction. No abnormal bowel wall thickening. The appendix is unremarkable. Left colonic diverticulosis without diverticulitis. There is a large colonic stool burden suggesting constipation. Small sliding hiatal hernia. Lymph nodes: No retroperitoneal, mesenteric, or pelvic lymphadenopathy. Peritoneum / Retroperitoneum: No free fluid or air within the abdomen. Vessels: No infrarenal aortic aneurysm. Bones and soft tissues: No suspicious lesion in the bones. Small fatty umbilical hernia. IMPRESSION: No acute abnormality of the abdomen or pelvis. Electronically signed by Waldemar Cardenas 09-14-2024 7:[address] 09/14/24 18:22 CT cervical spine without IV contrast History: Trauma Comparison: None Technique: Using multidetector thin collimation helical acquisition technique, axial, coronal and sagittal CT images through the cervical spine were obtained without intravenous contrast. Dose reduction techniques were achieved by using automatic exposure control and/or adjustment of mA and/or kV according to patient size and/or use of iterative reconstruction technique. Findings: The cervical vertebrae are normally aligned. Straightened cervical lordosis. No acute fracture or subluxation. No prevertebral edema. Severe discogenic degenerative changes associated with small disc osteophyte complexes at C5-6 and C6-7. No abnormality of the paraspinous soft tissues. Impression: No acute fracture or traumatic subluxation. Electronically signed by Waldemar Cardenas 09-14-2024 7:24 PM Chest CTA 09/14/24 18:22 CT pulmonary angiogram with IV contrast History: Chest pain COMPARISON: None TECHNIQUE: CT angiography of the chest was performed without IV contrast followed by IV contrast, including 3D post processing CTA image reconstruction. Dose reduction techniques were achieved by using automatic exposure control and/or adjustment of mA and/or kV according to patient size and/or use of iterative reconstruction technique. FINDINGS: Diagnostic quality: Adequate There is no evidence for pulmonary embolism. The heart is not enlarged. Moderate coronary calcification. There is no pericardial effusion. There are no abnormally enlarged hilar or mediastinal lymph nodes. The central tracheobronchial tree is clear. The lungs are clear. There is no pleural effusion. Limited visualized upper abdomen. Small sliding hiatal hernia. No destructive osseous changes are seen. There is a healing, posterior right 10th rib fracture with healing callus, that is nondisplaced, other subacute or chronic. IMPRESSION: No evidence for pulmonary embolism. Healing, chronic or subacute posterior right rib 10 fracture. Electronically signed by Waldemar Cardenas 09-14-2024 7:24 PM Chest X-Ray 09/14/24 18:22 EXAM: XR chest 1V portable CLINICAL HISTORY: Sepsis. TECHNIQUE: An X-ray image of the chest is obtained in AP projection. COMPARISON: Prior chest X-ray dated 09/13/2024. FINDINGS: Pulmonary Parenchyma: No evidence of consolidation, collapse, or focal opacities. No pulmonary nodules are identified. No evidence of pleural effusion or pleural thickening. Heart and Mediastinum: Cardiac size cannot be accurately assessed in AP projection, however cardiac shadow appears within normal limits. Bony Thorax: Bony thorax appears intact without fractures or deformities. Soft Tissues: Soft tissues overlying the chest wall are unremarkable. Cardiac monitoring electrodes. IMPRESSION: 1. No acute cardiopulmonary abnormalities are identified. 2. No changes on interval. Electronically signed by Kyle Rebolledo 09-14-2024 8:[address] 09/14/24 18:22 CT head without contrast History: Trauma Comparison: None Technique: Using multidetector thin collimation helical acquisition technique, axial, coronal and sagittal CT images from the skull base to the vertex were obtained without intravenous contrast. Dose reduction techniques were achieved by using automatic exposure control and/or adjustment of mA and/or kV according to patient size and/or use of iterative reconstruction technique. Findings: No intracranial hemorrhage, mass-effect, or midline shift. The ventricles are proportionate to the cerebral sulci. The busby to white matter differentiation of the cerebral hemispheres is preserved. The basal cisterns are patent. The visualized paranasal sinuses are clear. Mastoid air cells are clear. Impression: No acute intracranial pathology. Electronically signed by Waldemar Cardenas 09-14-2024 7:[address] 09/17/24 08:18 CT head/brain wo con CLINICAL HISTORY: 64 years-old Male with dizziness, L arm weakness. Acute dizziness with stroke like symptoms TECHNIQUE: Multiple axial CT images of the head were obtained without contrast. A dose lowering technique was utilized adhering to the principles of ALARA. CT DOSE: 1026.18 mGy.cm COMPARISON: Head CT 09/14/2024, brain MRI 06/10/2023. FINDINGS: No acute intracranial hemorrhage, midline shift, intracranial mass, hydrocephalus, territorial ischemia or abnormal extra-axial collection. Ill- defined hypodense focus of the anterior right frontal lobe with asymmetric prominence of the subdural space measuring 4 mm on image 13 series 2 representing a change from the 09/14/2024 study. Adjacent 1.4 cm subcortical hypodense focus within the anterior right frontal lobe. The calvarium is intact. The paranasal sinuses, mastoid air cells, and middle ear cavities are clear. IMPRESSION: 1. No acute intracranial hemorrhage, midline shift or acute calvarial fracture. 2. Probable small right sided posttraumatic subdural hygroma. 3. 1.4 cm subcortical hypodense focus within the right frontal lobe adjacent to the hygroma. Given trauma history, a small contusion is favored. This could be assessed with an MRI of the brain. ACT 112: Negative or not required by law. The above report was generated using voice recognition software. It may contain grammatical, syntax or spelling errors. Electronically signed by: Kvng Huizar M.D. 09/17/2024 9:48 AM Head CTA 09/17/24 08:18 CTA ANGIOGRAPHY OF THE HEAD CLINICAL HISTORY: dizziness, L arm weakness COMPARISON STUDY: MRI of the brain June 10, 2023. Head CT September 14, 2024. TECHNIQUE: Helical axial images of the head were obtained following uneventful intravenous administration of 120 cc of Optiray. Sagittal and coronal reconstructions were viewed as well as maximal intensity projections on an independent 3-D workstation. Automated exposure control was utilized for the study. A dose lowering technique was utilized adhering to the principles of ALARA. FINDINGS: No acute intracranial hemorrhage is present. There is slight asymmetric prominence of the extra-axial space overlying the right frontal lobe. This is CSF attenuation and measures 4 mm in thickness. Within the adjacent right frontal lobe, on axial image 132 of 260, there is a 1.4 cm subcortical hypodense focus. The ventricular system is unremarkable. Basal cisterns are pat ent. The bilateral M1, M2, A1 and A2 segments are patent. There is mild plaque within the right cavernous carotid without stenosis. No intracranial aneurysm is patent. No intracranial vessel occlusion is present. IMPRESSION: 1. No intracranial vessel occlusion identified. No intracranial aneurysm. 2. Slight asymmetric prominence of the extra-axial space overlying the right frontal lobe which has CSF attenuation. This favors a small subdural hygroma, possibly traumatic. No acute hemorrhage identified. 3. 1.4 cm subcortical hypodense focus within the right frontal lobe adjacent to the hygroma. Given trauma history, a small contusion is favored. This could be assessed with an MRI of the brain. ACT 112: Negative or not required by law. Electronically signed by: Maximino Pearson M.D. 09/17/2024 9:28 AM Neck CTA 09/17/24 08:18 CT angio neck with con CLINICAL HISTORY: dizziness, L arm weakness. COMPARISON STUDY: None TECHNIQUE: Following the IV administration of 120 of Optiray, CT angiogram of the neck was performed from the aortic arch to the skull base. Images are reviewed in the axial, sagittal, and coronal planes. 3-D MIPS images are created and assessed. IV contrast was administered without complication. All measurements were calculated based on NASCET criteria. A dose lowering technique was utilized adhering to the principles of ALARA. FINDINGS: There is spray and motion artifact inferiorly. There are mild atherosclerotic calcifications. Bilateral common and internal carotid and bilateral vertebral arteries show no significant narrowing or occlusion. Bilateral vertebral arteries are mildly diminutive beyond PICA, anatomic variant. IMPRESSION: No significant arterial narrowing or occlusion seen at the neck. ACT 112: Negative or not required by law. The above report was generated using voice recognition software. It may contain grammatical, syntax or spelling errors. Electronically signed by: Carlos Killian M.D. 09/17/2024 9:23 AM
[2024-09-17] MEDS: GADOBUTROL 65ML VIAL IV ONE (12:49)
--- NOTE | 2024-09-17 13:19 | Magnetic Resonance Report ---
MRI OF THE BRAIN WITHOUT AND WITH IV CONTRAST CLINICAL HISTORY: f/u head ct COMPARISON STUDY: MRI of the brain June 10, 2023. Head CT and CTA of the head performed earlier today. TECHNIQUE: Utilizing a 1.5 Denia magnet and dedicated coil, multiplanar, multiecho imaging of the br ain was performed pre and postcontrast administration. IV administration of Gadavist contrast was un eventful. FINDINGS: There are no foci of restricted diffusion to suggest acute infarct. No acute intracranial h emorrhage is identified. The ventricular system is unremarkable. Basal cisterns are patent. There is a small CSF signal intensity extra-axial collection overlying the anterior right frontal lobe which c orresponds to the finding on head CT performed earlier today. This measures 7 mm in thickness. There is minimal mass effect with subtle sulcal effacement. No additional extra-axial collections are prese nt. There is a 1.6 cm nonenhancing subcortical T2 hyperintense focus within the adjacent portion of t he right frontal lobe shown on axial T2-weighted sequence image of . No additional foci of paren chymal signal abnormality are present. Calvarial signal is normal. There is no evidence for sinusitis . There is no mastoid fluid. There is no intracranial mass or pathologic enhancement. IMPRESSION: 1. Small CSF signal intensity extra-axial collection overlying the right frontal lobe which correspon ds to the finding on head CT. This is suggestive of a small acute subdural hygroma. No acute hemorrha ge identified. Short-term follow-up head CT in one to 2 days to ensure stability is recommended. 2. 1.6 cm nonenhancing subcortical T2 hyperintense focus within the adjacent portion of the right fro ntal lobe, also evident on the head CT. This is suggestive of a contusion which can be assessed on fo llow-up head CT. 3. No intracranial mass. No evidence for acute infarct. ACT 112: Negative or not required by law. Electronically signed by: Maximino Pearson M.D. 09/17/2024 1:17 PM
[2024-09-17] MEDS: DOXYCYCLINE HYCLATE 100 MG in DEXTROSE 5% MINI-B 100 ML IV STA (21:23)
--- NOTE | 2024-09-17 22:27 | Ultrasound Report ---
Exam(s): US VENOUS LEFT UPPER EXTREMITY EXAM: US Duplex Left Upper Extremity Veins CLINICAL HISTORY: swelling. TECHNIQUE: Real-time duplex ultrasound scan of the left upper extremity veins integrating B-mode two-dimensional vascular structure, Doppler spectral analysis, color flow Doppler imaging and compression. COMPARISON: No relevant prior studies available. FINDINGS: Deep veins: Unremarkable. No DVT in the internal jugular, subclavian, axillary, or brachial veins. The veins demonstrate normal color flow, are normally compressible, with normal phasic flow and/or augmentation response. Superficial veins: Unremarkable. No thrombus in the visualized basilic and cephalic veins. Soft tissues: No acute findings. IMPRESSION: No evidence for deep vein thrombosis involving the left upper extremity. Electronically signed by: Cedric Albert MD 09/17/24 22:26 PM
[2024-09-18 07:43] LABS: Basophils # (auto) 0.04 K/uL (0.00-0.20); Basophils % (auto) 0.6 %; Eosinophils # (auto) 0.16 K/uL (0.00-0.50); Eosinophils % (auto) 2.5 %; Hematocrit (blood only) 41.4 % (42.0-52.0); Immature Granulocytes # (auto) 0.01 K/uL (0.01-0.20); Immature Granulocytes % (auto) 0.2 %; Lymphocytes # (auto) 1.92 K/uL (1.20-3.40); Lymphocytes % (auto) 29.8 %; Mean Corpuscular Hemoglobin 30.2 pg (25.0-34.0); Mean Corpuscular Hgb Conc 33.8 g/dL (32.0-36.0); Mean Corpuscular Volume 89.2 fL (80.0-100.0); Mean Platelet Volume 9.7 fL (9.4-12.4); Monocytes # (auto) 0.45 K/uL (0.11-0.59); Neutrophils # (auto) 3.86 K/uL (1.40-6.50); Neutrophils % (auto) 59.9 %; Platelet Count 235 K/uL (130-400); RDW Coefficient of Variation 12.1 % (11.5-14.5); RDW Standard Deviation 39.7 fL (36.4-46.3); Red Blood Count 4.64 M/uL (4.70-6.10); White Blood Count 6.44 K/ul (4.8-10.8)
[2024-09-18 08:18] LABS: BUN Creatinine Ratio 8.1 (10-20); Calcium 9.2 mg/dl (8.6-10.3); Phosphorus 3.6 mg/dl (2.5-4.9); Potassium 4.1 mmol/L (3.5-5.1)
[2024-09-18] MEDS: DOXYCYCLINE HYCLATE 100 MG CAP PO SCH (08:18)
--- NOTE | 2024-09-18 11:36 | Hospitalist Progress Note ---
Date of Service September 18, 2024 Assessment & Plan (1) Syncope and collapse: Plan 64-year-old female with past medical history significant for type 2 diabetes, dyslipidemia, hypertension, GERD, carpal tunnel syndrome, erythrocytosis, depression, personality disorder coming from custodial with syncope/seizures. Patient was in the ER yesterday with syncope and was thought to be secondary to orthostatic hypotension and also acute on chronic urinary retention. Syncope Passed out for about 10 minutes and was confused for about half hour Second episode over the past [address] head no acute findings CTA chest no pulmonary embolism Cervical spine CT no acute findings CT abdomen pelvis no acute findings EKG shows junctional rhythm Echo noting EF >70%, hyperdynamic activity Orthostatic vitals initially concerning Initial lactic acid was 3 and repeat is 1.8. Troponin unremarkable Procalcitonin negative UA unremarkable Drug screen unremarkable COVID, flu and RSV negative EEG pending Seizure precautions Cardiology was consulted, noted/stated the following: -likely in setting of orthostatic hypotension related to medications -recommended the following: "...Encourage hydration, Monitor telemetry, Hold all antihypertensive therapies and furosemide, Consider discontinuation of Flomax...Add lower extremity compression stockings..." Neurology also consulted, appreciate recs. Noted/stated the following: "...Likely related to orthostatic hypotension, agree with cardiology's plan. Event is less likely to represent a seizure no need for seizure workup...Hydration, elastic stockings, consider abdominal elastic waistbands...Medication adjustments regarding his Flomax that contributes to orthostatic hypotension...Consider adjusting his diabetic medications..." Home Lisinopril, lasix and Flomax currently on hold IV fluids, TEDs Continue to monitor BP improved 09/18- pt noting continued weakness, PT/OT ordered, Neurology consulted once more. Head/Scalp Abrasion Due to fall Mupirocin BID Bandages as needed TDAP up to date, chart review shows last in 2021 Continue to monitor Episode of dizziness and weakness Pt states that he was dizzy and weak on the left overnight and into the AM of 09/[address], head and neck CTA unremarkable Brain MRI with noted hygroma and contusion He also notes, he is having trouble swallowing- speech consult placed- recommending pureed diet as pt edentulous Continue to monitor 09/18- pt noting continued weakness, PT/OT ordered, Neurology consulted once more. Started on baby aspirin daily History of hypertension Was on lisinopril - dose changed as above, has since been placed on hold Holding Lasix and potassium supplements Appears to be on Lasix for lower extremity edema Diabetes As outpatient was on Jardiance Seems currently not on any medications Per custodial guards patient not eating much since last 2 months sliding scale monitor blood sugars, current HbA1c level 5.8% Depression Personality disorder On Zyprexa, Seroquel and duloxetine GERD On omeprazole Urinary retention Status post Stinson placement on admission On Flomax, currently on hold Follow-up with urology Diet: DMII, safe tray pureed DVT prophylaxis: SCDs, heparin SQ Dispo: Back to the custodial once medically stable Admission and Anticipated Discharge Date Admission Date: September 14, 2024 Subjective pt was seen laying in bed, guards at bedside. Stated that he felt "good and bad" Notes weakness Review of Systems Review of Systems: All systems reviewed & are unremarkable except as noted in Subjective Physical Exam Physical Exam: General: Alert, oriented. No acute distress Skin: scalp with noted abrasion Psych: Appropriate mood and affect Neuro:AAOx3, no gross deficits, strength 5/5 bilaterally, sensation grossly intact, no facial droop HEENT: NC/AT CV: RRR Resp: Breath sounds clear bilaterally Abdomen:Soft, nontender Extremities: No edema in lower extremities bilaterally. Results & Data Results & Data Vital Signs (Past 12 Hours) Vital Signs Temp Pulse Resp BP Pulse Ox Pulse Ox O2 Del Method 09/18/24 09:34 36.6 C 97 Room Air 09/18/24 07:09 36.8 C 83 19 123/77 97 Room Air 09/18/24 02:56 36.3 C L 80 18 124/81 97 Room Air 09/18/24 00:00 97 O2 Del Method 09/18/24 09:34 09/18/24 07:09 09/18/24 02:56 09/18/24 00:00 Room Air Diagnostic Findings Abdomen/Pelvis CT 09/14/24 18:22 EXAMINATION: CT of the abdomen and pelvis performed after the administration of IV contrast TECHNIQUE: Helical CT images from the lung bases through the symphysis pubis were obtained with contrast. Coronal and sagittal reformatted images were generated at a workstation for further assessment. Dose reduction techniques were achieved by using automatic exposure control and/or adjustment of mA and/or kV according to patient size and/or use of iterative reconstruction technique. COMPARISON: None HISTORY: Abdominal pain FINDINGS: Lower chest: No consolidation. No pleural effusion or pneumothorax. Liver: No suspicious liver lesions. Portal veins appear patent. Gallbladder: No gallstones. No evidence of acute cholecystitis. Spleen: Normal size. Pancreas: No suspicious pancreatic lesions. The pancreatic duct is not dilated. Adrenal glands: No adrenal nodules. Kidneys: No hydronephrosis or obstructing renal stones. Few, small renal cysts. Bladder / Pelvic organs: A Stinson catheter is in place. There is mild air in the bladder. The bladder is incompletely distended. Mild contrast material seen dependently in the urinary bladder, and also the renal collecting systems and ureters. Bowel: No bowel obstruction. No abnormal bowel wall thickening. The appendix is unremarkable. Left colonic diverticulosis without diverticulitis. There is a large colonic stool burden suggesting constipation. Small sliding hiatal hernia. Lymph nodes: No retroperitoneal, mesenteric, or pelvic lymphadenopathy. Peritoneum / Retroperitoneum: No free fluid or air within the abdomen. Vessels: No infrarenal aortic aneurysm. Bones and soft tissues: No suspicious lesion in the bones. Small fatty umbilical hernia. IMPRESSION: No acute abnormality of the abdomen or pelvis. Electronically signed by Waldemar Cardenas 09-14-2024 7:[address] 09/14/24 18:22 CT cervical spine without IV contrast History: Trauma Comparison: None Technique: Using multidetector thin collimation helical acquisition technique, axial, coronal and sagittal CT images through the cervical spine were obtained without intravenous contrast. Dose reduction techniques were achieved by using automatic exposure control and/or adjustment of mA and/or kV according to patient size and/or use of iterative reconstruction technique. Findings: The cervical vertebrae are normally aligned. Straightened cervical lordosis. No acute fracture or subluxation. No prevertebral edema. Severe discogenic degenerative changes associated with small disc osteophyte complexes at C5-6 and C6-7. No abnormality of the paraspinous soft tissues. Impression: No acute fracture or traumatic subluxation. Electronically signed by Waldemar Cardenas 09-14-2024 7:24 PM Chest CTA 09/14/24 18:22 CT pulmonary angiogram with IV contrast History: Chest pain COMPARISON: None TECHNIQUE: CT angiography of the chest was performed without IV contrast followed by IV contrast, including 3D post processing CTA image reconstruction. Dose reduction techniques were achieved by using automatic exposure control and/or adjustment of mA and/or kV according to patient size and/or use of iterative reconstruction technique. FINDINGS: Diagnostic quality: Adequate There is no evidence for pulmonary embolism. The heart is not enlarged. Moderate coronary calcification. There is no pericardial effusion. There are no abnormally enlarged hilar or mediastinal lymph nodes. The central tracheobronchial tree is clear. The lungs are clear. There is no pleural effusion. Limited visualized upper abdomen. Small sliding hiatal hernia. No destructive osseous changes are seen. There is a healing, posterior right 10th rib fracture with healing callus, that is nondisplaced, other subacute or chronic. IMPRESSION: No evidence for pulmonary embolism. Healing, chronic or subacute posterior right rib 10 fracture. Electronically signed by Waldemar Cardenas 09-14-2024 7:24 PM Chest X-Ray 09/14/24 18:22 EXAM: XR chest 1V portable CLINICAL HISTORY: Sepsis. TECHNIQUE: An X-ray image of the chest is obtained in AP projection. COMPARISON: Prior chest X-ray dated 09/13/2024. FINDINGS: Pulmonary Parenchyma: No evidence of consolidation, collapse, or focal opacities. No pulmonary nodules are identified. No evidence of pleural effusion or pleural thickening. Heart and Mediastinum: Cardiac size cannot be accurately assessed in AP projection, however cardiac shadow appears within normal limits. Bony Thorax: Bony thorax appears intact without fractures or deformities. Soft Tissues: Soft tissues overlying the chest wall are unremarkable. Cardiac monitoring electrodes. IMPRESSION: 1. No acute cardiopulmonary abnormalities are identified. 2. No changes on interval. Electronically signed by Kyle Rebolledo 09-14-2024 8:[address] 09/14/24 18:22 CT head without contrast History: Trauma Comparison: None Technique: Using multidetector thin collimation helical acquisition technique, axial, coronal and sagittal CT images from the skull base to the vertex were obtained without intravenous contrast. Dose reduction techniques were achieved by using automatic exposure control and/or adjustment of mA and/or kV according to patient size and/or use of iterative reconstruction technique. Findings: No intracranial hemorrhage, mass-effect, or midline shift. The ventricles are proportionate to the cerebral sulci. The busby to white matter differentiation of the cerebral hemispheres is preserved. The basal cisterns are patent. The visualized paranasal sinuses are clear. Mastoid air cells are clear. Impression: No acute intracranial pathology. Electronically signed by Waldemar Cardenas 09-14-2024 7:[address] 09/17/24 08:18 CT head/brain wo con CLINICAL HISTORY: 64 years-old Male with dizziness, L arm weakness. Acute dizziness with stroke like symptoms TECHNIQUE: Multiple axial CT images of the head were obtained without contrast. A dose lowering technique was utilized adhering to the principles of ALARA. CT DOSE: 1026.18 mGy.cm COMPARISON: Head CT 09/14/2024, brain MRI 06/10/2023. FINDINGS: No acute intracranial hemorrhage, midline shift, intracranial mass, hydrocephalus, territorial ischemia or abnormal extra-axial collection. Ill- defined hypodense focus of the anterior right frontal lobe with asymmetric prominence of the subdural space measuring 4 mm on image 13 series 2 representing a change from the 09/14/2024 study. Adjacent 1.4 cm subcortical hypodense focus within the anterior right frontal lobe. The calvarium is intact. The paranasal sinuses, mastoid air cells, and middle ear cavities are clear. IMPRESSION: 1. No acute intracranial hemorrhage, midline shift or acute calvarial fracture. 2. Probable small right sided posttraumatic subdural hygroma. 3. 1.4 cm subcortical hypodense focus within the right frontal lobe adjacent to the hygroma. Given trauma history, a small contusion is favored. This could be assessed with an MRI of the brain. ACT 112: Negative or not required by law. The above report was generated using voice recognition software. It may contain grammatical, syntax or spelling errors. Electronically signed by: Kvng Huizar M.D. 09/17/2024 9:48 AM Head CTA 09/17/24 08:18 CTA ANGIOGRAPHY OF THE HEAD CLINICAL HISTORY: dizziness, L arm weakness COMPARISON STUDY: MRI of the brain June 10, 2023. Head CT September 14, 2024. TECHNIQUE: Helical axial images of the head were obtained following uneventful intravenous administration of 120 cc of Optiray. Sagittal and coronal reconstructions were viewed as well as maximal intensity projections on an independent 3-D workstation. Automated exposure control was utilized for the study. A dose lowering technique was utilized adhering to the principles of ALARA. FINDINGS: No acute intracranial hemorrhage is present. There is slight asymmetric prominence of the extra-axial space overlying the right frontal lobe. This is CSF attenuation and measures 4 mm in thickness. Within the adjacent right frontal lobe, on axial image 132 of 260, there is a 1.4 cm subcortical hypodense focus. The ventricular system is unremarkable. Basal cisterns are patent. The bilateral M1, M2, A1 and A2 segments are patent. There is mild plaque within the right cavernous carotid without stenosis. No intracranial aneurysm is patent. No intracranial vessel occlusion is present. IMPRESSION: 1. No intracranial vessel occlusion identified. No intracranial aneurysm. 2. Slight asymmetric prominence of the extra-axial space overlying the right frontal lobe which has CSF attenuation. This favors a small subdural hygroma, possibly traumatic. No acute hemorrhage identified. 3. 1.4 cm subcortical hypodense focus within the right frontal lobe adjacent to the hygroma. Given trauma history, a small contusion is favored. This could be assessed with an MRI of the brain. ACT 112: Negative or not required by law. Electronically signed by: Maximino Perason M.D. 09/17/2024 9:28 AM Neck CTA 09/17/24 08:18 CT angio neck with con CLINICAL HISTORY: dizziness, L arm weakness. COMPARISON STUDY: None TECHNIQUE: Following the IV administration of 120 of Optiray, CT angiogram of the neck was performed from the aortic arch to the skull base. Images are reviewed in the axial, sagittal, and coronal planes. 3-D MIPS images are created and assessed. IV contrast was administered without complication. All measurements were calculated based on NASCET criteria. A dose lowering technique was utilized adhering to the principles of ALARA. FINDINGS: There is spray and motion artifact inferiorly. There are mild ather osclerotic calcifications. Bilateral common and internal carotid and bilateral vertebral arteries show no significant narrowing or occlusion. Bilateral vertebral arteries are mildly diminutive beyond PICA, anatomic variant. IMPRESSION: No significant arterial narrowing or occlusion seen at the neck. ACT 112: Negative or not required by law. The above report was generated using voice recognition software. It may contain grammatical, syntax or spelling errors. Electronically signed by: Carlos Killian M.D. 09/17/2024 9:23 AM Brain MRI 09/17/24 10:06 MRI OF THE BRAIN WITHOUT AND WITH IV CONTRAST CLINICAL HISTORY: f/u head ct COMPARISON STUDY: MRI of the brain June 10, 2023. Head CT and CTA of the head performed earlier today. TECHNIQUE: Utilizing a 1.5 Denia magnet and dedicated coil, multiplanar, multiecho imaging of the brain was performed pre and postcontrast administration. IV administration of Gadavist contrast was uneventful. FINDINGS: There are no foci of restricted diffusion to suggest acute infarct. No acute intracranial hemorrhage is identified. The ventricular system is unremarkable. Basal cisterns are patent. There is a small CSF signal intensity extra-axial collection overlying the anterior right frontal lobe which corresponds to the finding on head CT performed earlier today. This measures 7 mm in thickness. There is minimal mass effect with subtle sulcal effacement. No additional extra-axial collections are present. There is a 1.6 cm nonenhancing subcortical T2 hyperintense focus within the adjacent portion of the right frontal lobe shown on axial T2-weighted sequence image 11 of 22. No additional foci of parenchymal signal abnormality are present. Calvarial signal is normal. There is no evidence for sinusitis. There is no mastoid fluid. There is no intracranial mass or pathologic enhancement. IMPRESSION: 1. Small CSF signal intensity extra-axial collection overlying the right frontal lobe which corresponds to the finding on head CT. This is suggestive of a small acute subdural hygroma. No acute hemorrhage identified. Short-term follow-up head CT in one to 2 days to ensure stability is recommended. 2. 1.6 cm nonenhancing subcortical T2 hyperintense focus within the adjacent portion of the right frontal lobe, also evident on the head CT. This is suggestive of a contusion which can be assessed on follow-up head CT. 3. No intracranial mass. No evidence for acute infarct. ACT 112: Negative or not required by law. Electronically signed by: Maximino Pearson M.D. 09/17/2024 1:17 PM Extremity Venous Study 09/17/24 20:34 Exam(s): US VENOUS LEFT UPPER EXTREMITY EXAM: US Duplex Left Upper Extremity Veins CLINICAL HISTORY: swelling. TECHNIQUE: Real-time duplex ultrasound scan of the left upper extremity veins integrating B-mode two-dimensional vascular structure, Doppler spectral analysis, color flow Doppler imaging and compression. COMPARISON: No relevant prior studies available. FINDINGS: Deep veins: Unremarkable. No DVT in the internal jugular, subclavian, axillary, or brachial veins. The veins demonstrate normal color flow, are normally compressible, with normal phasic flow and/or augmentation response. Superficial veins: Unremarkable. No thrombus in the visualized basilic and cephalic veins. Soft tissues: No acute findings. IMPRESSION: No evidence for deep vein thrombosis involving the left upper extremity. Electronically signed by: Cedric Albert MD 09/17/24 22:26 PM
--- NOTE | 2024-09-18 14:21 | Neurology Progress Note ---
Date of Service September 18, 2024 Assessment & Plan (1) Stroke-like symptoms: That was clearly investigated with no evidence of acute ischemic infarct, no neurologic reason for the patient to have difficulty with swallowing, the patient currently denies it. Suspect an underlying functional component. Plan Okay to discharge the patient from neurology standpoint. Continue aspirin for stroke prevention. Elastic stockings and elastic waistbands. Okay for discharge from neurology standpoint Subjective Telehealth Information I performed this visit using a real-time telehealth connection between my location and the patients location ([facility]). After connecting through interactive tele-video, patient was identified by name and date of and/or wristband check.Patient (or authorized healthcare client service representative) was informed that this was a telemedicine visit and it was being conducted confidentially over secure lines. My office door was closed and no one else was present in the room with me.Patient (or authorized healthcare client service representative) provided consent to proceed with the visit, expressed an understanding of privacy and security of the telemedicine visit, and gave permission to have a hospital client service representative in the room in order to assist with the visit and to conduct portions of the visit, as needed. I informed the patient (or authorized healthcare client service representative) that I reviewed their record and presented the opportunity for them to ask any questions regarding the visit today. The patient agreed to participate. The patient has presented to the hospital prior for episode of loss of consciousness when he fell backwards with evidence of contusion over the back of his head. CT scan of head did not show any intracranial findings. His symptoms were educated to orthostatic hypotension, I have evaluated him earlier and recommended elastic stockings, gentle hydration, advised the patient to stay hydrated over time. Advised the patient to rise up slowly from sitting position or laying down, explained to the patient that the blood pressure drops whenever he stands up which is called orthostasis. I was called and evaluated patient as he was reporting left-sided weakness and difficulty with swallowing, he did not have any issues over lunch, he denies any difficulty with swallowing to me, his exam has not been focal, to the primary team. Upon my evaluation he was able to lift both of his arms and denied any weaknesses. Review of Systems Negative except for the points mentioned in HPI Physical Exam General Constitutional: Appearance normally developed Head and face: normocephalic and atraumatic Eyes: no ptosis, no anisocoria, and no dysconjugate gaze Respiratory: normal effort Cardiovascular: regular rhythm and regular rate Abdomen: non distended Skin: no rashes, lesions, or ulcers noted Psychiatric: normal judgement and insight, normal mood, and normal affect NEUROLOGIC EXAMINATION: Mental Status:alert, oriented to time, place, person, normal recent memory, normal remote memory, normal attention span, normal concentration, normal language and normal fund of knowledge Cranial Nerves: CN 2 - no visual defect on confrontation and pupils round, equal, reactive to light CN 3, 4, 6 - extra-ocular movements intact and no nystagmus CN 5 - facial sensation intact CN 7 - no facial asymmetry CN 8 - intact hearing CN 9, 10 - palate symmetric, normal gag CN 11 - good shoulder shrug CN 12 - tongue midline MOTOR: Strength was at least antigravity throughout, Pronator drift was absent and There were no abnormal movements SENSATION: intact and symmetric to pinprick, light touch, vibration and joint position GAIT: stable, no ataxia and can perform tandem walking COORDINATION: no ataxia with finger to nose testing and heel to quesada testing REFLEXES: cannot assess over telemedicine NIH Stroke Scale: 1a. Level of Consciousness: alert = 0 1b. LOC Questions: (month, age): both correct = 0 1c. LOC Commands (open and close eyes, make fist and let go using non-paretic hand): obeys both correctly = 0 2. Best Gaze (eyes open and patient follows examiner's finger or face): normal = 0 3. Visual (visual threat or finger counting in each quadrant): no loss = 0 4. Facial Palsy (show teeth, raise eye brows and squeeze eyes shut, or grimace symmetry in a comatose patient): normal = 0 5a. Motor Arm (extend arm (palms down) to 90 degrees and score drift/movement (10 seconds) - Left: no drift = 0 5b. Motor Arm: (extend arm (palms down) to 90 degrees and score drift/movement (10 seconds) - Right: no drift = 0 6a. Motor Leg (elevate leg 30 degrees and score drift/ movement (5 seconds) - Left: no drift = 0 6b. Motor Leg (elevate leg 30 degrees and score drift/ movement (5 seconds) - Right: no drift = 0 7. Limb Ataxia (finger to nose, heel down quesada): absent = 0 8. Sensory (pin prick to face, arm, trunk and leg, compare side to side): normal = 0 9. Best Language: no aphasia = 0 10. Dysarthria (evaluate speech clarity by patient repeating listed words): normal articulation = 0 11. Extinction and Inattention: no neglect = 0 Total: 0 Results & Data Vital Signs (Past 12 Hours) Vital Signs Temp Pulse Pulse Resp BP Pulse Ox O2 Del Method 09/18/24 13:00 88 09/18/24 11:00 Room Air 09/18/24 09:34 36.6 C 97 Room Air 09/18/24 07:09 36.8 C 83 19 123/77 97 Room Air 09/18/24 02:56 36.3 C L 80 18 124/81 97 Room Air Laboratory Results Laboratory Results - last 24 hr 09/17/24 09/17/24 09/18/24 16:23 20:15 07:05 WBC RBC Hgb Hct MCV MCH MCHC RDW Std Deviation RDW Coeff of Janes Plt Count MPV Immature Gran % (Auto) Neut % (Auto) Lymph % (Auto) [place] % (Auto) Eos % (Auto) Baso % (Auto) Neut # (Auto) Lymph # (Auto) [place] # (Auto) Eos # (Auto) Baso # (Auto) Immature Gran # (Auto) Sodium Potassium Chloride Carbon Dioxide Anion Gap BUN Creatinine Est Cr Clr Drug Dosing eGFR BUN/Creatinine Ratio Glucose POC Glucose 91 85 85 Calcium Phosphorus Magnesium 09/18/24 09/18/24 07:18 11:20 WBC 6.44 RBC 4.64 L Hgb 14.0 Hct 41.4 L MCV 89.2 MCH 30.2 MCHC 33.8 RDW Std Deviation 39.7 RDW Coeff of Janes 12.1 Plt Count 235 MPV 9.7 Immature Gran % (Auto) 0.2 Neut % (Auto) 59.9 Lymph % (Auto) 29.8 [place] % (Auto) 7.0 Eos % (Auto) 2.5 Baso % (Auto) 0.6 Neut # (Auto) 3.86 Lymph # (Auto) 1.92 [place] # (Auto) 0.45 Eos # (Auto) 0.16 Baso # (Auto) 0.04 Immature Gran # (Auto) 0.01 Sodium 140 Potassium 4.1 Chloride 105 Carbon Dioxide 31 Anion Gap 4 BUN 6 Creatinine 0.74 Est Cr Clr Drug Dosing 113.0 eGFR 101.18 BUN/Creatinine Ratio 8.1 L Glucose 93 POC Glucose 102 H Calcium 9.2 Phosphorus 3.6 D Magnesium 2.0 Diagnostic Findings Extremity Venous Study 09/17/24 20:34 Exam(s): US VENOUS LEFT UPPER EXTREMITY EXAM: US Duplex Left Upper Extremity Veins CLINICAL HISTORY: swelling. TECHNIQUE: Real-time duplex ultrasound scan of the left upper extremity veins integrating B-mode two-dimensional vascular structure, Doppler spectral analysis, color flow Doppler imaging and compression. COMPARISON: No relevant prior studies available. FINDINGS: Deep veins: Unremarkable. No DVT in the internal jugular, subclavian, axillary, or brachial veins. The veins demonstrate normal color flow, are normally compressible, with normal phasic flow and/or augmentation response. Superficial veins: Unremarkable. No thrombus in the visualized basilic and cephalic veins. Soft tissues: No acute findings. IMPRESSION: No evidence for deep vein thrombosis involving the left upper extremity. Electronically signed by: Cedric Albert MD 09/17/24 22:26 PM Medications Administered Home Medications Medication Instructions Recorded Confirmed Last Taken acetaminophen 500 mg tablet 1,000 mg PO BID PRN DIRECTED 09/14/24 09/14/24 Unknown cetirizine 10 mg tablet (Allergy 10 mg PO DAILY 09/14/24 09/14/24 Unknown Relief (cetirizine)) docusate sodium 100 mg capsule 100 mg PO BID PRN Constipation 09/14/24 09/14/24 Unknown (Colace) duloxetine 60 mg capsule,delayed 60 mg PO DAILY 09/14/24 09/14/24 Unknown release fluticasone 100 mcg-salmeterol 50 1 inh inhalation BID 09/14/24 09/14/24 Unknown mcg/dose blistr powdr for inhalation (Advair Diskus) furosemide 40 mg tablet 40 mg PO DAILY 09/14/24 09/14/24 Unknown lisinopril 20 mg tablet 20 mg PO DAILY 09/14/24 09/14/24 Unknown multivitamin 1 tab PO DAILY 09/14/24 09/14/24 Unknown olanzapine 5 mg tablet (Zyprexa) 5 mg PO BID 09/14/24 09/14/24 Unknown omeprazole 20 mg capsule,delayed 20 mg PO QAM 09/14/24 09/14/24 Unknown release potassium chloride 10 mEq 20 meq PO DAILY 09/14/24 09/14/24 Unknown tablet,extended release quetiapine 50 mg tablet (Seroquel) 150 mg PO HS 09/14/24 09/14/24 Unknown tamsulosin 0.4 mg capsule 0.4 mg PO DAILY 09/14/24 09/14/24 Unknown Active Medications Generic Name Dose Route Start Last Admin Trade Name Danteq PRN Reason Stop Dose Admin Acetaminophen 650 mg 09/14/24 23:32 09/16/24 06:11 Acetaminophen 325 Mg Tab PO 10/14/24 23:31 650 mg Q4H PRN Administration Pain or Fever Cetirizine HCl 10 mg 09/15/24 09:00 09/18/24 08:20 Cetirizine Hcl 10 Mg Tablet PO 10/15/24 08:59 10 mg DAILY DEANDRE Administration Doxycycline Hyclate 100 mg 09/18/24 09:00 09/18/24 08:18 Doxycycline Hyclate 100 Mg Cap PO 09/25/24 08:59 100 mg BID DEANDRE Administration Duloxetine HCl 60 mg 09/15/24 09:00 09/18/24 08:20 Duloxetine Hcl 60 Mg Cap PO 10/15/24 08:59 60 mg DAILY DEANDRE Administration Fluticasone/Vilanterol 1 puffs 09/15/24 09:00 09/18/24 08:18 Fluticasone/Vilanterol 100/25mcg 14 Puffs/Inhaler INH 10/15/24 08:59 1 puffs DAILY DEANDRE Administration Heparin Sodium (Porcine) 5,000 units 09/16/24 21:00 09/18/24 08:25 Heparin Sod 5,000 Unit/0.5 Ml Vial SQ 10/16/24 20:59 5,000 units Q12 DEANDRE Administration Insulin Aspart 0 units 09/15/24 16:30 09/18/24 11:38 Insulin Aspart Per Unit Charge SC 10/15/24 16:29 Not Given ACHS DEANDRE Lisinopril 5 mg 09/16/24 09:00 09/16/24 08:14 Lisinopril 5 Mg Tab PO 10/16/24 08:59 5 mg DAILY DEANDRE Administration Multivitamins 1 tab 09/15/24 09:00 09/18/24 08:19 Multivitamin Tab PO 10/15/24 08:59 1 tab DAILY DEANDRE Administration Mupirocin 1 appln 09/16/24 21:00 09/18/24 08:20 Mupirocin 2% Oint 22 Gm Tube EXT 10/16/24 20:59 1 appln BID DEANDRE Administration Olanzapine 5 mg 09/14/24 23:32 09/18/24 08:20 Olanzapine 5 Mg Tablet PO 10/14/24 23:31 5 mg BID DEANDRE Administration Pantoprazole Sodium 40 mg 09/15/24 09:00 09/18/24 08:19 Pantoprazole 40 Mg Tab PO 10/15/24 08:59 40 mg QAM DEANDRE Administration Quetiapine Fumarate 150 mg 09/15/24 21:00 09/17/24 20:15 Quetiapine Fumarate 25 Mg Tablet PO 10/15/24 20:59 150 mg HS DEANDRE Administration Tamsulosin HCl 0.4 mg 09/15/24 09:00 09/16/24 08:06 Tamsulosin Hcl 0.4 Mg Cap PO 10/15/24 08:59 0.4 mg DAILY DEANDRE Administration
[2024-09-18] MEDS: ASPIRIN 81 MG ECTAB PO SCH (15:53)
[2024-09-18] MEDS ORDERED: POLYETHYLENE (MIRALAX) 17 GM PACK PO PRN (21:39)
[2024-09-18] MEDS: POLYETHYLENE (MIRALAX) 17 GM PACK PO STA (21:54)
[2024-09-19 06:24] LABS: Basophils # (auto) 0.03 K/uL (0.00-0.20); Basophils % (auto) 0.5 %; Eosinophils # (auto) 0.21 K/uL (0.00-0.50); Eosinophils % (auto) 3.7 %; Hematocrit (blood only) 41.6 % (42.0-52.0); Hemoglobin 14.1 g/dl (14.0-18.0); Immature Granulocytes # (auto) 0.01 K/uL (0.01-0.20); Immature Granulocytes % (auto) 0.2 %; Lymphocytes # (auto) 2.12 K/uL (1.20-3.40); Mean Corpuscular Hemoglobin 30.5 pg (25.0-34.0); Mean Corpuscular Hgb Conc 33.9 g/dL (32.0-36.0); Mean Corpuscular Volume 89.8 fL (80.0-100.0); Mean Platelet Volume 9.9 fL (9.4-12.4); Monocytes # (auto) 0.51 K/uL (0.11-0.59); Monocytes % (auto) 8.9 %; Neutrophils # (auto) 2.85 K/uL (1.40-6.50); Neutrophils % (auto) 49.7 %; Platelet Count 236 K/uL (130-400); RDW Coefficient of Variation 12.5 % (11.5-14.5); Red Blood Count 4.63 M/uL (4.70-6.10); White Blood Count 5.73 K/ul (4.8-10.8)
[2024-09-19 06:59] LABS: BUN Creatinine Ratio 14.5 (10-20); Calcium 9.1 mg/dl (8.6-10.3); Creatinine Clr Calc Pharmacy 111.7 ml/min; Magnesium 1.9 mg/dl (1.7-2.4); Phosphorus 3.7 mg/dl (2.5-4.9); Potassium 3.7 mmol/L (3.5-5.1)
[2024-09-19] MEDS: DOCUSATE SODIUM/SENNA 50/8.6MG TAB PO SCH (09:13)
[2024-09-19 11:30] VITALS: RESP 16
--- NOTE | 2024-09-19 12:01 | Hospitalist Progress Note ---
Date of Service September 19, 2024 Assessment & Plan (1) Syncope and collapse: Plan 64-year-old female with past medical history significant for type 2 diabetes, dyslipidemia, hypertension, GERD, carpal tunnel syndrome, erythrocytosis, depression, personality disorder coming from [facility] with syncope/seizures. Patient was in the ER yesterday with syncope and was thought to be secondary to orthostatic hypotension and also acute on chronic urinary retention. Syncope Passed out for about 10 minutes and was confused for about half hour Second episode over the past [address] head no acute findings CTA chest no pulmonary embolism Cervical spine CT no acute findings CT abdomen pelvis no acute findings EKG shows junctional rhythm Echo noting EF >70%, hyperdynamic activity Orthostatic vitals initially concerning Initial lactic acid was 3 and repeat is 1.8. Troponin unremarkable Procalcitonin negative UA unremarkable Drug screen unremarkable COVID, flu and RSV negative EEG pending Seizure precautions Cardiology was consulted, noted/stated the following: -likely in setting of orthostatic hypotension related to medications -recommended the following: "...Encourage hydration, Monitor telemetry, Hold all antihypertensive therapies and furosemide, Consider discontinuation of Flomax...Add lower extremity compression stockings..." Neurology also consulted, appreciate recs. Noted/stated the following: "...Likely related to orthostatic hypotension, agree with cardiology's plan. Event is less likely to represent a seizure no need for seizure workup...Hydration, elastic stockings, consider abdominal elastic waistbands...Medication adjustments regarding his Flomax that contributes to orthostatic hypotension...Consider adjusting his diabetic medications..." Home Lisinopril, lasix and Flomax currently on hold IV fluids, TEDs Continue to monitor BP improved 09/18- pt noting continued weakness, PT/OT ordered, Neurology consulted once more. 09/19- awaiting PT//OT recs Head/Scalp Abrasion Due to fall Mupirocin BID Bandages as needed TDAP up to date, chart review shows last in 2021 Continue to monitor Episode of dizziness and weakness Pt states that he was dizzy and weak on the left overnight and into the AM of 09/[address], head and neck CTA unremarkable Brain MRI with noted hygroma and contusion He also notes, he is having trouble swallowing- speech consult placed- recommending pureed diet as pt edentulous Continue to monitor 09/18- pt noting continued weakness, PT/OT ordered, Neurology consulted once more. Started on baby aspirin daily History of hypertension Was on lisinopril - dose changed as above, has since been placed on hold Holding Lasix and potassium supplements Appears to be on Lasix for lower extremity edema Diabetes As outpatient was on Jardiance Seems currently not on any medications Per halfway guards patient not eating much since last 2 months sliding scale monitor blood sugars, current HbA1c level 5.8% Depression Personality disorder On Zyprexa, Seroquel and duloxetine GERD On omeprazole Urinary retention Status post Stinson placement on admission On Flomax, currently on hold Follow-up with urology Diet: DMII, safe tray pureed DVT prophylaxis: SCDs, heparin SQ Dispo: Back to the halfway once medically stable Admission and Anticipated Discharge Date Admission Date: September 14, 2024 Subjective pt was seen laying in bed, guards at bedside. Stated that he felt weak had not worked with PT or OT at the time of exam Review of Systems Review of Systems: All systems reviewed & are unremarkable except as noted in Subjective Physical Exam Physical Exam: General: Alert, oriented. No acute distress Skin: scalp with noted abrasion Psych: Appropriate mood and affect Neuro:AAOx3, no gross deficits, strength 5/5 bilaterally, sensation grossly intact, no facial droop HEENT: NC/AT CV: RRR Resp: Breath sounds clear bilaterally Abdomen:Soft, nontender Extremities: No edema in lower extremities bilaterally. Results & Data Results & Data Vital Signs (Past 12 Hours) Vital Signs Temp Pulse Pulse Resp BP Pulse Ox O2 Del Method 09/19/24 11:30 37.1 C 82 16 116/79 96 Room Air 09/19/24 09:26 Room Air 09/19/24 08:48 63 09/19/24 07:40 36.9 C 18 96 Room Air 09/19/24 03:08 36.7 C 77 12 116/77 95 Room Air 09/19/24 00:09 64
[2024-09-19 15:35] VITALS: BP 120/73; PULSE 78; TEMP 98.6; O2SAT 98
--- NOTE | 2024-09-19 16:14 | Discharge Summary ---
Discharge Summary Date of Service September 19, 2024 Principal Dx & Hospital Course #1 = Principal Diagnosis (1) Syncope and collapse: Plan 64-year-old female with past medical history significant for type 2 diabetes, dyslipidemia, hypertension, GERD, carpal tunnel syndrome, erythrocytosis, depression, personality disorder coming from [facility] with syncope/seizures. Patient was in the ER yesterday with syncope and was thought to be secondary to orthostatic hypotension and also acute on chronic urinary retention. 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 Troponin unremarkable Procalcitonin negative UA unremarkable Drug screen unremarkable COVID, flu and RSV negative EEG read pending on discharge Seizure precautions Cardiology was consulted, noted/stated the following: -likely in setting of orthostatic hypotension related to medications -recommended the following: "...Encourage hydration, Monitor telemetry, Hold all antihypertensive therapies and furosemide, Consider discontinuation of Flomax...Add lower extremity compression stockings..." Neurology also consulted, appreciate recs. Noted/stated the following: "...Likely related to orthostatic hypotension, agree with cardiology's plan. Event is less likely to represent a seizure no need for seizure workup...Hydration, elastic stockings, consider abdominal elastic waistbands...Medication adjustments regarding his Flomax that contributes to orthostatic hypotension...Consider adjusting his diabetic medications...". then on 09/18/24 after evaluation for stroke-like symptoms noted..."Okay to discharge the patient from neurology standpoint....Continue aspirin for stroke prevention....Elastic stockings and elastic waistbands...Okay for discharge from neurology standpoint..." Home Lisinopril, lasix and Flomax discontinued on discharge. Pt will likely need Urology followup after discharge with discontinuation of flomax and need for gallegos IV fluids, TEDs BP improved on day of discharge and was 120/73 at that time. Pt worked with PT and OT services who noted that he was stable for discharge and return to prior living arrangements. Discussed case with ALTAGRACIA Villalobos, provider administrative assistant front desk at the halfway on the day of discharge who stated that they were able to accommodate the pt for discharge based on the above. Head/Scalp Abrasion Due to fall Mupirocin BID while hospitalized Bandages as needed TDAP up to date, chart review shows last in 2021 Left arm bruising Venous doppler negative Was on empiric doxycycline, discontinued Episode of dizziness and weakness Pt states that he was dizzy and weak on the left overnight and into the AM of 09/[address], head and neck CTA unremarkable Brain MRI with noted hygroma and contusion He also notes, he is having trouble swallowing- speech consult placed- recommending pureed diet as pt edentulous On 09/18- pt noting continued weakness, PT/OT ordered, Neurology consulted once more. Started on baby aspirin daily per Neurology recs. History of hypertension Lisinopril, Lasix and potassium supplements all discontinued with syncope and orthostasis per Cardiology Appears to be on Lasix for lower extremity edema PCP followup for continued monitoring Diabetes As outpatient was on Jardiance Appears to not be on any medications currently Per halfway guards patient not eating much for the last 2 months sliding scale monitor blood sugars, current HbA1c level 5.8% Depression Personality disorder On Zyprexa, Seroquel and duloxetine, continue GERD On omeprazole Urinary retention Status post Gallegos placement on admission Flomax discontinued Pt will likely need Urology followup after discharge with discontinuation of flomax and need for gallegos Confirmed with ALTAGRACIA Villalobos, provider administrative assistant front desk at the [facility] on the day of discharge that pt can be discharged with gallegos catheter. Notes For Next Care Provider Will likely need Urology followup after discharge with discontinuation of flomax and need for gallegos Medication Changes From Visit Per Cardiology, DISCONTINUE: -lisinopril, lasix and flomax Per Neurology, start baby aspirin Admission HPI Per Admitting Provider 64-year-old female with past medical history significant for type 2 diabetes, dyslipidemia, hypertension, GERD, carpal tunnel syndrome, erythrocytosis, depression, personality disorder coming from [facility] with syncope/seizures. Patient is in the ER yesterday with syncope and was thought to be secondary to orthostatic hypotension and also acute on chronic urinary retention. Imaging studies were okay except showed right parietal scalp laceration. Was given fluids. Was placed on Gallegos catheter and started on Flomax and discharged back to [facility]. Today again patient is brought in because of syncope-like episode. Patient was noticed on the camera that he fell backwards. He seemed laid on the ground for 10 minutes. No shaking of the body. No biting of tongue. Seems he rolled his eyes backwards and fell down. No incontinence during the episode. After he woke up he was confused until he came to the hospital for about half hour. Currently alert and oriented. Has occipital laceration. Has some headache. Has some pain in the left ear ,side of the injury. Says he felt dizzy and blacked out. Says lately he is feeling dizzy. Vision is okay. No runny nose or sore throat. No cough. No fevers. Denies any palpitations. Denies chest pain. Currently feeling somewhat short of breath. Denies any nausea. No abdominal pain. Normal bowel movements. Currently hemodynamics are okay. As per the [facility] guards patient seems not eating much since last 2 months. Past medical history. As mentioned above Past surgical history. Carpal tunnel surgery bilaterally. Colonoscopy. Social history. Quit smoking 1999. Smoked 1 pack a day 15 years. Alcohol occasional. No drug use. Family history. Mother had diabetes. Hypertension. Heart disorder. Father had CHF. Sister has diabetes. Hypertension. Brother had hypertension and of stroke at age 31. Admission Exam Per Admitting Provider General- Not in distress Head- occipital laceration Eyes- PERRL. ENT- oropharynx clear Neck- supple, no JVD. Lungs- clear to auscultation no wheezing or crackles Heart- regular rate and rhythm; no murmur, no gallop. Abdomen- normal bowel sounds, soft, nontender, no distension Extremities- no pretibial edema, no erythema seen Neuro- alert, oriented x 3; PERRL, no facial palsy; no dysarthria; motor 5/5 bilaterally; no pronator drift, co ordination of movements normal Discharge Exam General: Alert, oriented. No acute distress Skin: scalp with noted abrasion, improved Psych: Appropriate mood and affect Neuro:AAOx3, no gross deficits, strength 5/5 bilaterally, sensation grossly intact, no facial droop HEENT: NC/AT CV: RRR Resp: Breath sounds clear bilaterally Abdomen:Soft, nontender Extremities: No edema in lower extremities bilaterally. Bruising in left antecubital fossa Updated Medication List Medication Instructions Recorded Confirmed Type acetaminophen 500 mg tablet 1,000 mg PO BID PRN DIRECTED 09/14/24 09/14/24 History cetirizine 10 mg tablet (Allergy 10 mg PO DAILY 09/14/24 09/14/24 History Relief (cetirizine)) docusate sodium 100 mg capsule 100 mg PO BID PRN Constipation 09/14/24 09/14/24 History (Colace) duloxetine 60 mg capsule,delayed 60 mg PO DAILY 09/14/24 09/14/24 History release fluticasone 100 mcg-salmeterol 50 1 inh inhalation BID 09/14/24 09/14/24 History mcg/dose blistr powdr for inhalation (Advair Diskus) multivitamin 1 tab PO DAILY 09/14/24 09/14/24 History olanzapine 5 mg tablet (Zyprexa) 5 mg PO BID 09/14/24 09/14/24 History omeprazole 20 mg capsule,delayed 20 mg PO QAM 09/14/24 09/14/24 History release quetiapine 50 mg tablet (Seroquel) 150 mg PO HS 09/14/24 09/14/24 History aspirin 81 mg tablet,delayed 81 mg PO QAM #30 tabs 09/19/24 Rx release Hospital Stay Data Consultations 09/14/24 20:44 ED Decision to Admit Stat 09/15/24 08:00 Consult Cardiology Routine Consult Neurology Routine 09/18/24 09:10 Consult Neurology Routine Diagnostic Imagining Performed 09/14/24 18:22 CT abd pelvis IV con only Stat CT angio chest PE protocol Stat CT cervical spine wo con Stat CT head/brain wo con Stat 09/17/24 08:18 CT angio head w con Stat CT angio neck with con Stat Head CT [CT head/brain wo con] Stat 09/17/24 10:06 MRI Brain [MR brain wo/w con] Urgent 09/17/24 20:34 US venous duplex arm [US venous doppler UE LT] Stat Abdomen/Pelvis CT 09/14/24 18:22 EXAMINATION: CT of the abdomen and pelvis performed after the administration of IV contrast TECHNIQUE: Helical CT images from the lung bases through the symphysis pubis were obtained with contrast. Coronal and sagittal reformatted images were generated at a workstation for further assessment. Dose reduction techniques were achieved by using automatic exposure control and/or adjustment of mA and/or kV according to patient size and/or use of iterative reconstruction technique. COMPARISON: None HISTORY: Abdominal pain FINDINGS: Lower chest: No consolidation. No pleural effusion or pneumothorax. Liver: No suspicious liver lesions. Portal veins appear patent. Gallbladder: No gallstones. No evidence of acute cholecystitis. Spleen: Normal size. Pancreas: No suspicious pancreatic lesions. The pancreatic duct is not dilated. Adrenal glands: No adrenal nodules. Kidneys: No hydronephrosis or obstructing renal stones. Few, small renal cysts. Bladder / Pelvic organs: A Gallegos catheter is in place. There is mild air in the bladder. The bladder is incompletely distended. Mild contrast material seen dependently in the urinary bladder, and also the renal collecting systems and ureters. Bowel: No bowel obstruction. No abnormal bowel wall thickening. The appendix is unremarkable. Left colonic diverticulosis without diverticulitis. There is a large colonic stool burden suggesting constipation. Small sliding hiatal hernia. Lymph nodes: No retroperitoneal, mesenteric, or pelvic lymphadenopathy. Peritoneum / Retroperitoneum: No free fluid or air within the abdomen. Vessels: No infrarenal aortic aneurysm. Bones and soft tissues: No suspicious lesion in the bones. Small fatty umbilical hernia. IMPRESSION: No acute abnormality of the abdomen or pelvis. Electronically signed by Waldemar Cardenas 09-14-2024 7:[address] 09/14/24 18:22 CT cervical spine without IV contrast History: Trauma Comparison: None Technique: Using multidetector thin collimation helical acquisition technique, axial, coronal and sagittal CT images through the cervical spine were obtained without intravenous contrast. Dose reduction techniques were achieved by using automatic exposure control and/or adjustment of mA and/or kV according to patient size and/or use of iterative reconstruction technique. Findings: The cervical vertebrae are normally aligned. Straightened cervical lordosis. No acute fracture or subluxation. No prevertebral edema. Severe discogenic degenerative changes associated with small disc osteophyte complexes at C5-6 and C6-7. No abnormality of the paraspinous soft tissues. Impression: No acute fracture or traumatic subluxation. Electronically signed by Waldemar Cardenas 09-14-2024 7:24 PM Chest CTA 09/14/24 18:22 CT pulmonary angiogram with IV contrast History: Chest pain COMPARISON: None TECHNIQUE: CT angiography of the chest was performed without IV contrast followed by IV contrast, including 3D post processing CTA image reconstruction. Dose reduction techniques were achieved by using automatic exposure control and/or adjustment of mA and/or kV according to patient size and/or use of iterative reconstruction technique. FINDINGS: Diagnostic quality: Adequate There is no evidence for pulmonary embolism. The heart is not enlarged. Moderate coronary calcification. There is no pericardial effusion. There are no abnormally enlarged hilar or mediastinal lymph nodes. The central tracheobronchial tree is clear. The lungs are clear. There is no pleural effusion. Limited visualized upper abdomen. Small sliding hiatal hernia. No destructive osseous changes are seen. There is a healing, posterior right 10th rib fracture with healing callus, that is nondisplaced, other subacute or chronic. IMPRESSION: No evidence for pulmonary embolism. Healing, chronic or subacute posterior right rib 10 fracture. Electronically signed by Waldemar Cardenas 09-14-2024 7:24 PM Chest X-Ray 09/14/24 18:22 EXAM: XR chest 1V portable CLINICAL HISTORY: Sepsis. TECHNIQUE: An X-ray image of the chest is obtained in AP projection. COMPARISON: Prior chest X-ray dated 09/13/2024. FINDINGS: Pulmonary Parenchyma: No evidence of consolidation, collapse, or focal opacities. No pulmonary nodules are identified. No evidence of pleural effusion or pleural thickening. Heart and Mediastinum: Cardiac size cannot be accurately assessed in AP projection, however cardiac shadow appears within normal limits. Bony Thorax: Bony thorax appears intact without fractures or deformities. Soft Tissues: Soft tissues overlying the chest wall are unremarkable. Cardiac monitoring electrodes. IMPRESSION: 1. No acute cardiopulmonary abnormalities are identified. 2. No changes on interval. Electronically signed by Kyle Rebolledo 09-14-2024 8:[address] 09/14/24 18:22 CT head without contrast History: Trauma Comparison: None Technique: Using multidetector thin collimation helical acquisition technique, axial, coronal and sagittal CT images from the skull base to the vertex were obtained without intravenous contrast. Dose reduction techniques were achieved by using automatic exposure control and/or adjustment of mA and/or kV according to patient size and/or use of iterative reconstruction technique. Findings: No intracranial hemorrhage, mass-effect, or midline shift. The ventricles are proportionate to the cerebral sulci. The busby to white matter differentiation of the cerebral hemispheres is preserved. The basal cisterns are patent. The visualized paranasal sinuses are clear. Mastoid air cells are clear. Impression: No acute intracranial pathology. Electronically signed by aWldemar Cardenas 09-14-2024 7:[address] 09/17/24 08:18 CT head/brain wo con CLINICAL HISTORY: 64 years-old Male with dizziness, L arm weakness. Acute dizziness with stroke like symptoms TECHNIQUE: Multiple axial CT images of the head were obtained without contrast. A dose lowering technique was utilized adhering to the principles of ALARA. CT DOSE: 1026.18 mGy.cm COMPARISON: Head CT 09/14/2024, brain MRI 06/10/2023. FINDINGS: No acute intracranial hemorrhage, midline shift, intracranial mass, hydrocephalus, territorial ischemia or abnormal extra-axial collection. Ill- defined hypodense focus of the anterior right frontal lobe with asymmetric prominence of the subdural space measuring 4 mm on image 13 series 2 representing a change from the 09/14/2024 study. Adjacent 1.4 cm subcortical hypod ense focus within the anterior right frontal lobe. The calvarium is intact. The paranasal sinuses, mastoid air cells, and middle ear cavities are clear. IMPRESSION: 1. No acute intracranial hemorrhage, midline shift or acute calvarial fracture. 2. Probable small right sided posttraumatic subdural hygroma. 3. 1.4 cm subcortical hypodense focus within the right frontal lobe adjacent to the hygroma. Given trauma history, a small contusion is favored. This could be assessed with an MRI of the brain. ACT 112: Negative or not required by law. The above report was generated using voice recognition software. It may contain grammatical, syntax or spelling errors. Electronically signed by: Kvng Huizar M.D. 09/17/2024 9:48 AM Head CTA 09/17/24 08:18 CTA ANGIOGRAPHY OF THE HEAD CLINICAL HISTORY: dizziness, L arm weakness COMPARISON STUDY: MRI of the brain June 10, 2023. Head CT September 14, 2024. TECHNIQUE: Helical axial images of the head were obtained following uneventful intravenous administration of 120 cc of Optiray. Sagittal and coronal reconstructions were viewed as well as maximal intensity projections on an independent 3-D workstation. Automated exposure control was utilized for the study. A dose lowering technique was utilized adhering to the principles of ALARA. FINDINGS: No acute intracranial hemorrhage is present. There is slight asymmetric prominence of the extra-axial space overlying the right frontal lobe. This is CSF attenuation and measures 4 mm in thickness. Within the adjacent right frontal lobe, on axial image 132 of 260, there is a 1.4 cm subcortical hypodense focus. The ventricular system is unremarkable. Basal cisterns are patent. The bilateral M1, M2, A1 and A2 segments are patent. There is mild plaque within the right cavernous carotid without stenosis. No intracranial aneurysm is patent. No intracranial vessel occlusion is present. IMPRESSION: 1. No intracranial vessel occlusion identified. No intracranial aneurysm. 2. Slight asymmetric prominence of the extra-axial space overlying the right frontal lobe which has CSF attenuation. This favors a small subdural hygroma, possibly traumatic. No acute hemorrhage identified. 3. 1.4 cm subcortical hypodense focus within the right frontal lobe adjacent to the hygroma. Given trauma history, a small contusion is favored. This could be assessed with an MRI of the brain. ACT 112: Negative or not required by law. Electronically signed by: Maximino Pearson M.D. 09/17/2024 9:28 AM Neck CTA 09/17/24 08:18 CT angio neck with con CLINICAL HISTORY: dizziness, L arm weakness. COMPARISON STUDY: None TECHNIQUE: Following the IV administration of 120 of Optiray, CT angiogram of th e neck was performed from the aortic arch to the skull base. Images are reviewed in the axial, sagittal, and coronal planes. 3-D MIPS images are created and assessed. IV contrast was administered without complication. All measurements were calculated based on NASCET criteria. A dose lowering technique was utilized adhering to the principles of ALARA. FINDINGS: There is spray and motion artifact inferiorly. There are mild atherosclerotic calcifications. Bilateral common and internal carotid and bilateral vertebral arteries show no significant narrowing or occlusion. Bilateral vertebral arteries are mildly diminutive beyond PICA, anatomic variant. IMPRESSION: No significant arterial narrowing or occlusion seen at the neck. ACT 112: Negative or not required by law. The above report was generated using voice recognition software. It may contain grammatical, syntax or spelling errors. Electronically signed by: Carlos Killian M.D. 09/17/2024 9:23 AM Brain MRI 09/17/24 10:06 MRI OF THE BRAIN WITHOUT AND WITH IV CONTRAST CLINICAL HISTORY: f/u head ct COMPARISON STUDY: MRI of the brain June 10, 2023. Head CT and CTA of the head performed earlier today. TECHNIQUE: Utilizing a 1.5 Denia magnet and dedicated coil, multiplanar, multiecho imaging of the brain was performed pre and postcontrast administration. IV administration of Gadavist contrast was uneventful. FINDINGS: There are no foci of restricted diffusion to suggest acute infarct. No acute intracranial hemorrhage is identified. The ventricular system is unremarkable. Basal cisterns are patent. There is a small CSF signal intensity extra-axial collection overlying the anterior right frontal lobe which corresponds to the finding on head CT performed earlier today. This measures 7 mm in thickness. There is minimal mass effect with subtle sulcal effacement. No additional extra-axial collections are present. There is a 1.6 cm nonenhancing subcortical T2 hyperintense focus within the adjacent portion of the right frontal lobe shown on axial T2-weighted sequence image 11 of 22. No additional foci of parenchymal signal abnormality are present. Calvarial signal is normal. There is no evidence for sinusitis. There is no mastoid fluid. There is no intracranial mass or pathologic enhancement. IMPRESSION: 1. Small CSF signal intensity extra-axial collection overlying the right frontal lobe which corresponds to the finding on head CT. This is suggestive of a small acute subdural hygroma. No acute hemorrhage identified. Short-term follow-up head CT in one to 2 days to ensure stability is recommended. 2. 1.6 cm nonenhancing subcortical T2 hyperintense focus within the adjacent portion of the right frontal lobe, also evident on the head CT. This is suggestive of a contusion which can be assessed on follow-up head CT. 3. No intracranial mass. No evidence for acute infarct. ACT 112: Negative or not required by law. Electronically signed by: Maximino Pearson M.D. 09/17/2024 1:17 PM Extremity Venous Study 09/17/24 20:34 Exam(s): US VENOUS LEFT UPPER EXTREMITY EXAM: US Duplex Left Upper Extremity Veins CLINICAL HISTORY: swelling. TECHNIQUE: Real-time duplex ultrasound scan of the left upper extremity veins integrating B-mode two-dimensional vascular structure, Doppler spectral analysis, color flow Doppler imaging and compression. COMPARISON: No relevant prior studies available. FINDINGS: Deep veins: Unremarkable. No DVT in the internal jugular, subclavian, axillary, or brachial veins. The veins demonstrate normal color flow, are normally compressible, with normal phasic flow and/or augmentation response. Superficial veins: Unremarkable. No thrombus in the visualized basilic and cephalic veins. Soft tissues: No acute findings. IMPRESSION: No evidence for deep vein thrombosis involving the left upper extremity. Electronically signed by: Cedric Albert MD 09/17/24 22:26 PM Pending Results Patient Have Any Pending Studies at Discharge: No Discharge Instructions Given to Patient (Per Discharging Provider) Edward, We saw you after you had syncopal episodes. We determined that you did not have a stroke and that your symptoms were likely due to orthostatic hypotension due to your blood pressure being low due to your medications. 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 You worked with physical therapy and occupational therapy who recommended that you were able to return to your prior living facility. We are discharging you back with the gallegos catheter in place. It is likely that you will need to see a urologist as your tamsulosin was discontinued as noted above and you have a persistent need for the catheter. Your primary care provider will help with that. Please keep close follow up with your primary care provider after discharge. Please do not hesitate to come back to the emergency room if your symptoms worsen or return. It was a pleasure taking care of you while you were here. Total Time Total Time Spent Total Time Spent (In Minutes): 60
== END 2024-09-19 16:54 | DRG 312 ==
LOC: ED 18:16 → EDINP 21:26 → SUATTDRO 21:26 → INTOOBSV 21:26 → 2E 23:32